=== PATIENT | female | born 1935 | race Caucasian/White ===

== ENCOUNTER 2019-09-07 17:43 | Emergency (ER) | payer MEDICARE, OTHER, SELFPAY ==
--- NOTE | ~2019-09-07 | XR_ITS ---
EXAMINATION: XR finger 3rd RT min 2V DATE: 09/07/2019 18:46 INDICATION: Right hand third digit injury. TECHNIQUE: 4 views of right hand third digit were obtained. COMPARISON: None. FINDINGS: There is a comminuted fracture of dorsal base of third middle phalanx. A fracture fragment at the dorsal base demonstrates 4 mm dorsal displacement and rotation. There is a transverse extra-ar ticular fracture of base of fourth metacarpal with impaction and bone formation. There is mild osteoa rthritis of third metacarpophalangeal joint and distal interphalangeal joint. IMPRESSION: 1. Comminuted fracture base of third middle phalanx. 2. Healing fracture deformity of base of fourth metacarpal. Reviewed, dictated and finalized at location A.
[2019-09-07 18:03] VITALS: BP 153/72; PULSE 65; RESP 16; TEMP 36.6; O2SAT 97
--- NOTE | 2019-09-07 18:43 | PC.NURSE ---
XRAY in room for pt films
--- NOTE | 2019-09-07 18:51 | ED.GENADULT ---
HPI - General Adult General Chief complaint: Fall Stated complaint: fall Time Seen by Provider: 09/07/19 18:08 Source: patient Mode of arrival: ambulatory Limitations: no limitations History of Present Illness HPI narrative: Patient is an 83-year-old female who presents to emergency department for evaluation of injuries related to a fall that occurred earlier today patient was walking with her grandchildren when she sustained a fall patient presents noting injury to the right middle digit notes abrasions to the bilateral knees but notes no pain denies head injury syncope loss of consciousness patient has not taken anything for her symptoms presents with family noting just right middle digit pain patient has not had anything for her symptoms patient notes that she had felt fine prior to the incident. Patient is not sure as to why she fell Related Data Allergies Allergy/AdvReac Type Severity Reaction Status Date / Time Penicillins Allergy Unknown Verified 09/07/19 18:47 Review of Systems Review of Systems: All systems reviewed & are unremarkable except as noted in HPI and below Exam Narrative: Exam Narrative: GENERAL: Well-appearing, well-nourished, and in no acute distress. HEAD: Normocephalic, atraumatic. EYES: PERRLA and EOMI. ENT: Nares clear, no rhinorrhea or epistaxis. Mucous membranes moist. CHEST: Clear to auscultation. No respiratory distress. No wheezes rales or rhonchi HEART: Regular rate and rhythm. No murmur heard. Normal peripheral pulses. EXTREMITIES: Swelling tenderness and deformity of the right middle finger. No cervical thoracic or lumbar tenderness SKIN: Warm, dry, no rash. Superficial abrasions to the bilateral knees NEURO: No focal deficits. Alert and oriented x3. Cranial nerves II through XII grossly intact. Normal speech and gait PSYCH: Normal mood and affect. Course Course Emergency Course: Patient in the room in no distress aware of case findings treatment plan and diagnosis agreeing to follow with primary care patient resting comfortably in the room in no distress. Patient will be discharged home with hand surgery follow-up. Consultations Consultation #1: Discussed case with hand surgeon who will follow patient in clinic Date: 09/07/19 Time: 19:31 Vital Signs Vital signs: Vital Signs Temperature 97.8 F 09/07/19 18:03 Pulse Rate 65 09/07/19 18:03 Respiratory Rate 16 09/07/19 18:03 Blood Pressure 153/72 H 09/07/19 18:03 Pulse Oximetry 97 09/07/19 18:03 Temperature 97.8 F 09/07/19 18:03 Pulse Rate 65 09/07/19 18:03 Respiratory Rate 16 09/07/19 18:03 Blood Pressure 153/72 H 09/07/19 18:03 Pulse Oximetry 97 09/07/19 18:03 Medical Decision Making MDM Narrative Medical decision making narrative: Patients injury or pain is consistent with musculoskeletal etiology. No signs of neurological or vascular compromise on exam. Compartments and tisues are soft without signs of compartment syndrome. Pain is felt appropriate for further evaluation on an outpatient basis. Vital Signs Vital Signs: Vital Signs Temperature 97.8 F 09/07/19 18:03 Pulse Rate 65 09/07/19 18:03 Respiratory Rate 16 09/07/19 18:03 Blood Pressure 153/72 H 09/07/19 18:03 Pulse Oximetry 97 09/07/19 18:03 Temperature 97.8 F 09/07/19 18:03 Pulse Rate 65 09/07/19 18:03 Respiratory Rate 16 09/07/19 18:03 Blood Pressure 153/72 H 09/07/19 18:03 Pulse Oximetry 97 09/07/19 18:03 Lab Data Result diagrams: 09/07/19 18:51 09/07/19 20:14 Labs: Lab Results 09/07/19 09/07/19 09/07/19 Range/Units 18:51 20:14 20:52 WBC 5.9 (4.5-10.0) K/mm3 RBC 3.85 L (4.2-5.4) M/mm3 Hgb 12.1 (12.0-15.0) g/dL Hct 35.8 L (37.0-47.0) % MCV 93.0 (80-100) fl MCH 31.4 (26-34) pg MCHC 33.8 (32-36) g/dl RDW 12.8 (11.5-14.5) % Plt Count 130 L (150-375) k/mm3 MPV 11.5 H (7.4-10.4) fl Immature Gran % (Auto) 0.
--- NOTE | 2019-09-07 18:56 | PC.NURSE ---
Pt assisted to RR for urine sample.
--- NOTE | 2019-09-07 19:00 | PC.NURSE ---
Per tech that assisted pt to RR, she missed the hat completely). Per pt she is willing to have a straight cath.
[2019-09-07 19:06] LABS: Basophils Percent Auto 0.7 % (0.2-1.2); Eosinophils Absolute Auto 0.1 K/mm3 (0-0.3); Eosinophils Percent Auto 1.9 % (0-4.4); Hematocrit 35.8 % (37.0-47.0); Hemoglobin 12.1 g/dL (12.0-15.0); Immature Granulocyte Absolute 0.01 K/mm3 (0.00-0.031); Immature Granulocyte Percent A 0.2 % (0-0.5); Immature Platelet Fraction Pct 7.6 % (0.9-11.2); Lymphocytes Absolute Auto 1.07 K/mm3 (0.9-3.2); Lymphocytes Percent Auto 18.2 % (18.3-44.2); Mean Corpuscular HGB Conc 33.8 g/dl (32-36); Mean Corpuscular Hemoglobin 31.4 pg (26-34); Mean Platelet Volume 11.5 fl (7.4-10.4); Monocytes Absolute Auto 0.6 K/mm3 (0.1-0.6); Monocytes Percent Auto 9.4 % (2.6-8.5); Neutrophils Absolute Auto 4.1 K/mm3 (1.3-6.7); Neutrophils Percent Auto 69.6 % (45.5-73.1); Platelet Count Result 130 k/mm3 (150-375); Red Blood Count 3.85 M/mm3 (4.2-5.4); Red Cell Distribution Width 12.8 % (11.5-14.5); White Blood Count 5.9 K/mm3 (4.5-10.0)
[2019-09-07] MEDS: ACETAMINOPHEN 500 MG TABLET 1000 MG PO (19:57)
[2019-09-07 20:30] LABS: Alanine Aminotransferase 46 U/L (4-35); Albumin Level 4.6 g/dL (3.5-5.1); Alkaline Phosphatase 80 U/L (38-126); Aspartate Amino Transferase 60 U/L (14-36); Bilirubin,Total 0.9 mg/dL (0.2-1.3); Blood Urea Nitrogen 20 mg/dL (7-17); Calcium 9.3 mg/dL (8.4-10.2); Carbon Dioxide 28 mmol/L (22-30); Chloride 97 mmol/L (98-107); Estimated CRCL calculation 35 ml/min; Estimated Glomerular Filt Rate 53; Glucose 122 mg/dL (65-105); Potassium 3.6 mmol/L (3.4-5.0); Sodium 134 mmol/L (137-145)
--- NOTE | 2019-09-07 20:39 | PC.NURSE ---
pt ambulatory to restroom to give urine sample at this time.
[2019-09-07 21:09] LABS: Add Urine Microscopic? YES; Appearance Urine Clear (Clear); Bacteria Urine Trace /hpf; Bilirubin Urine 1+ (Negative); Blood Urine Negative (Negative); Color Urine Yellow (Yellow); Glucose Urine UA Negative (Negative); Ketones Urine Trace mg/dL (Negative); Leukocyte Esterase Ur 1+ LEU/UL (Negative); Mucus Urine Rare /lpf; Nitrate Urine Negative (Negative); Protein Urine Negative (Negative); RBC Urine 0-2 /hpf (0-2); Specific Grav Ur 1.028 (1.001-1.035); Squamous Epithelial Cell Urine Occasional /hpf (Few)
[2019-09-07 21:18] VITALS: BP 141/88; PULSE 81; RESP 19; TEMP 36.8; O2SAT 100
[2019-09-07 21:21] VITALS: BP 140/79; PULSE 81; RESP 19; TEMP 36.3; O2SAT 100
--- NOTE | 2019-09-13 05:41 | PC.NURSE ---
LATE ENTRY This note is being entered to document information to the patient's record. The following information was omitted on [09/07/19], metal finger splint applied per edp orders.
--- NOTE | 2019-11-01 05:57 | PC.NURSE ---
LATE ENTRY This note is being entered to document information to the patient's record. The following information was omitted on [09/07/19], metal finger splint applied to r middle finger.
== END 2019-09-07 21:22 | disposition home or self-care (01) ==
PROVIDERS: Emergency Medicine Emergency Medical Services; Emergency Provider Family Medicine
DX: S62.622A Displaced fracture of middle phalanx of right middle finger, initial encounter for closed fracture (principal); W19.XXXA Unspecified fall, initial encounter
CPT/HCPCS: 29130; 36415; 73140; 80053; 81001; 85025; 85055; 99284; A9270

== ENCOUNTER 2019-09-12 01:25 | Outpatient (CLI) | payer MEDICARE, OTHER, SELFPAY ==
[2019-09-12 19:25] LABS: SARS-CoV-2 RNA PCR Negative
== END 2019-09-12 01:26 | disposition home or self-care (01) ==
LOC: ANHCOVIDDT 01:25
PROVIDERS: Visit Provider Plastic Surgery
DX: Z01.812 Encounter for preprocedural laboratory examination (principal); Z11.59 Encounter for screening for other viral diseases
CPT/HCPCS: 87635; C9803; U0003

== ENCOUNTER 2019-09-12 09:59 | Outpatient (CLI) | payer MEDICARE, OTHER, SELFPAY ==
--- NOTE | 2019-09-12 10:01 | ECG_ITS ---
Measurements Intervals [place] Rate: 54 P: 66 MD: 202 QRS: 25 QRSD: 75 T: 45 QT: 410 QTc: 389 Interpretive Statements SINUS BRADYCARDIA BORDERLINE AV CONDUCTION DELAY DELAYED PRECORDIAL R/S TRANSITION BORDERLINE ST-T WAVE ABNORMALITY- ANTEROLATERAL LEADS BASELINE ARTIFACT- I, II, III, AVR, AVL, AVF, V4 BORDERLINE ECG Electronically Signed On 09-12-2019 10:52:13 CDT by Anderson Luong D.O.
== END 2019-09-12 10:00 | disposition home or self-care (01) ==
PROVIDERS: PCP Internal Medicine; Visit Provider Plastic Surgery
DX: E78.00 Pure hypercholesterolemia, unspecified (principal); I10 Essential (primary) hypertension; I45.9 Conduction disorder, unspecified
CPT/HCPCS: 93005

== ENCOUNTER 2019-09-14 01:57 | Day surgery (SDC) | payer MEDICARE, OTHER, SELFPAY ==
[2019-09-11 13:06] VITALS: BMI 21.8
--- NOTE | 2019-09-13 19:48 | HP_ITS ---
DATE OF SERVICE: 09/14/2019 HISTORY: The patient is 83. She is referred from the [facility] where she presented on 09/07/2019 with an injury to her right middle finger. This was sustained when she was out walking and simply fell onto the sidewalk. She injured her right middle finger. X-rays reveal a significantly sized fracture of the dorsal base of the middle phalanx and possible other smaller fragments. The finger does not appear to be subluxed and seems to function in extension. Nevertheless, the fragment is large enough that it should be repaired. She is aware of the need for this and that she will have an incision scar, possible infection, the finger may end up stiff despite our repair of it, and there are anesthetic risks and others. She would like to proceed. PAST MEDICAL HISTORY: ALLERGIES: SHE HAS AN ALLERGY TO PENICILLIN. MEDICATIONS: She currently takes hydrochlorothiazide, atorvastatin, levothyroxine, metoprolol, sertraline, potassium chloride, alendronate, and sodium tablets. She does not list prior surgeries and she does not list chronic ailments, though she says she has a thyroid problem and hypertension. FAMILY HISTORY: Noncontributory. SOCIAL HISTORY: She lives in [place]. She is retired. She is a patient of [facility]. PHYSICAL EXAMINATION: GENERAL: We do not have a height and weight. She appears her stated age. She is in no acute distress. HEENT: Unremarkable. CHEST: Clear to auscultation. HEART: Regular rate and rhythm by palpation. ABDOMEN: Soft and nontender. EXTREMITIES: Appear normal. The right middle finger is somewhat swollen and has been bruised. She is reluctant to flex and extend it, but demonstrates intact tendons and nerves. ASSESSMENT: Fracture of the base of the middle phalanx, right middle finger. PLAN: Open reduction and internal fixation, hopefully with a screw. D I MT: Jose
--- NOTE | ~2019-09-14 | XR_ITS ---
XR surgery orthopedic DATE: 09/14/2019 10:18 INDICATION: ORIF middle finger fracture TECHNIQUE: 6 spot C-arm images of the third digit 28 seconds fluoroscopy time 2.3634 cGycm2 COMPARISON: None FINDINGS: Initial preoperative views reveal a completely dorsally displaced intra-articular cortical avulsion fracture of the posterior base of the middle phalanx. 2. Posteroanteriorly directed screws providing near-anatomic position and alignment at the fracture s ite. IMPRESSION: ORIF dorsal cortical avulsion fracture of the base of the middle phalanx Reviewed, dictated and finalized at Location A. Reviewed, dictated and finalized at location B. IMPRESSION: ORIF dorsal cortical avulsion fracture of the base of the middle ph alanx
[2019-09-14] MEDS: LACTATED RINGERS 1,000 ML 30 ML IV CONT (08:05)
[2019-09-14 08:10] VITALS: BP 152/63; PULSE 60; TEMP 36.1; O2SAT 100
--- NOTE | 2019-09-14 08:26 | P.PNAN_ITS ---
Anes - Initial Pre Proc Eval Procedure: Operation Date: 09/14/19 09:30 Proposed Procedures p Open Reduction Internal Fixation, Right Middle Finger, Middle Phalanx - Rios Resendez MD Date/Time: 09/14/19 08:26 Surgeon: Rios Resendez MD Pre Op Diagnosis: Fracture of Right Middle Finger Middle Phalanx Patient Data Age: 83 Gender: F Height: 5 ft 6 in Weight: 68.4 kg Last Vital Signs Temp 97.0 F L 09/14/19 08:10 Pulse 60 09/14/19 08:10 BP 152/63 H 09/14/19 08:10 Pulse Ox 100 09/14/19 08:10 Allergies Allergy/AdvReac Type Severity Reaction Status Date / Time Penicillins Allergy Unknown Verified 09/11/19 12:52 Home Medications Medication Instructions Recorded Confirmed Type acetaminophen [Tylenol Arthritis 650 mg PO Q8H PRN #10 tablet 09/07/19 09/11/19 Rx Pain] alendronate 70 mg PO WEEKLY 09/11/19 09/11/19 History atorvastatin 10 mg PO DAILY 09/11/19 09/11/19 History hydrochlorothiazide 25 mg PO DAILY 09/11/19 09/11/19 History levothyroxine 25 mcg PO DAILY 09/11/19 09/11/19 History metoprolol succinate 50 mg PO DAILY 09/11/19 09/11/19 History omega 3-hdn-gae-fish oil [Fish Oil] 1 cap PO DAILY 09/11/19 09/11/19 History potassium chloride 10 meq PO DAILY 09/11/19 09/11/19 History sertraline 50 mg PO DAILY 09/11/19 09/11/19 History Patient hx anesthesia problems: none Family hx anesthesia problems: none [facility] Past Medical History Medical History (Updated 09/14/19 @ 08:26 by Luis Alfredo Deluna MD) Hyperlipidemia Hypertension Hypothyroid Social History Social History Smoking status: Never smoker Alcohol intake: never Substance use: never Spiritual care concerns: No Anes - Eval Final PreProcedure Day of Procedure 09/14/19 08:26 Patient weight: normal Heart: regular rate and rhythm Lungs: clear to auscultation Airway: Mallampati scale class II Neurological: alert and oriented Last oral intake: >/= 8 hours ASA classification: II Emergent: no Anesthetic plan: proceed Anesthesia type and monitoring: general GIVS and standard monitoring Informed Consent: The patient's anesthetic plan and its attendant risks and benefits were discussed with the patient/family/POA. Questions were solicited and answers provided to the satisfaction of the patient/family/POA.
--- NOTE | 2019-09-14 08:44 | WPDHPUPDATE1 ---
History and Physical Update Update Date/Time: 09/14/19 08:44 History and Physical has been reviewed, including an updated exam of the patient. There are NO changes in the patient's condition. Risks, benefits, and alternatives have been discussed and questions answered. Patient agrees to proceed with procedure.
[2019-09-14] MEDS: ceFAZolin 2 GM/D5W 50 ML 2 GM/50 ML BAG IVPB (09:01)
[2019-09-14] MEDS: LIDO 1%/EPINEPHRINE 1:100,000 20 ML VIAL INFILTRATE (09:34)
[2019-09-14 10:26] VITALS: BP 109/60; PULSE 52; RESP 16; TEMP 36.3; O2SAT 98
--- NOTE | 2019-09-14 10:26 | PM.OP ---
Procedure Note - Brief Procedure Note - Brief Date of procedure: 09/14/19 Pre-op diagnosis: Fracture of Right Middle Finger Middle Phalanx Post-op diagnosis: other (Comminuted displaced fracture of the middle phalanx of the right middle finger.) Procedure performed: ORIF of comminuted fracture of the middle phalanx of the right middle finger. Implants: screws x 2 1.3mm x 10 mm from Modular Hand Set Surgeon: Rios Resendez MD
[2019-09-14 10:45] VITALS: BP 138/72; PULSE 63; RESP 12
[2019-09-14 11:15] VITALS: BP 148/70; PULSE 62; RESP 20
[2019-09-14 11:35] VITALS: BP 145/72; PULSE 68; RESP 16
--- NOTE | 2019-09-14 11:47 | PM.PROC ---
Procedure Note - Detailed Date of procedure: 09/14/19 Pre-op diagnosis: Fracture of Right Middle Finger Middle Phalanx Post-op diagnosis: same Procedure performed: Open reduction with internal screw fixation of the comminuted fracture at the base of the middle phalanx. right middle finger Description of procedure: The proximal interphalangeal joint of the right middle finger was marked as the patient waited in the holding area. She was then taken to the operating room and placed supine on the operating table. The extremity was prepped and draped in usual fashion as she was given IV sedation. She had been given 2 g of IV Ancef prior to the case. The digit was anesthetized with 1% lidocaine with epinephrine. A green tourniquet up was rolled onto the finger to the base. The digit was marked for a dorsal midline incision. C-arm images were made to confirm the displaced fracture. the dorsal midline incision was made and skin flaps elevated to both sides away from the extensor tendon. The large dorsal base fragment was immediately identified having ruptured it self through the triangular ligament. The entire fracture surface was exposed dorsally. With distraction on the finger I was able to reduce the large dorsal base fragment into near anatomic position. The central slip remained inserted on that fragment. Two 1.3 by 10 mm cortical screws were passed through the large fragment diagonally into the shaft of the middle phalanx. These held the fracture in reduced position but the fixation was not entirely stable. I believe there is additional fracture of the volar base of the same bone but there is little or no displacement of fragments there. The patient is also somewhat osteoporotic. The lateral margins of the central slip were repaired to their insertion. The triangular ligament was repaired with a single 5 0 nylon suture in the lateral bands. . The wound was irrigated and the skin closed with a running 5 0 nylon. A gauze and Coban dressing was applied followed by a segment of alumifoam splint extending from the metacarpophalangeal joint to the distal interphalangeal joint. I intended this to allow mobilization of the proximal and distal joints and satisfactorily stabilized the middle joint for 3-4 weeks. She was discharged with instructions in wound care and follow-up she has a prescription for hydrocodone number 12 Surgeon: Rios Resendez MD
== END 2019-09-14 11:40 | disposition home or self-care (01) ==
PROVIDERS: PCP Internal Medicine; Visit Provider Plastic Surgery
PROC: (CPT 26735; principal; 2019-09-14 09:30)
DX: S62.622A Displaced fracture of middle phalanx of right middle finger, initial encounter for closed fracture (principal); W18.30XA Fall on same level, unspecified, initial encounter; Y93.01 Activity, walking, marching and hiking; I10 Essential (primary) hypertension; E78.5 Hyperlipidemia, unspecified; E03.9 Hypothyroidism, unspecified
CPT/HCPCS: 26735; 87635; 93005; A9270; C1713; C9803; J0690; J2704; J3010; J7120; U0003

== ENCOUNTER 2019-11-10 13:40 | Outpatient (CLI) | payer MEDICARE, OTHER, SELFPAY ==
--- NOTE | ~2019-11-10 | XR_ITS ---
EXAMINATION: XR finger 3rd RT min 2V DATE: 11/10/2019 14:09 INDICATION: Right hand third digit fracture. TECHNIQUE: 4 views of right hand third digit were obtained. COMPARISON: Right hand third digit radiographs 09/07/2019, 12/15/2019 FINDINGS: There is a comminuted fracture of base of third middle phalanx. The main distal fracture fr agment demonstrates 10 degrees palmar angulation. Internal fixation is seen with 2 screws. Callus for mation is noted. 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 There is soft tis nigel swelling around third proximal interphalangeal joint. IMPRESSION: 1. Comminuted intra-articular fracture of base of third middle phalanx with internal fixation. Reviewed, dictated and finalized at location A. IMPRESSION: 1. Comminuted intra-articular fracture of base of third middle phalanx with int ernal fixation.
== END 2019-11-10 13:41 | disposition home or self-care (01) ==
LOC: ANHIMG 13:47
PROVIDERS: PCP Internal Medicine; Visit Provider Plastic Surgery
DX: S62.622A Displaced fracture of middle phalanx of right middle finger, initial encounter for closed fracture (principal)
CPT/HCPCS: 73140

== ENCOUNTER 2021-07-13 14:37 | Observation (INO) | payer MEDICARE, OTHER, SELFPAY ==
[2021-07-13] VITALS (10 sets, daily range): BP systolic 133–178; BP diastolic 61–117; PULSE 57–75; RESP 14–25; TEMP 36.2–36.8; O2SAT 98–100; BMI 22.2
--- NOTE | ~2021-07-13 | CT_ITS ---
EXAMINATION: CT brain wo con DATE: 07/13/2021 16:26 INDICATION: dizziness, confusion . TECHNIQUE: Computed tomography (CT) of the head was performed without intravenous contrast. The mA wa s adjusted according to patient size. Iterative reconstruction technique was employed. The dose-lengt h product was 529.67 mGy-cm. COMPARISON: None FINDINGS: No acute intracranial hemorrhage or extra-axial fluid collection. No hydrocephalus, mass, or herniation. No acute ischemic infarct. Unremarkable dural venous sinus attenuation. No acute osseous abnormality. The aerated spaces are clear. Severe atrophy and moderate chronic white matter change. Atherosclerotic intracranial calcifications. Bilateral lens replacements. IMPRESSION: No acute intracranial process. Reviewed, dictated and finalized at location K.
--- NOTE | 2021-07-13 14:42 | ECG_ITS ---
Measurements Intervals [place] Rate: 61 P: 68 WV: 200 QRS: 18 QRSD: 70 T: 31 QT: 384 QTc: 387 Interpretive Statements SINUS RHYTHM BORDERLINE AV CONDUCTION DELAY CANNOT RULE OUT SEPTAL INFARCT, AGE INDETERMINATE BASELINE ARTIFACT- I, II, AVR ABNORMAL ECG Electronically Signed On 07-13-2021 16:19:24 CDT by Anderson Luong D.O.
--- NOTE | 2021-07-13 15:25 | ED.GENADULT ---
HPI - General Adult General Chief complaint: Dizziness Stated complaint: elevated BP/DIZZY/AMS Time Seen by Provider: 07/13/21 14:56 Source: patient, family and RN notes reviewed Mode of arrival: wheelchair Limitations: dementia History of Present Illness HPI narrative: This is an 85 year old female with history of dementia and hypertension who presents with family due to elevated blood pressure. Patient's daughter is at bedside. She states today patient's blood pressure has been runny systolic 160s to 190s. They report patient has been complaining of dizziness, and she has been having dizziness for months. She takes vailum for dizziness. Patient denies dizziness now. She reports some intermittent dizziness with standing sometimes. Patient states nothing is bothering her and she does not know why she is here. Her family also reports disorientation today but she has been dealing with disorientation intermittently for months. She has a neurologist for dementia. She forgot how to get home 2 weeks ago . Patient denies headache, chest pain, nausea, vomiting, dizziness, abodminal pain, weakness. Her hydrochlorothiazide was discontinued last month. Related Data Home Medications Medication Instructions Recorded Confirmed alendronate 70 mg PO WEEKLY 09/11/19 07/13/21 atorvastatin 20 mg PO HS 09/11/19 07/13/21 levothyroxine 25 mcg PO DAILY 09/11/19 07/13/21 metoprolol succinate 25 mg PO DAILY 09/11/19 07/13/21 omega 2-cvr-qes-fish oil [Fish Oil] 1 cap PO DAILY 09/11/19 07/13/21 potassium chloride 10 meq PO DAILY 09/11/19 07/13/21 diazepam 5 mg PO DAILY 07/13/21 07/13/21 donepezil 5 mg PO DAILY 07/13/21 07/13/21 memantine 10 mg PO BID 07/13/21 07/13/21 Allergies Allergy/AdvReac Type Severity Reaction Status Date / Time Penicillins Allergy Unknown Verified 07/13/21 19:01 Review of Systems Review of Systems: All systems reviewed & are unremarkable except as noted in HPI and below PMFSH Past Medical History Medical History (Updated 07/13/21 @ 22:01 by Ayah Boudreaux MD) Dementia Hyperlipidemia Hypertension Hypothyroid Social History Social History Smoking status: Never smoker Alcohol intake: never Substance use: never Substance use type: does not use Spiritual care concerns: No Exam Narrative: GENERAL: Well-appearing, well-nourished, and in no acute distress. HEAD: Normocephalic, atraumatic EYES: PERRLA and EOMI, conjunctiva clear without discharge EARS: TM's clear bilaterally without erythema or dullness THROAT:Mucous membranes moist, Oropharynx normal without erythema, exudate, peritonsillar swelling or fluctuance NECK: Supple, without lymphadenopathy or mass RESPIRATORY: No respiratory distress, Airway patent, Respirations non-labored, Clear to auscultation without rales, rhonchi or wheeze HEART: Regular rate and rhythm. No murmur heard. Normal peripheral pulses. ABDOMEN: Soft, nontender, nondistended, normal active bowel sounds. No masses. No rebound or guarding, No organomegaly. EXTREMITIES: No edema, normal strength with full range of motion. SKIN: Warm, dry, normal color without rash NEURO: Alert and oriented x3. CN 2-12 grossly intact. No focal deficits. PSYCH: Normal mood and affect. Course Reevaluation(s) Reevaluation #1: Patient is now complaining of dizziness but it is difficult for her to explain. Patient was given hydralazine for her BP. Family prefer for patient to be obs . They reports patient has been complaining about being foggy for months and she is not getting better. No focal deficits found. She had normal finger to nose. Date: 07/13/21 Time: 18:00 Vital Signs Vital signs: Vital Signs Temperature 97.1 F L 07/13/21 14:43 Pulse Rate 64 07/13/21 14:43 Respiratory Rate 14 07/13/21 14:43 Blood Pressure 176/117 H 07/13/21 14:43 Pulse Oximetry 100 07/13/21 14:43 Temperature 98.3 F
[2021-07-13 15:54] LABS: Basophils Absolute Auto 0.1 K/mm3 (0.0-0.1); Basophils Percent Auto 0.7 % (0.2-1.2); Eosinophils Percent Auto 0.6 % (0-4.4); Hematocrit 47.1 % (37.0-47.0); Hemoglobin 15.2 g/dL (12.0-15.0); Immature Granulocyte Absolute 0.02 K/mm3 (0.00-0.031); Immature Granulocyte Percent A 0.3 % (0-0.5); Lymphocytes Absolute Auto 1.33 K/mm3 (0.9-3.2); Lymphocytes Percent Auto 19.1 % (18.3-44.2); Mean Corpuscular HGB Conc 32.3 g/dl (32-36); Mean Corpuscular Hemoglobin 31.5 pg (26-34); Mean Corpuscular Volume 97.7 fl (80-100); Mean Platelet Volume 10.3 fl (7.4-10.4); Monocytes Absolute Auto 0.6 K/mm3 (0.1-0.6); Monocytes Percent Auto 8.9 % (2.6-8.5); Neutrophils Absolute Auto 4.9 K/mm3 (1.3-6.7); Neutrophils Percent Auto 70.4 % (45.5-73.1); Platelet Count Result 189 k/mm3 (150-375); Red Blood Count 4.82 M/mm3 (4.2-5.4); Red Cell Distribution Width 12.9 % (11.5-14.5)
[2021-07-13 15:55] LABS: Appearance Urine Clear (Clear); Bilirubin Urine Negative (Negative); Blood Urine Negative (Negative); Color Urine Yellow (Yellow); Glucose Urine UA Negative (Negative); Ketones Urine Negative (Negative); Leukocyte Esterase Ur Trace LEU/UL (Negative); Nitrate Urine Negative (Negative); Protein Urine Negative (Negative); Specific Grav Ur 1.015 (1.001-1.035); Urobilinogen Urine 0.2 mg/dL (<2.0)
[2021-07-13 16:02] LABS: Bacteria Urine Trace /hpf; Mucus Urine Rare /lpf; RBC Urine 0-2 /hpf (0-2); Squamous Epithelial Cell Urine Occasional /hpf (Few); WBC Urine 0-3 /hpf
[2021-07-13 16:10] LABS: Add Urine Microscopic? YES
[2021-07-13 16:49] LABS: Alanine Aminotransferase 20 U/L (6-35); Albumin Level 4.5 g/dL (3.5-5.1); Alkaline Phosphatase 81 U/L (38-126); Anion Gap 5 mmol/L (8-16); Aspartate Amino Transferase 35 U/L (14-36); Bilirubin,Total 1.8 mg/dL (0.2-1.3); Blood Urea Nitrogen 16 mg/dL (7-17); Calcium 9.5 mg/dL (8.4-10.2); Carbon Dioxide 31 mmol/L (22-30); Chloride 100 mmol/L (98-107); Estimated CRCL calculation 31 ml/min; Estimated Glomerular Filt Rate 47; Glucose 93 mg/dL (65-110); Potassium 4.8 mmol/L (3.4-5.0); Sodium 136 mmol/L (137-145)
[2021-07-13] MEDS: hydrALAZINE HCL 20 MG/ML VIAL 10 MG IV PUSH (17:02)
--- NOTE | 2021-07-13 17:49 | PC.NURSE ---
Assumed care of pt at this time. Pt A&Ox2, disoriented to time. Updated pt and family on POC.
[2021-07-13 18:38] LABS: SARS-CoV-2 RNA PCR Negative
--- NOTE | 2021-07-13 18:49 | ADMGEN ---
This patient, Carly Martino, was admitted to Medical Room 346-01. Patient/family oriented to hospital policies and general routines including ID bracelet, bed and alarms, visiting hours, pain management, procedures, bathroom and other care routines, personal items, smoking policy, room service/diet, and visiting hours. Information on how to activate the Rapid Response Team has been discussed. Patient/Family are encouraged to report perceived risks to care and to ask questions if they do not understand what they are told or what they should do.
--- NOTE | 2021-07-13 20:24 | PM.IMHP ---
H&P: HPI History of Present Illness Date/Time: 07/13/21 20:24 Chief Complaint: Dizziness. Narrative: This is an 85-year-old female with past medical history significant for hypertension, osteoporosis, dementia, hypothyroidism. Patient is brought to the emergency room by family members due to dizziness, elevated blood pressure at the time of my visit patient denied any discomfort is stated that she has just had some dizziness but denied any syncope, near syncope, shortness of breath, diaphoresis, abdominal pain, nausea, vomiting, diarrhea, PND, orthopnea, leg swelling, or and consists welling, no fevers, no rigors, no chills, no cough, no sputum production. She has had a good appetite and she has been eating all her meals according to which she says. Patient also denied falling. Preliminary workup was significant for a systolic blood pressure daughter was elated in between 130s to 170s. Preliminary workup has been essentially nonrevealing. Patient has been admitted for further evaluation, management and treatment. Review of Systems Review of Systems: Dizziness Constitutional: Constitutional: Denies chills, Denies fatigue, Denies fever(s), Denies frequent falls, Denies malaise, Denies night sweats, Denies poor appetite and Denies weakness Eyes: Eyes: Denies change in vision ENT: Denies dysphagia, Reports dizziness, Denies nasal congestion, Denies nasal discharge, Denies nasal obstruction and Denies odynophagia Cardiovascular: Cardiovascular: Denies pedal edema, Denies claudication, Denies leg edema, Denies radiating jaw, neck or arm pain, Denies palpitations and Denies dyspnea on exertion Respiratory: Respiratory: Denies cough and Denies dyspnea Gastrointestinal: Gastrointestinal: Denies abdominal pain, Denies nausea and Denies vomiting Genitourinary: Genitourinary: Denies dysuria Musculoskeletal: Musculoskeletal: Denies arthralgias and Denies joint swelling Integumentary/Breasts: Skin/Breast: Denies rash Neurologic: Denies focal weakness and Denies Sensory deficit (Neuro) Psychiatric: Psychiatric: Reports no additional psychiatric complaints and Reports as per HPI Endocrine: Endocrine: Denies cold intolerance, Denies heat intolerance, Denies polyphagia, Denies polydipsia and Denies palpitations Hematologic/Lymphatic: Hematologic/Lymphatic: Reports no additional hematologic/lymphatic complaints and Reports as per HPI Allergic/Immunologic: Allergic/Immunologic: Reports no additional allergic/immunologic complaints and Reports as per [facility] Past Medical History Medical History (Updated 07/14/21 @ 03:22 by Cecil Wade MD) Dementia Hyperlipidemia Hypertension Hypothyroid Social History Social History Smoking status: Never smoker Alcohol intake: never Substance use: never Substance use type: does not use Spiritual care concerns: No Meds Home Medications and Allergies Home Medications Medication Instructions Recorded Confirmed Type acetaminophen [Tylenol Arthritis 650 mg PO Q8H PRN #10 tablet 09/07/19 07/13/21 Rx Pain] alendronate 70 mg PO WEEKLY 09/11/19 07/13/21 History atorvastatin 20 mg PO HS 09/11/19 07/13/21 History levothyroxine 25 mcg PO DAILY 09/11/19 07/13/21 History metoprolol succinate 25 mg PO DAILY 09/11/19 07/13/21 History omega 3-vig-wsc-fish oil [Fish Oil] 1 cap PO DAILY 09/11/19 07/13/21 History potassium chloride 10 meq PO DAILY 09/11/19 07/13/21 History diazepam 5 mg PO DAILY 07/13/21 07/13/21 History donepezil 5 mg PO DAILY 07/13/21 07/13/21 History memantine 10 mg PO BID 07/13/21 07/13/21 History Allergies Allergy/AdvReac Type Severity Reaction Status Date / Time Penicillins Allergy Unknown Verified 07/13/21 19:01 Vital Signs Vital Signs - 24 hr 07/13/21 14:43 07/13/21 15:25 07/13/21 15:26 Temperature 97.1 F L Pulse Rate 64 67 63 Respiratory Rate 14 25 H 16 Blood Pressure 176/117 H 162/75 H 1
[2021-07-13] MEDS: SODIUM CHLORIDE 0.9% IV 1,000 ML 125 ML IV CONT (21:55)
[2021-07-14] VITALS (11 sets, daily range): BP systolic 127–181; BP diastolic 64–74; PULSE 61–71; RESP 18–20; TEMP 36.3–36.5; O2SAT 99
[2021-07-14] MEDS: SODIUM CHLORIDE 0.9% IV 1,000 ML 125 ML IV CONT (04:05)
[2021-07-14] MEDS: LEVOTHYROXINE SODIUM 25 MCG TABLET PO (05:44)
[2021-07-14 06:38] LABS: Basophils Absolute Auto 0.1 K/mm3 (0.0-0.1); Basophils Percent Auto 1.1 % (0.2-1.2); Eosinophils Absolute Auto 0.1 K/mm3 (0-0.3); Eosinophils Percent Auto 1.8 % (0-4.4); Hematocrit 40.3 % (37.0-47.0); Hemoglobin 13.1 g/dL (12.0-15.0); Immature Granulocyte Absolute 0.01 K/mm3 (0.00-0.031); Immature Granulocyte Percent A 0.2 % (0-0.5); Lymphocytes Absolute Auto 1.15 K/mm3 (0.9-3.2); Lymphocytes Percent Auto 25.8 % (18.3-44.2); Mean Corpuscular HGB Conc 32.5 g/dl (32-36); Mean Corpuscular Hemoglobin 31.7 pg (26-34); Mean Corpuscular Volume 97.6 fl (80-100); Mean Platelet Volume 10.2 fl (7.4-10.4); Monocytes Absolute Auto 0.4 K/mm3 (0.1-0.6); Neutrophils Absolute Auto 2.8 K/mm3 (1.3-6.7); Neutrophils Percent Auto 62.1 % (45.5-73.1); Platelet Count Result 154 k/mm3 (150-375); Red Blood Count 4.13 M/mm3 (4.2-5.4); Red Cell Distribution Width 12.9 % (11.5-14.5); White Blood Count 4.5 K/mm3 (4.5-10.0)
[2021-07-14 06:50] LABS: Alanine Aminotransferase 18 U/L (6-35); Albumin Level 3.7 g/dL (3.5-5.1); Alkaline Phosphatase 67 U/L (38-126); Anion Gap 7 mmol/L (8-16); Aspartate Amino Transferase 33 U/L (14-36); Bilirubin,Total 1.7 mg/dL (0.2-1.3); Blood Urea Nitrogen 16 mg/dL (7-17); Calcium 8.7 mg/dL (8.4-10.2); Carbon Dioxide 28 mmol/L (22-30); Chloride 106 mmol/L (98-107); Estimated CRCL calculation 34 ml/min; Estimated Glomerular Filt Rate 53; Glucose 91 mg/dL (65-110); Potassium 4.3 mmol/L (3.4-5.0); Sodium 141 mmol/L (137-145)
[2021-07-14] MEDS: MEMANTINE 10 MG TABLET PO (09:21)
[2021-07-14] MEDS: DONEPEZIL HCL 5 MG TABLET PO (09:21)
[2021-07-14] MEDS: amLODIPine BESYLATE 2.5 MG TABLET 7.5 MG PO (09:21)
[2021-07-14] MEDS: OMEGA 3 POLYUNSAT FATTY ACIDS 1 GM CAP PO (09:21)
[2021-07-14] MEDS: POTASSIUM CHLORIDE 10 MEQ TABLET.ER PO (09:21)
[2021-07-14] MEDS: METOPROLOL SUCCINATE EXT REL 25 MG TABCR PO (09:22)
--- NOTE | 2021-07-14 09:24 | PM.DS ---
DS: Admitting Diagnosis Discharge Date 07/14/2021 Admitting Diagnosis Hypertensive urgency Dizziness DS: Discharge Diagnosis Discharge Diagnosis (1) Hypertensive urgency: Code(s): I16.0 - Hypertensive urgency Status: Acute Assessment and Plan: CT head with no acute intracranial abnormality Cultures normalization of blood pressure Supportive care Continue to monitor (2) Dizziness: Code(s): R42 - Dizziness and giddiness Status: Acute Assessment and Plan: Likely secondary to uncontrolled hypertension Supportive care PT OT consult (3) Dementia: Code(s): F03.90 - Unspecified dementia without behavioral disturbance Status: Inactive Assessment and Plan: Continue memantine Continue donepezil (4) Hyperlipidemia: Code(s): E78.5 - Hyperlipidemia, unspecified Status: Acute Assessment and Plan: Continue statin Follow-up in outpatient setting (5) Osteoporosis: Code(s): M81.0 - Age-related osteoporosis without current pathological fracture Status: Acute Assessment and Plan: Continue biphosphonate Follow-up in outpatient setting DS: Summary Hospital Course Reason for hospitalization: Hypertensive urgency Hospital Course: patient is an 85-year-old female with past medical history significant for hypertension, osteoporosis, dementia, hypothyroidism. Patient is brought to the emergency room by family members due to dizziness, elevated blood pressure at the time in the emergency department however the patient denied any discomfort is stated that she has just had some dizziness but denied any syncope, near syncope, shortness of breath, diaphoresis, abdominal pain, nausea, vomiting, diarrhea, PND, orthopnea, leg swelling, or and consists welling, no fevers, no rigors, no chills, no cough, no sputum production. She has had a good appetite and she has been eating all her meals according to which she says. Patient also denied falling. Preliminary workup was significant for a systolic blood pressure daughter was elevated in between 130s to 170s. Preliminary workup has been essentially nonrevealing. Patient has been admitted for further evaluation, management and treatment. During the patient's hospitalization she was started on 7.5 mg of Norvasc. Blood pressures systolic was 120 to 130s after medication administration. Orthostatics were obtained and negative. Patient was discussed about discharge and transitioning slowly from positions. Patient has no acute concerns at this time. She will discuss the new medication changes with her PCP in follow-up as outpatient. Status at Discharge Cognitive/behavioral status at discharge: Alert and oriented x4 Functional status at discharge: independent ambulation Overall status at discharge: patient is back to baseline Time Spent with Patient Time attestation: Total time spent providing and/or coordinating discharge services: Time spent: Less than 30 minutes Exam Narrative: Patient is laying in bed. Const: General: cooperative, comfortable, no acute distress, well developed, alert, awake and other (Well-appearing) Nutritional Appearance: thin Orientation/consciousness: oriented to person and oriented to place HENMT: Head: normal to inspection, normocephalic and atraumatic Ears: hearing grossly normal bilaterally General nose exam: Normal external nose present Face and sinus: normal facial exam Mouth: Yes Normal oral and palatal mucosa present Eyes: General: appearance normal, both eyes and all related structures Alignment and Position: alignment normal Sclera: sclerae normal Pupils: Equal, round and reactive pupils present EOM: EOMs intact bilaterally Neck: Neck: normal visual inspection, full ROM, no lymphadenopathy, supple and no JVD Thyroid: thyroid normal Lymphatic: no lymphadenopathy noted Resp: Effort & Inspection: normal respiratory effort and able to speak in complete sentences Auscultati
== END 2021-07-14 18:00 | disposition home or self-care (01) ==
LOC: ANHED 16:22 → ANH3MED 19:21
PROVIDERS: Emergency Medicine; Admitting Provider Internal Medicine; Emergency Provider General Practice; PCP Internal Medicine; Visit Provider Nurse Practitioner Family
DX: I16.0 Hypertensive urgency (principal); R42 Dizziness and giddiness; I10 Essential (primary) hypertension; E78.5 Hyperlipidemia, unspecified; E03.9 Hypothyroidism, unspecified; F03.90 Unspecified dementia, unspecified severity, without behavioral disturbance, psychotic disturbance, mood disturbance, and anxiety; M81.0 Age-related osteoporosis without current pathological fracture; Z20.822 Contact with and (suspected) exposure to COVID-19; Z88.0 Allergy status to penicillin
CPT/HCPCS: 36415; 70450; 80053; 81001; 85025; 93005; 96361; 96374; 97161; 97165; 99285; A9270; C9803; G0378; J0360; J7030; U0003; U0005

== ENCOUNTER 2021-07-28 09:36 | Emergency (ER) | payer MEDICARE, OTHER, SELFPAY ==
--- NOTE | ~2021-07-28 | XR_ITS ---
XR thoracic spine 3V DATE: 07/28/2021 12:32 INDICATION: Midline back pain TECHNIQUE: AP, lateral, swimmer views COMPARISON: None FINDINGS: There is severe degenerative disease at C5-6, with severe degenerative disease at C6-7. Diffuse osteopenia. There is moderate loss of height and anterior wedging at T12, without apparent posterior protrusion. No other fracture of the thoracic spine is evident. The thoracic pedicles appear intact. There is deg enerative spurring in the mid and lower thoracic spine. IMPRESSION: Moderate T12 fracture, likely compression type Osteopenia Degenerative change of the lower cervical and thoracic spine Reviewed, dictated and finalized at location A.
--- NOTE | ~2021-07-28 | XR_ITS ---
XR lumbar spine 2-3V DATE: 07/28/2021 12:32 INDICATION: Midline back pain TECHNIQUE: AP, lateral, coned lateral lumbosacral views COMPARISON: None FINDINGS: There is diffuse osteopenia. There is moderate loss of height and anterior wedging of T12 consistent with compression fracture, po ssibly recent. There is minimal anterolisthesis at L3-4, due to degenerative change at the apophyseal joints. There is moderately severe degenerative disc disease at L4-5. Remaining lumbar and lumbosacral inters paces are relatively well preserved. The sacroiliac joints are unremarkable. IMPRESSION: T12 compression fracture Moderately severe degenerative disc disease at L4-5 Degenerative changes apophyseal joints with associated minimal grade 1 anterolisthesis at L3-4 Reviewed, dictated and finalized at location A. IMPRESSION: T12 compression fracture Moderately severe degenerative disc disease at L4-5 Degenerative changes apophyseal joints with associated minimal grade 1 anteroli sthesis at L3-4
[2021-07-28 10:08] VITALS: BP 140/76; PULSE 69; RESP 18; TEMP 36.1; O2SAT 100
[2021-07-28 10:38] VITALS: BP 165/75; PULSE 65; RESP 16; O2SAT 100
--- NOTE | 2021-07-28 11:41 | ED.BACK ---
HPI - Back Pain/Injury General Chief Complaint: Back Pain/Injury Stated Complaint: back pain Time Seen by Provider: 07/28/21 10:30 History of Present Illness HPI Narrative: 85-year-old female presenting to the emergency department for evaluation of midline back pain. Patient denies any incident of fall or injury. Family states that the patient has been sharing a bed with a family member and that the bed has very little space. They were also suspecting that maybe the back pain was from lifting boxes but patient denies having lifted any boxes. Patient denies any associated nausea vomiting or diarrhea. Patient denies any abdominal pain. Patient denies any burning with urination. Patient also denies any associated numbness or weakness. Does have history of osteopenia Related Data Home Medications Medication Instructions Recorded Confirmed alendronate 70 mg tablet 70 mg PO WEEKLY 09/11/19 07/13/21 atorvastatin 10 mg tablet 20 mg PO HS 09/11/19 07/13/21 levothyroxine 25 mcg tablet 25 mcg PO DAILY 09/11/19 07/13/21 metoprolol succinate 50 mg 25 mg PO DAILY 09/11/19 07/13/21 tablet,extended release 24 hr omega 4-mbu-tjm-fish oil 1,000 mg 1 cap PO DAILY 09/11/19 07/13/21 (120 mg-180 mg) capsule (Fish Oil) potassium chloride 10 mEq 10 meq PO DAILY 09/11/19 07/13/21 tablet,extended release diazepam 5 mg tablet 5 mg PO DAILY 07/13/21 07/13/21 donepezil 5 mg tablet 5 mg PO DAILY 07/13/21 07/13/21 memantine 10 mg tablet 10 mg PO BID 07/13/21 07/13/21 Allergies Allergy/AdvReac Type Severity Reaction Status Date / Time Penicillins Allergy Unknown Verified 07/28/21 10:39 Review of Systems Review of Systems: CONSTITUTIONAL: Denies fever, chills, or sweats. EYES: Denies visual changes, redness, or discharge. ENT: Denies rhinorrhea, congestion, sore throat, or otalgia. CARDIOVASCULAR: Denies chest pain, palpitations, or edema. RESPIRATORY: Denies cough or dyspnea. GASTROINTESTINAL: Denies abdominal pain, nausea, vomiting, or diarrhea. GENITOURINARY: Denies dysuria or hematuria. SKIN: Denies rash or itching. MUSCULOSKELETAL: See HPI NEUROLOGIC: Denies headache, numbness, or weakness. [facility] Past Medical History Medical History (Updated 07/28/21 @ 12:58 by Jerrell Zimmerman MD) Dementia Hyperlipidemia Hypertension Hypothyroid Social History Social History Smoking status: Never smoker Alcohol intake: never Substance use: never Substance use type: does not use Spiritual care concerns: No Exam Narrative: APPEARANCE: Well appearing, no pain, no distress, well-nourished. HEAD: normocephalic, atraumatic. EYES: PERRLA/EOMI, conjunctivae clear. NECK: Supple. No adenopathy, no masses. RESPIRATORY: Airway patent, respirations nonlabored. Clear to auscultation bilaterally, no rales, rhonchi, wheezing. CARDIOVASCULAR: Regular rate and rhythm without murmurs rubs or gallops. ABDOMINAL: Soft, nontender, nondistended, normal bowel sounds MUSCULOSKELETAL: Moves all extremities. Mild tenderness to thoracic spine, no step-offs or deformities. NEURO: Alert. Cranial nerves II through XII intact. Grossly intact SKIN: Warm, dry. Normal Color Course Course Emergency Course: X-ray showed a moderate compression fracture of T12 with no retropulsion Patient did feel improved with medication provided in the emergency department. Patient will have close follow-up as outpatient. Both patient and family were comfortable with the plan for discharge and close follow-up. Patient is neurologically intact and this is a stable fracture. Patient suitable for outpatient follow-up. Vital Signs Vital signs: Vital Signs Temperature 97.0 F L 07/28/21 10:08 Pulse Rate 69 07/28/21 10:08 Respiratory Rate 18 07/28/21 10:08 Blood Pressure 140/76 07/28/21 10:08 Pulse Oximetry 100 07/28/21 10:08 Oxygen Delivery Room Air 07/28/21 10:08 Temperature 97.0
[2021-07-28 11:54] VITALS: BP 142/76; PULSE 91; RESP 16; O2SAT 98
[2021-07-28] MEDS: HYDROcodone/acetaminophen (*CRX) 5-325 MG TABLET 1 TAB PO (11:59)
[2021-07-28 12:46] VITALS: BP 138/74; PULSE 58; RESP 17; O2SAT 97
[2021-07-28 13:22] VITALS: BP 130/73; PULSE 65; RESP 16; O2SAT 98
== END 2021-07-28 13:46 | disposition home or self-care (01) ==
PROVIDERS: Emergency Provider Emergency Medicine; PCP Internal Medicine
DX: S22.080A Wedge compression fracture of T11-T12 vertebra, initial encounter for closed fracture (principal); F03.90 Unspecified dementia, unspecified severity, without behavioral disturbance, psychotic disturbance, mood disturbance, and anxiety; E78.5 Hyperlipidemia, unspecified; I10 Essential (primary) hypertension; E03.9 Hypothyroidism, unspecified; X58.XXXA Exposure to other specified factors, initial encounter
CPT/HCPCS: 72072; 72100; 99283; A9270

== ENCOUNTER 2021-08-05 15:06 | Inpatient (IN) | payer MEDICARE, OTHER, SELFPAY ==
[2021-08-05] VITALS (22 sets, daily range): BP systolic 98–155; BP diastolic 52–76; PULSE 54–60; RESP 16; TEMP 36.4–36.6; O2SAT 96–100; BMI 22.9
--- NOTE | ~2021-08-05 | CT_ITS ---
EXAMINATION: CT brain wo con DATE: 08/05/2021 15:37 INDICATION: dizziness . TECHNIQUE: Computed tomography (CT) of the head was performed without intravenous contrast. The mA wa s adjusted according to patient size. Iterative reconstruction technique was employed. The dose-lengt h product was 605.33 mGy-cm. COMPARISON: 07/13/2021. FINDINGS: No acute intracranial hemorrhage or extra-axial fluid collection. No hydrocephalus, mass, or herniation. No acute ischemic infarct. Unremarkable dural venous sinus attenuation. No acute osseous abnormality. The aerated spaces are clear. Severe atrophy. Moderate chronic white matter change. Atherosclerotic intracranial calcification. Alpesh ateral lens replacements. IMPRESSION: No acute intracranial process. Reviewed, dictated and finalized at location K.
--- NOTE | ~2021-08-05 | US_ITS ---
EXAMINATION: US carotid duplex BI DATE: 08/06/2021 12:46 INDICATION: Near syncope. TECHNIQUE: Grayscale, color Doppler, and pulsed Doppler images of the cervical carotid arteries were obtained. The degree of vessel stenosis is placed in one of the following categories: normal, <50%, 5 0-69%, >=70% but less than near-occlusion, near-occlusion, or total occlusion. Note that percent sten osis relative to normal distal artery lumen diameter is indirectly measured from velocity measurement s as described by Brandon, et al. Radiology 2003; 229:340-346. COMPARISON: None. FINDINGS: RIGHT: The right common carotid artery (CCA) peak systolic velocity (PSV) is 94 cm/s. The right internal car otid artery (ICA) PSV is 87 cm/s. The right ICA end-diastolic velocity (EDV) is 20 cm/s. The right IC A/CCA PSV ratio is 1.5. Grayscale and color Doppler images yield an estimate of <50% diameter reducti on from plaque in the ICA. There is antegrade flow in the right vertebral artery. LEFT: The left CCA PSV is 79 cm/s. The left ICA PSV is 87 cm/s. The left ICA EDV is 15 cm/s. The left ICA/C CA PSV ratio is 1.1. Grayscale and color Doppler images yield an estimate of <50% diameter reduction from plaque in the ICA. There is antegrade flow in the left vertebral artery. IMPRESSION: 1. <50% stenosis in the right internal carotid artery. 2. <50% stenosis in the left internal carotid artery. Reviewed, dictated and finalized at location B.
--- NOTE | ~2021-08-05 | XR_ITS ---
EXAMINATION: XR chest 1V DATE: 08/05/2021 15:41 INDICATION: Near syncope. TECHNIQUE: A single frontal view of the chest was obtained. COMPARISON: Chest 2 views 05/24/2009 FINDINGS: There is mild atelectasis at left lung base. No pleural effusion or pneumothorax. The heart size is normal. IMPRESSION: 1. Mild atelectasis at left lung base. Reviewed, dictated and finalized at location B.
--- NOTE | 2021-08-05 15:21 | ECG_ITS ---
Measurements Intervals [place] Rate: 52 P: 61 CO: 209 QRS: 21 QRSD: 99 T: 29 QT: 422 QTc: 393 Interpretive Statements SINUS BRADYCARDIA LOW VOLTAGE. ABNORMAL ECG COMPARED TO ECG 07/13/2021 14:45:25 SINUS BRADYCARDIA NOW PRESENT Electronically Signed On 08-06-2021 9:57:50 CDT by Brennan Quiñones M.D.
--- NOTE | 2021-08-05 15:23 | ED.DIZZY ---
HPI - Dizziness General Chief Complaint: Dizziness Stated Complaint: lightheaded Time Seen by Provider: 08/05/21 15:14 History of Present Illness HPI Narrative: Pt presents with complaints of dizziness when getting up and moving around for a couple of weeks. Pt seen here for same complaint then. Pt seen here for back pain last week. Pt supposed to have home health during day but no one has shown up last two days. Son says she is more out of it and drowsy. Pt denies taking extra pain meds. Related Data Home Medications Medication Instructions Recorded Confirmed alendronate 70 mg tablet 70 mg PO WEEKLY 09/11/19 07/13/21 atorvastatin 10 mg tablet 20 mg PO HS 09/11/19 07/13/21 levothyroxine 25 mcg tablet 25 mcg PO DAILY 09/11/19 07/13/21 metoprolol succinate 50 mg 25 mg PO DAILY 09/11/19 07/13/21 tablet,extended release 24 hr omega 8-war-asq-fish oil 1,000 mg 1 cap PO DAILY 09/11/19 07/13/21 (120 mg-180 mg) capsule (Fish Oil) potassium chloride 10 mEq 10 meq PO DAILY 09/11/19 07/13/21 tablet,extended release diazepam 5 mg tablet 5 mg PO DAILY 07/13/21 07/13/21 donepezil 5 mg tablet 5 mg PO DAILY 07/13/21 07/13/21 memantine 10 mg tablet 10 mg PO BID 07/13/21 07/13/21 Allergies Allergy/AdvReac Type Severity Reaction Status Date / Time Penicillins Allergy Unknown Verified 07/28/21 10:39 Review of Systems Review of Systems: All systems reviewed & are unremarkable except as noted in HPI and below PMFSH Past Medical History Medical History (Updated 08/05/21 @ 17:53 by Gail Bell III, DO) Dementia Hyperlipidemia Hypertension Hypothyroid Social History Social History Smoking status: Never smoker Alcohol intake: never Substance use: never Substance use type: does not use Spiritual care concerns: No Exam Const: General: healthy appearing Nutritional Appearance: well nourished Orientation/consciousness: patient oriented x3 Limitations: no limitations Eyes: Conjunctivae: conjunctivae normal Pupils: Equal, round and reactive pupils present EOM: EOMs intact bilaterally Neck: Neck: normal visual inspection and no meningeal signs Resp: Effort & Inspection: normal respiratory effort Auscultation: clear to auscultation bilaterally Cardio: Rate: regular rate Rhythm: regular rhythm GI: Auscultation: normal bowel sounds Skin: General skin exam: normal color Rashes: no rashes Wounds: no wounds Neuro: General: patient oriented x3, moves all extremities, no meningeal signs, no focal motor deficits and CN's II-XI intact bilaterally Cranial nerves: Yes Nystagmus not present Speech: normal speech Gait exam (Neuro): Normal gait present Extrem: General: normal to inspection and no clubbing, cyanosis or edema Psych: Mental Status: mental status grossly normal Affect: normal affect Attitude: cooperative Course Vital Signs Vital signs: Vital Signs Temperature 97.5 F L 08/05/21 15:07 Pulse Rate 56 L 08/05/21 15:07 Respiratory Rate 16 08/05/21 15:07 Blood Pressure 102/58 L 08/05/21 15:07 Pulse Oximetry 98 08/05/21 15:07 Oxygen Delivery Room Air 08/05/21 15:07 Temperature 97.5 F L 08/05/21 15:07 Pulse Rate 60 08/05/21 16:27 Respiratory Rate 16 08/05/21 15:07 Blood Pressure 143/65 H 08/05/21 19:02 Pulse Oximetry 96 08/05/21 18:47 Oxygen Delivery Room Air 08/05/21 15:07 MDM - Dizziness Lab Data Result diagrams: 08/05/21 15:48 08/05/21 15:48 Labs: Lab Results 08/05/21 08/05/21 08/05/21 Range/Units 15:48 15:48 18:02 WBC 6.6 (4.5-10.0) K/mm3 RBC 4.04 L (4.2-5.4) M/mm3 Hgb 12.6 (12.0-15.0) g/dL Hct 38.9 (37.0-47.0) % MCV 96.3 (80-100) fl MCH 31.2 (26-34) pg MCHC 32.4 (32-36) g/dl RDW 12.7 (11.5-14.5) % Plt Count 228 (150-375) k/mm3 MPV 10.2 (7.4-10.4) fl Immature Gran % (Auto) 0.3 (0-0.5)
[2021-08-05] MEDS: SODIUM CHLORIDE 0.9% IV 500 ML 999 ML IV CONT (15:51)
[2021-08-05 15:54] LABS: Basophils Percent Auto 0.6 % (0.2-1.2); Eosinophils Absolute Auto 0.1 K/mm3 (0-0.3); Eosinophils Percent Auto 1.5 % (0-4.4); Hematocrit 38.9 % (37.0-47.0); Hemoglobin 12.6 g/dL (12.0-15.0); Immature Granulocyte Absolute 0.02 K/mm3 (0.00-0.031); Immature Granulocyte Percent A 0.3 % (0-0.5); Lymphocytes Absolute Auto 1.32 K/mm3 (0.9-3.2); Mean Corpuscular HGB Conc 32.4 g/dl (32-36); Mean Corpuscular Hemoglobin 31.2 pg (26-34); Mean Corpuscular Volume 96.3 fl (80-100); Mean Platelet Volume 10.2 fl (7.4-10.4); Monocytes Absolute Auto 0.7 K/mm3 (0.1-0.6); Monocytes Percent Auto 9.8 % (2.6-8.5); Neutrophils Absolute Auto 4.5 K/mm3 (1.3-6.7); Neutrophils Percent Auto 67.8 % (45.5-73.1); Platelet Count Result 228 k/mm3 (150-375); Red Blood Count 4.04 M/mm3 (4.2-5.4); Red Cell Distribution Width 12.7 % (11.5-14.5); White Blood Count 6.6 K/mm3 (4.5-10.0)
[2021-08-05 16:11] LABS: Alanine Aminotransferase 16 U/L (6-35); Alkaline Phosphatase 93 U/L (38-126); Anion Gap 7 mmol/L (8-16); Aspartate Amino Transferase 29 U/L (14-36); Bilirubin,Total 0.6 mg/dL (0.2-1.3); Blood Urea Nitrogen 32 mg/dL (7-17); Calcium 9.1 mg/dL (8.4-10.2); Carbon Dioxide 28 mmol/L (22-30); Chloride 104 mmol/L (98-107); Estimated Glomerular Filt Rate 47; Glucose 111 mg/dL (65-110); Potassium 4.5 mmol/L (3.4-5.0); Sodium 139 mmol/L (137-145)
[2021-08-05 16:22] LABS: NT Pro B Type Natriuretic Pept 561 pg/mL (5-100); Troponin I < 0.012 ng/mL (0.000-0.034)
[2021-08-05 18:27] LABS: Appearance Urine Clear (Clear); Bilirubin Urine 1+ (Negative); Blood Urine Negative (Negative); Color Urine Yellow (Yellow); Glucose Urine UA Negative (Negative); Ketones Urine Negative (Negative); Leukocyte Esterase Ur Negative LEU/UL (Negative); Nitrate Urine Negative (Negative); Protein Urine Negative (Negative); Specific Grav Ur >= 1.030 (1.001-1.035); pH Urine 5.5 (5.0-9.0)
[2021-08-05 18:49] LABS: Mucus Urine Few /lpf; Squamous Epithelial Cell Urine Occasional /hpf (Few); WBC Urine 0-3 /hpf
[2021-08-05 18:50] LABS: Add Urine Microscopic? YES
--- NOTE | 2021-08-05 19:00 | PM.IMHP ---
H&P: HPI History of Present Illness Date/Time: 08/05/21 190 Chief Complaint: Back pain Narrative: Patient is an 85-year-old female with a past medical history of dementia, hyperlipidemia, hypertension, hypothyroidism who presented to ED for back pain. According to her son the patient was here recently for and was found to have a his thoracic vertebrae fracture. Her son said that Wednesday she was up watching TV but was not real active Wednesday she was up on the couch was not real active today he might in the see her in she was does out of its. She also has been dizzy and lightheaded which she has been taking volume for twice a day. It was also stated the patient is taking her Valium and her [place] together. Blood pressure looks to be stable at 130 4/74. Patient denies any chest pain, shortness a breath, nausea, vomiting, visual changes, syncope or recent falls. 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 Patient is being admitted for placement for upper body strength. She does have slight orthostatic hypotension. Care coordination is currently consulted. 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 She has 2 kids a son and a daughter and worked for [employer]. Patient wishes to be a DNR and states that her son and daughter can be her surrogate. Son Micah was present. 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 Gender identity (if verbalized by the patient): Female Sexual Orientation (if Verbalized by the Patient): Straight or Heterosexual Spiritual care concerns: No Agree to blood products: Yes Meds Home Medications and Allergies Home Medications Medication Instructions Recorded Confirmed Type acetaminophen 650 mg 650 mg PO Q8H PRN fever or pain 09/07/19 07/13/21 Rx tablet,extended release (Tylenol #10 tabs Arthritis Pain) alendronate 70 mg tablet 70 mg PO WEEKLY 09/11/19 07/13/21 History atorvastatin 10 mg tablet 20 mg PO HS 09/11/19 07/13/21 History levothyroxine 25 mcg tablet 25 mcg PO DAILY 09/11/19 07/13/21 History metoprolol succinate 50 mg 25 mg PO DAILY 09/11/19 07/13/21 History tablet,extended release 24 hr omega 9-oex-wlz-fish oil 1,000 mg 1 cap PO DAILY 09/11/19 07/13/21 History (120 mg-180 mg) capsule (Fish Oil) potassium chloride 10 mEq 10 meq PO DAILY 09/11/19 07/13/21 History tablet,extended release diazepam 5 mg tablet 5 mg PO DAILY 07/13/21 07/13/21 History donepezil 5 mg tablet 5 mg PO DAILY 07/13/21 07/13/21 History memantine 10 mg tablet 10 mg PO BID 07/13/21 07/13/21 History amlodipine 2.5 mg tablet 7.5 mg PO QAM 30 days #90 tabs 07/14/21 Rx hydrocodone 5 mg-acetaminophen 325 1 tablet PO Q12H PRN pain #10 tabs 07/28/21 Rx mg tablet Allergies Allergy/AdvReac Type Severity Reaction Status Date / Time Penicillins Allergy Unknown Verified 07/28/21 10:39 Vital Signs Vital Signs - 24 hr 08/05/21 15:07 08/05/21 16:24 08/05/21 16:25 Temperature 97.5 F L Pulse Rate 56 L 55 L 54 L Respiratory Rate 16 Blood Pressure 102/58 L 110/55 L 138/74 Pulse Oximetry 98 Oxygen Delivery Room Air 08/05/21 16:27 08/05/21 15:54 08/05/21 16:01 Temper
[2021-08-06] VITALS (9 sets, daily range): BP systolic 114–137; BP diastolic 53–62; PULSE 47–55; RESP 16–18; TEMP 36.4–36.6; O2SAT 97–98
--- NOTE | 2021-08-06 | ECHO_ITS ---
Patient Info Name: Carly Martino Age: 85 years : 1935 Gender: Female Ht: 66 in Wt: 142 lbs BSA: 1.74 m2 HR: 55 bpm BP: 128 / 58 mmHg Heart Rhythm: Sinus Rhythm Technical Quality: Fair Exam Date: 08/06/2021 1:04 PM Exam Location: [facility] Pulmonary Patient Status: Inpatient Admit Date: 08/05/2021 Staff Ordering Physician: Pedro Barahona Paunch Trimmer: Aleida Campbell RDCS Attending Provider: Katarzyna Moralez DO Referring Physician: Jun SANTOS; Exam Type: CA echo doppler color flow Study Info Indications - Syncope Complete two-dimensional, color flow and Doppler transthoracic echocardiogram is performed. Summary 1. Complete two-dimensional, color flow and Doppler transthoracic echocardiogram is performed. 2. Left ventricular chamber dimension is normal. 3. Left ventricular systolic function is normal, estimated at 60-65%. 4. There is no increased left ventricular wall thickness. 5. The left ventricular diastolic function is grade I diastolic dysfunction. 6. There is mild tricuspid valve regurgitation. 7. Mild pulmonary hypertension, estimated pulmonary arterial systolic pressure is 35 mmHg. Left Ventricle Left ventricular chamber dimension is normal. Left ventricular systolic function is normal, estimated at 60-65%. There is no increased left ventricular wall thickness. The left ventricular diastolic function is grade I diastolic dysfunction. Right Ventricle Right ventricular chamber dimension is normal. Right ventricular systolic function is normal. Left Atria Left atrial chamber dimension is normal. Right Atria Right atrial chamber dimension is normal. Atrial Septum Intact interatrial septum visualized by color flow imaging. Aortic Valve The aortic valve is trileaflet. There is mild aortic valve sclerosis. There is no aortic valve stenosis. There is trace aortic valve regurgitation. Pulmonic Valve The pulmonic valve is normal. There is no pulmonic valve stenosis. There is trace pulmonic regurgitation. Mitral Valve The mitral valve has normal leaflets. There is no mitral valve stenosis. There is trace mitral valve regurgitation. Tricuspid Valve The tricuspid valve leaflets are normal. There is no significant tricuspid valve stenosis. There is mild tricuspid valve regurgitation. Mild pulmonary hypertension, estimated pulmonary arterial systolic pressure is 35 mmHg. Pericardium/Pleural The pericardium appears normal. There is no pericardial effusion. Inferior Vena Cava Normal inferior vena cava with <50% collapse upon inspiration consistent with elevated right atrial pressure, 10 mmHg. Aorta The aortic root size at the sinus of Valsalva is normal. Left Ventricular Outflow Tract Name Value Normal LVOT 2D LVOT Diameter 2.0 cm LVOT Doppler LVOT Peak Gradient 5 mmHg LVOT Mean Gradient 2 mmHg LVOT VTI 23 cm LVOT VTI/AV VTI Ratio 0.7 LVOT Stroke Volume 74 ml LVOT CO
[2021-08-06] MEDS: HYDROcodone/acetaminophen (*CRX) 5-325 MG TABLET 1 TAB PO ×3 (04:31→19:57)
[2021-08-06 05:42] LABS: Basophils Percent Auto 0.5 % (0.2-1.2); Eosinophils Absolute Auto 0.1 K/mm3 (0-0.3); Hematocrit 36.6 % (37.0-47.0); Immature Granulocyte Absolute 0.02 K/mm3 (0.00-0.031); Immature Granulocyte Percent A 0.4 % (0-0.5); Lymphocytes Absolute Auto 1.26 K/mm3 (0.9-3.2); Lymphocytes Percent Auto 22.7 % (18.3-44.2); Mean Corpuscular HGB Conc 32.8 g/dl (32-36); Mean Corpuscular Hemoglobin 31.3 pg (26-34); Mean Corpuscular Volume 95.6 fl (80-100); Mean Platelet Volume 9.9 fl (7.4-10.4); Monocytes Absolute Auto 0.5 K/mm3 (0.1-0.6); Monocytes Percent Auto 8.8 % (2.6-8.5); Neutrophils Absolute Auto 3.6 K/mm3 (1.3-6.7); Neutrophils Percent Auto 65.6 % (45.5-73.1); Platelet Count Result 204 k/mm3 (150-375); Red Blood Count 3.83 M/mm3 (4.2-5.4); Red Cell Distribution Width 12.6 % (11.5-14.5); White Blood Count 5.5 K/mm3 (4.5-10.0)
[2021-08-06 05:50] LABS: Alanine Aminotransferase 14 U/L (6-35); Albumin Level 3.7 g/dL (3.5-5.1); Alkaline Phosphatase 94 U/L (38-126); Anion Gap 5 mmol/L (8-16); Aspartate Amino Transferase 24 U/L (14-36); Bilirubin,Total 0.7 mg/dL (0.2-1.3); Blood Urea Nitrogen 25 mg/dL (7-17); Calcium 8.6 mg/dL (8.4-10.2); Carbon Dioxide 28 mmol/L (22-30); Chloride 104 mmol/L (98-107); Estimated CRCL calculation 42 ml/min; Estimated Glomerular Filt Rate > 60; Glucose 99 mg/dL (65-110); Magnesium 1.9 mg/dL (1.6-2.3); Potassium 4.2 mmol/L (3.4-5.0); Sodium 137 mmol/L (137-145)
[2021-08-06] MEDS: DOCUSATE SODIUM 100 MG CAPSULE PO ×2 (08:50→17:00)
[2021-08-06] MEDS: ENOXAPARIN 40 MG/0.4 ML SYRINGE SUB-Q (08:51)
--- NOTE | 2021-08-06 11:02 | PM.IMPN ---
Progress Note: A&P Assessment and Plan (1) Thoracic back pain: Code(s): M54.6 - Pain in thoracic spine Status: Acute Assessment and Plan: Thoracic x-ray indicates a T12 moderate fracture Pain control with [place] PT and OT Probably would benefit from some rehab given the patient is agreeable, currently patient is not agreeable to facility placement (2) Dizziness: Code(s): R42 - Dizziness and giddiness Status: Acute Assessment and Plan: Orthostatic blood pressures Q shift Carotid Dopplers-pending Echo Doppler-pending Add meclizine p.r.n. PT and OT (3) Hypertension: Code(s): I10 - Essential (primary) hypertension Status: Acute Assessment and Plan: Current blood pressure 98/52 Continue home amlodipine 7.5 daily, metoprolol 25 mg daily Trend blood pressure Adjust therapy as indicated (4) Dementia: Code(s): F03.90 - Unspecified dementia without behavioral disturbance Status: Acute Assessment and Plan: Continue home meds (5) Hyperlipidemia: Code(s): E78.5 - Hyperlipidemia, unspecified Status: Acute Assessment and Plan: Continue home atorvastatin 20 mg p.o. at night Check LFTs (6) Hypothyroid: Code(s): E03.9 - Hypothyroidism, unspecified Status: Acute Assessment and Plan: Continue home levothyroxine 25 mcg TSH in a.m. Subjective Date/time seen: 08/06/21 11:02 Interval history: Spoke with the patient this morning about possible placement to a rehab facility. Patient was in refusal. Patient reports that she is at home and takes care of her son-in-law and his primary care provider. Patient also reports taking Valium and narcotics together daily. Blood pressure is improved. Orthostatics negative. He workup significantly unrevealing. Will have Case Management talk to family as well as the patient about possible skilled therapy or home health needs. Review of Systems Review of Systems: All systems reviewed & are unremarkable except as noted in HPI and below Exam Narrative: General: No acute distress. Mental Status: Awake, alert and oriented to person, place, and time with clear speech. Skin: Skin in warm, dry and intact without rashes or lesions. Head: Normocephalic and atraumatic. Eyes: Conjunctivae are clear without exudates or hemorrhage. Sclera is non-icteric. EOM are intact, PERRLA. Ears: The external ear and canal are non-tender and without swelling or discharge. Nose: Nasal mucosa is pink and moist. Septum midline. Nares patent bilaterally. Throat: Oral mucosa pink and moist with good dentition. Tongue midline. Neck: The neck supple without adenopathy. Trachea midline. No JVD. Cardiac: S1 and S2 regular rate and rhythm. No murmurs, gallops, or rubs auscultated. Respiratory: Chest wall symmetric, nontender and without deformity or trauma. Respirations even and unlabored. Lung sounds are clear to auscultation in all lobes bilaterally without wheezes, rhonchi, or rales. Abdominal: Abdomen soft, round and non-tender to palpation. Bowel sounds present and normoactive in all 4 quadrants. Spine: Neck and back with grossly normal curvature, no deformity in appearance or signs of trauma. Extremities: Upper and lower extremities atraumatic without tenderness or deformity. Full range of motion and muscle strength 4/5 to all extremities bilaterally. Neurological: Full and symmetric motor and light touch sensation bilaterally. Cranial nerves II-XII grossly intact. Objective Data Vital Signs Vital Signs: Vital Signs - 24 hr 08/05/21 15:07 08/05/21 16:24 08/05/21 16:25 Temperature 97.5 F L Pulse Rate 56 L 55 L 54 L Respiratory Rate 16 Blood Pressure 102/58 L 110/55 L 138/74 Pulse Oximetry 98 Oxygen Delivery Room Air 08/05/21 16:27 08/05/21 15:54 08/05/21 16:01 Temperature Pulse Rate 60 Respiratory Rate
[2021-08-07] VITALS: PULSE 51
[2021-08-07 04:00] VITALS: PULSE 49
[2021-08-07 04:16] VITALS: BP 131/70; PULSE 81; RESP 16; TEMP 36.4; O2SAT 98
[2021-08-07 08:00] VITALS: PULSE 81; RESP 16; O2SAT 98
[2021-08-07] MEDS: DOCUSATE SODIUM 100 MG CAPSULE PO (09:23)
[2021-08-07] MEDS: ENOXAPARIN 40 MG/0.4 ML SYRINGE SUB-Q (09:23)
--- NOTE | 2021-08-07 09:33 | PM.DS ---
DS: Admitting Diagnosis Discharge Date 08/07/2021 Admitting Diagnosis Physical debility Sedated medication use DS: Discharge Diagnosis Discharge Diagnosis (1) Thoracic back pain: Code(s): M54.6 - Pain in thoracic spine Status: Acute Assessment and Plan: Thoracic x-ray indicates a T12 moderate fracture Pain control with [facility] PT and OT Probably would benefit from some rehab (2) Dizziness: Code(s): R42 - Dizziness and giddiness Status: Acute Assessment and Plan: Orthostatic blood pressures Q shift Carotid Dopplers Echo Doppler Add meclizine Could be some [facility] PT and OT (3) Hypertension: Code(s): I10 - Essential (primary) hypertension Status: Acute Assessment and Plan: Current blood pressure 98/52 Continue home amlodipine 7.5 daily, metoprolol 25 mg daily Trend blood pressure Adjust therapy as indicated (4) Dementia: Code(s): F03.90 - Unspecified dementia without behavioral disturbance Status: Acute Assessment and Plan: Continue home meds (5) Hyperlipidemia: Code(s): E78.5 - Hyperlipidemia, unspecified Status: Acute Assessment and Plan: Continue home atorvastatin 20 mg p.o. at night Check LFTs (6) Hypothyroid: Code(s): E03.9 - Hypothyroidism, unspecified Status: Acute Assessment and Plan: Continue home levothyroxine 25 mcg TSH in a.m. DS: Summary Hospital Course Reason for hospitalization: Physical debility Over use of sedative medications Hospital Course: Patient is a 85-year-old female with a past medical history of dementia, hyperlipidemia, hypertension and hypothyroidism. She presented to [facility] with complaints of dizziness when getting up and around for last couple of weeks. The patient was seen with a similar episode approximately 1 month ago in the hospital and was hospitalized and was started on Norvasc. Patient also complains of back pain. She is supposed to have home health during the day but no one has shown up the last couple of days. She does not report increased fatigue. Patient denied taking any extra pain medication. However to the hospitalist team she did endorse taking an Ativan and [facility] at the same time. While in the emergency department labs and imaging were obtained. WBC 6.6, hemoglobin 12.6, hematocrit 38.9, platelet 228, sodium 139, potassium 4.5, BUN 32, creatinine 1.1, negative troponin and UA negative. EKG revealed normal sinus bradycardia no acute ST or T-wave changes. Normal intervals with a rate of 52. Head CT performed did not reveal acute intracranial abnormality, chest x-ray did not reveal acute pulmonary cardiopulmonary abnormality and a carotid Doppler was obtained which were field less than 50% stenosis on the right and left internal carotid arteries. Review of the lumbar spine x-ray that was obtained on 07/28/2021 did not reveal acute significant abnormalities. Compression fracture unchanged as well as moderate severe degenerative disc disease to L4 and L5. While hospitalized the patient reported she takes care of her son-in-law who is essentially bedbound. Patient reports picking him up multiple times a day. Discussed with the patient that this may be an appropriate use of body mechanics at the age of 85. Patient was agreeable. However reports that her daughter is unable to care for him as well. Patient reports falling with the son-in-law however did not go to the emergency department at that time. But imaging obtained in the emergency department did not reveal acute abnormalities. Patient's lab work is essentially WNL. Patient will go home with home health and follow up with PCP within 2-4 weeks. Status at Discharge Functional status at discharge: independent ambulation Overall status at discharge: patient is back to baseline Time Spent with Patient T
[2021-08-07] MEDS: HYDROcodone/acetaminophen (*CRX) 5-325 MG TABLET 1 TAB PO (11:41)
== END 2021-08-07 14:00 | disposition home health service (06) | DRG 149 ==
LOC: ANHED 17:53 → ANH3MED 21:21
PROVIDERS: Nurse Practitioner; Admitting Provider Student in an Organized Health Care Education/Training Program; Emergency Provider Emergency Medicine; PCP Internal Medicine; Visit Provider Nurse Practitioner Family
DX: R42 Dizziness and giddiness (principal); S22.089A Unspecified fracture of T11-T12 vertebra, initial encounter for closed fracture; X50.0XXA Overexertion from strenuous movement or load, initial encounter; M51.36 Other intervertebral disc degeneration, lumbar region; H81.10 Benign paroxysmal vertigo, unspecified ear; I95.1 Orthostatic hypotension; R53.81 Other malaise; I10 Essential (primary) hypertension; F03.90 Unspecified dementia, unspecified severity, without behavioral disturbance, psychotic disturbance, mood disturbance, and anxiety; E78.5 Hyperlipidemia, unspecified; E03.9 Hypothyroidism, unspecified
CPT/HCPCS: 36415; 70450; 71045; 80053; 81001; 83735; 83880; 84443; 84484; 85025; 93005; 93306; 93880; 96360; 97161; 97165; 97535; 99285; A9270; J1650; J7040

== ENCOUNTER 2021-08-14 12:31 | Outpatient (CLI) | payer MEDICARE, OTHER, SELFPAY ==
--- NOTE | ~2021-08-14 | MR_ITS ---
EXAMINATION: MR thoracic spine wo con DATE: 08/14/2021 13:18 INDICATION: Fracture of the thoracic spine TECHNIQUE: Magnetic resonance imaging (MRI) of the thoracic spine was performed without intravenous c ontrast. Sagittal localizer T1-weighted FSE of the cervicothoracic spine was obtained. Thoracic spine sequences included sagittal T2-weighted FSE, sagittal T1-weighted SE, Sagittal T2-weighted FS FSE, a nd axial T2-weighted FSE. COMPARISON: Radiographs dated 07/28/2021 FINDINGS: Diffuse mild thoracic kyphosis. T12 burst fracture with interval progression of previously 20%, now 6 0% central vertebral body height loss. There is also 3-4 mm retropulsion along the posterior wall res ulting in mild central canal stenosis. There is prominent marrow edema within the vertebral body but no definitive marrow replacing process to suggest pathologic fracture. Otherwise normal marrow signal throughout. There is also mild edema in the immediately adjacent paravertebral fat. Remaining thorac ic vertebral body heights are normal. Severe disc height loss with degenerative endplate changes at T 7-T8 and T8-T9. Moderate disc height loss at C6-C7 and mild to moderate disc height loss from T2-T3 t hrough T10-T11. Small disc protrusions at T2-T3, T4-T5, T6-T7 through T8-T9 with negligible central c anal stenosis. Annular fissure at T10-T11 with right paracentral disc extrusion which extends a few m illimeters cephalad to the level of the inferior endplate of T10 and results in mild central canal st enosis. The T12 burst fracture with results in mild right neural foraminal stenosis at 11 T12. Multi level mild thoracic facet osteoarthritis. No significant neural foraminal stenosis in the remainder o f the thoracic spine. There is normal spinal cord signal. The conus terminates at L1. IMPRESSION: 1. Interval progression of now 60% central vertebral body height loss at a subacute T12 burst fractur e with 3 to 4 mm retropulsion resulting in mild central canal spinal stenosis at this level. 2. Severe lower thoracic spondylosis. Reviewed, dictated and finalized at location A. IMPRESSION: 1. Interval progression of now 60% central vertebral body height loss at a suba cute T12 burst fracture with 3 to 4 mm retropulsion resulting in mild central c anal spinal stenosis at this level. 2. Severe lower thoracic spondylosis.
== END 2021-08-14 12:32 | disposition home or self-care (01) ==
PROVIDERS: PCP Internal Medicine; Visit Provider Internal Medicine
DX: S22.009A Unspecified fracture of unspecified thoracic vertebra, initial encounter for closed fracture (principal); X58.XXXA Exposure to other specified factors, initial encounter; M47.894 Other spondylosis, thoracic region
CPT/HCPCS: 72146

== ENCOUNTER → 2021-11-28 15:46 | Outpatient (CLI) | payer MEDICARE, OTHER, SELFPAY ==
--- NOTE | ~2021-11-28 | MR_ITS ---
EXAMINATION: MR lumbar spine wo con DATE: 11/28/2021 16:28 INDICATION: Left-sided low back pain. TECHNIQUE: Magnetic resonance imaging (MRI) of the lumbar spine was performed without intravenous con trast. Sequences included sagittal T2-weighted FSE, sagittal T2-weighted FS FSE, sagittal T1-weighted FSE, and axial T2-weighted FSE. COMPARISON: Lumbar spine radiographs 07/28/2021 FINDINGS: There is a burst fracture of T12 with 4/5 loss of height centrally, focal kyphosis, and ret ropulsion of bone 4 mm into central spinal canal. There is a compression fracture of T11 with 1/5 los s of height. These fractures demonstrate sclerosis and edema-like marrow signal intensity. There is m ildly decreased disc height at L3-L4 and severely decreased disc height at L4-L5. The distal spinal c ord signal intensity is normal. The conus medullaris is at L1. The following disc levels are specific ally discussed: L1-L2: There is a central protrusion. There is mild bilateral facet joint osteoarthritis. There is no neural foraminal stenosis. There is mild central canal stenosis. L2-L3: The disc is bulging and has an annular fissure. There is mild bilateral facet joint osteoarthr itis. There is mild bilateral neural foraminal stenosis. There is mild central canal stenosis. L3-L4: The disc is bulging. There is severe bilateral facet joint osteoarthritis. There is mild bilat eral neural foraminal stenosis. There is mild central canal stenosis. L4-L5: The disc is bulging and has an annular fissure. There is severe right and moderate left facet joint osteoarthritis. There is mild bilateral neural foraminal stenosis. There is mild central canal stenosis. L5-S1: The disc does not extend beyond the endplate margin. There is severe right and moderate left f acet joint osteoarthritis. There is mild right neural foraminal stenosis. There is no central canal s tenosis. IMPRESSION: 1. T11 compression fracture and T12 burst fracture, worsened from 07/28/2021, likely subacute. 2. Severe lumbar spondylosis. Reviewed, dictated and finalized at location B. IMPRESSION: 1. T11 compression fracture and T12 burst fracture, worsened from 07/28/2021, lik soniya subacute. 2. Severe lumbar spondylosis.
== END ==
PROVIDERS: PCP Internal Medicine; Visit Provider Nurse Practitioner Family
DX: M47.896 Other spondylosis, lumbar region (principal); S22.080D Wedge compression fracture of T11-T12 vertebra, subsequent encounter for fracture with routine healing; S22.081D Stable burst fracture of T11-T12 vertebra, subsequent encounter for fracture with routine healing; X58.XXXD Exposure to other specified factors, subsequent encounter
CPT/HCPCS: 72148

== ENCOUNTER 2024-04-06 19:07 | Emergency (ER) | payer MEDICARE, OTHER, SELFPAY ==
--- OUTSIDE RECORDS SUMMARY | 2024-04-06 19:09 | XMS_ITS | Continuity of Care Document ---
Author Organization [facility] Address [address] [place] [address] Phone Care Team Providers Care Apartment Assistant Manager Name Role Phone Bre Orta Unavailable Unavailable Procedures Procedure Date Post-op Follow-up Visit Post-op Follow-up Visit Post-op Follow-up Visit Remove Cataract, Insert Lens Office/outpatient Visit, Est Echo Exam Of Eye Eye Exam & Treatment Refraction Eye Exam & Treatment Refraction Eye Exam & Treatment Advance Directives Directive Yes / No Effective Date File Name No Information Encounters Encounter Description Practice Location Reason(s) For Visit Diagnoses Date Provider Providers Copied on Encounter [facility], [address] [place] [address] [address], [place], [place], [id number], [place] tel:[phone] [facility] [place] No Information Sep-2 3-201 0 Marivel Polanco [address], [place], [address], [place]. tel:[phone] [facility], [address] [place] [address] [address], [place], [place], [id number], [place] tel:[phone] [facility] [place] No Information Sep-0 2-201 0 Marivel Polanco [address], [place], [address], [place]. tel:[phone] [facility], [address] [place] [address] [address], [place], [place], [id number], [place] tel:[phone] [facility] No Information -201 0 Marivel Polanco [address], [place], [place], [facility], [place]. tel:[phone] [facility], [id number] [place] [address] [address], [place], [place], [id number], [place] tel:[phone] [facility] No Information -201 0 Marivel Polanco [address], [place], [facility], [place]. tel:[phone] Office/outpat ient Visit, [facility], [id number] [place] [address] [address], [place], [place], [id number], [place] tel:[phone] [facility] No Information 2-201 0 Marivel Polanco [address] , [address], [place], [facility], [place]. tel:[phone] Referring Provider: [address], [place], [facility]. tel:[phone] [facility], [address] [place] [address] [address], [place], [place], [id number], [place] tel:[phone] [facility] No Information 3-200 9 Marivel Polanco [address] , [address], [place], [address], [place]. tel:[phone] [facility], [address] [place] [address] [address], [place], [place], [id number], [place] tel:[phone] [facility] No Information 8-200 8 Marivel Polanco [address] , [address], [place], [facility], [place]. tel:[phone] [facility], [address], [place], [place], [id number], [place] tel:[phone] [facility] [place] No Information 0-200 7 Marivel Silvan. [address] [facility] [address] , [address], [place], [address], [place]. tel:[phone] Family History Family Member Type Diagnosis Age At Onset No Information Payers Payer name Insurance type Covered alliance party ID Authoriza tion(s) No Information Social History Type Description Quantity Date Captured Comments Sex Female Smoking Status No Information Chief Complaint And Reason For Visit No Information Reason For Referral Reason For Referral No Information History Of Present Illness Encounter Date Complaint History Of Prese nt Illness No Information Functional Status Date Functional Assessmen t No Information Instructions Date Instruction Additional Infor mation No Information Assessments Type Assessment Date No Information Patient Care Teams Name Effective Dates (start - stop) Status Members No Information
--- OUTSIDE RECORDS SUMMARY | 2024-04-06 19:10 | XMS_ITS | Continuity of Care Document ---
Author Name [facility] Organization [facility] Care Team Providers Care [employer] Name Role Phone [facility] Unavailable Unavailable Problems Combined list of problems from Department of Defense and Veterans Affairs facilities. It does not include entries that were removed or entered in error. Problem Status Onset Date Problem Type Date of Resolution Comments Source visit for: screening exam for malignant neoplasm cervix Inactive Condition [facility] hypothyroidism subclinical Active Condition [facility] hyperlipidemia Active Condition [facility] essential hypertension Active Condition DoD visit for: issue repeat prescription for medication Inactive Condition DoD fatigue Active Condition electrical ly and symptomatically negative stress test DoD hypothyroidism Active Condition Will put in for a Rx for synthroid. Contacted patient. [facility] visit for: issue repeat prescription Inactive Condition DoD Medications Combined list of outpatient medications from Department of Defense and Veterans Affairs facilities.Medications provided include 1) outpatient medications from the last 15 months, and 2) patient-reported medications. Medication Details Route Status Patient Instructions Prescription Expires Prescription Number Last Dispense Date Ordering Provider Order Date Order Qty Source ATORVASTATI N CALCIUM (ATORVASTAT IN CALCIUM), 10 MG, TABLET, ORAL, MYLAN, 500 ea. BOTTLE Active [id number] 2023 12 Pharmac y Data Transac tion Service Facilit y LEVOTHYROXI NE SODIUM (levothyrox ine sodium), 25 MCG, TABLET, ORAL, AMNEAL PHARMACE, 1000 ea. BOTTLE Cancele d [id number] : 2023 0 Pharmac y Data Transac tion Service Facilit y LEVOTHYROXI NE SODIUM (levothyrox ine sodium), 25 MCG, TABLET, ORAL, AMNEAL PHARMACE, 1000 ea. BOTTLE Active [id number] 2023 30 Pharmac y Data Transac tion Service Facilit y MECLIZINE HCL (meclizine HCl), 12.5 MG, TABLET, ORAL, ZYDUS PHARMACEU, 100 ea. BOTTLE Cancele d [id number] : 2023 0 Pharmac y Data Transac tion Service Facilit y MECLIZINE HCL (meclizine HCl), 12.5 MG, TABLET, ORAL, ZYDUS PHARMACEU, 100 ea. BOTTLE Active [id number] 4 2023 90 Pharmac y Data Transac tion Service Facilit y MECLIZINE HCL (meclizine HCl), 12.5 MG, TABLET, ORAL, ZYDUS PHARMACEU, 100 ea. BOTTLE Active [id number] 4 2023 90 Pharmac y Data Transac tion Service Facilit y METOPROLOL SUCCINATE (METOPROLOL SUCCINATE), 25 MG, TAB ER 24H, ORAL, 'S LAB, 100 ea. BOTTLE Cancele d [id number] : 2023 0 Pharmac y Data Transac tion Service Facilit y METOPROLOL SUCCINATE (METOPROLOL SUCCINATE), 25 MG, TAB ER 24H, ORAL, 'S LAB, 100 ea. BOTTLE Active [id number] 2023 30 Pharmac y Data Transac tion Service Facilit y METOPROLOL SUCCINATE (METOPROLOL SUCCINATE), 25 MG, TAB ER 24H, ORAL, 'S LAB, 100 ea. BOTTLE Active [id number] 2023 30 Pharmac y Data Transac tion Service Facilit y POTASSIUM CHLORIDE (potassium chloride), 10 MEQ, TABLET ER, ORAL, [employer], 500 ea. BOTTLE Cancele d [id number] : 2023 0 Pharmac y Data Transac tion Service Facilit y POTASSIUM CHLORIDE (potassium chloride), 10 MEQ, TABLET ER, ORAL, [employer], 500 ea. BOTTLE Active [id number] 4 2023 30 Pharmac y Data Transac tion Service Facilit y POTASSIUM CHLORIDE (POTASSIUM CHLORIDE), 10 MEQ, TABLET ER, ORAL, MYLAN, 500 ea. BOTTLE Cancele d [id number] : 2023 0 Pharmac y Data Transac tion Service Facilit y Allergies, Adverse Reactions, Alerts Combined list of allergies from Department of Defense and Veterans Affairs facilities. It does not include entries that were removed or entered in error. Substance Category Reaction Severity Reaction type Status Date Reported Comments Source PENICILLINS Drug allergy (disorder) Unknown active 4 [facility] Paco [facility] ([facility]) penicillins Propensity to adverse reactions to drug Unknown Active 4 [facility] Ambulatory Pharmacy Immunizations Combined list of available immunizations from the Department of Defense and Veterans Affairs facilities. 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 Source tetanus-dipht h toxoids (Td) adult/adol 2004 [id number] sanofi pasteur complet ed tetanus-d iphth toxoids (Td) adult/ado l 01/08/05 Given Ambulat ory Pharmac y influenza virus vaccine,split 2004 zzLef t Arm [id number] 15 sanofi pasteur complet ed influenza virus vaccine,s plit 01/08/05 Given Ambulat ory Pharmac y pneumococcal polysaccharid e, 23 valent 2004 zzLef t Arm [id number] 33 [employer] complet ed pneumococ isaak polysacch aride, 23 valent 01/08/05 Given Ambulat ory Pharmac y tetanus-dipht h toxoids (Td) adult/adol 2004 zzRig ht Arm [id number] 09 sanofi pasteur complet ed tetanus-d iphth toxoids (Td) adult/ado l 01/08/05 Given Ambulat ory Pharmac y influenza virus vaccine,split 2004 [id number] 15 sanofi pasteur complet ed influenza virus vaccine,s plit 01/08/05 Given Ambulat ory Pharmac y pneumococcal polysaccharid e, 23 valent 2004 [id number] 33 [employer]ck [employer] complet ed pneumococ isaak polysacch aride, 23 valent 01/08/05 Given Ambulat ory Pharmac y tetanus and diphtheria toxoids, adsorbed, preservative free, for adult use (2 Lf of tetanus toxoid and 2 Lf of diphtheria toxoid) 1 2004 Unknown, Provider [id number] Sanofi Pasteur ([facility]) complet ed tetanus and diphtheri a toxoids, adsorbed, preservat tiffanie free, for adult use (2 Lf of tetanus toxoid and 2 Lf of diphtheri a toxoid) DoD influenza virus vaccine, split virus (incl. purified surface antigen)-reti red CODE 1 2004 Unknown, Provider [id number] 15 Sanofi Pasteur ([facility]) complet ed influenza virus vaccine, split virus (incl. purified surface antigen)- retired CODE DoD pneumococcal polysaccharid e vaccine, 23 valent 1 2004 Unknown, Provider [id number] 33 Merck ([facility]) complet ed pneumococ isaak polysacch aride vaccine, 23 valent DoD influenza virus vaccine, whole virus 2003 zzLef t Arm 16 complet ed influenza virus vaccine, whole virus 12/06/03 Given Ambulat ory Pharmac y influenza virus vaccine, whole virus 2003 16 complet ed influenza virus vaccine, whole virus 12/06/03 Given Ambulat ory Pharmac y influenza virus vaccine, whole virus 1 2003 Unknown, Provider 16 Transcribed (TRS) complet ed influenza virus vaccine, whole virus DoD influenza virus vaccine, whole virus 2002 zzLef t Arm [id number] 16 sanofi pasteur complet ed influenza virus vaccine, whole virus 12/06/02 Given Ambulat ory Pharmac y influenza virus vaccine, whole virus 1 2002 Unknown, Provider [id number] 16 Sanofi Pasteur ([facility]) complet ed influenza virus vaccine, whole virus DoD influenza virus vaccine, whole virus 2000 zzLef t Arm [id number] 16 sanofi pasteur complet ed influenza virus vaccine, whole virus 12/28/00 Given Ambulat ory Pharmac y influenza virus vaccine, whole virus 1 2000 Unknown, Provider [id number] 16 Sanofi Pasteur ([facility]) complet ed influenza virus vaccine, whole virus DoD influenza virus vaccine, whole virus 1999 [id number] 16 PFIZER complet ed influenza virus vaccine, whole virus 02/03/00 Given Ambulat ory Pharmac y influenza virus vaccine, whole virus 1999 zzLef t Arm [id number] 16 PFIZER complet ed influenza virus vaccine, whole virus 02/03/00 Given Ambulat ory Pharmac y influenza virus vaccine, whole virus 1 1999 Unknown, Provider [id number] 16 Carlos (Inactive) ([place]) complet ed influenza virus vaccine, whole virus DoD Encounters Combined list of: 1) Encounters from Department of Veterans Affairs facilities going backup to the last 18 months, not all VA inpatient encounters are included; 2) Encounters from the Department of Defense facilities going backup to 280 months. Location Location Details Encounter Type Encounter Number Reason For Visit Attending Provider ADM Date DC Date Status Disposition Source [address] [place] [address] Paco [facility])(Sco tt [facility] Tm Blue) TELE CONSULT [id number] Rx Request PRO CHILDRESS 09/[address] [place] [address] Paco BONNER [facility])(S cott [facility] Tm Blue) [address] [place] [address] Paco Do [facility])(Sco tt [facility] Tm Blue) OUTPATIENT [id number] f/u cholest BEBA Jeknins 12/15 Released w/o Limitations [address] [place] [address] Paco Do [facility])(S cott [facility] Tm Blue) [address] [place] [address] Paco BONNER [facility])(Sco tt [facility] Tm Blue) TELE CONSULT [id number] Thyroid tests needs synthro id BEBA CEDENO 12/[address] [place] [address] Paco [facility])(S cott [facility] Tm Blue) [address] [place] [address] Paco [facility])(Car diologyPr ocedure Schedules ) OUTPATIENT [id number] FATIGUE BEBA SCOTT 01/27 Released w/o Limitations [address] [place] [address] Paco Do [facility])(Alcides Box es) [address] [place] [address] Paco [facility])(Sco tt [facility] Tm Blue) TELE CONSULT [id number] Rx Request PRO CHILDRESS 03/[address] [place] [address] Paco [facility])(S cott [facility] Tm Blue) [address] [place] [address] Paco Do [facility])(Sco tt [facility] Tm Blue) TELE CONSULT [id number] med refill PRO CHILDRESS 03/[address] [place] [address] Paco [facility]NER [facility])(S cott [facility] Tm Blue) [address] [place] [address] Paco B [facility])(Sco tt [facility] Tm Blue) OUTPATIENT [id number] Follow up on test and blood presure BEBA CEDENO 05/15 Released w/o Limitations [address] [place] [address] Paco [facility])(S cott [facility] Tm Blue) [address] [place] [address] Paco BONNER ([facility])(Sco tt [facility] Tm Blue) OUTPATIENT [id number] annual pap KRISTAL JACKSON 11/27 Released w/o Limitations [facility] ([facility] Procedures Combined list of: 1) Procedures from Department of Veterans Affairs facilities [facility], not all VA non-surgical procedures are included; 2) All procedures from the Department of Defense facilities. Procedure Procedure Type Code Date Perfomer Comments Sourc e No data available for this section Ambulatory Pharmacy Vaginal Pap Smear Vaginal Pap Smear [id number] 11/27 KRISTAL JACKSON [facility] Screening papanicolaou smear; obtaining, preparing and conveyance of cervical or vaginal smear to laboratory 2005 KRISTAL JACKSON [facility] Cardiac Stre Test With Physician Supervision, Interpretation, And Report Cardiac Stress Test With Physician Supervision, Interpretation, And Report [id number] 2004 BEBA SCOTT [facility] Electrocardiogram Electrocardiogram 42122 12/15 BEBA CEDENO [facility] SCREENING PAPANICOLAOU SMEAR; OBTAINING, PREPARING AND CONVEYANCE OF CERVICAL OR VAGINAL SMEAR TO LABORATORY 2005 [facility] CARDIOVASCULAR STRESS TEST USING MAXIMAL OR SUBMAXIMAL TREADMILL OR BICYCLE EXERCISE,CONTINUOUS ELECTROCARDIOGRAPHIC MONITORING,AND/OR PHARMACOLOGICAL STRESS;W SUPERVISION,INTERPRETAT ION AND REPORT 2004 [facility] ELECTROCARDIOGRAM, ROUTINE ECG WITH AT LEAST 12 LEADS; WITH INTERPRETATION AND REPORT 2004 [facility] BIOPSY OF CERVIX, SINGLE OR MULTIPLE, OR LOCAL EXCISION OF LESION, WITH OR WITHOUT FULGURATION (SEPARATE PROCEDURE) 2003 [facility] OTHER BIOPSY OF BREAST 10/23 [facility] REMOVAL OF INTRAUTERINE CONTRACEPTIVE DEVICE 1989 [facility] OTHER DILATION AND CURETTAGE OF UTERUS 1989 DoD Social History Combined list of available smoking, tobacco, and other social history from Department of Defense and Veterans Affairs facilities. Social History Type Response Date Comment Sourc e This section is an empty social history section. DoD Assessment and Plan Combined list of future care activities from Department of Defense and Veterans Affairs facilities (e.g., assessment and plan notes, appointments, orders, and referrals). Additional future care activities may be listed in the Plan of Care section. Result Assessment and Plan Date Source Assessment and Plan No data available for this section 04/07/2024 Ambulatory Pharmacy Functional Status Combined list of recent functional and cognitive assessments recorded at Department of Defense and Veterans Affairs (VA).VA Functional Perkins Measurement (FIM) Scale: 1 = Total Assistance (Subject = 0% +), 2 = Maximal Assistance (Subject = 25% +), 3 = Moderate Assistance (Subject = 50% +), 4 = Minimal Assistance (Subject = 75% +), 5 = Supervision, 6 = Modified Perkins (Device), 7 = Complete Perkins (Timely, Safely). Assessment Date/Time Source Assessment Type Assessment Skill Assessment Score Assessment Details No data available for this section
--- OUTSIDE RECORDS SUMMARY | 2024-04-06 19:10 | XMS_ITS | Clinical Summary ---
Author Organization [facility] Address [address] [place] [address] Care Team Providers Care Pillowcase Folder Name Role Phone Unavailable Primary Care Provider Unavailabl e Social History Tobacco Use Types Packs/Day Years Used Date Smoking Tobacco: Never Assessed Comments Unknown Sex and Gender Information Value Date Recorded Sex Assigned at Not on file Legal Sex Female 8:14 PM CDT Gender Identity Not on file Sexual Orientation Not on file Plan of Treatment Health Maintenance Due Date Last Done Comments DTaP, Tdap and Td Vaccines ( 1 - Tdap) 11/21/1954 Zoster Vaccines (1 of 2) 11/21/1985 Pneumococcal Vaccine: 65+ Ye ars (1 of 1 - PCV) 11/21/2000 RSV Immunization or 60+ Years (1 - 1-dose 75+ series) 11/21/2010 COVID-19 Vaccine (2023-2 5 season) 2023 Influenza Adult (#1) 2023 Meningococcal B Vaccine Aged Out No l onger eligible based on patient's age to complete this topic Meningococcal Vaccine Aged Out No shantell kalie eligible based on patient's age to complete this topic RSV Immunizations Under 20 Months Aged Out No longer eligible based on patient's age to complete this topic
--- OUTSIDE RECORDS SUMMARY | 2024-04-06 19:10 | XMS_ITS | Continuity of Care Document ---
Author Organization [facility] Address [address] [place] [address] Insurance Providers Payer Plan Claims Address Claims Phone Policy Number Group Number Relation Employer Guarantor Name Guarantor Guarantor Address Guarantor Phone [facility] [employer] ADV [address] [address], [place] [address] tel:[phone] Mynor Carly Martino [address], [place] [address] TRICA RE [address], [place] [address] tel:[phone] Mynor aMrtino [address], [place] [address] [employer] [address] [address], [place] [address] tel:[phone] Mynor Martino [address], [place] [address] Problems Unknown Problems Results No Results Allergies, adverse reactions, alerts No known allergies and adverse reactions Medications No administered medications reported Vital Signs Date Vital Result Comment 11/10/2023 Inhaled Oxygen Concentration 21.0 % N Faces Pain Scale 0.0 N Temperature 97.9 [degF] N Oxygen Saturation 97 % N Respiratory Rate 16 /min N Heart Rate 66 /min N Blood Pressure Systolic 114 mm[Hg] N Blood Pressure Diastolic 62 mm[Hg] N Body Height 66 [in_i] N Body Weight 158 [lb_av] N Body Mass Index 25.5 kg/m2 N 12/03/2023 Inhaled Oxygen Concentration 21.0 % N Faces Pain Scale 0.0 N Temperature 97.7 [degF] N Oxygen Saturation 95 % N Respiratory Rate 16 /min N Heart Rate 76 /min N Blood Pressure Systolic 120 mm[Hg] N Blood Pressure Diastolic 74 mm[Hg] N Body Height 66 [in_i] N Body Weight 149 [lb_av] N Body Mass Index 24 kg/m2 N Social History No smoking Hx information available Functional Status Category Condition Date Problem (Feeding: Independent) Feeding: Independ ent 11/10/2023 Problem (Bathing: Dependent) Bathing: Dependent 11/10/2023 Problem (Grooming: Independe nt face/hair/teeth/ shaving (implements provided)) Grooming: Independent face/hair/teeth/ shaving (implements provided) 11/10/2023 Problem (Dressing: Independe nt (including buttons, zips, laces, etc.)) Dressing: Independent (including buttons, zips, laces, etc.) 11/10/2023 Problem (Bowels: Continent) Bowels: Continent Problem (Bladder: Occasional accident) Bladder: Occasional accident 11/10/2023 Problem (Toilet use: Indepen dent (on and off, dressing, wiping)) Toilet use: Independent (on and off, dressing, wiping) 11/10/2023 Problem (Transfers (bed to c hair and back): Independent) Transfers (bed to chair and back): Independent 11/10/2023 Problem (Mobility (on level surfaces): Independent (but may use any aid; for example, stick) >50 yards) Mobility (on level surfaces): Independent (but may use any aid; for example, stick) >50 yards 11/10/2023 Problem (Stairs: Needs help (verbal, physical, carrying aid)) Stairs: Needs help (verbal, physical, carrying aid) 11/10/2023 Problem (Total score: 85) Total score: 85 2023
--- OUTSIDE RECORDS SUMMARY | 2024-04-06 19:10 | XMS_ITS | Patient Health Summary ---
Author Organization [facility] Address [address] [place] [address] Care Team Providers Care Core Analysis Operator Name Role Phone Alina Collier MD Primary Care Provider Note from [facility],non-owned Affiliates and Associated Physician Practices is amultiple site organization consisting of ambulatory clinics and hospital sitesin [place], [place], [place]. This disclosure is being madepursuant to the Care Everywhere program and may not contain all information available regarding this patient. Last updated 17.[facility] Allergies * Penicillins(Unknown) Medications * Be aware that medications may not be up to date on this document. Alwaysverify current medications with the patient. * levothyroxine (Synthroid) 25 MCG tablet Take 1 (one) tablet by mouth daily before breakfast * cyclobenzaprine (Flexeril) 5 MG tablet Take 1 (one) tablet by mouth 3 times daily as needed * metoprolol succinate XL 24hr (Toprol XL) 25 MG tablet Take 1 (one) tablet by mouth once daily * memantine (Namenda) 10 MG tablet Take 1 (one) tablet by mouth 2 times daily * donepezil (Aricept) 10 MG tablet Take 1 (one) tablet by mouth at bedtime * Nutritional Supplement LIQD(Started 07/22/2023) Take 1 container by mouth 3 times daily High Calorie High Protein Supplement Examples: Ensure Enlive/Ensure Plus High Protein/Boost Plus/Equate Plus * senna-docusate (Senokot-S) 8.6-50 MG tablet(Started 07/30/2023) Take 1 (one) tablet by mouth 2 times daily * polyethylene glycol 3350 (Miralax) 17 g packet(Started 07/31/2023) Take 17 (seventeen) g by mouth once daily * apixaban (Eliquis) 2.5 MG tablet(Started 07/30/2023) Take 1 (one) tablet by mouth 2 times daily for 35 days Active Problems Problem Noted Date Diagnosed Date Severe protein-calorie malnu trition (Gomes: less than 60% of standard weight) 07/24/2023 Essential hypertension 07/23/2023 Hyperlipidemia 07/23/2023 Subclinical hypothyroidism 07/23/2023 Hiatal hernia 07/20/2023 Closed fracture of neck of right femur, initial encounter 07/20/2023 Pain of right hip 07/20/2023 Ground-level fall 07/20/2023 Chronic kidney disease 06/23/2023 Alzheimer's disease with late onset 12/19/2020 Resolved Problems Problem Noted Date Diagnosed Date Resolved Date UTI (urinary tract infection) 07/24/2023 08/07/2023 Social History Tobacco Use Types Packs/Day Years Used Date Smoking Tobacco: Never Smokeless Tobacco: Never Tobacco Cessation:Counseling Given: Not Answered Alcohol Use Standard Drinks/Week Comments Not Currently 0 (1 standard drink = 0.6 oz pur e alcohol) quit in 1954 AUDIT-C Answer Date Recorded Q1: How often do you have a drink containing alcohol? Never 07/21/2023 Q2: How many drinks containi ng alcohol do you have on a typical day when you are drinking? Patient does not drink Q3: How often do you have si x or more drinks on one occasion? Never 07/21/2023 Overall Financial Resource Strain (CARDIA) Answe r Date Recorded How hard is it for you to pa y for the very basics like food, housing, medical care, and heating? Not hard at all 07/21/2023 PHQ-2 Answer Date Recorded Patient Health Questionnaire-2 Score 0 11/25/2023 [facility] [place] [facility] - Occupational Stress Questionnaire Answer Date Recorded Do you feel stress - tense, restless, nervous, or anxious, or unable to sleep at night because your mind is troubled all the time - these days? Not at all 07/21/2023 Hunger Vital Sign Answer Date Recorded Within the past 12 months, y ou worried that your food would run out before you got the money to buy more. Never true 07/21/19 24 Within the past 12 months, t he food you bought just didn't last and you didn't have money to get more. Never true 07/21/2023 PRAPARE - Transportation Answer Date Re corded In the past 12 months, has l ack of transportation kept you from medical appointments or from getting medications? No 06/23 In the past 12 months, has l ack of transportation kept you from meetings, work, or from getting things needed for daily living? No 07/21/2023 Housing Stability Vital Sign Answer Arturo e Recorded In the last 12 months, was t here a time when you were not able to pay the mortgage or rent on time? No 07/21/2023 In the last 12 months, how many places have you lived? 1 07/21/2023 In the last 12 months, was t here a time when you did not have a steady place to sleep or slept in a nursing home (including now)? No 07/21/2023 Sex and Gender Information Value Date Recorded Sex Assigned at Not on file Gender Identity Not on file Sexual Orientation Not on file Last Filed Vital Signs Vital Sign Reading Time Taken Comments Blood Pressure 130/66 07/30/2023 4:22 PM CDT Pulse 95 07/30/2023 4:22 PM CDT Temperature 36.6 C (97.9 F) 07/30/2023 4:22 PM CDT Respiratory Rate 18 07/29/2023 9:55 PM CDT Oxygen Saturation 97% 07/30/2023 4:22 PM CDT Inhaled Oxygen Concentration - - Weight 63 kg (139 lb) 11/25/2023 8:44 AM CDT Height 167.6 cm (5' 5.98 ) 07/21/2023 8:39 PM CD T Body Mass Index 22.45 07/21/2023 8:39 PM CDT Medical Devices Implanted Type Area Client Partner Device Identifier Shelf Expiration Date Model / Serial / Lot Compon Acetab Bipol Uhr 49mm Implanted:Qty: 1 on 07/21/2023 by Nestor Patton MD at [facility] Right: Hip [employer] [id number] 07/07/2025 UH1-49-28 / / [id number] Insignia Hip Stem Standard Offset Implanted:Qty: 1 on 07/21/2023 by Nestor Patton MD at [facility] Right: Hip [employer] 09/03/2027 [id number] / / [id number] Head Fem +8mm Ofst Tpr 28mm Hip Cocr V40 Implanted:Qty: 1 on 07/21/2023 by Nestor Patton MD at [facility] Right: Hip [employer] [id number] 07/29/2026 6260-9-328 / / [id number] Procedures * XR HIP RIGHT 2VW OR MORE(Performed 11/25/2023) Performed for Closed fracture of neck of right femur with routine healing, subsequent encounter * XR HIP RIGHT 2VW OR MORE(Performed 08/19/2023) Performed for Closed fracture of neck of right femur, initial encounter ([facility]) * BASIC METABOLIC PANEL (CALCIUM TOTAL)(Performed 07/29/2023) * RENAL FUNCTION PANEL(Performed 07/27/2023) * CBC W/O DIFFERENTIAL(Performed 07/27/2023) * XR PELVIS W RIGHT HIP 2VW(Performed 07/27/2023) Performed for Closed fracture of neck of right femur, initial encounter ([facility]) * RENAL FUNCTION PANEL(Performed 07/24/2023) * CBC W AUTO DIFFERENTIAL(Performed 07/24/2023) * MAGNESIUM BLOOD(Performed 07/24/2023) * RENAL FUNCTION PANEL(Performed 07/23/2023) * CBC W AUTO DIFFERENTIAL(Performed 07/23/2023) * MAGNESIUM BLOOD(Performed 07/23/2023) * MRSA DNA PCR(Performed 07/22/2023) * US EXTREMITY RIGHT LTD NONVASC(Performed 07/22/2023) Performed for Closed fracture of neck of right femur, initial encounter ([facility]) * MAGNESIUM BLOOD(Performed 07/22/2023) * RENAL FUNCTION PANEL(Performed 07/22/2023) * CBC W/O DIFFERENTIAL(Performed 07/22/2023) * XR PELVIS 1 OR 2VW(Performed 07/21/2023) Performed for Closed fracture of neck of right femur, initial encounter ([facility]) * CT PARTIAL HIP REPLACEMENT(Performed 07/21/2023) Performed for Fracture * ENDOTRACHEAL TUBE NOTE(Performed 07/21/2023) * CARDIAC EKG ORDER(Performed 07/21/2023) * VITAMIN D 25-HYDROXY(Performed 07/21/2023) * PHOSPHORUS BLOOD(Performed 07/21/2023) * MAGNESIUM BLOOD(Performed 07/21/2023) * COMPREHENSIVE METABOLIC PANEL(Performed 07/21/2023) * CBC W AUTO DIFFERENTIAL(Performed 07/21/2023) * URINE MICROSCOPIC ONLY REFLEX TO CULTURE(Performed 07/21/2023) * URINALYSIS REFLEX MICROSCOPIC REFLEX CULTURE(Performed 07/21/2023) * URINE DRUG SCREEN IMMUNOASSAY(Performed 07/21/2023) * CULTURE URINE(Performed 07/21/2023) * BLOOD TYPE VERIFICATION(Performed 07/20/2023) * CK BLOOD(Performed 07/20/2023) * CT LUMBAR SPINE WO CONTRAST(Performed 07/20/2023) Performed for Ground-level fall * CT THORACIC SPINE WO CONTRAST(Performed 07/20/2023) Performed for Ground-level fall * CT CHEST ABDOMEN PELVIS W CONT(Performed 07/20/2023) Performed for Ground-level fall * CT CERVICAL SPINE WO CONTRAST(Performed 07/20/2023) Performed for Ground-level fall * CT HEAD WO CONTRAST(Performed 07/20/2023) Performed for Ground-level fall * TSH REFLEX FREE T4(Performed 07/20/2023) * TROPONIN-I HIGH SENSITIVE REFLEX 1HOUR(Performed 07/20/2023) * EKG 12-LEAD(Performed 07/20/2023) Performed for Ground-level fall * XR KNEE RIGHT 3VW(Performed 07/20/2023) Performed for Pain of right hip * XR FEMUR RIGHT 2VW(Performed 07/20/2023) Performed for Pain of right hip * TEG 6S PLATELET MAPPING(Performed 07/20/2023) * TEG 6 GLOBAL HEMOSTASIS W/ LYSIS(Performed 07/20/2023) * LIPASE BLOOD(Performed 07/20/2023) * ALCOHOL ETHYL BLOOD(Performed 07/20/2023) * TROPONIN-I HIGH SENSITIVE BASELINE + 1HR(Performed 07/20/2023) * XR CHEST 1VW PORTABLE(Performed 07/20/2023) Performed for Ground-level fall * XR PELVIS W RIGHT HIP 2VW(Performed 07/20/2023) Performed for Pain of right hip, Ground-level fall * TYPE + SCREEN PANEL(Performed 07/20/2023) * PTT [facility](Performed 07/20/2023) * PT-INR [facility](Performed 07/20/2023) * COMPREHENSIVE METABOLIC PANEL(Performed 07/20/2023) * CBC W AUTO DIFFERENTIAL(Performed 07/20/2023) Results * XR Hip Right 2Vw or More (11/25/2023 8:42 AM CDT) Only the most recent of2 resultswithin the time period is included. Anatomical Region Laterality Modality Pelvis, Lower Extremity [facility] 11/25/2023 8:41 AM CDT Impressions 11/25/2023 8:44 AM CDT IMPRESSION: Hemiarthroplasty, unchanged in alignment. Cannot exclude a nondisplaced greater trochanter fracture. > Interpreting Provider: Rito Lomeli MD on 11/25/2023 8:44 AM Narrative 11/25/2023 8:44 AM CDT PROCEDURE: XR HIP RIGHT 2VW OR MORE DATE/TIME OF EXAM: 11/25/2023 8:42 AM CLINICAL INFORMATION: None relevant/not provided if blank. Indication: S72.001D: Closed fracture of neck of right femur with routine healing, subsequent encounter Additional History: COMPARISON: 08/19/2023. FINDINGS: Right hip hemiarthroplasty is again demonstrated. The prosthesis is intact. A nondisplaced greater trochanter fracture may be present. There is no dislocation. There is developing heterotopic ossification, mainly adjacent to the greater trochanter. Procedure Note Rito Lomeli MD - 11/25/2023 PROCEDURE: XR HIP RIGHT 2VW OR MORE DATE/TIME OF EXAM: 11/25/2023 8:42 AM CLINICAL INFORMATION: None relevant/not provided if blank. Indication: S72.001D: Closed fracture of neck of right femur withroutine healing, subsequent encounter Additional History: COMPARISON: 08/19/2023. FINDINGS: Right hip hemiarthroplasty is again demonstrated. The prosthesis isintact. A nondisplaced greater trochanter fracture may be present. There is no dislocation. There is developing heterotopic ossification, mainlyadjacent to the greater trochanter. IMPRESSION: Hemiarthroplasty, unchanged in alignment. Cannot exclude a nondisplaced greater trochanter fracture. > Interpreting Provider: Rito Lomeli MD on 11/25/2023 8:44 AM Rina Dunn MD DIAGNOSTIC IMAGING ORDERABLES * (ABNORMAL) BASIC METABOLIC PANEL (CALCIUM TOTAL) (07/29/2023 12:23 PM CDT) BUN 22 7 - 26 mg/dL 07/29/2023 1:[address] [facility] Creatinine 0.71 0.56 - 0.96 mg/dL 07/29/2023 1:49 PM [facility] Sodium 137 136 - 145 mmol/L 07/29/2023 1:49 PM [facility] Potassium 3.4(L) 3.5 - 4.5 mmol/L 07/29/2023 1:49 PM [facility] Chloride 99 98 - 107 mmol/L 07/29/2023 1:49 PM [facility] CO2 27 22 - 29 mmol/L 07/29/2023 1:49 PM [facility] Glucose 118(H) 70 - 115 mg/dL 07/29/2023 1:49 PM [facility] Calcium 9.0 8.4 - 10.2 mg/dL 07/29/2023 1:49 PM [facility] Anion Gap 11 6 - 16 07/29/2023 1:49 PM [facility] BUN/Creatinine Ratio 31(H) 7 - 23 07/29/2023 1:[address] [facility] Osmolality Calculated 288 275 - 295 mOsm/kg 07/29/2023 1:49 PM [facility] eGFR by CKD-EPI 82(L) >=90 mL/min/1.7 3 m2 07/29/2023 1:49 PM [facility] Blood BLOOD SPECIMEN / Unknown Lab Venipuncture / Unknown 07/29/2023 12:23 PM CDT 07/29/2023 1:23 PM T Cristi Mendoza MD LAB - CHEMISTRY SHABNAM TUCKER [facility] [address] [place] [address], [facility] [phone] * (ABNORMAL) CBC W/O DIFFERENTIAL (07/27/2023 7:13 PM CDT) Only the most recent of2 resultswithin the time period is included. WBC 6.9 4.0 - 10.7 x10E9/L 07/27/2023 7:56 PM T [facility] RBC Count 3.90 3.90 - 5.20 x10E12/L 07/27/2023 7:56 PM [facility] Hemoglobin 11.5(L) 11.9 - 15.8 g/dL 07/27/2023 7:56 PM [facility] Hematocrit 34.8 34.8 - 46.1 % 07/27/2023 7:56 PM [facility] MCV 89.2 80.0 - 98.0 fL 07/27/2023 7:56 PM T [facility] MCH 29.5 26.7 - 33.6 pg 07/27/2023 7:56 PM T [facility] MCHC 33.0 31.7 - 36.3 g/dL 07/27/2023 7:56 PM [facility] RDW-CV 13.1 11.3 - 14.8 % 07/27/2023 7:56 PM [facility] Platelet Count 395 150 - 420 x10E9/L 07/27/2023 7:56 PM T [facility] MPV 10.2 7.8 - 11.4 fL 07/27/2023 7:56 PM [facility] Blood BLOOD SPECIMEN / Unknown Lab Venipuncture / Unknown 07/27/2023 7:13 PM CDT 07/27/2023 7:49 PM CDT Edwin Rodriguez MD LAB - HEMATOLOGY LETICIA DURAND [facility] [address] [place] [address] [phone] * (ABNORMAL) RENAL FUNCTION PANEL (07/27/2023 7:13 PM T) Only the most recent of4 resultswithin the time period is included. BUN 20 7 - 26 mg/dL 07/27/2023 8:18 PM [facility] Creatinine 0.69 0.56 - 0.96 mg/dL 07/27/2023 8:18 PM [facility] Sodium 136 136 - 145 mmol/L 07/27/2023 8:18 PM [facility] Potassium 3.5 3.5 - 4.5 mmol/L 07/27/2023 8:18 PM [facility] Chloride 99 98 - 107 mmol/L 07/27/2023 8:18 PM [facility] CO2 27 22 - 29 mmol/L 07/27/2023 8:18 PM [facility] Glucose 118(H) 70 - 115 mg/dL 07/27/2023 8:18 PM [facility] Albumin 2.3(L) 3.4 - 5.0 g/dL 07/27/2023 8:18 PM [facility] Calcium 9.6 8.4 - 10.2 mg/dL 07/27/2023 8:18 PM [facility] Phosphorus 2.7(L) 2.9 - 5.1 mg/dL 07/27/2023 8:18 PM [facility] Anion Gap 10 6 - 16 07/27/2023 8:18 PM [facility] BUN/Creatinine Ratio 29(H) 7 - 23 07/27/2023 8:18 PM [facility] Osmolality Calculated 286 275 - 295 mOsm/kg 07/27/2023 8:18 PM [facility] eGFR by CKD-EPI 84(L) >=90 mL/min/1.7 3 m2 07/27/2023 8:18 PM [facility] Blood BLOOD SPECIMEN / Unknown Lab Venipuncture / Unknown 07/27/2023 7:13 PM CDT 07/27/2023 7:49 PM T Edwin Rodriguez MD LAB - CHEMISTRY SHABNAM TUCKER [facility] Organization Address City/State/ZIP Co de Phone Number [facility] [address] [place] [address], [facility] [phone] * XR PELVIS W RIGHT HIP 2VW (07/27/2023 6:58 PM CDT) Only the most recent of2 resultswithin the time period is included. Anatomical Region Laterality Modality Pelvis Radiographic Mary ging 07/28/2023 2:06 PM CDT Impressions 07/28/2023 9:51 PM CDT IMPRESSION: Unchanged appearance of right total hip arthroplasty without evidence of complication. Report dictated by Gagandeep Matute MD (assistant vice president). I, Danilo Argueta MD have personally reviewed and interpreted this examination/study. > Interpreting Provider: Danilo Argueta MD on 07/28/2023 9:51 PM Narrative 07/28/2023 9:51 PM CDT EXAMINATION: XR PELVIS W RIGHT HIP 2VW DATE/TIME OF EXAM: 07/27/2023 6:58 PM, LOCATION [facility] HISTORY: S72.001A: Closed fracture of neck of right femur, initial encounter ([facility]) FX COMPARISON: X-ray pelvis from 07/21/2023 FINDINGS: Redemonstrated right total hip arthroplasty. The hardware is intact, no evidence of periprosthetic fracture.Small volume postoperative soft tissue gas is nearly resolved. The left femoral head is well-seated in the acetabulum. There is no pubic symphysis diastasis. Diffuse osteopenia. The sacroiliac joints are not widened. Procedure Note Danilo Argueta MD - 07/28/2023 EXAMINATION: XR PELVIS W RIGHT HIP 2VW DATE/TIME OF EXAM: 07/27/2023 6:58 PM, LOCATION [facility] HISTORY: S72.001A: Closed fracture of neck of right femur, initial encounter ([facility]) FX COMPARISON: X-ray pelvis from 07/21/2023 FINDINGS: Redemonstrated right total hip arthroplasty. The hardware is intact, no evidence of periprosthetic fracture.Small volume postoperative softtissue gas is nearly resolved. The left femoral head is well-seated in the acetabulum. There is no pubic symphysis diastasis. Diffuse osteopenia.The sacroiliac joints are not widened. IMPRESSION: Unchanged appearance of right total hip arthroplasty without evidence of complication. Report dictated by Gagandeep Matute MD (assistant vice president). I, Danilo Argueta MD have personally reviewed and interpreted this examination/study. > Interpreting Provider: Danilo Argueta MD on 07/28/2023 9:51 PM Cristi Mendoza MD DIAGNOSTIC IMAGING O RDERABLES * (ABNORMAL) CBC W AUTO DIFFERENTIAL (07/24/2023 3:08 AM T) Only the most recent of4 resultswithin the time period is included. WBC 10.9(H) 4.0 - 10.7 x10E9/L 07/24/2023 3:49 AM [facility] RBC Count 3.80(L) 3.90 - 5.20 x10E12/L 07/24/2023 3:49 AM [facility] Hemoglobin 11.5(L) 11.9 - 15.8 g/dL 07/24/2023 3:49 AM [facility] Hematocrit 33.4(L) 34.8 - 46.1 % 07/24/2023 3:49 AM [facility] MCV 87.9 80.0 - 98.0 fL 07/24/2023 3:49 AM [facility] MCH 30.3 26.7 - 33.6 pg 07/24/2023 3:49 AM [facility] MCHC 34.4 31.7 - 36.3 g/dL 07/24/2023 3:49 AM [facility] RDW-CV 12.9 11.3 - 14.8 % 07/24/2023 3:49 AM [facility] Platelet Count 270 150 - 420 x10E9/L 07/24/2023 3:49 AM [facility] MPV 11.1 7.8 - 11.4 fL 07/24/2023 3:49 AM [facility] Neutrophil % 84.6(H) 41.0 - 74.0 % 07/24/2023 3:49 AM [facility] Lymphocyte % 7.0(L) 17.0 - 47.0 % 07/24/2023 3:49 AM [facility] Monocyte % 6.7 3.0 - 11.0 % 07/24/2023 3:49 AM [facility] Eosinophil % 0.8 0.0 - 7.0 % 07/24/2023 3:49 AM [facility] Basophil % 0.3 0.0 - 1.6 % 07/24/2023 3:49 AM [facility] Immature Granulocytes % 0.6 0.0 - 1.0 % 07/24/2023 3:49 AM [facility] Neutrophil Absolute 9.25(H) 1.60 - 7.50 x10E9/L 07/24/2023 3:49 AM [facility] Lymphocyte Absolute 0.77(L) 1.00 - 4.40 x10E9/L 07/24/2023 3:49 AM [facility] Monocyte Absolute 0.73 0.15 - 1.00 x10E9/L 07/24/2023 3:49 AM [facility] Eosinophil Absolute 0.09 0.00 - 0.60 x10E9/L 07/24/2023 3:49 AM [facility] Basophil Absolute 0.03 0.00 - 0.13 x10E9/L 07/24/2023 3:49 AM [facility] Blood BLOOD SPECIMEN / Unknown Lab Venipuncture / Unknown 07/24/2023 3:08 AM CDT 07/24/2023 3:42 AM CDT Michaela Crain MD LAB - HEMATOLOGY ORD ERABLES [facility] [address] [place] [address], [facility] [phone] * MAGNESIUM BLOOD (07/24/2023 3:08 AM CDT) Only the most recent of4 resultswithin the time period is included. Magnesium 2.1 1.6 - 2.6 mg/dL 07/24/2023 4:15 AM CDT [facility] Blood BLOOD SPECIMEN / Unknown Lab Venipuncture / Unknown 07/24/2023 3:08 AM CDT 07/24/2023 3:42 AM CDT Michaela Crain MD LAB - CHEMISTRY SHABNAM TUCKER [facility] [address] [place] [address], [place] [phone] * MRSA DNA PCR (07/22/2023 1:36 PM CDT) MRSA DNA by PCR Not detected Not detected 07/22/2023 5:38 PM CDT [facility] Microbiology SPECIMEN FROM NASAL FOSSAE / Unknown Collection / Unknown 07/22/2023 1:36 PM CDT 07/22/2023 1:40 PM CDT Narrative [facility] - 07/22/2023 5:38 PM CDT Methicillin-resistant Staphylococcus aureus (MRSA) DNA is not detected (presumed not colonized with MRSA). Michaela Crain MD LAB - MICROBIOLOGY O RDERABLES [facility] [address] [place] [address], [facility] [phone] * US EXTREMITY RIGHT LTD NONVASC (07/22/2023 10:39 AM CDT) Anatomical Region Laterality Modality Upper Extremity, Lower Extremity Ultrasound 07/22/2023 12:0 2 PM CDT Impressions 07/22/2023 12:03 PM CDT IMPRESSION: No discrete fluid collection or hematoma. Mild soft tissue edema. > Interpreting Provider: Lorraine Kellogg MD on 07/22/2023 12:03 PM Narrative 07/22/2023 12:03 PM CDT PROCEDURE: US EXTREMITY RIGHT LTD NONVASC DATE/TIME OF EXAM: 07/22/2023 10:50 AM CLINICAL INFORMATION: None relevant/not provided if blank. Indication: S72.001A: Closed fracture of neck of right femur, initial encounter ([facility]) Additional History: COMPARISON: CT exam from 07/20/2023 TECHNIQUE: Ultrasound of the [right lateral hip' was performed utilizing standard protocol. FINDINGS: Ultrasound examination of the right hip at the area of swelling fails to demonstrate any discrete fluid collection or hematoma. Mild soft tissue edema is seen. Procedure Note Melinda Kellogg MD - 07/22/2023 PROCEDURE: US EXTREMITY RIGHT LTD NONVASC DATE/TIME OF EXAM: 07/22/2023 10:50 AM CLINICAL INFORMATION: None relevant/not provided if blank. Indication: S72.001A: Closed fracture of neck of right femur, initial encounter ([facility]) Additional History: COMPARISON: CT exam from 07/20/2023 TECHNIQUE: Ultrasound of the [right lateral hip' was performed utilizing standard protocol. FINDINGS: Ultrasound examination of the right hip at the area of swelling fails to demonstrate any discrete fluid collection or hematoma. Mild soft tissue edema is seen. IMPRESSION: No discrete fluid collection or hematoma. Mild soft tissue edema. > Interpreting Provider: Lorraine Kellogg MD on 07/22/2023 12:03 PM Michaela Crain MD US ORDERABLES * XR PELVIS 1 OR 2VW (07/21/2023 3:10 PM CDT) Anatomical Region Laterality Modality Pelvis Radiographic Mary ging 07/23/2023 10:3 7 AM CDT Impressions 07/23/2023 12:13 PM CDT IMPRESSION: Interval total right hip arthroplasty without evidence of complication. Report dictated by Andres Hollingsworth MD (assistant vice president). Prince Larkin MD have personally reviewed and interpreted this examination/study. > Interpreting Provider: Prince Coates MD on 07/23/2023 12:13 PM Narrative 07/23/2023 12:13 PM CDT PROCEDURE: XR PELVIS 1 OR 2VW, DATE/TIME OF EXAM: 07/21/2023 3:11 PM, LOCATION [facility] INDICATION: S72.001A: Closed fracture of neck of right femur, initial encounter ([facility]) ADDITIONAL CLINICAL INFORMATION: Ordering Provider Reason For Exam: surgery COMPARISON: CT chest abdomen pelvis dated 07/20/2023. FINDINGS: The upper pelvis is not included in the [id number]. There is been interval right total hip arthroplasty without evidence of periprosthetic fracture. Small volume adjacent soft tissue gas and edema, likely postprocedural changes. The left femoral head appears well-seated within its left acetabulum. The pubic symphysis appears intact. Contrast is present within the urinary bladder. Procedure Note Prince Coates MD - 07/23/2023 PROCEDURE: XR PELVIS 1 OR 2VW, DATE/TIME OF EXAM: 07/21/2023 3:11 PM, LOCATION [facility] INDICATION: S72.001A: Closed fracture of neck of right femur, initial encounter([facility]) ADDITIONAL CLINICAL INFORMATION: Ordering Provider Reason For Exam: surgery COMPARISON: CT chest abdomen pelvis dated 07/20/2023. FINDINGS: The upper pelvis is not included in the [id number]. There is been interval right total hip arthroplasty without evidence of periprosthetic fracture. Small volume adjacent soft tissue gas andedema, likely postprocedural changes. The left femoral head appears well-seated within its left acetabulum. The pubic symphysis appears intact. Contrastis present within the urinary bladder. IMPRESSION: Interval total right hip arthroplasty without evidence of complication. Report dictated by Andres Hollingsworth MD (assistant vice president). IPrince MD have personally reviewed and interpreted this examination/study. > Interpreting Provider: Prince Coates MD on 07/23/2023 12:13 PM Nestor Patton MD DIAGNOSTIC IMAGING O RDERABLES * ETT LINE PERFORMABLE (07/21/2023 1:08 PM CDT) Narrative Maribeth Tinoco APRN-CRNA - 07/21/2023 1:08 PM CDT Maribeth Tinoco APRN-CRNA 07/21/2023 1:09 PM Endotracheal Tube Placement: Patient Location: OR. Intubation Event Date/Time: 07/21/2023 12:49 PM Procedure: intubation ([id number]). Procedure Section: Sedation: under general anesthesia. Indications for Airway Management: anesthesia Procedure pretreatments used? No Induction: standard IV Patient Position: sniffing Mask Ventilation: easy with oral airway. Blade Type: Gordon Blade Size: 3 Laryngoscopy View: grade 1 (full cords) Intubation Adjuncts: stylet Tube: endotracheal tube Placement: oral Tube type: cuff - inflated Tube Size (MM): 7 Depth of Insertion (CM): 20 Measured From: gums Cuff volume (mL): 7 Cuff Inflated With: air Number of Attempts: 1. Placement Verified By: direct visualization, bilateral breath sounds, chest auscultation and CO2 monitor CXR Findings: ETT in proper place. Tube secured with: adhesive tape. Dentition unchanged? Yes Difficult Airway? No. Procedure Start Time: 07/21/2023 12:49 PM. Staff Section Anesthesia Provider: Maribeth Tinoco APRN-DICTAPHONE MECHANIC, Performed the procedure Provider #1: Jermaine Jaramillo MD. Jermaine Jaramillo MD GENERAL ANESTHESI A ORDERABLES * CARDIAC EKG ORDER (07/21/2023 9:49 AM CDT) Narrative 07/21/2023 9:49 AM CDT Ordered by an unspecified provider. Scanned Document CARDIAC SERVICES ORD ERABLES * VITAMIN D 25-HYDROXY (07/21/2023 4:16 AM CDT) [facility] Signature Vitamin D, 25 Hydroxy 42.3 30.0 - 80.0 ng/mL 07/21/2023 5:06 AM CDT [facility] Comment: The recommendations for 25-Hydroxy Vitamin D clinical decision points are as follows: Deficient: <20.0 ng/mL Insufficient: 20.0 - 29.9 ng/mL Sufficient: 30.0 - 100.0 ng/mL Potential Toxicity: >100 ng/mL Reference: The Endocrine Society Clinical Practice Guidelines. 2011 If the 25-Hydroxy Vitamin D results are inconsitent with clinical evidence, it is recommended that follow-up testing using a method such as LC/MS/MS be performed to confirm the result. Blood BLOOD SPECIMEN / Unknown Venipuncture / Unknown 07/21/2023 4:16 AM CDT 07/21/2023 4:32 AM CDT Eyal Vuong MD LAB - CHEMISTR Y ORDERABLES [facility] [address] [place] [address], [facility] [phone] * (ABNORMAL) COMPREHENSIVE METABOLIC PANEL (07/21/2023 4:[address] [facility]) Only the most recent of2 resultswithin the time period is included. BUN 11 7 - 26 mg/dL 07/21/2023 4:[address] [facility] Creatinine 0.88 0.56 - 0.96 mg/dL 07/21/2023 4:49 AM [facility] Sodium 137 136 - 145 mmol/L 07/21/2023 4:49 AM [facility] Potassium 3.9 3.5 - 4.5 mmol/L 07/21/2023 4:49 AM [facility] Chloride 102 98 - 107 mmol/L 07/21/2023 4:49 AM [facility] CO2 24 22 - 29 mmol/L 07/21/2023 4:49 AM [facility] Glucose 116(H) 70 - 115 mg/dL 07/21/2023 4:49 AM [facility] Calcium 9.7 8.4 - 10.2 mg/dL 07/21/2023 4:49 AM [facility] Protein Total 7.3 6.0 - 8.3 g/dL 07/21/2023 4:49 AM [facility] Albumin 3.2(L) 3.4 - 5.0 g/dL 07/21/2023 4:49 AM [facility] Bilirubin Total 0.8 0.2 - 1.2 mg/dL 07/21/2023 4:49 AM [facility] Alkaline Phosphatase 97 40 - 150 U/L 07/21/2023 4:49 AM [facility] ALT 13 5 - 55 U/L 07/21/2023 4:49 AM [facility] AST 17 5 - 34 U/L 07/21/2023 4:49 AM [facility] Anion Gap 11 6 - 16 07/21/2023 4:49 AM [facility] BUN/Creatinine Ratio 13 7 - 23 07/21/2023 4:49 AM CDT [facility] Osmolality Calculated 284 275 - 295 mOsm/kg 07/21/2023 4:49 AM [facility] Albumin/Globulin Ratio 0.8(L) 1.1 - 2.3 07/21/2023 4:49 AM [facility] eGFR by CKD-EPI 64(L) >=90 mL/min/1.7 3 m2 07/21/2023 4:49 AM [facility] Blood BLOOD SPECIMEN / Unknown Venipuncture / Unknown 07/21/2023 4:16 AM CDT 07/21/2023 4:32 AM CDT Eyal Vuong MD LAB - CHEMISTR Y ORDERABLES Performing Organization Address City/[facility]/ZIP Co de Phone Number [facility] [address] [place] [address], [place] [phone] * PHOSPHORUS BLOOD (07/21/2023 4:16 AM CDT) Phosphorus 3.3 2.9 - 5.1 mg/dL 07/21/2023 4:49 AM [facility] Blood BLOOD SPECIMEN / Unknown Venipuncture / Unknown 07/21/2023 4:16 AM CDT 07/21/2023 4:32 AM CDT Eyal Vuong MD LAB - CHEMISTR Y ORDERABLES Performing Organization Address City/[facility]/ZIP Co de Phone Number [address] [address], [place] [phone] * URINE MICROSCOPIC ONLY REFLEX TO CULTURE (07/21/2023 1:31 AM CDT) Reflex Status Culture to follow 07/21/2023 2:05 AM [facility] RBC UA 0-2 None Seen, 0-2, 3-5 /HPF 07/21/2023 2:05 AM [facility] WBC UA 0-5 None Seen, 0-5 /HPF 07/21/2023 2:05 AM [facility] Squamous Epithelial Cells UA 0-2 None Seen, 0-2, 3-5 /HPF 07/21/2023 2:05 AM [facility] Urine URINE SPECIMEN OBTAINED BY CLEAN CATCH PROCEDURE / Unknown Collection / Unknown 07/21/2023 1:31 AM CDT 07/21/2023 1:41 AM CDT Narrative [facility] - 07/21/2023 2:05 AM CDT Eyal Vuong MD LAB - URINALYS IS ORDERABLES [facility] [address] [place] [address], [facility] [phone] * (ABNORMAL) URINALYSIS REFLEX MICROSCOPIC REFLEX CULTURE (07/21/2023 1:31 AM CDT) Color UA Yellow Straw, Yellow 07/21/2023 2:05 AM [facility] Clarity UA Clear Clear 07/21/2023 2:05 AM [facility] Specific [place] UA >1.060(H) 1.005 - 1.030 07/21/2023 2:05 AM [facility] pH UA 5.0 5.0 - 8.0 pH 07/21/2023 2:05 AM [facility] Protein UA Negative Negative 07/21/2023 2:05 AM [facility] Glucose UA Negative Negative 07/21/2023 2:05 AM [facility] Ketone UA Trace(A) Negative 07/21/2023 2:05 AM [facility] Bilirubin UA Negative Negative 07/21/2023 2:05 AM [facility] Blood UA 1+(A) Negative 07/21/2023 2:05 AM [facility] Nitrite UA Positive(A) Negative 07/21/2023 2:05 AM [facility] Leukocyte Esterase 1+(A) Negative 07/21/2023 2:05 AM [facility] Urobilinogen UA 2.0(A) Negative mg/dL 07/21/2023 2:05 AM [facility] Urine URINE SPECIMEN OBTAINED BY CLEAN CATCH PROCEDURE / Unknown Collection / Unknown 07/21/2023 1:31 AM CDT 07/21/2023 1:41 AM CDT Narrative [facility] - 07/21/2023 2:05 AM CDT Eyal Vuong MD LAB - URINALYS IS ORDERABLES [facility] [address] [place] [address], [facility] [phone] * (ABNORMAL) CULTURE URINE (07/21/2023 1:31 AM CDT) Pathologist [facility] Culture Urine >100,000 CFU/mL Escherichia coli(A) MARIANA 07/22/2023 7:41 PM CDT [facility] Urine URINE SPECIMEN OBTAINED BY CLEAN CATCH PROCEDURE / Unknown Collection / Unknown 07/21/2023 1:31 AM CDT 07/21/2023 1:59 AM CDT Narrative Organism Antibiotic Method Susceptibility Escherichia coli Amikacin MARIANA <=2 ug/mL: Susceptible Escherichia coli Ampicillin MARIANA 8 ug/mL: Susceptible Escherichia coli Ampicillin-sulbactam MARIANA <=2 ug/mL: Susceptible Escherichia coli Cefazolin MARIANA <=4 ug/mL: See Comment* Escherichia coli Cefazolin-Urine (uncomplicated infections ONLY) MARIANA <=4 ug/mL: Susceptible Escherichia coli Cefepime MARIANA <=1 ug/mL: Susceptible Escherichia coli Ceftriaxone MARIANA <=1 ug/mL: Susceptible Escherichia coli Ciprofloxacin MARIANA <=0.25 ug/mL: Susceptible Escherichia coli Extended-Spectrum Beta-Lactamase MARIANA NEG ug/mL: Neg Escherichia coli Gentamicin MARIANA <=1 ug/mL: Susceptible Escherichia coli Meropenem MARIANA <=0.25 ug/mL: Susceptible Escherichia coli Nitrofurantoin MARIANA <=16 ug/mL: Susceptible Escherichia coli Piperacillin-tazobactam MARIANA <=4 ug/mL: Susceptible Escherichia coli Tobramycin MARIANA <=1 ug/mL: Susceptible Escherichia coli Trimethoprim-sulfame thoxaz ole MARIANA <=20 ug/mL: Susceptible Comment: *Cefazolin MARIANA of </=4 cannot distinguish between susceptible or intermediate for systemic breakpoints. If further defined interpretation is needed, call Microbiology and a disk diffusion test will be performed. Urine breakpoints for cefazolin should only be used when treating uncomplicated UTIs including men and women without urologic abnormality, kidney stones, stents, nephrostomy tubes, signs/symptoms of systemic illness, or pelvic/perineal pain in men. Cefazolin results can be used to predict susceptibility to oral cephalosporins - cephalexin, cefprozil, cefaclor, cefuroxime, cefdinir, and cefpodoxime. For complicated UTIs, use alternative cefazolin susceptibility result above. Eyal Vuong MD LAB - MICROBIO LOGY ORDERABLES [facility] [address] [place] [address], [facility] [phone] * URINE DRUG SCREEN IMMUNOASSAY (07/21/2023 1:[address] [facility]) [facility] Amphetamines Screen Urine Negative Negative: < 1000 ng/mL 07/21/2023 2:05 AM [facility] Barbiturates Screen Urine Negative Negative: < 200 ng/mL 07/21/2023 2:05 AM [facility] Benzodiazepine Screen Urine Negative Negative: < 200 ng/mL 07/21/2023 2:05 AM [facility] Opiates Urine Negative Negative: < 300 ng/mL 07/21/2023 2:05 AM [facility] Cocaine Metabolites Urine Negative Negative: < 300 ng/mL 07/21/2023 2:05 AM [facility] Phencyclidine Screen Urine Negative Negative: < 25 ng/ml 07/21/2023 2:05 AM [facility] Cannabinoids Screen Urine Negative Negative: <50 ng/mL 07/21/2023 2:05 AM [facility] Methadone Screen Urine Negative Negative: < 300 ng/mL 07/21/2023 2:05 AM [facility] Fentanyl Screen Urine Negative Negative: <1.5 ng/mL 07/21/2023 2:05 AM [facility] Urine URINE / Unknown Collection / Unknown 07/21/2023 1:31 AM CDT 07/21/2023 1:41 AM [facility] - 07/21/2023 2:05 AM CDT The Urine Toxicology Screening Panel does not screen for Propoxyphene, Meprobamate, Carisoprodol, Trazodone, [id number] medications and/or volatiles (Acetone, Isopropanol, Methanol or Ethylene Glycol). Ethanol, Salicylate, Acetaminophen, Tricyclic Antidepressants and several therapeutic drugs may be individually assayed in serum or plasma specimen. Toxicology testing by the [facility] is an aid to medical diagnosis and treatment of patients. No documented chain of custody was maintained. Results are intended to be used for clinical purposes only. Kishor Cazares MD LAB - URINE CHEMISTR Y ORDERABLES Performing Organization Address City/[facility]/ZIP Co de Phone Number [address] [address], [facility] [phone] * BLOOD TYPE VERIFICATION (07/20/2023 11:35 PM CDT) ABO Rh AB POS 07/21/2023 12:10 AM CDT [facility] Blood Bank BLOOD SPECIMEN / Unknown Venipuncture / Unknown 07/20/2023 11:35 PM CDT 07/20/2023 11:49 PM CDT Kishor Cazares MD LAB - BLOOD BANK ORD ERABLES Performing Organization Address [facility] Co de Phone Number [facility] Formerly named [facility] [place] [address], [place] [phone] * CK BLOOD (07/20/2023 11:35 PM CDT) CK Total 60 30 - 200 U/L 07/21/2023 12:07 AM CDT [facility] Blood BLOOD SPECIMEN / Unknown Venipuncture / Unknown 07/20/2023 11:35 PM CDT 07/20/2023 11:43 PM CDT Eyal Vuong MD LAB - CHEMISTR Y ORDERABLES Performing Organization Address City/[facility]/ZIP Co de Phone Number [address] [address], [place] [phone] * CT CHEST ABDOMEN PELVIS W CONT - Abdomen-pelvis trauma, blunt or penetrating (07/20/2023 8:02 PM CDT) Anatomical Region Laterality Modality Chest, Abdomen, Pelvis Computed Tomography 07/20/2023 8:18 PM CDT Impressions 07/20/2023 11:07 PM CDT Impression: 1.Acute angulated and moderately displaced fracture of the right femoral neck. 2.Large hiatal hernia with debris noted in the mid/lower esophagus and scattered tree-in-bud nodules with associated bronchiectasis in the bilateral lower lobes suspicious for chronic aspiration. 3.No acute visceral or vascular injury in the chest abdomen or pelvis. > Dictated by Casa Garcia MD, (assistant vice president). Lorraine Larkin MD have personally reviewed and interpreted this examination/study. > Interpreting Provider: Lorraine Kellogg MD on 07/20/2023 11:07 PM Narrative 07/20/2023 11:07 PM CDT PROCEDURE: CT CHEST ABDOMEN PELVIS W CONT, DATE/TIME OF EXAM: 07/20/2023 8:03 PM, LOCATION [facility] INDICATION: Trauma COMPARISON: None. TECHNIQUE: CT of the chest, abdomen, and pelvis was performed after the uneventful administration of 100 mL of Isovue 370 intravenous contrast according to standard protocol. Findings: Chest: Lower Neck and Axillae: Normal. Lungs: Tree in bud nodules with surrounding groundglass opacities and bronchiectasis in the bilateral lower lobes with pleural scarring/fibrosis at the left lung base. No pleural effusion or pneumothorax. No suspicious pulmonary nodules Heart and Pericardium: The cardiac chambers are normal in size. No pericardial fluid or thickening is present. Mediastinum and Thi: Moderate hiatal hernia posterior to the heart with debris noted in the mid/lower esophagus. No mediastinal hemorrhage is present. No enlarged lymph nodes are present. Thoracic Vasculature: The aorta and its branch vessels are atherosclerotic. Abdomen/pelvis: Liver: Normal. Gallbladder and Bile Ducts: Normal gallbladder. No intra or extrahepatic biliary ductal dilatation. Spleen: Multiple calcified granulomas are noted in the spleen, likely sequelae of prior granulomatous disease. Pancreas: Normal. Adrenals: An approximately 1 x 1 cm nodule is noted in the left adrenal gland, indeterminate. Right adrenal gland is mildly nodular. Kidneys: No hydronephrosis or nephrolithiasis. Symmetric bilateral renal parenchymal enhancement. Gastrointestinal: Large hiatal hernia with air-fluid levels and proximally dilated esophagus. The visualized loops of large and small bowel are unremarkable. Colonic diverticulosis is present without evidence of diverticulitis. Normal appendix. Mesentery/Peritoneum/Retroperitoneum: No free intraperitoneal air. No free fluid in the abdomen or pelvis. Bladder: Normal. Reproductive Organs: The uterus is normal. Abdominal Vasculature: Atherosclerotic calcification of the aorta and its branch vessels. Bones: Bone windows demonstrate no suspicious lytic or blastic lesions. Acute angulated and moderately displaced fracture of the right femoral neck. Moderate multilevel degenerative changes of the spine with chronic compression fractures of the T11 and T12 vertebral bodies status post kyphoplasty injections with associated angular kyphosis centered around T12. Soft tissues: Fat-containing umbilical hernia. Procedure Note Melinda Kellogg MD - 07/20/2023 PROCEDURE: CT CHEST ABDOMEN PELVIS W CONT, DATE/TIME OF EXAM:07/20/2023 8:03 PM, LOCATION [facility] INDICATION: Trauma COMPARISON: None. TECHNIQUE: CT of the chest, abdomen, and pelvis was performed after the uneventful administration of 100 mL of Isovue 370 intravenous contrast according to standard protocol. Findings: Chest: Lower Neck and Axillae: Normal. Lungs: Tree in bud nodules with surrounding groundglass opacities and bronchiectasis in the bilateral lower lobes with pleuralscarring/fibrosis at the left lung base. No pleural effusion or pneumothorax. Nosuspicious pulmonary nodules Heart and Pericardium: The cardiac chambers are normal in size. No pericardial fluid orthickening is present. Mediastinum and Thi: Moderate hiatal hernia posterior to the heart with debris noted in the mid/lower esophagus. No mediastinal hemorrhage is present. No enlarged lymph nodes are present. Thoracic Vasculature: The aorta and its branch vessels are atherosclerotic. Abdomen/pelvis: Liver: Normal. Gallbladder and Bile Ducts: Normal gallbladder. No intra or extrahepatic biliary ductal dilatation. Spleen: Multiple calcified granulomas are noted in the spleen, likely sequelaeof prior granulomatous disease. Pancreas: Normal. Adrenals: An approximately 1 x 1 cm nodule is noted in the left adrenal gland, indeterminate. Right adrenal gland is mildly nodular. Kidneys: No hydronephrosis or nephrolithiasis. Symmetric bilateral renalparenchymal enhancement. Gastrointestinal: Large hiatal hernia with air-fluid levels and proximally dilatedesophagus. The visualized loops of large and small bowel are unremarkable. Colonic diverticulosis is present without evidence of diverticulitis. Normal appendix. Mesentery/Peritoneum/Retroperitoneum: No free intraperitoneal air. No free fluid in the abdomen or pelvis. Bladder: Normal. Reproductive Organs: The uterus is normal. Abdominal Vasculature: Atherosclerotic calcification of the aorta and its branch vessels. Bones: Bone windows demonstrate no suspicious lytic or blastic lesions. Acute angulated and moderately displaced fracture of the right femoral neck. Moderate multilevel degenerative changes of the spine with chronic compression fractures of the T11 and T12 vertebral bodies status post kyphoplasty injections with associated angular kyphosis centered around T12. Soft tissues: Fat-containing umbilical hernia. Impression: 1.Acute angulated and moderately displaced fracture of the right femoral neck. 2.Large hiatal hernia with debris noted in the mid/lower esophagus and scattered tree-in-bud nodules with associated bronchiectasis in the bilateral lower lobes suspicious for chronic aspiration. 3.No acute visceral or vascular injury in the chest abdomen or pelvis. > Dictated by Casa Garcia MD, (assistant vice president). Lorraine Larkin MD have personally reviewed and interpreted this examination/study. > Interpreting Provider: Lorraine Kellogg MD on 07/20/2023 11:07 PM Kishor Cazares MD CT ORDERABLES * CT LUMBAR SPINE WO CONTRAST - T/L-spine trauma, Spine fracture (07/20/2023 8:02 PM CDT) Anatomical Region Laterality Modality Spine Computed Tomogra phy 07/20/2023 7:51 PM CDT Impressions 07/20/2023 8:56 PM CDT IMPRESSION: 1.No acute intracranial hemorrhage, midline shift, or significant mass effect. 2.No evidence of acute fracture in the cervical, thoracic, or lumbar spine. 3.Please refer to the concurrent, dedicated body report for findings in the chest, abdomen, and pelvis > Dictated by Shasha Castro M.D. - Diagnostic Clinical Administrative Coordinator. Can Larkin MD have personally reviewed and interpreted this examination/study. > Interpreting Provider: Can Hughes MD on 07/20/2023 8:56 PM Narrative 07/20/2023 8:56 PM CDT PROCEDURE: CT HEAD WO CONTRAST, CT LUMBAR SPINE WO CONTRAST, CT THORACIC SPINE WO CONTRAST, CT CERVICAL SPINE WO CONTRAST, DATE/TIME OF EXAM: 07/20/2023 7:41 PM, LOCATION [facility] INDICATION: Trauma EXAMINATION: 1.Computed tomography (CT) of the head without contrast 2.CT of the cervical spine without contrast 3.CT of the thoracic spine without contrast 4.CT of the lumbar spine without contrast ADDITIONAL CLINICAL INFORMATION: Ordering Provider Reason For Exam: Trauma. Technologist Note: None. Additional: None. TECHNIQUE: CT of the head and cervical spine was performed without contrast according to standard protocol. Reformatted axial, sagittal, and coronal images of the thoracic and lumbar spine were obtained by the technologist from a concurrently performed body CT and sent to the workstation for review. CT dose reduction technique was used, including Automated Exposure Control. COMPARISON: No prior study is available for comparison at the time of this dictation. FINDINGS: Head: No acute intra- or extra-axial fluid collections are identified. Calcifications along the tentorial leaflets. There is moderate cerebral volume loss with associated ex vacuo ventricular dilatation. 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 Clinical correlation is recommended. 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 The basilar cisterns are patent. No mass effect or midline shift is seen. Attenuating areas within the bilateral basal ganglia may represent chronic lacunar infarcts. Periventricular white matter hypoattenuation is indicative of chronic small vessel ischemic disease. There is vascular calcification of the carotid siphons. No acute calvarial fracture is identified. Other than bilateral cataract extractions, the orbits appear normal. Frothy secretions in the right maxillary sinus. The nasal septum is deviated to the right with a septal contact with the base of the right inferior turbinate. The mastoid air cells are clear. No soft tissue abnormality is identified. Cervical spine: Minimal anterolisthesis of C4 on C5. The alignment is otherwise maintained. The bones are mild mildly osteopenic. Vertebral bodies are normal in height without evidence of acute fracture. Other than middle atlantoaxial joint osteoarthritis, the craniocervical junction appears normal. There is advanced degenerative disc disease. Posterior osteophyte complex formation at C5-C6 is causing mild central canal stenosis. There are varying degrees of mild facet osteoarthritis. There are varying degrees of advanced uncovertebral joint osteoarthritis with the same degree of neural foraminal stenosis at these levels. There is moderate neural foraminal stenosis at the bilateral C6 foramina. Bone island within the C6 vertebral body. There is atherosclerotic calcification of the carotid bifurcations. There is scarring in the lung apices. Thoracic spine: Chronic compression fracture of the T11 and T12 vertebrae status post vertebroplasty/kyphoplasty. There is small volume anterior extrusion of the cement at the level of T11. Mild spinal canal stenosis at the level of the well fracture minimal retropulsion of a fractured fragment. Mild dextrocurvature of the thoracic spine. Mild exaggeration of the thoracic kyphosis. The alignment is otherwise maintained. The bones are diffusely osteopenic. The remaining vertebral bodies bodies are maintained in height without evidence of acute fracture. There is mild degenerative disc disease. No high-grade central canal stenosis is seen. There is mild facet osteoarthritis at multiple levels. There are varying degrees of neural foraminal stenosis at multiple levels. Mild stenosis at the bilateral T11-T12 foramina. Large hiatal hernia is noted. Mild nodularity of the adrenal glands. There is subsegmental atelectasis in the dependent portions of the lung bases. Lumbar spine: Mild levocurvature of the lumbar spine. The alignment is other was obtained. The bones are diffusely osteopenic. Vertebral bodies are normal in height without evidence of acute fracture. There is mild degenerative disc disease. Mild to moderate central canal stenosis secondary to posterior disc bulge at L4-L5. There is moderate facet osteoarthritis at multiple levels. Mild neural foraminal stenosis is seen at L4-5. There are degenerative changes of the SI joints. There is atherosclerotic calcification of the abdominal aorta and its branch vessels. Procedure Note Can Hughes MD - 07/20/2023 PROCEDURE: CT HEAD WO CONTRAST, CT LUMBAR SPINE WO CONTRAST, CTTHORACIC SPINE WO CONTRAST, CT CERVICAL SPINE WO CONTRAST, DATE/TIME OF EXAM: 07/20/2023 7:41 PM, LOCATION [facility] INDICATION: Trauma EXAMINATION: 1.Computed tomography (CT) of the head without contrast 2.CT of the cervical spine without contrast 3.CT of the thoracic spine without contrast 4.CT of the lumbar spine without contrast ADDITIONAL CLINICAL INFORMATION: Ordering Provider Reason For Exam: Trauma. Technologist Note: None. Additional: None. TECHNIQUE: CT of the head and cervical spine was performed withoutcontrast according to standard protocol. Reformatted axial, sagittal, and coronal images of the thoracic and lumbar spine were obtained by thetechnologist from a concurrently performed body CT and sent to the workstation for review. CT dose reduction technique was used, including AutomatedExposure Control. COMPARISON: No prior study is available for comparison at the time ofthis dictation. FINDINGS: Head: No acute intra- or extra-axial fluid collections are identified. Calcifications along the tentorial leaflets. There is moderate cerebral volume loss with associated ex vacuo ventricular dilatation. 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 Clinical correlation is recommended. 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 No mass effect or midline shift is seen. Attenuating areas within the bilateral basal ganglia may representchronic lacunar infarcts. Periventricular white matter hypoattenuation is indicative of chronic small vessel ischemic disease. There is vascular calcification of the carotid siphons. No acute calvarial fracture is identified. Other than bilateral cataract extractions, the orbits appear normal. Frothy secretions in the right maxillary sinus. The nasal septumis deviated to the right with a septal contact with the base of the right inferior turbinate. The mastoid air cells are clear. No soft tissue abnormality is identified. Cervical spine: Minimal anterolisthesis of C4 on C5. The alignment is otherwisemaintained. The bones are mild mildly osteopenic. Vertebral bodies are normal inheight without evidence of acute fracture. Other than middle atlantoaxial joint osteoarthritis, the craniocervical junction appears normal. There is advanced degenerative disc disease. Posterior osteophyte complexformation at C5-C6 is causing mild central canal stenosis. There are varyingdegrees of mild facet osteoarthritis. There are varying degrees of advanced uncovertebral joint osteoarthritis with the same degree of neuralforaminal stenosis at these levels. There is moderate neural foraminal stenosis at the bilateral C6 foramina. Bone island within the C6 vertebral body.There is atherosclerotic calcification of the carotid bifurcations. There is scarring in the lung apices. Thoracic spine: Chronic compression fracture of the T11 and T12 vertebrae status post vertebroplasty/kyphoplasty. There is small volume anterior extrusion ofthe cement at the level of T11. Mild spinal canal stenosis at the level ofthe well fracture minimal retropulsion of a fractured fragment. Mild dextrocurvature of the thoracic spine. Mild exaggeration of the thoracic kyphosis. The alignment is otherwise maintained. The bones are diffusely osteopenic. The remaining vertebral bodies bodies aremaintained in height without evidence of acute fracture. There is mild degenerative disc disease. No high-grade central canal stenosis is seen. There ismild facet osteoarthritis at multiple levels. There are varying degrees of neural foraminal stenosis at multiple levels. Mild stenosis at the bilateral T11-T12 foramina. Large hiatal hernia is noted. Mildnodularity of the adrenal glands. There is subsegmental atelectasis in thedependent portions of the lung bases. Lumbar spine: Mild levocurvature of the lumbar spine. The alignment is other was obtained. The bones are diffusely osteopenic. Vertebral bodies arenormal in height without evidence of acute fracture. There is mild degenerative disc disease. Mild to moderate central canal stenosis secondary to posterior disc bulge at L4-L5. There is moderate facet osteoarthritis at multiple levels. Mild neural foraminal stenosis is seen at L4-5. Thereare degenerative changes of the SI joints. There is atherosclerotic calcification of the abdominal aorta and its branch vessels. IMPRESSION: 1.No acute intracranial hemorrhage, midline shift, or significant mass effect. 2.No evidence of acute fracture in the cervical, thoracic, or lumbarspine. 3.Please refer to the concurrent, dedicated body report for findings inthe chest, abdomen, and pelvis > Dictated by Shasha Castro M.D. - Diagnostic Clinical Administrative Coordinator. I, Can Hughes MD have personally reviewed and interpretedthis examination/study. > Interpreting Provider: Can Hughes MD on 07/20/2023 8:56 PM Kishor Cazares MD CT ORDERABLES * CT THORACIC SPINE WO CONTRAST - T/L-spine trauma, spine fracture (07/20/2023 8:02 PM CDT) Anatomical Region Laterality Modality Spine Computed Tomogra phy 07/20/2023 7:51 PM CDT Impressions 07/20/2023 8:56 PM CDT IMPRESSION: 1.No acute intracranial hemorrhage, midline shift, or significant mass effect. 2.No evidence of acute fracture in the cervical, thoracic, or lumbar spine. 3.Please refer to the concurrent, dedicated body report for findings in the chest, abdomen, and pelvis > Dictated by Shasha Castro M.D. - Diagnostic Clinical Administrative Coordinator. ICan MD have personally reviewed and interpreted this examination/study. > Interpreting Provider: Can Hughes MD on 07/20/2023 8:56 PM Narrative 07/20/2023 8:56 PM CDT PROCEDURE: CT HEAD WO CONTRAST, CT LUMBAR SPINE WO CONTRAST, CT THORACIC SPINE WO CONTRAST, CT CERVICAL SPINE WO CONTRAST, DATE/TIME OF EXAM: 07/20/2023 7:41 PM, LOCATION [facility] INDICATION: Trauma EXAMINATION: 1.Computed tomography (CT) of the head without contrast 2.CT of the cervical spine without contrast 3.CT of the thoracic spine without contrast 4.CT of the lumbar spine without contrast ADDITIONAL CLINICAL INFORMATION: Ordering Provider Reason For Exam: Trauma. Technologist Note: None. Additional: None. TECHNIQUE: CT of the head and cervical spine was performed without contrast according to standard protocol. Reformatted axial, sagittal, and coronal images of the thoracic and lumbar spine were obtained by the technologist from a concurrently performed body CT and sent to the workstation for review. CT dose reduction technique was used, including Automated Exposure Control. COMPARISON: No prior study is available for comparison at the time of this dictation. FINDINGS: Head: No acute intra- or extra-axial fluid collections are identified. Calcifications along the tentorial leaflets. There is moderate cerebral volume loss with associated ex vacuo ventricular dilatation. 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 Clinical correlation is recommended. 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 The basilar cisterns are patent. No mass effect or midline shift is seen. Attenuating areas within the bilateral basal ganglia may represent chronic lacunar infarcts. Periventricular white matter hypoattenuation is indicative of chronic small vessel ischemic disease. There is vascular calcification of the carotid siphons. No acute calvarial fracture is identified. Other than bilateral cataract extractions, the orbits appear normal. Frothy secretions in the right maxillary sinus. The nasal septum is deviated to the right with a septal contact with the base of the right inferior turbinate. The mastoid air cells are clear. No soft tissue abnormality is identified. Cervical spine: Minimal anterolisthesis of C4 on C5. The alignment is otherwise maintained. The bones are mild mildly osteopenic. Vertebral bodies are normal in height without evidence of acute fracture. Other than middle atlantoaxial joint osteoarthritis, the craniocervical junction appears normal. There is advanced degenerative disc disease. Posterior osteophyte complex formation at C5-C6 is causing mild central canal stenosis. There are varying degrees of mild facet osteoarthritis. There are varying degrees of advanced uncovertebral joint osteoarthritis with the same degree of neural foraminal stenosis at these levels. There is moderate neural foraminal stenosis at the bilateral C6 foramina. Bone island within the C6 vertebral body. There is atherosclerotic calcification of the carotid bifurcations. There is scarring in the lung apices. Thoracic spine: Chronic compression fracture of the T11 and T12 vertebrae status post vertebroplasty/kyphoplasty. There is small volume anterior extrusion of the cement at the level of T11. Mild spinal canal stenosis at the level of the well fracture minimal retropulsion of a fractured fragment. Mild dextrocurvature of the thoracic spine. Mild exaggeration of the thoracic kyphosis. The alignment is otherwise maintained. The bones are diffusely osteopenic. The remaining vertebral bodies bodies are maintained in height without evidence of acute fracture. There is mild degenerative disc disease. No high-grade central canal stenosis is seen. There is mild facet osteoarthritis at multiple levels. There are varying degrees of neural foraminal stenosis at multiple levels. Mild stenosis at the bilateral T11-T12 foramina. Large hiatal hernia is noted. Mild nodularity of the adrenal glands. There is subsegmental atelectasis in the dependent portions of the lung bases. Lumbar spine: Mild levocurvature of the lumbar spine. The alignment is other was obtained. The bones are diffusely osteopenic. Vertebral bodies are normal in height without evidence of acute fracture. There is mild degenerative disc disease. Mild to moderate central canal stenosis secondary to posterior disc bulge at L4-L5. There is moderate facet osteoarthritis at multiple levels. Mild neural foraminal stenosis is seen at L4-5. There are degenerative changes of the SI joints. There is atherosclerotic calcification of the abdominal aorta and its branch vessels. Procedure Note Can Hughes MD - 07/20/2023 PROCEDURE: CT HEAD WO CONTRAST, CT LUMBAR SPINE WO CONTRAST, CTTHORACIC SPINE WO CONTRAST, CT CERVICAL SPINE WO CONTRAST, DATE/TIME OF EXAM: 07/20/2023 7:41 PM, LOCATION [facility] INDICATION: Trauma EXAMINATION: 1.Computed tomography (CT) of the head without contrast 2.CT of the cervical spine without contrast 3.CT of the thoracic spine without contrast 4.CT of the lumbar spine without contrast ADDITIONAL CLINICAL INFORMATION: Ordering Provider Reason For Exam: Trauma. Technologist Note: None. Additional: None. TECHNIQUE: CT of the head and cervical spine was performed withoutcontrast according to standard protocol. Reformatted axial, sagittal, and coronal images of the thoracic and lumbar spine were obtained by thetechnologist from a concurrently performed body CT and sent to the workstation for review. CT dose reduction technique was used, including AutomatedExposure Control. COMPARISON: No prior study is available for comparison at the time ofthis dictation. FINDINGS: Head: No acute intra- or extra-axial fluid collections are identified. Calcifications along the tentorial leaflets. There is moderate cerebral volume loss with associated ex vacuo ventricular dilatation. 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 Clinical correlation is recommended. 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 No mass effect or midline shift is seen. Attenuating areas within the bilateral basal ganglia may representchronic lacunar infarcts. Periventricular white matter hypoattenuation is indicative of chronic small vessel ischemic disease. There is vascular calcification of the carotid siphons. No acute calvarial fracture is identified. Other than bilateral cataract extractions, the orbits appear normal. Frothy secretions in the right maxillary sinus. The nasal septumis deviated to the right with a septal contact with the base of the right inferior turbinate. The mastoid air cells are clear. No soft tissue abnormality is identified. Cervical spine: Minimal anterolisthesis of C4 on C5. The alignment is otherwisemaintained. The bones are mild mildly osteopenic. Vertebral bodies are normal inheight without evidence of acute fracture. Other than middle atlantoaxial joint osteoarthritis, the craniocervical junction appears normal. There is advanced degenerative disc disease. Posterior osteophyte complexformation at C5-C6 is causing mild central canal stenosis. There are varyingdegrees of mild facet osteoarthritis. There are varying degrees of advanced uncovertebral joint osteoarthritis with the same degree of neuralforaminal stenosis at these levels. There is moderate neural foraminal stenosis at the bilateral C6 foramina. Bone island within the C6 vertebral body.There is atherosclerotic calcification of the carotid bifurcations. There is scarring in the lung apices. Thoracic spine: Chronic compression fracture of the T11 and T12 vertebrae status post vertebroplasty/kyphoplasty. There is small volume anterior extrusion ofthe cement at the level of T11. Mild spinal canal stenosis at the level ofthe well fracture minimal retropulsion of a fractured fragment. Mild dextrocurvature of the thoracic spine. Mild exaggeration of the thoracic kyphosis. The alignment is otherwise maintained. The bones are diffusely osteopenic. The remaining vertebral bodies bodies aremaintained in height without evidence of acute fracture. There is mild degenerative disc disease. No high-grade central canal stenosis is seen. There ismild facet osteoarthritis at multiple levels. There are varying degrees of neural foraminal stenosis at multiple levels. Mild stenosis at the bilateral T11-T12 foramina. Large hiatal hernia is noted. Mildnodularity of the adrenal glands. There is subsegmental atelectasis in thedependent portions of the lung bases. Lumbar spine: Mild levocurvature of the lumbar spine. The alignment is other was obtained. The bones are diffusely osteopenic. Vertebral bodies arenormal in height without evidence of acute fracture. There is mild degenerative disc disease. Mild to moderate central canal stenosis secondary to posterior disc bulge at L4-L5. There is moderate facet osteoarthritis at multiple levels. Mild neural foraminal stenosis is seen at L4-5. Thereare degenerative changes of the SI joints. There is atherosclerotic calcification of the abdominal aorta and its branch vessels. IMPRESSION: 1.No acute intracranial hemorrhage, midline shift, or significant mass effect. 2.No evidence of acute fracture in the cervical, thoracic, or lumbarspine. 3.Please refer to the concurrent, dedicated body report for findings inthe chest, abdomen, and pelvis > Dictated by Shasha Castro M.D. - Diagnostic Clinical Administrative Coordinator. ICan MD have personally reviewed and interpretedthis examination/study. > Interpreting Provider: Can Hughes MD on 07/20/2023 8:56 PM Kishor Cazares MD CT ORDERABLES * CT CERVICAL SPINE WO CONTRAST - C-Spine Trauma, Spine fracture (07/20/2023 8:02 PM CDT) Anatomical Region Laterality Modality Spine Computed Tomogra phy 07/20/2023 7:51 PM CDT Impressions 07/20/2023 8:56 PM CDT IMPRESSION: 1.No acute intracranial hemorrhage, midline shift, or significant mass effect. 2.No evidence of acute fracture in the cervical, thoracic, or lumbar spine. 3.Please refer to the concurrent, dedicated body report for findings in the chest, abdomen, and pelvis > Dictated by Shasha Castro M.D. - Diagnostic Clinical Administrative Coordinator. ICan MD have personally reviewed and interpreted this examination/study. > Interpreting Provider: Can Hughes MD on 07/20/2023 8:56 PM Narrative 07/20/2023 8:56 PM CDT PROCEDURE: CT HEAD WO CONTRAST, CT LUMBAR SPINE WO CONTRAST, CT THORACIC SPINE WO CONTRAST, CT CERVICAL SPINE WO CONTRAST, DATE/TIME OF EXAM: 07/20/2023 7:41 PM, LOCATION [facility] INDICATION: Trauma EXAMINATION: 1.Computed tomography (CT) of the head without contrast 2.CT of the cervical spine without contrast 3.CT of the thoracic spine without contrast 4.CT of the lumbar spine without contrast ADDITIONAL CLINICAL INFORMATION: Ordering Provider Reason For Exam: Trauma. Technologist Note: None. Additional: None. TECHNIQUE: CT of the head and cervical spine was performed without contrast according to standard protocol. Reformatted axial, sagittal, and coronal images of the thoracic and lumbar spine were obtained by the technologist from a concurrently performed body CT and sent to the workstation for review. CT dose reduction technique was used, including Automated Exposure Control. COMPARISON: No prior study is available for comparison at the time of this dictation. FINDINGS: Head: No acute intra- or extra-axial fluid collections are identified. Calcifications along the tentorial leaflets. There is moderate cerebral volume loss with associated ex vacuo ventricular dilatation. 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 Clinical correlation is recommended. 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 The basilar cisterns are patent. No mass effect or midline shift is seen. Attenuating areas within the bilateral basal ganglia may represent chronic lacunar infarcts. Periventricular white matter hypoattenuation is indicative of chronic small vessel ischemic disease. There is vascular calcification of the carotid siphons. No acute calvarial fracture is identified. Other than bilateral cataract extractions, the orbits appear normal. Frothy secretions in the right maxillary sinus. The nasal septum is deviated to the right with a septal contact with the base of the right inferior turbinate. The mastoid air cells are clear. No soft tissue abnormality is identified. Cervical spine: Minimal anterolisthesis of C4 on C5. The alignment is otherwise maintained. The bones are mild mildly osteopenic. Vertebral bodies are normal in height without evidence of acute fracture. Other than middle atlantoaxial joint osteoarthritis, the craniocervical junction appears normal. There is advanced degenerative disc disease. Posterior osteophyte complex formation at C5-C6 is causing mild central canal stenosis. There are varying degrees of mild facet osteoarthritis. There are varying degrees of advanced uncovertebral joint osteoarthritis with the same degree of neural foraminal stenosis at these levels. There is moderate neural foraminal stenosis at the bilateral C6 foramina. Bone island within the C6 vertebral body. There is atherosclerotic calcification of the carotid bifurcations. There is scarring in the lung apices. Thoracic spine: Chronic compression fracture of the T11 and T12 vertebrae status post vertebroplasty/kyphoplasty. There is small volume anterior extrusion of the cement at the level of T11. Mild spinal canal stenosis at the level of the well fracture minimal retropulsion of a fractured fragment. Mild dextrocurvature of the thoracic spine. Mild exaggeration of the thoracic kyphosis. The alignment is otherwise maintained. The bones are diffusely osteopenic. The remaining vertebral bodies bodies are maintained in height without evidence of acute fracture. There is mild degenerative disc disease. No high-grade central canal stenosis is seen. There is mild facet osteoarthritis at multiple levels. There are varying degrees of neural foraminal stenosis at multiple levels. Mild stenosis at the bilateral T11-T12 foramina. Large hiatal hernia is noted. Mild nodularity of the adrenal glands. There is subsegmental atelectasis in the dependent portions of the lung bases. Lumbar spine: Mild levocurvature of the lumbar spine. The alignment is other was obtained. The bones are diffusely osteopenic. Vertebral bodies are normal in height without evidence of acute fracture. There is mild degenerative disc disease. Mild to moderate central canal stenosis secondary to posterior disc bulge at L4-L5. There is moderate facet osteoarthritis at multiple levels. Mild neural foraminal stenosis is seen at L4-5. There are degenerative changes of the SI joints. There is atherosclerotic calcification of the abdominal aorta and its branch vessels. Procedure Note Can Hughes MD - 07/20/2023 PROCEDURE: CT HEAD WO CONTRAST, CT LUMBAR SPINE WO CONTRAST, CTTHORACIC SPINE WO CONTRAST, CT CERVICAL SPINE WO CONTRAST, DATE/TIME OF EXAM: 07/20/2023 7:41 PM, LOCATION [facility] INDICATION: Trauma EXAMINATION: 1.Computed tomography (CT) of the head without contrast 2.CT of the cervical spine without contrast 3.CT of the thoracic spine without contrast 4.CT of the lumbar spine without contrast ADDITIONAL CLINICAL INFORMATION: Ordering Provider Reason For Exam: Trauma. Technologist Note: None. Additional: None. TECHNIQUE: CT of the head and cervical spine was performed withoutcontrast according to standard protocol. Reformatted axial, sagittal, and coronal images of the thoracic and lumbar spine were obtained by thetechnologist from a concurrently performed body CT and sent to the workstation for review. CT dose reduction technique was used, including AutomatedExposure Control. COMPARISON: No prior study is available for comparison at the time ofthis dictation. FINDINGS: Head: No acute intra- or extra-axial fluid collections are identified. Calcifications along the tentorial leaflets. There is moderate cerebral volume loss with associated ex vacuo ventricular dilatation. 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 Clinical correlation is recommended. 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 No mass effect or midline shift is seen. Attenuating areas within the bilateral basal ganglia may representchronic lacunar infarcts. Periventricular white matter hypoattenuation is indicative of chronic small vessel ischemic disease. There is vascular calcification of the carotid siphons. No acute calvarial fracture is identified. Other than bilateral cataract extractions, the orbits appear normal. Frothy secretions in the right maxillary sinus. The nasal septumis deviated to the right with a septal contact with the base of the right inferior turbinate. The mastoid air cells are clear. No soft tissue abnormality is identified. Cervical spine: Minimal anterolisthesis of C4 on C5. The alignment is otherwisemaintained. The bones are mild mildly osteopenic. Vertebral bodies are normal inheight without evidence of acute fracture. Other than middle atlantoaxial joint osteoarthritis, the craniocervical junction appears normal. There is advanced degenerative disc disease. Posterior osteophyte complexformation at C5-C6 is causing mild central canal stenosis. There are varyingdegrees of mild facet osteoarthritis. There are varying degrees of advanced uncovertebral joint osteoarthritis with the same degree of neuralforaminal stenosis at these levels. There is moderate neural foraminal stenosis at the bilateral C6 foramina. Bone island within the C6 vertebral body.There is atherosclerotic calcification of the carotid bifurcations. There is scarring in the lung apices. Thoracic spine: Chronic compression fracture of the T11 and T12 vertebrae status post vertebroplasty/kyphoplasty. There is small volume anterior extrusion ofthe cement at the level of T11. Mild spinal canal stenosis at the level ofthe well fracture minimal retropulsion of a fractured fragment. Mild dextrocurvature of the thoracic spine. Mild exaggeration of the thoracic kyphosis. The alignment is otherwise maintained. The bones are diffusely osteopenic. The remaining vertebral bodies bodies aremaintained in height without evidence of acute fracture. There is mild degenerative disc disease. No high-grade central canal stenosis is seen. There ismild facet osteoarthritis at multiple levels. There are varying degrees of neural foraminal stenosis at multiple levels. Mild stenosis at the bilateral T11-T12 foramina. Large hiatal hernia is noted. Mildnodularity of the adrenal glands. There is subsegmental atelectasis in thedependent portions of the lung bases. Lumbar spine: Mild levocurvature of the lumbar spine. The alignment is other was obtained. The bones are diffusely osteopenic. Vertebral bodies arenormal in height without evidence of acute fracture. There is mild degenerative disc disease. Mild to moderate central canal stenosis secondary to posterior disc bulge at L4-L5. There is moderate facet osteoarthritis at multiple levels. Mild neural foraminal stenosis is seen at L4-5. Thereare degenerative changes of the SI joints. There is atherosclerotic calcification of the abdominal aorta and its branch vessels. IMPRESSION: 1.No acute intracranial hemorrhage, midline shift, or significant mass effect. 2.No evidence of acute fracture in the cervical, thoracic, or lumbarspine. 3.Please refer to the concurrent, dedicated body report for findings inthe chest, abdomen, and pelvis > Dictated by Shasha Castro M.D. - Diagnostic Clinical Administrative Coordinator. Can Larkin MD have personally reviewed and interpretedthis examination/study. > Interpreting Provider: Can Hughes MD on 07/20/2023 8:56 PM Kishor Cazares MD CT ORDERABLES * CT HEAD WO CONTRAST - Head Trauma, CSF leak, mental status changes (07/20/2023 8:02 PM CDT) Anatomical Region Laterality Modality Head Computed Tomogra phy 07/20/2023 7:51 PM CDT Impressions 07/20/2023 8:56 PM CDT IMPRESSION: 1.No acute intracranial hemorrhage, midline shift, or significant mass effect. 2.No evidence of acute fracture in the cervical, thoracic, or lumbar spine. 3.Please refer to the concurrent, dedicated body report for findings in the chest, abdomen, and pelvis > Dictated by Shasha Castro M.D. - Diagnostic Clinical Administrative Coordinator. aCn Larkin MD have personally reviewed and interpreted this examination/study. > Interpreting Provider: Can Hughes MD on 07/20/2023 8:56 PM Narrative 07/20/2023 8:56 PM CDT PROCEDURE: CT HEAD WO CONTRAST, CT LUMBAR SPINE WO CONTRAST, CT THORACIC SPINE WO CONTRAST, CT CERVICAL SPINE WO CONTRAST, DATE/TIME OF EXAM: 07/20/2023 7:41 PM, LOCATION [facility] INDICATION: Trauma EXAMINATION: 1.Computed tomography (CT) of the head without contrast 2.CT of the cervical spine without contrast 3.CT of the thoracic spine without contrast 4.CT of the lumbar spine without contrast ADDITIONAL CLINICAL INFORMATION: Ordering Provider Reason For Exam: Trauma. Technologist Note: None. Additional: None. TECHNIQUE: CT of the head and cervical spine was performed without contrast according to standard protocol. Reformatted axial, sagittal, and coronal images of the thoracic and lumbar spine were obtained by the technologist from a concurrently performed body CT and sent to the workstation for review. CT dose reduction technique was used, including Automated Exposure Control. COMPARISON: No prior study is available for comparison at the time of this dictation. FINDINGS: Head: No acute intra- or extra-axial fluid collections are identified. Calcifications along the tentorial leaflets. There is moderate cerebral volume loss with associated ex vacuo ventricular dilatation. 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 Clinical correlation is recommended. 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 The basilar cisterns are patent. No mass effect or midline shift is seen. Attenuating areas within the bilateral basal ganglia may represent chronic lacunar infarcts. Periventricular white matter hypoattenuation is indicative of chronic small vessel ischemic disease. There is vascular calcification of the carotid siphons. No acute calvarial fracture is identified. Other than bilateral cataract extractions, the orbits appear normal. Frothy secretions in the right maxillary sinus. The nasal septum is deviated to the right with a septal contact with the base of the right inferior turbinate. The mastoid air cells are clear. No soft tissue abnormality is identified. Cervical spine: Minimal anterolisthesis of C4 on C5. The alignment is otherwise maintained. The bones are mild mildly osteopenic. Vertebral bodies are normal in height without evidence of acute fracture. Other than middle atlantoaxial joint osteoarthritis, the craniocervical junction appears normal. There is advanced degenerative disc disease. Posterior osteophyte complex formation at C5-C6 is causing mild central canal stenosis. There are varying degrees of mild facet osteoarthritis. There are varying degrees of advanced uncovertebral joint osteoarthritis with the same degree of neural foraminal stenosis at these levels. There is moderate neural foraminal stenosis at the bilateral C6 foramina. Bone island within the C6 vertebral body. There is atherosclerotic calcification of the carotid bifurcations. There is scarring in the lung apices. Thoracic spine: Chronic compression fracture of the T11 and T12 vertebrae status post vertebroplasty/kyphoplasty. There is small volume anterior extrusion of the cement at the level of T11. Mild spinal canal stenosis at the level of the well fracture minimal retropulsion of a fractured fragment. Mild dextrocurvature of the thoracic spine. Mild exaggeration of the thoracic kyphosis. The alignment is otherwise maintained. The bones are diffusely osteopenic. The remaining vertebral bodies bodies are maintained in height without evidence of acute fracture. There is mild degenerative disc disease. No high-grade central canal stenosis is seen. There is mild facet osteoarthritis at multiple levels. There are varying degrees of neural foraminal stenosis at multiple levels. Mild stenosis at the bilateral T11-T12 foramina. Large hiatal hernia is noted. Mild nodularity of the adrenal glands. There is subsegmental atelectasis in the dependent portions of the lung bases. Lumbar spine: Mild levocurvature of the lumbar spine. The alignment is other was obtained. The bones are diffusely osteopenic. Vertebral bodies are normal in height without evidence of acute fracture. There is mild degenerative disc disease. Mild to moderate central canal stenosis secondary to posterior disc bulge at L4-L5. There is moderate facet osteoarthritis at multiple levels. Mild neural foraminal stenosis is seen at L4-5. There are degenerative changes of the SI joints. There is atherosclerotic calcification of the abdominal aorta and its branch vessels. Procedure Note Can Hughes MD - 07/20/2023 PROCEDURE: CT HEAD WO CONTRAST, CT LUMBAR SPINE WO CONTRAST, CTTHORACIC SPINE WO CONTRAST, CT CERVICAL SPINE WO CONTRAST, DATE/TIME OF EXAM: 07/20/2023 7:41 PM, LOCATION [facility] INDICATION: Trauma EXAMINATION: 1.Computed tomography (CT) of the head without contrast 2.CT of the cervical spine without contrast 3.CT of the thoracic spine without contrast 4.CT of the lumbar spine without contrast ADDITIONAL CLINICAL INFORMATION: Ordering Provider Reason For Exam: Trauma. Technologist Note: None. Additional: None. TECHNIQUE: CT of the head and cervical spine was performed withoutcontrast according to standard protocol. Reformatted axial, sagittal, and coronal images of the thoracic and lumbar spine were obtained by thetechnologist from a concurrently performed body CT and sent to the workstation for review. CT dose reduction technique was used, including AutomatedExposure Control. COMPARISON: No prior study is available for comparison at the time ofthis dictation. FINDINGS: Head: No acute intra- or extra-axial fluid collections are identified. Calcifications along the tentorial leaflets. There is moderate cerebral volume loss with associated ex vacuo ventricular dilatation. 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 Clinical correlation is recommended. 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 No mass effect or midline shift is seen. Attenuating areas within the bilateral basal ganglia may representchronic lacunar infarcts. Periventricular white matter hypoattenuation is indicative of chronic small vessel ischemic disease. There is vascular calcification of the carotid siphons. No acute calvarial fracture is identified. Other than bilateral cataract extractions, the orbits appear normal. Frothy secretions in the right maxillary sinus. The nasal septumis deviated to the right with a septal contact with the base of the right inferior turbinate. The mastoid air cells are clear. No soft tissue abnormality is identified. Cervical spine: Minimal anterolisthesis of C4 on C5. The alignment is otherwisemaintained. The bones are mild mildly osteopenic. Vertebral bodies are normal inheight without evidence of acute fracture. Other than middle atlantoaxial joint osteoarthritis, the craniocervical junction appears normal. There is advanced degenerative disc disease. Posterior osteophyte complexformation at C5-C6 is causing mild central canal stenosis. There are varyingdegrees of mild facet osteoarthritis. There are varying degrees of advanced uncovertebral joint osteoarthritis with the same degree of neuralforaminal stenosis at these levels. There is moderate neural foraminal stenosis at the bilateral C6 foramina. Bone island within the C6 vertebral body.There is atherosclerotic calcification of the carotid bifurcations. There is scarring in the lung apices. Thoracic spine: Chronic compression fracture of the T11 and T12 vertebrae status post vertebroplasty/kyphoplasty. There is small volume anterior extrusion ofthe cement at the level of T11. Mild spinal canal stenosis at the level ofthe well fracture minimal retropulsion of a fractured fragment. Mild dextrocurvature of the thoracic spine. Mild exaggeration of the thoracic kyphosis. The alignment is otherwise maintained. The bones are diffusely osteopenic. The remaining vertebral bodies bodies aremaintained in height without evidence of acute fracture. There is mild degenerative disc disease. No high-grade central canal stenosis is seen. There ismild facet osteoarthritis at multiple levels. There are varying degrees of neural foraminal stenosis at multiple levels. Mild stenosis at the bilateral T11-T12 foramina. Large hiatal hernia is noted. Mildnodularity of the adrenal glands. There is subsegmental atelectasis in thedependent portions of the lung bases. Lumbar spine: Mild levocurvature of the lumbar spine. The alignment is other was obtained. The bones are diffusely osteopenic. Vertebral bodies arenormal in height without evidence of acute fracture. There is mild degenerative disc disease. Mild to moderate central canal stenosis secondary to posterior disc bulge at L4-L5. There is moderate facet osteoarthritis at multiple levels. Mild neural foraminal stenosis is seen at L4-5. Thereare degenerative changes of the SI joints. There is atherosclerotic calcification of the abdominal aorta and its branch vessels. IMPRESSION: 1.No acute intracranial hemorrhage, midline shift, or significant mass effect. 2.No evidence of acute fracture in the cervical, thoracic, or lumbarspine. 3.Please refer to the concurrent, dedicated body report for findings inthe chest, abdomen, and pelvis > Dictated by Shasha Castro M.D. - Diagnostic Clinical Administrative Coordinator. I, Can Hughes MD have personally reviewed and interpretedthis examination/study. > Interpreting Provider: Can Hughes MD on 07/20/2023 8:56 PM Kishor Cazares MD CT ORDERABLES * TROPONIN-I HIGH SENSITIVE REFLEX 1HOUR (07/20/2023 7:21 PM CDT) Troponin I High Sensitive <3 <=14 ng/L 07/20/2023 8:18 PM CDT [facility] Delta Troponin I HS 07/20/2023 8:18 PM CDT [facility] Comment:Result exceeds linea rity range. A delta value is unable to be calculated. Blood BLOOD SPECIMEN / Unknown Venipuncture / Unknown 07/20/2023 7:21 PM CDT 07/20/2023 7:26 PM CDT Kishor Cazares MD LAB - CHEMISTRY SHABNAM TUCKER [facility] Organization Address City/State/ZIP Co de Phone Number [facility] [address] [place] [address], [facility] [phone] * TSH REFLEX FREE T4 (07/20/2023 7:21 PM CDT) Pathologist [facility] TSH 3.764 0.350 - 4.940 uIU/mL 07/20/2023 9:59 PM CDT [facility] Blood BLOOD SPECIMEN / Unknown Venipuncture / Unknown 07/20/2023 7:21 PM CDT 07/20/2023 7:26 PM CDT Eyal Vuong MD LAB - CHEMISTR Y ORDERABLES Performing Organization Address City/[facility] Co de Phone Number [facility] [address] [place] [address], [facility] [phone] * EKG 12-LEAD (07/20/2023 6:19 PM CDT) Pathologist [facility] Ventricular Rate 73 BPM [facility] Atrial Rate 73 BPM [facility] P-R Interval 186 ms [facility] QRS Duration ms 74 ms [facility] Q-T Interval ms 416 ms [facility] QTC Calculation (Bezet) 458 ms [facility] Calculated P Dike 52 degrees [facility] Calculated R Dike 19 degrees [facility] Calculated T Dike 67 degrees [facility] Interpretation EKG NORMAL SINUS RHYTHM NORMAL ECG NO PREVIOUS ECGS AVAILABLE Confirmed by CHRISTIE QUINTANA MD ([id number]) on 07/23/2023 8:14:49 AM [facility] 07/20/2023 6:19 PM CDT 07/23/2023 8:14 AM CDT Kishor Cazares MD ECG ORDERABLES Performing Organization Address [facility] Co de Phone Number [facility] * XR KNEE RIGHT 3VW (07/20/2023 6:17 PM CDT) Anatomical Region Laterality Modality Lower Extremity Radiographic Mary ging 07/20/2023 4:57 PM CDT Impressions 07/21/2023 5:43 AM CDT IMPRESSION: Transcervical fracture of the right femoral neck with medial angulation of the femoral shaft and mild shortening. Report dictated by Shasha Castro Dr, (assistant vice president). I, Prince Coates MD have personally reviewed and interpreted this examination/study. > Interpreting Provider: Prince Coates MD on 07/21/2023 5:43 AM Narrative 07/21/2023 5:43 AM CDT PROCEDURE: XR PELVIS W RIGHT HIP 2VW, XR KNEE RIGHT 3VW, XR FEMUR RIGHT 2VW, DATE/TIME OF EXAM: 07/20/2023 5:22 PM, LOCATION [facility] INDICATION: M25.551: Pain of right hip W18.30XA: Ground-level fall ADDITIONAL CLINICAL INFORMATION: Ordering Provider Reason For Exam: Fall with leg shortening (accession [id number]), fx (accession [id number]), fx (accession [id number]) Technologist Note: Additional: COMPARISON: None. PELVIS FINDINGS: Transcervical fracture of the right femoral neck with medial angulation of the femoral shaft and mild shortening. The femoral heads appear well-seated within their respective acetabula. The pubic symphysis is intact. Bone density and texture are normal. Degenerative changes of the lower lumbar spine and bilateral sacroiliac joints. RIGHT FEMUR FINDINGS: Femoral neck fracture as described above. No distal fracture. Bone density and texture are normal. RIGHT KNEE FINDINGS: The osseous structures are intact and well aligned without acute fracture or dislocation. The knee joint space is preserved. No joint effusion is seen. Bone density and texture are normal. Lateral tibiofemoral joint chondrocalcinosis. Procedure Note Prince Coates MD - 07/21/2023 PROCEDURE: XR PELVIS W RIGHT HIP 2VW, XR KNEE RIGHT 3VW, XR FEMUR RIGHT 2VW, DATE/TIME OF EXAM: 07/20/2023 5:22 PM, LOCATION [facility] INDICATION: M25.551: Pain of right hip W18.30XA: Ground-level fall ADDITIONAL CLINICAL INFORMATION: Ordering Provider Reason For Exam: Fall with leg shortening (accession [id number]), fx (accession [id number]), fx (accession [id number]) Technologist Note: Additional: COMPARISON: None. PELVIS FINDINGS: Transcervical fracture of the right femoral neck with medial angulationof the femoral shaft and mild shortening. The femoral heads appearwell-seated within their respective acetabula. The pubic symphysis is intact. Bone density and texture are normal. Degenerative changes of the lower lumbar spine and bilateral sacroiliac joints. RIGHT FEMUR FINDINGS: Femoral neck fracture as described above. No distal fracture. Bonedensity and texture are normal. RIGHT KNEE FINDINGS: The osseous structures are intact and well aligned without acutefracture or dislocation. The knee joint space is preserved. No joint effusion is seen. Bone density and texture are normal. Lateral tibiofemoral joint chondrocalcinosis. IMPRESSION: Transcervical fracture of the right femoral neck with medial angulationof the femoral shaft and mild shortening. Report dictated by Shasha Castro Dr, MD (assistant vice president). Prince Larkin MD have personally reviewed and interpreted this examination/study. > Interpreting Provider: Prince Coates MD on 07/21/2023 5:43 AM Kishor Cazares MD DIAGNOSTIC IMAGING O RDERABLES * XR FEMUR RIGHT 2VW (07/20/2023 6:17 PM CDT) Anatomical Region Laterality Modality Lower Extremity Radiographic Mary ging 07/20/2023 4:57 PM CDT Impressions 07/21/2023 5:43 AM CDT IMPRESSION: Transcervical fracture of the right femoral neck with medial angulation of the femoral shaft and mild shortening. Report dictated by Shasha Castro Dr, MD (assistant vice president). Prince Larkin MD have personally reviewed and interpreted this examination/study. > Interpreting Provider: Prince Coates MD on 07/21/2023 5:43 AM Narrative 07/21/2023 5:43 AM CDT PROCEDURE: XR PELVIS W RIGHT HIP 2VW, XR KNEE RIGHT 3VW, XR FEMUR RIGHT 2VW, DATE/TIME OF EXAM: 07/20/2023 5:22 PM, LOCATION [facility] INDICATION: M25.551: Pain of right hip W18.30XA: Ground-level fall ADDITIONAL CLINICAL INFORMATION: Ordering Provider Reason For Exam: Fall with leg shortening (accession [id number]), fx (accession [id number]), fx (accession [id number]) Technologist Note: Additional: COMPARISON: None. PELVIS FINDINGS: Transcervical fracture of the right femoral neck with medial angulation of the femoral shaft and mild shortening. The femoral heads appear well-seated within their respective acetabula. The pubic symphysis is intact. Bone density and texture are normal. Degenerative changes of the lower lumbar spine and bilateral sacroiliac joints. RIGHT FEMUR FINDINGS: Femoral neck fracture as described above. No distal fracture. Bone density and texture are normal. RIGHT KNEE FINDINGS: The osseous structures are intact and well aligned without acute fracture or dislocation. The knee joint space is preserved. No joint effusion is seen. Bone density and texture are normal. Lateral tibiofemoral joint chondrocalcinosis. Procedure Note Prince Coates MD - 07/21/2023 PROCEDURE: XR PELVIS W RIGHT HIP 2VW, XR KNEE RIGHT 3VW, XR FEMUR RIGHT 2VW, DATE/TIME OF EXAM: 07/20/2023 5:22 PM, LOCATION [facility] INDICATION: M25.551: Pain of right hip W18.30XA: Ground-level fall ADDITIONAL CLINICAL INFORMATION: Ordering Provider Reason For Exam: Fall with leg shortening (accession [id number]), fx (accession [id number]), fx (accession [id number]) Technologist Note: Additional: COMPARISON: None. PELVIS FINDINGS: Transcervical fracture of the right femoral neck with medial angulationof the femoral shaft and mild shortening. The femoral heads appearwell-seated within their respective acetabula. The pubic symphysis is intact. Bone density and texture are normal. Degenerative changes of the lower lumbar spine and bilateral sacroiliac joints. RIGHT FEMUR FINDINGS: Femoral neck fracture as described above. No distal fracture. Bonedensity and texture are normal. RIGHT KNEE FINDINGS: The osseous structures are intact and well aligned without acutefracture or dislocation. The knee joint space is preserved. No joint effusion is seen. Bone density and texture are normal. Lateral tibiofemoral joint chondrocalcinosis. IMPRESSION: Transcervical fracture of the right femoral neck with medial angulationof the femoral shaft and mild shortening. Report dictated by Shasha Castro Dr, MD (assistant vice president). Prince Larkin MD have personally reviewed and interpreted this examination/study. > Interpreting Provider: Prince Coates MD on 07/21/2023 5:43 AM Kishor Cazares MD DIAGNOSTIC IMAGING O RDERABLES * (ABNORMAL) TEG 6 GLOBAL HEMOSTASIS W/ LYSIS (07/20/2023 6:05 PM CDT) Citrated Kaolin R (Reaction Time) 1.7(L) 4.6 - 9.1 min 07/20/2023 7:15 PM CDT [facility] Comment:CK R result below no rmal range. Consistent with hypercoagulable clotting factors. Citrated Kaolin LY30 (Lysis) 0.0 0.0 - 2.6 % 07/20/2023 7:15 PM CDT [facility] Citrated Functional Fibrinogen MA (Max Amplitude) 31.6 15.0 - 32.0 mm 07/20/2023 7:15 PM CDT [facility] Citrated RapidTEG MA (Max Amplitude) 67.2 52.0 - 70.0 mm 07/20/2023 7:15 PM CDT [facility] Blood BLOOD SPECIMEN / Unknown Venipuncture / Unknown 07/20/2023 6:05 PM CDT 07/20/2023 6:08 PM CDT Kishor Cazares MD LAB - HEMATOLOGY ORD ERABLES [facility] [address] [place] [address], [facility] [phone] * (ABNORMAL) TEG 6S PLATELET MAPPING (07/20/2023 6:05 PM CDT) TEGPLM (Max Amplitude) Koalin 68.7(H) 53.0 - 68.0 mm 07/20/2023 7:23 PM CDT [facility] TEGPLM (Max Amplitude) ACTF 23.4(H) 2.0 - 19.0 mm 07/20/2023 7:23 PM CDT [facility] TEGPLM (Max Amplitude) ADP 54.0 45.0 - 69.0 mm 07/20/2023 7:23 PM CDT [facility] TEGPLM (Max Amplitude) AA 69.6 51.0 - 71.0 mm 07/20/2023 7:23 PM CDT [facility] TEGPLM %Inhibition ADP 32.5(H) 0.0 - 17.0 % 07/20/2023 7:23 PM CDT [facility] TEGPLM %Inhibition AA 0.0 0.0 - 11.0 % 07/20/2023 7:23 PM T [facility] TEGPLM %Aggregation ADP 67.5(L) 83.0 - 100.0 % 07/20/2023 7:23 PM CDT [facility] TEGPLM % Aggregation AA 100.0 89.0 - 100.0 % 07/20/2023 7:23 PM CDT [facility] Blood BLOOD SPECIMEN / Unknown Venipuncture / Unknown 07/20/2023 6:05 PM CDT 07/20/2023 6:11 PM CDT Kishor Cazares MD LAB - HEMATOLOGY ORD ERABLES [address] [address], [facility] [phone] * TROPONIN-I HIGH SENSITIVE BASELINE + 1HR (07/20/2023 6:05 PM CDT) Troponin I High Sensitive <3 <=14 ng/L 07/20/2023 6:49 PM CDT [facility] Blood BLOOD SPECIMEN / Unknown Venipuncture / Unknown 07/20/2023 6:05 PM CDT 07/20/2023 6:16 PM CDT Kishor Cazares MD LAB - CHEMISTRY ORDOliva TUCKER [address] [address], [place] [phone] * LIPASE BLOOD (07/20/2023 6:05 PM CDT) Lipase 32 8 - 78 U/L 07/20/2023 6:43 PM CDT [facility] Blood BLOOD SPECIMEN / Unknown Venipuncture / Unknown 07/20/2023 6:05 PM CDT 07/20/2023 6:16 PM CDT [facility] - 07/20/2023 6:43 PM CDT Lipase results from the Rios Alinity analyzer may not be comparable with other methodologies. Kishor Cazares MD LAB - CHEMISTRY SHABNAM TUCKER Performing Organization Address City/[facility]/ZIP Co de Phone Number [address] [address], [facility] [phone] * ALCOHOL ETHYL BLOOD (07/20/2023 6:05 PM CDT) Ethanol (mg/dL) <10 <10 mg/dL 6:43 PM CDT [facility] Ethanol Calculated (g/dL) <0.010 <=0.010 g/dL 07/20/2023 6:43 PM CDT [facility] Blood BLOOD SPECIMEN / Unknown Venipuncture / Unknown 07/20/2023 6:05 PM CDT 07/20/2023 6:16 PM CDT Narrative [facility] - 07/20/2023 6:43 PM CDT Ethanol Interp <10: None Detected. Depression of PRICING SPECIALIST: >100 mg/dl Potentially Critical: >250 mg/dl Potentially Fatal >400 mg/dl Ethanol in the patient's blood will contribute to the osmolar gap. Ethanol's contribution to the osmolar gap can be estimated by dividing the concentration of ethanol in mg/dL by 4.6. This test is for clinical use only and does not equal a PETE for legal purposes. Kishor Cazares MD LAB - CHEMISTRY SHABNAM TUCKER Performing Organization Address [facility]/ZIP Co de Phone Number [address] [phone], [facility] [phone] * XR CHEST 1VW PORTABLE (07/20/2023 5:48 PM CDT) Anatomical Region Laterality Modality Chest Radiographic Mary ging 07/20/2023 6:17 PM CDT Narrative 07/21/2023 5:56 AM CDT PROCEDURE: XR CHEST 1VW PORTABLE, DATE/TIME OF EXAM: 07/20/2023 5:48 PM, LOCATION [facility] INDICATION: Trauma ADDITIONAL CLINICAL INFORMATION: Ordering Provider Reason For Exam: Technologist Note: Additional: COMPARISON: None. FINDINGS/IMPRESSION: No focal consolidation, pneumothorax, or pleural effusion. Retrocardiac circular lucency likely represent hiatal hernia. The cardiomediastinal silhouette is normal. No displaced fractures identified. Status post vertebroplasty at multiple lower thoracic vertebra. Report dictated by Shasha Castro Dr, MD (assistant vice president). Prince Larkin MD have personally reviewed and interpreted this examination/study. > Interpreting Provider: Prince Coates MD on 07/21/2023 5:56 AM Procedure Note Prince Coates MD - 07/21/2023 PROCEDURE: XR CHEST 1VW PORTABLE, DATE/TIME OF EXAM: 07/20/2023 5:48PM, LOCATION [facility] INDICATION: Trauma ADDITIONAL CLINICAL INFORMATION: Ordering Provider Reason For Exam: Technologist Note: Additional: COMPARISON: None. FINDINGS/IMPRESSION: No focal consolidation, pneumothorax, or pleural effusion. Retrocardiac circular lucency likely represent hiatal hernia. The cardiomediastinal silhouette is normal. No displaced fractures identified. Status post vertebroplasty at multiple lower thoracic vertebra. Report dictated by Shasha Castro Dr, MD (assistant vice president). Prince Larkin MD have personally reviewed and interpreted this examination/study. > Interpreting Provider: Prince Coates MD on 07/21/2023 5:56 AM Kishor Cazares MD DIAGNOSTIC IMAGING O RDERABLES * PTT [facility] (07/20/2023 4:36 PM CDT) APTT 25.1 23.0 - 38.4 Seconds 07/20/2023 5:56 PM CDT [facility] Comment:Suggested therapeuti c range for full dose I.V. unfractionated heparin therapy for venous thromboembolism is 71 to 109 seconds. Blood BLOOD SPECIMEN / Unknown Venipuncture / Unknown 07/20/2023 4:36 PM CDT 07/20/2023 4:40 PM CDT Kishor Cazares MD LAB - COAGULATION OR DERABLES Performing Organization Address [facility] Co de Phone Number [facility] [address] [place] [phone], [facility] [phone] * PT-INR [facility] (07/20/2023 4:36 PM CDT) PT 13.8 12.1 - 14.8 Seconds 07/20/2023 5:56 PM CDT [facility] INR 1.1 See Comment 07/20/2023 5:56 PM CDT [facility] Comment:The suggested therap eutic range for standard coumadin (warfarin) therapy is an INR of 2.0-3.0. For high-risk patients (Mechanical Mitral Valve Prosthesis, etc.), the suggested prophylactic therapeutic range is an INR of 2.5-3.5. Blood BLOOD SPECIMEN / Unknown Venipuncture / Unknown 07/20/2023 4:36 PM CDT 07/20/2023 4:40 PM CDT Kishor Cazares MD LAB - COAGULATION OR DERABLES Performing Organization Address [facility] Co de Phone Number [address] [phone], [facility] [phone] * TYPE + SCREEN PANEL (07/20/2023 4:36 PM CDT) Antibody Screen NEG 07/20/2023 5:24 PM CDT [facility] ABO Rh AB POS 07/20/2023 5:24 PM CDT [facility] Blood Bank BLOOD SPECIMEN / Unknown Venipuncture / Unknown 07/20/2023 4:36 PM CDT 07/20/2023 4:40 PM CDT Kishor Cazares MD LAB - BLOOD BANK ORD ERABLES [facility] [address] [place] [address], [facility] [phone] Care Teams Core Analysis Operator Relationship Specialty Start Date End Date Alina Collier MD [address] [facility] [address] [place] [phone] PCP - General Internal Medicine 11/19/23
--- OUTSIDE RECORDS SUMMARY | 2024-04-06 19:10 | XMS_ITS | Clinical Summary ---
Author Organization [facility] [employer] Address [address] [place] [address] Care Team Providers Care Neonatal Intensive Care Unit Nurse Name Role Phone Alina Collier MD Primary Care Provider Source Comments [facility] [employer],non-owned Affiliates and Associated Physician Practices is amultiple site organization consisting of ambulatory clinics and hospital sitesin [place], [place], [place] and [place]. This disclosure is being madepursuant to the Care Everywhere program and may not contain all information available regarding this patient. Last updated 17.[facility] [employer] Allergies Active Allergy Reactions Criticality Noted Date Comments Penicillins Unknown 07/20/2023 Medications * Be aware that medications may not be up to date on this document. Alwaysverify current medications with the patient. Medication Sig Dispensed Refills Start Date End Date Status levothyroxine (Synthroid) 25 MCG tablet Take 1 (one) tablet by mouth daily before breakfast Active cyclobenzaprine (Flexeril) 5 MG tablet Take 1 (one) tablet by mouth 3 times daily as needed Active metoprolol succinate XL 24hr (Toprol XL) 25 MG tablet Take 1 (one) tablet by mouth once daily Active memantine (Namenda) 10 MG tablet Take 1 (one) tablet by mouth 2 times daily Active donepezil (Aricept) 10 MG tablet Take 1 (one) tablet by mouth at bedtime Active Nutritional Supplement LIQD Take 1 container by mouth 3 times daily High Calorie High Protein Supplement Examples: Ensure Enlive/Ensure Plus High Protein/Boost Plus/Equate Plus 07/22/2023 Active senna-docusate (Senokot-S) 8.6-50 MG tablet Take 1 (one) tablet by mouth 2 times daily 07/30/2023 Active polyethylene glycol 3350 (Miralax) 17 g packet Take 17 (seventeen) g by mouth once daily 07/31/2023 Active apixaban (Eliquis) 2.5 MG tablet Take 1 (one) tablet by mouth 2 times daily for 35 days 07/30/2023 Active Active Problems Problem Noted Date Diagnosed Date Severe protein-calorie malnu trition (Gomes: less than 60% of standard weight) 07/24/2023 Essential hypertension 07/23/2023 Hyperlipidemia 07/23/2023 Subclinical hypothyroidism 07/23/2023 Overview (07/23/2023): Will put in for a Rx for synthroid. Contacted patient. Hiatal hernia 07/20/2023 Closed fracture of neck of right femur, initial encounter 07/20/2023 Pain of right hip 07/20/2023 Ground-level fall 07/20/2023 Chronic kidney disease 06/23/2023 Alzheimer's disease with late onset 12/19/2020 Resolved Problems Problem Noted Date Diagnosed Date Resolved Date UTI (urinary tract infection) 07/24/2023 08/07/2023 Family History Medical History Relation Name Comments Alcohol abuse Father Thyroid Disease Mother Relation Name Status Comments Father Mother Social History Tobacco Use Types Packs/Day Years [...] Recorded Patient Health Questionnaire-2 Score 0 11/25/2023 [facility] [facility] - Occupational Stress [...] place to sleep or slept in a half-way (including now)? No 07/21/2023 Sex and Gender [...] Mass Index 22.45 07/21/2023 8:39 PM CDT Plan of Treatment Health Maintenance Due Date Last Done Comments BONE DENSITY TESTING 1935 DTAP/TDAP/TD VACCINES (1 - Tdap) 11/21/1954 PNEUMOCOCCAL VACCINE 50+ (1 of 1 - PCV) 11/21/1985 ZOSTER VACCINE (1 of 2) 11/21/1985 Respiratory Syncytial Virus (RSV) Vaccine Pt: or over 60 yrs (1 - 1-dose 75+ series) 11/21/2010 COVID-19 VACCINE ( season) 2023 01/21/2021, 05/17/2020, 04/19/2020 INFLUENZA VACCINE (#1) 2023 8, 12/02/2016, 12/09/2015, Additional history exists DEPRESSION SCREENING 02/23/2024 11/25/2023 MEDICARE AWV CALENDAR YEAR 2024 HEPATITIS B VACCINE Aged Out No longe r eligible based on patient's age to complete this topic HIB VACCINE Aged Out No longer eligi ble based on patient's age to complete this topic HPV VACCINE Aged Out No longer eligi ble based on patient's age to complete this topic MENINGOCOCCAL (Group B) VACCINE Aged Out No longer eligible based on patient's age to complete this topic MENINGOCOCCAL VACCINE Aged Out No shantell kalie eligible based on patient's age to complete this topic Medical Devices Implanted Type Area Slide Fastener Chain Assembler Device Identifier Shelf Expiration Date Model / Serial / Lot Compon Acetab Bipol Uhr 49mm Implanted:Qty: 1 on 07/21/2023 by Nestor Patton MD at [facility] Right: Hip [employer] [id number] 07/07/2025 [id number] / / [id number] Insignia Hip Stem Standard Offset Implanted:Qty: 1 on 07/21/2023 by Nestor Patton MD at [facility] Right: Hip [employer] 09/03/2027 [id number] / / [id number] Head Fem +8mm Ofst Tpr 28mm Hip Cocr V40 Implanted:Qty: 1 on 07/21/2023 by Nestor Patton MD at [facility] Right: Hip [employer] [id number] 07/29/2026 [id number] / / [id number] Advance Directives Documents on File Type Date Recorded 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
--- OUTSIDE RECORDS SUMMARY | 2024-04-06 19:10 | XMS_ITS | Clinical Summary ---
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 Active potassium chloride ER (KLOR-CON) 10 mEq CR tablet Take 1 tablet/capsule (10 mEq total) by mouth 2 (two) times a day Active metoprolol blackwood-hydrochloro thiaz 100-12.5 mg tablet extended release 24 hr Take by mouth Ac tive amLODIPine (NORVASC) 2.5 mg tablet amlodipine 2.5 mg tablet TAKE 2 TABLETS BY MOUTH IN THE MORNING AND 1 TABLET IN THE EVENING Active calcium-vits M0-K-W8-minera ls 166.75 mg- 166.75 unit capsule Take by mouth Active fish oil-dha-epa 1,200-144-216 mg capsule Take by mouth Activ e HYDROcodone-ac etaminophen (NORCO) 5-325 mg per tablet Take 1 tablet by mouth 3 (three) times a day 07/25/19 23 Active meloxicam (MOBIC) 15 mg tablet Take 1 tablet (15 mg total) by mouth daily as needed Active memantine (NAMENDA) 10 mg tabletIndicati ons:Alzheimer' s disease with late onset (HCC) Take 1 tablet (10 mg total) by mouth 2 (two) times a day 60 tablet 11 11/17/19 24 Active QUEtiapine (SeroqueL) 25 mg tablet Take 1 tablet (25 mg total) by mouth nightly as needed (agitation) 30 tablet 11/29/19 24 Active donepeziL (ARICEPT) 10 mg tabletIndicati ons:Alzheimer' s disease with late onset (HCC) Take 1 tablet (10 mg total) by mouth nightly 30 tablet 03/29/19 25 Active donepeziL (ARICEPT) 10 mg tabletIndicati ons:Alzheimer' s disease with late onset (HCC) Take 1 tablet (10 mg total) by mouth nightly 90 tablet 3 11/17/19 24 025 Discontinued Active Problems Problem Noted Date Diagnosed Date Alzheimer's disease with late onset 12/19/2020 Surgical History Surgery Date Site/Laterality Comments HERNIA REPAIR FL FLUORO GUIDED LUMBAR PUNCTURE 02/10/2021 Right Medical History Medical History Date Comments Hypertension Family History Medical History Relation Name Comments Cancer Father Relation Name Status Comments Father Social History Tobacco Use Types Packs/Day Years Used Date Smoking Tobacco: Never Smokeless Tobacco: Never Tobacco Cessation:Counseling Given: Not Answered Personal Safety Answer Date Recorded Getting School Help Needed Not on file 04/13 Comments Unknown Sex and Gender Information Value Date Recorded Sex Assigned at Not on file Legal Sex Female 9:48 AM CDT Gender Identity Not on file Sexual Orientation Not on file Obstetrics History Last Filed Vital Signs Vital Sign Reading Time Taken Comments Blood Pressure 145/80 11/17/2023 2:21 PM CDT Pulse 71 11/17/2023 2:21 PM CDT Temperature 36 C (96.8 F) 02/10/2021 10:45 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 Respiratory Rate 16 07/03/2021 8:34 AM CDT Oxygen Saturation 97% 11/17/2023 2:21 PM CDT Inhaled Oxygen Concentration - - Weight 65.2 kg (143 lb 12.8 oz) 11/17/2023 2:21 PM CDT Height 165.1 cm (5' 5 ) 11/17/2023 2:21 PM CDT Body Mass Index 23.93 11/17/2023 2:21 PM CDT Plan of Treatment Health Maintenance Due Date Last Done Comments Depression Screening 1935 Hepatitis B Screening 11/21/1953 Zoster Vaccine (1 of 2) 11/21/1985 Well Visit 65+ 11/21/2000 DTaP/Tdap/Td Vaccine (1 - Tdap) 01/09/2005 5 Pneumococcal vaccine 65+ (2 of 2 - PCV) 01/08/2006 01/08/2005 Fall Risk Assessment 02/10/2022 02/10/2021 Covid-19 Vaccine (4 - 2023-2 5 season) 2023 01/21/2021, 05/17/2020, 04/19/2020 Influenza Vaccine (#1) 2023 , 11/30/2017, 12/02/2016, Additional history exists Insurance [employer] MED[employer]ARE [employer]IONS MEDICARE SOL[employer]IONS [employer] Advance Directives For more information, please contact: [phone] * Full Code (Latest Code Status on File) Date Activated Date Inactivated Comments 02/10/2021 9:56 AM 02/11/2021 5:00 AM Care Teams Production Assembler Relationship Specialty Start Date End Date Nestor Faustin MD PCP - General Internal Medicine 12/09/20
--- OUTSIDE RECORDS SUMMARY | 2024-04-06 19:10 | XMS_ITS | Data Portability ---
Author Organization [place] [facility] [employer], Main Office Address [address] [place] [address] Assessment Encounter Date Assessment Date Assessment LastModified by Organization Details LastModified Time 10/15/2022 10/15/2022 Continue current therapy follow-up in 4 months. [email or web address] Not available 10/18/2022 21:49:26 01/07/2023 01/07/2023 Blood work been ordered we will continue current therapy Miller history of her diagnosis in assessment plan been discussed follow-up in 4 months [email or web address] Not available 01/11/2023 21:30:20 Plan of Treatment Reminders Order Date Submit Date Provider Last Modified By Organization Details Last Modified Time Details Appointments Any 15 2024 11:15A Parish Sharma APRN Not available Not available Not available Lab HbA1c (hemoglob in A1c), blood 2023 024 MATT Not available 10/20/2023 22:39:45 CBC w/ diff 2023 024 MATT Not available 10/20/2023 22:39:45 lipid panel, serum 2023 024 MATT Not available 10/20/2023 22:39:45 CMP, serum or plasma [address] [facility], [address] [place], [address], 12/20/2023 08:13:23 CBC w/ auto diff [address] [facility], [address] [place], [address], 12/20/2023 08:13:23 HbA1c (hemoglob in A1c), blood [address], [address] [place], [address], 06/29/2023 08:18:39 calcium, serum or plasma [address], [address] [place], [address], 06/29/2023 08:18:40 lipid panel, serum [address] [facility], [address] [place], [address], 12/20/2023 08:13:23 TSH, serum or plasma [address] [facility], [address] [place], [address], 12/20/2023 08:13:23 T4, free, serum [address] [facility], [address] [place], [address], 12/20/2023 08:13:23 CMP, serum or plasma 2022 023 [facility], [address] [place], [address], 01/07/2023 13:30:13 CBC w/ auto diff 2022 023 [facility], [address] [place], [address], 01/07/2023 13:21:49 TSH, serum or plasma 2022 023 [facility], [address] [place], [address], 01/07/2023 14:27:12 T4, free, serum 2022 023 [facility], [address] [place], [address], 01/07/2023 13:56:25 T3, free, serum or plasma 2022 023 [facility], [address] [place], [address], 01/07/2023 14:36:21 lipid panel, serum 2022 023 [facility], [address] [place], [address], 01/07/2023 13:30:23 Referral home health referral 2023 024 [facility], [address], [place], [address], 10/20/2023 16:16:46 homemaker referral 2023 024 [facility], [address], [place], [address], 01/17/2024 07:44:37 Procedures None recorded. Surgeries None recorded. Imaging None recorded. Medication Orders meclizine 12.5 mg tablet [address] [facility]14, [address], [place], [place], [id number], 06/22/2023 14:29:07 memantine 10 mg tablet [address] [facility] #07033, [address], [place], [place], [id number], 06/22/2023 14:26:11 amlodipin e 2.5 mg tablet [address] [facility] #19301, [address], [place], [place], [id number], 06/22/2023 14:26:12 metoprolo l succinate ER 25 mg tablet,ex tended release [address] [facility]86853, [address], [place], [place], [id number], 06/22/2023 14:26:11 potassium chloride ER 10 mEq tablet,ex tended release 2023 024 [facility] #47385, [address], [place], [place], [id number], 10/21/2023 10:05:23 levothyro xine 25 mcg tablet [address] [facility]85227, [address], [place], [place], [id number], 06/22/2023 14:26:09 Patient TargetsNo targets recorded. Patient Instructions Encounter Date Encounter Id Patient Instructions Last Modified By Organization Details Last Modified Time 06/22/2023 [id number] Follow up in 3 months and as needed Prescription refills sent to pharmacy Obtain labs Referral for homemaker services Not available 06/22/2023 14:23:17 10/20/2023 [id number] Follow up in December-for medicare annual wellness Obtain labs Tests: Referral: Residential home health Recommend: Influenza vaccine Pneumococcal vaccine Tetanus vaccine Shingles vaccine Not available 10/20/2023 14:37:47 01/17/2024 [id number] dementia rating scale-2* Not available 01/17/2024 12:34:24 multi-dimensiona l health assessment questionnaire* Not available 01/17/2024 12:34:24 care plan* Not available 01/16 12:34:24 advance directiv es: care instructions Not available 01/17/2024 12:34:24 advance care planning: care instructions Not available 01/17/2024 12:34:25 [place] Advance Directives Not available 01/17/2024 12:34:24 Follow up in 6 months and as needed Tests: Referral: Recommend: Pneumonia vaccine Personalized Health Plan and Screening Recommendations Advance Directives - Do you have one? Yes Advance Directives - Do we have your advance directive on file in your health record? No, please bring in a copy at your earliest convenience Primary Prevention/Interven tion (prevents or decreases the chance of common diseases from occurring) Smoking Risk: Non Smoker Alcohol Misuse Screening: Negative Weight: Appropriate Physical activity: Need more exercise/physical activity minimum of 10-20 minutes of activity that causes mild breathlessness/day Nutrition: Poor Refer to attached handout Heart-Healthy Diet: After Your Visit Refer to attached handout DASH Diet: After Your Visit Fall Risk (screened today): High Refer to attached handout Preventing Falls: After your Visit Vaccines Pneumococcal: Ordered Recommended today Influenza: Chronic Disease Risks Stroke: Low Risk I have no recommendations Heart Attack: Low risk Intermediate Risk I have no recommendations Clogging of the Arteries: Low risk Intermediate Risk I have no recommendations Diabetes: Low Risk I have no recommendations Secondary Prevention/Interven tion (detects treatable diseases before they may cause symptoms, disability, or ) Breast Cancer Screening with mammogram: No screening necessary Cervical/Uterine/Ov colin Cancer Screening: No screening necessary Osteoporosis Screening: No screening necessary Date Screening Last Performed: Colon Cancer Screening: No screening necessary Date Screening Last Performed: Eye Disease Screening: No Eye exam necessary Dementia Risk: High I have no recommendations Depression Screening: Negative Not available 01/17/2024 12:35:34 Reason for Referral Homemaker Referral for Moder ate dementia Referring Physician: Pretty Sharma, Internal Medicine, Encounter Date: 06/22/2023 Home Health Referral for Vicky sed fracture of hip Referring Physician: Pretty Sharma Internal Medicine, Encounter Date: 10/20/2023 Results Created Date Observation Date Name Description Value Unit Range Abnormal Flag Note LastModifiedBy Organization Detail LastModifiedTime 01/08/20 23 01/07/2023 CBC/C OMPLE TE BLD COUNT W/DIF F white blood cells 4.8 x10'3 /uL 4.2-10 .8 Not Available [facility] (Lab) [address] [place], [address], 01/07/2023 13:21:49 01/08/20 23 01/07/2023 CBC/C OMPLE TE BLD COUNT W/DIF F red blood cells 4.44 x10'6 /uL 3.80-5 .20 Not Available [facility] (Lab) [address] [place], [address], 01/07/2023 13:21:49 01/08/20 23 01/07/2023 CBC/C OMPLE TE BLD COUNT W/DIF F hemoglobin 13.7 g/dL 12.0-1 5.6 Not Available [facility] (Lab) [address] [place], [address], 01/07/2023 13:21:49 01/08/20 23 01/07/2023 CBC/C OMPLE TE BLD COUNT W/DIF F hematocrit 41.6 % 35.7-4 5.7 Not Available [facility] (Lab) [address] [place], [address], 01/07/2023 13:21:49 01/08/2001/07/2023 CBC/C OMPLE TE BLD COUNT W/DIF F mean red cell volume 93.7 fL 82.0-9 9.0 Not Available [facility] (Lab) [address] [place], [address], 01/07/2023 13:21:49 01/08/20 23 01/07/2023 CBC/C OMPLE TE BLD COUNT W/DIF F mean red cell hemoglobin 30.9 pg 27.0-3 3.0 Not Available [facility] (Lab) [address] [place], [address], 01/07/2023 13:21:49 01/08/20 23 01/07/2023 CBC/C OMPLE TE BLD COUNT W/DIF F mean RBC HGB concentratio n 32.9 g/dL 31.0-3 6.0 Not Available [facility] (Lab) [address] [place], [address], 01/07/2023 13:21:49 01/08/20 23 01/07/2023 CBC/C OMPLE TE BLD COUNT W/DIF F red cell distribution width 12.7 % 11.8-1 5.5 Not Available [facility] (Lab) [address] [place], [address], 01/07/2023 13:21:49 01/08/2001/07/2023 CBC/C OMPLE TE BLD COUNT W/DIF F platelets 243 x10'3 /uL 150-40 0 Not Available [facility] (Lab) [address] [place], [address], 01/07/2023 13:21:49 01/08/2001/07/2023 CBC/C OMPLE TE BLD COUNT W/DIF F mean platelet volume 10.4 fL 9.0-12 .4 Not Available [facility] (Lab) [address] [place], [address], 01/07/2023 13:21:49 01/08/2001/07/2023 CBC/C OMPLE TE BLD COUNT W/DIF F neutrophils 65.3 % 39.0-7 2.0 Not Available [facility] (Lab) [address] [place], [address], 01/07/2023 13:21:49 01/08/2001/07/2023 CBC/C OMPLE TE BLD COUNT W/DIF F lymphocytes 23.2 % 16.0-4 7.0 Not Available [facility] (Lab) [address] [place], [address], 01/07/2023 13:21:49 01/08/2001/07/2023 CBC/C OMPLE TE BLD COUNT W/DIF F monocytes 9.2 % 5.0-12 .0 Not Available [facility] (Lab) [address] [place], [address], 01/07/2023 13:21:49 01/08/20 23 01/07/2023 CBC/C OMPLE TE BLD COUNT W/DIF F eosinophils 1.5 % 1.0-7. 0 Not Available [facility] (Lab) [address] [place], [address], 01/07/2023 13:21:49 01/08/2001/07/2023 CBC/C OMPLE TE BLD COUNT W/DIF F basophils 0.6 % 0.0-2. 0 Not Available [facility] (Lab) [address] [place], [address], 01/07/2023 13:21:49 01/08/2001/07/2023 CBC/C OMPLE TE BLD COUNT W/DIF F immature granulocytes 0.2 % 0.00-0 .50 Not Available [facility] (Lab) [address] [place], [address], 01/07/2023 13:21:49 01/08/20 23 01/07/2023 CBC/C OMPLE TE BLD COUNT W/DIF F neutrophils, absolute count 3.12 x10'3 /uL 1.5-8. 0 Not Available [facility] (Lab) [address] [place], [address], 01/07/2023 13:21:49 01/08/2001/07/2023 CBC/C OMPLE TE BLD COUNT W/DIF F lymphocytes, absolute count 1.11 x10'3 /uL 1.07-3 .43 Not Available [facility] (Lab) [address] [place], [address], 01/07/2023 13:21:49 01/08/20 23 01/07/2023 CBC/C OMPLE TE BLD COUNT W/DIF F monocytes, absolute count 0.44 x10'3 /uL 0.29-0 .99 Not Available [facility] (Lab) [address] [place], [address], 01/07/2023 13:21:49 01/08/20 23 01/07/2023 CBC/C OMPLE TE BLD COUNT W/DIF F eosinophils, absolute count 0.07 x10'3 /uL 0.02-0 .53 Not Available [facility] (Lab) [address] [place], [address], 01/07/2023 13:21:49 01/08/2001/07/2023 CBC/C OMPLE TE BLD COUNT W/DIF F basophils, absolute count 0.03 x10'3 /uL 0.01-0 .08 Not Available [facility] (Lab) [address] [place], [address], 01/07/2023 13:21:49 01/08/2001/07/2023 CBC/C OMPLE TE BLD COUNT W/DIF F immature granulocytes ,absolute 0.01 x10'3 /uL 0.00-0 .05 Not Available [facility] (Lab) [address] [place], [address], 01/07/2023 13:21:49 01/08/2001/07/2023 CBC/C OMPLE TE BLD COUNT W/DIF F nucleated red blood cells 0.0 % -0 Not Available [facility] (Lab) [address] [place], [address], 01/07/2023 13:21:49 01/08/20 23 01/07/2023 CBC/C OMPLE TE BLD COUNT W/DIF F NRBC# 0.00 x10'3 /uL Not Available [facility] (Lab) [address] [place], [address], 01/07/2023 13:21:49 01/08/2001/07/2023 COMPR EHENS ARNAUD METAB OLIC PANEL sodium 141 mmol/ L 137-14 5 Not Available [facility] (Lab) [address] [place], [address], 01/07/2023 13:30:13 01/08/2001/07/2023 COMPR EHENS ARNAUD METAB OLIC PANEL potassium 4.0 mmol/ L 3.5-5. 1 Not Available [facility] (Lab) [address] [place], [address], 01/07/2023 13:30:13 01/08/2001/07/2023 COMPR EHENS ARNAUD METAB OLIC PANEL chloride 104 mmol/ L 98-107 Not Available [facility] (Lab) [address] [place], [address], 01/07/2023 13:30:13 01/08/20 23 01/07/2023 COMPR EHENS ARNAUD METAB OLIC PANEL carbon dioxide 27 mmol/ L 22-30 Not Available [facility] (Lab) [address] [place], [address], 01/07/2023 13:30:13 01/08/20 23 01/07/2023 COMPR EHENS ARNAUD METAB OLIC PANEL anion gap 14.0 mmol/ L 14-22 Not Available [facility] (Lab) [address] [place], [address], 01/07/2023 13:30:13 01/08/20 23 01/07/2023 COMPR EHENS ARNAUD METAB OLIC PANEL glucose 91 mg/dL 70-99 Not Available [facility] (Lab) [address] [place], [address], 01/07/2023 13:30:13 01/08/20 23 01/07/2023 COMPR EHENS ARNAUD METAB OLIC PANEL BUN 16 mg/dL 8-19 Not Available [facility] (Lab) [address] [place], [address], 01/07/2023 13:30:13 01/08/20 23 01/07/2023 COMPR EHENS ARNAUD METAB OLIC PANEL creatinine 0.89 mg/dL 0.66-1 .25 Not Available [facility] (Lab) [address] [place], [address], 01/07/2023 13:30:13 01/08/20 23 01/07/2023 COMPR EHENS ARNAUD METAB OLIC PANEL GFR 60 Refer ence Range : [place] ge GFR Healt hy Adult : >60 mL/mi n/1.7 3 m2 Chron ic Kidne y Disea se: 15-60 mL/mi n/1.7 3 m2 Kidne y Failu re: <15/m L/min /1.73 m2 www.n iddk. nih.g ov The MDRD study equat ion has not been valid ated in child sangeeta <18 years of age; pregn ant women ; the elder ly >85 years of age; or in some racia l or ethni c subgr oups, such as [employer]. Outsi de the valid ated page eters , estim ated GFR is less accur ate, requi ring clini isaak judgm ent on a case- by-ca se basis . Clini isaak inter preta tion for other races and ages must be made by the clini bao. The MDRD study equat ion has not been valid ated for the evalu ation of serum creat inine relat ed to nutri valdo l statu s or medic ation usage . For perso ns <18 years of age, a pedia tric GFR calcu lator is avail able on the F websi te: https ://ayan dutton.tacos chery.o rg/pr ofess ional s/kdo qi/gf r_cal culat or Not Available [facility] (Lab) [address] [place], [address], 01/07/2023 13:30:13 01/08/2001/07/2023 COMPR EHENS ARNAUD METAB OLIC PANEL alkaline phosphatase 88 U/L 38-126 Not Available [facility] (Lab) [address] [place], [address], 01/07/2023 13:30:13 01/08/20 23 01/07/2023 COMPR EHENS ARNAUD METAB OLIC PANEL alanine aminotransfe rase 16 U/L 0-35 Not Available [facility] (Lab) [address] [place], [address], 01/07/2023 13:30:13 01/08/2001/07/2023 COMPR EHENS ARNAUD METAB OLIC PANEL aspartate aminotransfe rase 23 U/L 15-37 Not Available [facility] (Lab) [address] [place], [address], 01/07/2023 13:30:13 01/08/2001/07/2023 COMPR EHENS ARNAUD METAB OLIC PANEL bilirubin, total 1.00 mg/dL 0.20-1 .30 Not Available [facility] (Lab) [address] [place], [address], 01/07/2023 13:30:13 01/08/2001/07/2023 COMPR EHENS ARNAUD METAB OLIC PANEL calcium 9.8 mg/dL 8.4-10 .2 Not Available [facility] (Lab) [address] [place], [address], 01/07/2023 13:30:13 01/08/20 23 01/07/2023 COMPR EHENS ARNAUD METAB OLIC PANEL total protein 7.7 g/dL 6.3-8. 2 Not Available [facility] (Lab) [address] [place], [address], 01/07/2023 13:30:13 01/08/20 23 01/07/2023 COMPR EHENS ARNAUD METAB OLIC PANEL albumin 4.2 g/dL 3.0-4. 4 Not Available [facility] (Lab) [address] [place], [address], 01/07/2023 13:30:13 01/08/20 23 01/07/2023 COMPR EHENS ARNAUD METAB OLIC PANEL globulin 3.5 g/dL 2.6-4. 2 Not Available [facility] (Lab) [address] [place], [address], 01/07/2023 13:30:13 01/08/20 23 01/07/2023 COMPR EHENS ARNAUD METAB OLIC PANEL A/G ratio 1.2 ratio 1.0-2. 0 Not Available [facility] (Lab) [address] [place], [address], 01/07/2023 13:30:13 01/08/20 23 01/07/2023 LIPID PANEL cholesterol 259 mg/dL 140-19 9 high NIH BRITTANY NSUS RECOM MENDA TION FOR RM STERO L: ADULT CHILD LOW RISK: <200 <170 BORDE RLINE : <200- 239 ----- HIGH RISK: >240 >200 Not Available [facility] (Lab) [address] [place], [address], 01/07/2023 13:30:23 01/08/20 23 01/07/2023 LIPID PANEL triglyceride s 107 mg/dL 0-150 NIH BRITTANY NSUS REPOR T RECOM MENDA TION FOR TRIGL YCERI HORACIO: ADULT CHILD LOW RISK: <150 ----- BODER LINE: 150-1 99 ----- HIGH RISK: >200 ----- Not Available [facility] (Lab) [address] [place], [address], 01/07/2023 13:30:23 01/08/20 23 01/07/2023 LIPID PANEL HDL cholesterol 54 mg/dL 40- Not Available [facility] (Lab) [address] [place], [address], 01/07/2023 13:30:23 01/08/20 23 01/07/2023 LIPID PANEL LDL cholesterol, calculated 184 mg/dL 0-130 high NIH BRITTANY NSUS REPOR T RECOM MENDA TIONS FOR LDL: ADULT CHILD LOW RISK <130 <110 (OPTI MAL LDL) <100 ----- BORDE RLINE : 130-1 59 ----- HIGH RISK: >160 >130 A TRIGL YCERI DE RESUL T >400 INVAL IDATE S THE CALCU LATIO N FOR LDL FRACT IONAT ION - THE LDL RESUL T WILL NOT BE REPOR JACKY. Not Available [facility] (Lab) [address] [place], [address], 01/07/2023 13:30:23 01/08/20 23 01/07/2023 T4 FREE free T4 1.08 NG/dL 0.78-2 .19 Not Available [facility] (Lab) [address] [place], [address], 01/07/2023 13:56:25 01/08/20 23 01/07/2023 TSH thyroid-stim ulating hormone 4.340 uIU/m L 0.465- 4.680 Not Available [facility] (Lab) [address] [place], [address], 01/07/2023 14:27:12 01/08/20 23 01/07/2023 T3 FREE free T3 3.92 pg/mL 2.77-5 .27 Not Available [facility] (Lab) [address] [place], [address], 01/07/2023 14:36:21 Result Notes None recorded. 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 Pretty Sharma APRN [address], [address], [place], [address] , [employer] 4 14:19:59 Chronic kidney disease 813470445 Active 2023 Pretty Sharma APRN [address], [address], [place], [address] , [facility] [facility] 4 13:40:47 Ingrowing toenail 931826252 Active 2023 Pretty Sharma APRN [address], [address], [place], [address] , [employer] 4 10:57:44 Osteoarth ritis 747127302 Active 2023 Pretty Sharma APRN [address], [address], [place], [address] , [employer] [employer] [facility] [employer] 4 15:31:46 Closed fracture of hip 701425880 Active 2023 Pretty Sharma APRN [address], [address], [place], [address] , [employer] [employer] 4 07:54:57 Walking disabilit y 951399772 Active 2023 Pretty Sharma APRN [address], [address], [place], [address] , [employer] [facility] [facility] 4 10:32:33 Fracture of thoracic spine 231467978 Active 2021 Not Available [facility] 3 06:57:07 Onset of confusion 411691063 Active 2021 Pretty Sharma APRN [address], [address], [place], [address] , [employer] [facility] 4 14:12:01 Pain in left lower limb 823518203 Completed 201606/02/2017 Not Available [facility] 3 04:39:32 Osteopeni a 716775423 Active Pretty YASH Sharma [address] [facility], [place] [address], [place], [place], [address] [place] [address] , [employer] 4 14:12:07 Pruritus of vagina 76179062 Completed Not Available [facility] 3 04:39:32 Depressiv e disorder 65120634 Active 2021 Pretty Sharma APRN [address] [facility], [place] [address], [place], [address] [place] [address] , [employer] 4 14:11:49 Dizziness 070592798 Active 2021 Pretty Sharma APRN [address] [facility], [place] [address], [place], [address] [place] [address] , [employer] 4 14:11:54 Hypothyro idism 17256594 Active Pretty Sharma APRN [address], [place] [address], [place], [address] [place] [address] , [employer] 4 14:11:57 Nausea 477595122 Completed 201606/02/2017 Not Available [facility] 3 04:39:32 Hyperlipi demia 28974786 Active Pretty Sharma APRN [address], [place] [address], [place], [address] [place] [address] , [employer] 4 14:11:52 Essential hypertens ion 75186378 Active Pretty Sharma APRN [address], [place] [address], [place], [address] [place] [address] , [employer] 4 14:11:44 Compressi on fracture of thoracic spine 624460601 Active 2021 Not Available [facility] 3 06:57:07 Rhinitis 34695110 Active 2021 Not Available [facility] 3 06:57:07 Mild major depressio n, single episode 52331568 Active 2017 Not Available [facility] 3 06:57:07 Problem Notes None recorded. Procedures Surgical History Date Name Laterality Status Provider Name and Address Organization Details Recorded Time 01/17/20 24 Medicare Wellness CPT Code, subsequent completed Pretty Sharma, PSYCHOTHERAPIST SOCIAL WORKER [address], [place], [address], [facility] [employer] 01/08/2024 11:34:47 06/27/19 21 Hernia Repair completed Not Available [facility] 2022 04:34:10 09/27/19 20 other completed Not Available [facility] 3 04:34:10 01/20/20 18 Most Recent Bone Density completed Not Available [facility] 04/22/2022 04:34:08 04/15/19 12 Date of Last Colonoscopy completed Not Available [facility] 04/22/2022 04:34:08 debridement completed Not Available [facility] 04/22/2022 04:34:10 Partial hip replacement completed Yolanda Connelly MA [employer] 10/20/2023 14:11:20 Imaging Results None recorded. Procedure Notes None recorded. Medical Equipment None Reported. Allergies Allergen ID Allergen Name Allergen Category Reaction Reaction Severity Criticality Documentation Date Start Date Code Code System Note Provider Name and Address Organization Details Recorded Time 6844 Product containin g penicilli n and antibioti c (product) medicatio n hives Not available Not available 04/22/2022 88977 05 SNOMED Not Available [facility] 3 04:49:51 Medications Name Sig Start Date Stop Date Status Note LastModified by Organization Details LastModified Time celecoxib 200 mg capsule TAKE 1 CAPSULE BY MOUTH EVERY DAY 11/09 completed Not Available Not Available Not Available atorvasta tin 40 mg tablet one tablet daily 09/04 completed Not Available Not Available Not Available atorvasta tin 20 mg tablet TAKE 1 TABLET BY MOUTH EVERY DAY active Not Available Not Available No t Available donepezil 5 mg tablet TAKE 1 TABLET BY MOUTH EVERY DAY 08/11 completed Not Available Not Available Not Available etodolac 300 mg capsule Take 1 capsule twice a day by oral route. active Not Available Not Available No t Available atorvasta tin 10 mg tablet TAKE 1 TABLET BY MOUTH ONCE DAILY ON Wednesday AND WEDNESDAY active Not Available Not Available No t Available tizanidin e 4 mg tablet Take 1 tablet every day by oral route at bedtime. active Not Available Not Available No t Available metoprolo l succinate ER 50 mg tablet,ex tended release 24 hr TAKE 1 TABLET BY MOUTH EVERY DAY 06/18 completed changed to 25mg per vo Dr Faustin at visit 06/19/19 22 Not Available Not Available Not Available clarithro mycin 500 mg tablet 04/04 completed Not Available Not Available Not Available hydrocodo ne 5 mg-acetam inophen 325 mg tablet TAKE 1 TABLET BY MOUTH THREE TIMES DAILY 06/21 completed Not Available Not Available Not Available Claritin 10 mg tablet Take 1 tablet every day by oral route. active Not Available Not Available No t Available donepezil 10 mg tablet active Not Available Not Available Not Available meloxicam 15 mg tablet TAKE 1 TABLET BY MOUTH EVERY DAY NEEDED active Not Available Not Available No t Available ondansetr on HCl 4 mg tablet Take 2 tablets twice a day by oral route. 12/02 completed Not Available Not Available Not Available alendrona te 70 mg tablet TAKE 1 TABLET BY MOUTH EVERY WEEK 04/24 completed Not Available Not Available Not Available sertralin e 100 mg tablet Take 1 tablet every day by oral route. active Not Available Not Available No t Available Ultram 50 mg tablet Take 1 tablet every day by oral route. 07/30 completed Not Available Not Available Not Available meclizine 12.5 mg tablet TAKE 1 TABLET BY MOUTH THREE TIMES DAILY NEEDED active Not Available Not Available No t Available amlodipin e 2.5 mg tablet TAKE 2 TABLETS BY MOUTH EVERY MORNING AND TAKE 1 TABLET BY MOUTH EVERY EVENING active Not Available Not Available No t Available potassium chloride ER 10 mEq tablet,ex tended release TAKE 1 TABLET BY MOUTH EVERY DAY active Not Available Not Available No t Available metronida zole 500 mg tablet 04/04 completed Not Available Not Available Not Available amlodipin e 5 mg tablet TAKE 1 AND 1/2 TABLETS BY MOUTH EVERY DAY 06/18 completed Not Available Not Available Not Available ciproflox acin 500 mg tablet Take 1 tablet every day by oral route. 09/28 completed Not Available Not Available Not Available simvastat in 40 mg tablet Take 1 tablet every day by oral route. 08/14 completed Not Available Not Available Not Available levothyro xine 25 mcg tablet TAKE 1 TABLET BY MOUTH EVERY DAY active Not Available Not Available No t Available ciclopiro x 8 % topical solution 04/24 completed Not Available Not Available Not Available oxycodone -acetamin ophen 5 mg-325 mg tablet TAKE 1 TABLET BY MOUTH EVERY 6-8 HOURS NEEDED 08/02 completed Not Available Not Available Not Available potassium chloride ER 20 mEq tablet,ex tended release(p art/cryst ) 09/28 completed Not Available Not Available Not Available ciproflox acin 0.3 % eye drops 12/08 completed Not Available Not Available Not Available neomycin- polymyxin -dexameth 3.5 mg/mL-10, 000 unit/mL-0 .1% eye drops 12/08 completed Not Available Not Available Not Available fluoromet holone 0.1 % eye drops,[facility] 06/02 completed Not Available Not Available Not Available sertralin e 25 mg tablet TAKE 1 TABLET BY MOUTH EVERY DAY 08/30 completed Not Available Not Available Not Available omeprazol e 20 mg capsule,d elayed release Take 1 capsule every day by oral route at dinner. 09/04 completed Not Available Not Available Not Available hydrochlo rothiazid e 25 mg tablet TAKE 1 TABLET BY MOUTH EVERY DAY active Not Available Not Available No t Available mirtazapi ne 15 mg tablet Take 0.5 tablets every day by oral route at bedtime for 30 days. active Not Available Not Available No t Available metoprolo l succinate ER 25 mg tablet,ex tended release 24 hr TAKE 1 TABLET BY MOUTH DAILY active Not Available Not Available No t Available cefdinir 300 mg capsule TAKE 1 CAPSULE BY MOUTH TWICE DAILY FOR 10 DAYS active Not Available Not Available No t Available sertralin e 50 mg tablet TAKE 1 TABLET BY MOUTH EVERY DAY 03/20 completed Not Available Not Available Not Available diazepam 5 mg tablet TAKE 0.5 TABLETS BY MOUTH TWICE A DAY 08/11 completed Not Available Not Available Not Available tobramyci n 0.3 %-dexamet hasone 0.1 % eye drops,[facility] 10/20 completed Not Available Not Available Not Available Arthritis Pain Reliever 650 mg tablet,ex tended release TK 1 T PO Q 8 H FEV OR PAIN active Not Available Not Available No t Available cyclobenz aprine 5 mg tablet TAKE 1 TABLET BY MOUTH THREE TIMES DAILY active Not Available Not Available No t Available Restasis 0.05 % eye drops in a dropperet te 11/13 completed Not Available Not Available Not Available memantine 10 mg tablet Take 1 tablet twice a day by oral route. 2023 active Not Available Not Available Not Avai lable nitrofura ntoin monohydra te/macroc rystals 100 mg capsule TAKE 1 CAPSULE BY MOUTH TWICE DAILY WITH FULL GLASS OF WATER 04/16 completed Not Available Not Available Not Available Vitamin C 03/20 completed Not Available Not Available Not Available calcium 09/18 completed Not Available Not Available Not Available Fish Oil 03/20 completed Not Available Not Available Not Available Calcium 600 06/21 completed Not Available Not Available Not Available naloxone 4 mg/actuat ion nasal spray CALL 911. SPR CONTENTS OF ONE SPRAYER (0.1ML) INTO ONE NOSTRIL. REPEAT IN 2-3 MIN IF SYMPTOMS OF OPIOID EMERGENC Y PERSIST, ALTERNAT E NOSTRILS 06/21 completed Not Available Not Available Not Available Fluad Quad 3085-0335 (65yr up)(PF) 60 mcg (15 mcg x 4)/0.5mL IM syringe active Not Available Not Available Not Available Vitals Date Recorded Body height Body mass index (BMI) Body weight Body temperature Heart rate Systolic blood pressure Diastolic blood pressure Provider Name and Address Organization Details Last Updated DateTime 3 160.02 cm 25.9 kg/m2 75370.4 9 g 97.6 [degF] 71 /min 134 mm[Hg] 80 mm[Hg] FARIDEH Felton [employer] 3 11:33:47 Date Recorded Body height Body mass index (BMI) Body weight Body temperature Heart rate Systolic blood pressure Diastolic blood pressure Provider Name and Address Organization Details Last Updated DateTime 3 160.02 cm 25.9 kg/m2 75332.4 9 g 97.2 [degF] 87 /min 124 mm[Hg] 80 mm[Hg] FARIDEH Felton [place] [employer] [facility] [employer] 3 11:13:58 Date Recorded Body height Body mass index (BMI) Body weight Body temperature Heart rate Oxygen saturation Oxygen saturation in Arterial blood by Pulse oximetry Systolic blood pressure Diastolic blood pressure Provider Name and Address Organization Details Last Updated DateTime 4 160.02 cm 25.5 kg/m2 18024.3 g 97 [degF] 105 /min 98 % 98 % 124 mm[Hg] 78 mm[Hg] Yolanda Connelly MA [facility] 4 14:01:16 Date Recorded Body height Body mass index (BMI) Body weight Body temperature Heart rate Oxygen saturation Oxygen saturation in Arterial blood by Pulse oximetry Systolic blood pressure Diastolic blood pressure Provider Name and Address Organization Details Last Updated DateTime 4 160.02 cm 24.8 kg/m2 22447.9 3 g 97.5 [degF] 93 /min 98 % 98 % 124 mm[Hg] 74 mm[Hg] MUNDO Kearney [facility] 4 14:08:29 Date Recorded Body height Body mass index (BMI) Body weight Heart rate Oxygen saturation Oxygen saturation in Arterial blood by Pulse oximetry Pain severity - 0-10 verbal numeric rating [Score] - Reported Body temperature Systolic blood pressure Diastolic blood pressure Provider Name and Address Organization Details Last Updated DateTime 4 160.02 cm 25 kg/m2 40813.5 2 g 97 /min 99 % 99 % 0 97 [degF] 106 mm[Hg] 68 mm[Hg] Yolanda Connelly MA [facility] 4 12:07:18 Social History Question Answer Notes LastModified by Organization Details LastModified Time Tobacco Smoking Status Never Smoker Not Available [facility] 04/22/2022 04:29:28 Do You Have An Advance Directive? Yes Living Will [id number] Information not available 04/22/2022 What Is Your Level Of Alcohol Consumption? None MIGRATION.300026 Information not available 04/22/2022 Are You Blind Or Do You Have Difficulty Seeing? Yes Glasses MIGRATION.[id number] Information not available 04/22/2022 What Is Your Level Of Caffeine Consumption? Occasional MIGRATION.300026 Information not available 04/22/2022 How Much Tobacco Do You Chew? None MIGRATION.0301 [id number] Information not available 04/22/2022 In The 14 Days Before Symptom Onset, Have You Had Close Contact With A Laboratory-confi rmed COVID-19 While That Case Was Ill? No MIGRATION.0301 327114 Information not available 04/22/2022 In The 14 Days Before Symptom Onset, Have You Had Close Contact With A Person Who Is Under Investigation For COVID-19 While That Person Was Ill? No MIGRATION.0301 128836 Information not available 04/22/2022 Are You Deaf Or Do You Have Serious Difficulty Hearing? No MIGRATION.0301 927211 Information not available 04/22/2022 What Type Of Diet Are You Following? REGULAR MIGRATION.0301 618770 Information not available 04/22/2022 Which Illicit Or Recreational Drugs Have You Used? None MIGRATION.0301 448948 Information not available 04/22/2022 Do You Or Have You Ever Used E-cigarettes Or Vape? Never Used Electronic Cigarettes MIGRATION.0301 561442 Information not available 04/22/2022 What Is The Highest Grade Or Level Of School You Have Completed Or The Highest Degree You Have Received? [id number] MIGRATION.0301 331139 Information not available 04/22/2022 What Is Your Occupation? Retired MIGRATION.0301 689979 Information not available 04/22/2022 Have There Been Any Changes To Your Family Or Social Situation? No MIGRATION.0301 376153 Information not available 04/22/2022 What Is The Fluoride Status Of Your Home? Unknown MIGRATION.0301 348393 Information not available 04/22/2022 Are There Any Guns Present In Your Home? No MIGRATION.0301 856847 Information not available 04/22/2022 Do You Use Insect Repellent Routinely? No MIGRATION.0301 797452 Information not available 04/22/2022 Where Do You Live? SingleLevelHouse MIGRATION.0301 380817 Information not available 04/22/2022 Do You Have A Medical Power Of Fig Bar Machine Operator? Yes MIGRATION.0301 419969 Information not available 04/22/2022 What Was The Date Of Your Most Recent Tobacco Screening? 01/17/2024 Information not available 01/17/2024 How Many Children Do You Have? 1 Information not available 06/22/2023 Do You Have Any Pets? Yes MIGRATION.0301 643190 Information not available 04/22/2022 What Is Your Relationship Status? MIGRATION.0301 173835 Information not available 04/22/2022 Do You Use Your Seat Belt Or Car Seat Routinely? Yes MIGRATION.0301 097968 Information not available 04/22/2022 Do You Have Smoke And Carbon Monoxide Detectors In Your Home? Yes MIGRATION.0301 163058 Information not available 04/22/2022 Are You Passively Exposed To Smoke? No MIGRATION.0301 174141 Information not available 04/22/2022 Do You Or Have You Ever Used Smokeless Tobacco? Never Used Smokeless Tobacco MIGRATION.0301 490021 Information not available 04/22/2022 Are There Any Smokers In Your House? No MIGRATION.0301 442306 Information not available 04/22/2022 How Much Tobacco Do You Smoke? No MIGRATION.0301 334107 Information not available 04/22/2022 What Types Of Sporting Activities Do You Participate In? None MIGRATION.0301 606211 Information not available 04/22/2022 Do You Feel Stressed (tense, Restless, Nervous, Or Anxious, Or Unable To Sleep At Night)? [id number] MIGRATION.0301 103426 Information not available 04/22/2022 Do You Use Any Illicit Or Recreational Drugs? No MIGRATION.0301 735962 Information not available 04/22/2022 Do You Use Sunscreen Routinely? No MIGRATION.0301 290879 Information not available 04/22/2022 Has Tobacco Cessation Counseling Been Provided? No Not Needed-ne dalia Smoked MIGRATION.0301 238748 Information not available 04/22/2022 How Many Years Have You Smoked Tobacco? 0 MIGRATION.0301 069528 Information not available 04/22/2022 Have You Recently Traveled Abroad? No MIGRATION.0301 916453 Information not available 04/22/2022 Do You Have Any Dietary Restrictions? No MIGRATION.0301 103186 Information not available 04/22/2022 Do You Or Have You Ever Used Any Other Forms Of Tobacco Or Nicotine? No MIGRATION.0301 055680 Information not available 04/22/2022 Sex: Female Functional Status Question Answer Note LastModified by Organizat ion Details LastModified Time Do you have difficulty walking or climbing stairs? No MIGRATION.7160700 026 Information not available 04/22/2022 Do you have transportation difficulties? No MIGRATION.4711257 026 Information not available 04/22/2022 Are you able to walk? YESWOREST MIGRATION.9520377 026 Information not available 04/22/2022 Do you have difficulty doing errands alone? No MIGRATION.7272195 026 Information not available 04/22/2022 Are you able to care for yourself? No MIGRATION.6144021 026 Information not available 04/22/2022 Do you have difficulty dressing or bathing? No MIGRATION.4164838 026 Information not available 04/22/2022 What is your exercise level? None MIGRATION.0520146 026 Information not available 04/22/2022 Mental Status Question Answer Note LastModified by Organizat ion Details LastModified Time Do you have difficulty concentrating, remembering or making decisions? Yes MIGRATION.[id number] 6 Information not available 04/22/2022 Family History Relationship Description Onset Age of this Age Resolved Age Notes LastModified by Organization Details LastModified Time Mother Essential hypertension MIGRATION.538 [id number] Not available 04/22/2022 04:34:15 Mother Heart disease MIGRATION.834 [id number] Not available 04/22/2022 04:34:15 Medical History Condition Response NERVE DISEASE N BLINDNESS N RHEUMATIC FEVER N KIDNEY STONES N BLADDER PROBLEMS N MRSA N OTHER # 1 N POLIO N LUNG DISEASE/DISORDER N HISTORY OF DRUG ABUSE N COPD N RADIATION / CHEMOTHERAPY N Other # 2 N BLOOD DISEASES N SURGERY N EAR OR HEARING PROBLEMS N MUMPS N SHINGLES N BOWEL PROBLEMS N DEPRESSION (INCLUDING POST ) Y STROKE/TIA N ULCERS N BENIGN PROSTATIC HYPERPLASIA N MEASLES N HYPOTENSION N MYOCARDIAL INFARCTION N OBESITY N GERD/NAUSEA N ANEURYSM N URINARY/BLADDER/KIDNEY PROBLEMS N CORONARY ARTERY DISEASE (CAD) N ADDICTION CONCERNS N ENDOMETRIOSIS N Impotence N USE OF BLOOD THINNERS N SKIN PROBLEMS N GASTROINTESTINAL DISORDER N PERIPHERAL VASCULAR DISEASE N MUSCLE,JOINT OR BONE PROBLEMS N GASTROINTESTINAL BLEEDING N BLOOD CLOTS N ASTHMA N CATARACTS N ERECTILE DYSFUNCTION N VARICOSITIES N GI PROBLEMS N Low Testosterone N INFERTILITY N AIDS/HIV N CHEMOTHERAPY / RADIATION N LIVER DISEASE N MALE HYPOGONADISM N HYPERTENSION Y Deficiency N TOURETTE'S N ANXIETY DISORDER N BLOOD TRANSFUSION N ANEMIA/BLOOD DISORDER N CHRONIC EAR INFECTIONS N BRONCHITIS N TUBERCULOSIS N GLAUCOMA N FOOT PROBLEM N DIVERTICULITIS N CHICKENPOX N SLEEP APNEA N INFECTIOUS DISEASE N HEART ARRHYTHMIA N PROSTATE N INSOMNIA N HIGH CHOLESTEROL / HYPERLIPIDEMIA Y HYPERTHYROIDISM N EYE PROBLEMS N NEUROLOGICAL PROBLEMS N EDEMA N CHRONIC PAIN SYNDROME N HYPOTHYROIDISM Y CAROTID BLOCKAGE N CONSTIPATION N BACK / NECK PROBLEMS N HAVE YOU BEEN HOSPITALIZED OR SEEN IN [facility] ER IN THE PAST YEAR ? N ATHEROSCLEROSIS N BREAST PROBLEMS N DIALYSIS N ECZEMA N OSTEOPOROSIS Y ARTHRITIS N APPENDICITIS N DIABETES, TYPE N BAD TEETH N ENT N HEARTBURN / REFLUX N AUTISM SPECTRUM DISORDER (ASD) N HEPATITIS / LIVER DISEASE N GOUT N SLEEP DISORDER N ALZHEIMER'S DISEASE N Brain Problems N HERPES N DEMENTIA N HEADACHES/MIGRAINES N SEIZURES/EPILEPSY N VASCULAR DISEASE N PACEMAKER N Blood Disorder N DIZZINESS N HEART DISEASE/HEART PROBLEMS N KIDNEY DISEASE N MULTIPLE SCLEROSIS N CARDIAC ARRHYTHMIA N CANCER: SPECIFY N ATRIAL FIBRILLATION N Gall Stones N PULMONARY EMBOLISM N AUTOIMMUNE DISEASE N Gynecological History Statement/Question Response How many live births 2 Date of Last Mammogram 01/19/2018 Date of Last Colonoscopy 04/15/2011 Date of Last Mammogram Most Recent Bone Density 01/19/2018 Date of LMP Date of Last Pap Current Control Method None Obstetrics History GPAL:G 2 P 2 0 0 2 Type Value Multiple Births 0 Full Term 2 Induced 0 Spontaneous 0 Premature 0 Living 2 Ectopics 0 Total 2 Immunizations Vaccine Type Date Status Note Provider Nam e and Address Organization Details Recorded Time COVID-19, mRNA, LNP-S, PF, 100 mcg/0.5mL dose or 50 mcg/0.25mL dose 01/21/2021 completed Pretty Sharma APRN [address], [facility] [address], [place], [address], [employer] 06/17/2023 08:53:28 Influenza, high-dose, quadrivalent, PF 01/21/2021 completed Pretty Sharma APRN [address], [facility] [address], [place], [address], [employer] 06/17/2023 08:53:28 Influenza, adjuvanted, quadrivalent, PF 12/01/2019 completed Pretty Sharma APRN [address], [facility] [address], [place], [address], [employer] 06/17/2023 08:53:28 Influenza, high-dose, quadrivalent, PF 2020 completed Not Available [facility] 06:57:07 COVID-19, mRNA, LNP-S, PF, 100 mcg/0.5mL dose or 50 mcg/0.25mL dose 05/17/2020 completed Pretty Sharma APRN [address], [address], [place], [place], [address] [place] [address], [facility] [employer] [facility] [employer] [facility] 06/17/2023 08:53:28 COVID-19, mRNA, LNP-S, PF, 100 mcg/0.5mL dose or 50 mcg/0.25mL dose 04/19/2020 completed Pretty Sharma APRN [address], [address], [place], [place], [address] [place] [address], [facility] [employer] [facility] [employer] [facility] 06/17/2023 08:53:28 Influenza, high-dose, quadrivalent, PF 12/01/2019 completed Pretty Sharma APRN [address], [address], [place], [place], [address] [place] [address], [facility] [employer] [facility] 06/17/2023 08:53:28 Influenza, high-dose, trivalent, PF 11/30/2017 completed Not Available [facility] 2022 06:57:08 Influenza, high-dose, trivalent, PF 12/02/2016 completed Not Available [facility] 2022 06:57:08 Influenza, high-dose, trivalent, PF 12/09/2015 completed Not Available [facility] 2022 06:57:08 Influenza, split virus, quadrivalent, PF 11/29/2014 completed Not Available [facility] 06:57:08 Influenza, high-dose, trivalent, PF 01/17/2024 completed Pretty Sharma APRN [address], [address], [place], [address], [facility] [employer] [facility] 01/18/2024 07:52:21 Past Encounters Encounter ID Performer Location Encounter Start Date Encounter Closed Date Diagnosis/Indication Diagnosis SNOMED-CT Code Diagnosis ICD10 Code Diagnosis Note [id number] [facility] Internal Med Keely kincaid [id number] [facility] , [place] [address] 05/30/2020 00:00:00 06/08/2020 20:13:32 [id number] [facility] [address] [address] 06/06/2020 00:00:00 06/06/2020 14:01:39 [id number] [facility] [address] [address] 07/02/2020 00:00:00 07/02/2020 11:40:04 [id number] [facility] [address] [facility] [address] [address] 07/05/2020 00:00:00 08/18/2020 14:56:57 [id number] [facility] [address] [facility] [address] [address] 08/02/2020 00:00:00 08/04/2020 22:02:15 [id number] [facility] Internal [facility] [address] [place], [place] [address]e., [address] [address] 10/21/2020 00:00:00 10/22/2020 22:06:45 [id number] [facility] [address] [facility] [address] [address] 11/18/2020 00:00:00 12/08/2020 15:14:14 [id number] [facility] [address] [facility] [address] [address] 12/11/2020 00:00:00 01/16/2021 13:25:13 [id number] [facility] Internal [facility] [address] [place], [place] [address]., [address] [address] 01/15/2021 00:00:00 01/16/2021 13:28:38 [id number] [facility] [address] [place] [address] 04/04/2021 00:00:00 04/13/2021 21:28:28 [id number] [facility] [address] [place] [address] 04/16/2021 00:00:00 04/19/2021 22:17:01 [id number] [facility] Internal Med Keely kincaid [address] [place] [address] , [place] [address] 04/24/2021 00:00:00 05/10/2021 16:28:04 [id number] [facility] [address] [place] [address] 05/15/2021 00:00:00 06/07/2021 15:09:51 [id number] [facility] Internal [facility] [address] [address] 06/18/2021 00:00:00 06/21/2021 22:27:51 [id number] [facility] Internal [facility] [address] [facility] [address] [place] [address] 07/17/2021 00:00:00 07/17/2021 22:30:20 [id number] [facility] Internal [facility] [address] [facility] [address] [place] [address] 08/11/2021 00:00:00 08/11/2021 21:44:31 [id number] [facility] Internal [facility] [address] [address] 09/18/2021 00:00:00 09/20/2021 16:07:25 [id number] [facility] Internal [facility] [address] [facility] [address] [place] [address] 11/13/2021 00:00:00 12/21/2021 20:29:10 [id number] [facility] Internal Med [address] [place] [address] [address] [facility] [address] [place] [address] 03/20/2022 00:00:00 03/22/2022 15:47:59 [id number] Nestor Faustin MD [facility] Internal Med [facility] [address] [address] 06/18/2022 15:01:59 06/18/2022 15:44:49 Essential hypertension 62532473 I10 Renewal of prescription 147327347 Z76.0 Hyperlipidemia 16278268 E78.5 Hypothyroidism 28134533 E03.9 Compressio n fracture of thoracic spine 634005963 S22.000A [id number] Nestor Faustin MD [facility] Internal Med [facility] [address] [address] 10/15/2022 11:25:29 10/15/2022 11:41:44 Essential hypertension 63387600 I10 Hyperlipidemia 35244139 E78.5 Hypothyroidism 65984296 E03.9 [id number] Nestor Faustin MD [facility] Internal Med [facility] [address] [address] 01/07/2023 11:05:27 01/07/2023 11:56:48 Essential hypertension 64754271 I10 Hyperlipidemia 08522362 E78.5 Hypothyroidism 93735585 E03.9 [id number] Pretty Sharma APRN [facility] Internal Med [facility] [address] [address] 06/22/2023 13:51:09 06/22/2023 14:35:05 Essential hypertension 75456134 I10 Hypothyroidism 03255035 E03.9 Hyperlipidemia 20033091 E78.5 Moderate dementia 614766 7144 47466 F03.B0 Dizziness 086088390 R42 [id number] [facility] Keely kincaid [id number] [facility] , [facility] [place] [address] 10/20/2023 13:52:48 10/20/2023 14:47:55 Hyperlipidemia 56563163 E78.5 Closed fra cture of hip 686262011 S72.001D Advance care planning 71 2063813 Z71.89 DTR has pt's living with and is her POA. [id number] Pretty Sharma APRN [facility] [address] [facility] [place] [address] 01/17/2024 11:56:33 01/17/2024 12:49:02 Adult health examination 006876905 Z00.00 Screening for disorder 668152960 Z13.9 Administra tion of influenza vaccine 76664251 Z23 Health Concerns Section Related Observation LastModified by Organization Detai ls LastModified Time None Recorded Concern Status LastModified by Organization Details LastModified Time None Recorded Advance Directives Directive Y: living will Payers Encounter Date Sequence Insurance Name Policy Number Policy Rose Covered Member ID Rose Member ID Guarantor Name 10/15/2022 1 [facility] (MEDICARE REPLACEMENT/A DVANTAGE - HMO) [id number] Carly Martino [id number] Carly Martino 10/15/2022 2 [employer] (MEDICARE SUPPLEMENT) Micah Martino [id number] Carly Martino 01/07/2023 1 [facility] (MEDICARE REPLACEMENT/A DVANTAGE - HMO) [id number] Carly Martino [id number] Carly Martino 01/07/2023 2 [employer] (MEDICARE SUPPLEMENT) Micah Martino [id number] Carly Martino 06/22/2023 1 [facility] (MEDICARE REPLACEMENT/A DVANTAGE - HMO) [id number] Carly Martino [id number] Carly Martino 06/22/2023 2 [employer] FOR LIFE (MEDICARE SUPPLEMENT) Micah Martino [id number] Carly Martino 10/20/2023 1 [facility] (MEDICARE REPLACEMENT/A DVANTAGE - HMO) [id number] Carly Martino [id number] Carly Martino 10/20/2023 2 [facility] (MEDICARE SUPPLEMENT) Micah Martino [id number] Carly Martino 01/17/2024 1 [facility] (MEDICARE REPLACEMENT/A DVANTAGE - HMO) [id number] Carly Martino [id number] Carly Martino 01/17/2024 2 [facility] (MEDICARE SUPPLEMENT) Micah Martino [id number] Carly Martino Notes Date Note Type Note Provider Name and Address Organization Details Recorded Time 3 text/html Hypertension no chest pain or shortnessHypothyroid no heat or cold intoleranceHypokalemia asymptomaticDementia stable Nestor Faustin MD [address], [employer], [place], [address], [employer] 10/18/2022 21:49:47 3 text/html Hypertension no headache no dizziness hyperlipidemia we have liberalized diet a little bit hypothyroid no heat or cold intolerance moderate dementia stable family members are in attendance today no new behavior problems compression fracture of thoracic spine asymptomatic at this time Nestor Faustin MD [address], [place], [address], [employer] 01/11/2023 21:30:58 4 text/html Carly presents today to establish care. She is also in need of medication refills. Family is also requesting a homemaker service due to patient's daughter (primary caregiver) works away from home 3 days per week and patient is not performing ADLs unless assisted. Pretty Sharma APRN [address], [employer], [place], [address], [employer] 06/22/2023 14:29:55 4 text/html Carly presents for 4 month follow up. She recently fell and sustained a hip fracture. She was in the hospital and rehab. She is now home and in need of home health. Daughter is with her and states that patient is in need of a walk-in tub or shower. DTR states that she has spoken with [facility] and [facility] regarding a walk-in tub and they will cover the cost [place] from [place]. DTR states that the rest of her house has is handicap accessible and she has a ramp outside her house. 4Dgenna presents today to establish care. She is also in need of medication refills. Family is also requesting a homemaker service due to patient's daughter (primary caregiver) works away from home 3 days per week and patient is not performing ADLs unless assisted. Pretty Sharma APRN [address], [employer], [place], [address], [employer] 10/20/2023 14:46:13 4 text/html Carly presents today for Medicare Annual Wellness visit and 3 month follow up. Family denies any illnesses or falls for the patients. Family states that she is using handrails in the home. She also has shower rails and bath seat. 10/20/2023genna presents for 4 month follow up. She recently fell and sustained a hip fracture. She was in the hospital and rehab. She is now home and in need of home health. Daughter is with her and states that patient is in need of a walk-in tub or shower. DTR states that she has spoken with [place] and [place] regarding a walk-in tub and they will cover the cost [place] an order from [place]. DTR states that the rest of her house has is handicap accessible and she has a ramp outside her house. 4Dgenna presents today to establish care. She is also in need of medication refills. Family is also requesting a homemaker service due to patient's daughter (primary caregiver) works away from home 3 days per week and patient is not performing ADLs unless assisted. Pretty Sharma, YASH [address] [facility], [place], [address], [employer] 01/17/2024 13:55:48 OBGyn Episode No OBEpisode recorded.
--- OUTSIDE RECORDS SUMMARY | 2024-04-06 19:10 | XMS_ITS | Referral Summary ---
Author Organization [facility] Building [facility] Address [address] [place] [address] Care Team Providers Care Lawn Maintenance Worker Name Role Phone Nestor Faustin MD Primary Care Provider Allergies Active Allergy Reactions Criticality Noted Date Comments Penicillins Wheezing Medium 12/19/2020 Medications levothyroxine (SYNTHROID) 25 mcg tablet Take 1 tablet (25 mcg total) by mouth litigation manager before breakfast Active potassium chloride ER (KLOR-CON) [...] 1 TABLET IN THE EVENING Active calcium-vits G4-L-B5-minera ls 166.75 mg- 166.75 unit capsule Take [...] Date Alzheimer's disease with late onset 12/19/2020 Social History Tobacco Use Types Packs/Day Years [...] 36 C (96.8 F) 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 Respiratory Rate 16 07/03/2021 8:34 AM CDT Oxygen Saturation 97% 11/17/2023 2:21 PM CDT Inhaled Oxygen Concentration - - Weight 65.2 kg (143 lb 12.8 oz) 11/17/2023 2:21 PM CDT Height 165.1 cm (5' 5 ) 11/17/2023 2:21 PM CDT Body Mass Index 23.93 11/17/2023 2:21 PM CDT Plan of Treatment Not on file Insurance [employer] MED[employer]ARE SOLUTIONS MEDICARE SOLUTIONS [employer] LIFE Advance Directives For more information, please contact: [phone] * Full Code (Latest Code Status on File) Date Activated Date Inactivated Comments 02/10/2021 9:56 AM 02/11/2021 5:00 AM Care Teams Lawn Maintenance Worker Relationship Specialty Start Date End Date Nestor Faustin MD PCP - General Internal Medicine 12/09/20
--- OUTSIDE RECORDS SUMMARY | 2024-04-06 19:10 | XMS_ITS | Referral Summary ---
Author Organization [facility] Address [address] [place] [address] Care Team Providers Care Child Care Centre Director Name Role Phone Alina Collier MD Primary Care Provider Source Comments [facility],non-owned Affiliates and Associated Physician Practices is amultiple site organization consisting of ambulatory clinics and hospital sitesin [place], [place], [place] and [place]. This disclosure is being madepursuant to the Care Everywhere program and may not contain all information available regarding this patient. Last updated 17.[facility] Allergies Active Allergy Reactions Criticality Noted Date [...] Recorded Patient Health Questionnaire-2 Score 0 11/25/2023 [facility] [place] [facility] Occupat ional Health - Occupational Stress [...] place to sleep or slept in a fpc (including now)? No 07/21/2023 Sex and Gender [...] Mass Index 22.45 07/21/2023 8:39 PM CDT Functional Status Functional Status Response Date of Assess ment Is person deaf or have serious hearing difficult y? No 07/21/2023 Is person blind or have serious difficulty seein g? Yes 07/21/2023 Does person have serious dif ficulty walking/climbing stairs? Yes 07/21/2023 Does person have difficulty dressing/bathing? No 07/21/2023 Does person have difficulty doing errands alone? Yes 07/21/2023 Cognitive Status Response Date of Assessm ent Does person have difficulty concentrating/remembering/making decisions? Yes 07/21/2023 Plan of Treatment Not on file Medical Devices Implanted Type Area Frame Assembler Device Identifier Shelf Expiration Date Model / Serial / Lot Compon Acetab Bipol Uhr 49mm Implanted:Qty: 1 on 07/21/2023 by Nestor Patton MD at [facility] Right: Hip [employer] [id number] 07/07/2025 [id number] / / [id number] Insignia Hip Stem Standard Offset Implanted:Qty: 1 on 07/21/2023 by Nestor Patton MD at [facility] Right: Hip [employer] 09/03/2027 [id number] / / [id number] Head Fem +8mm Ofst Tpr 28mm Hip Cocr V40 Implanted:Qty: 1 on 07/21/2023 by Nestor Patton MD at [facility] Right: Hip [employer] [id number] 07/29/2026 [id number] / / [id number] Advance Directives Documents on File Type Date Recorded Patient Yoghurt Maker Expl anation Adv Directive/Living Will/POA 08/02/2023 4:03 PM * Full Code (Latest Code Status on File) Date Activated Date Inactivated Comments 07/20/2023 9:22 PM 07/30/2023 6:45 PM Care Teams Child Care Centre Director Relationship Specialty Start Date End Date Alina Collier MD [address] [address] PCP - General Internal Medicine 11/19/23
--- OUTSIDE RECORDS SUMMARY | 2024-04-06 19:10 | XMS_ITS | Clinical Summary ---
Author Organization [facility] Facility Address [address] [place] [address] Care Team Providers Care Kiosk Sales Representative Name Role Phone Pretty Raymond APRN Primary Care Provider [phone] Social History Tobacco Use Types Packs/Day Years Used Date Smoking Tobacco: Never Assessed Comments Unknown Sex and Gender Information Value Date Recorded Sex Assigned at Not on file Legal Sex Female 9:32 AM EDT Gender Identity Not on file Sexual Orientation Not on file Plan of Treatment Health Maintenance Due Date Last Done Comments Pneumococcal Vaccine: 65+ Ye ars (1 of 1 - PCV) 11/21/2000 Influenza Vaccine (#1) 2023 Hepatitis B Vaccine Aged Out No longe r eligible based on patient's age to complete this topic Insurance MEDICARE Care Teams Kiosk Sales Representative Relationship Specialty Start Date End Date Pretty Raymond APRN [facility] Internal Med [facility] [address] [place] [address] PCP - General 06/24/23
[2024-04-06 19:29] VITALS: BP 185/101; PULSE 100; RESP 19; TEMP 36.6; O2SAT 100
--- OUTSIDE RECORDS SUMMARY | 2024-04-06 23:02 | XMS_ITS | Patient Health Summary ---
Author Organization [facility] Address [address] [place] [address] Care Team Providers Care Test Development Engineer Name Role Phone Alina Collier MD Primary Care Provider Note from [facility],non-owned Affiliates and Associated Physician Practices is amultiple site organization consisting of ambulatory clinics and hospital sitesin [place], [place], [place] and [place]. This disclosure is being madepursuant to the Care Everywhere program and may not contain all information available regarding this patient. Last updated 17.[facility] Allergies * Penicillins(Unknown) Medications * Be aware [...] Recorded Patient Health Questionnaire-2 Score 0 11/25/2023 [facility] [place] of Occupat ional Health - Occupational Stress [...] place to sleep or slept in a long-term (including now)? No 07/21/2023 Sex and Gender [...] PM CDT Medical Devices Implanted Type Area Gasoline Power Shovel Operator Device Identifier Shelf Expiration Date Model / Serial / Lot Compon Acetab Bipol Uhr 49mm Implanted:Qty: 1 on 07/21/2023 by Nestor Patton MD at [facility] Right: Hip [employer] [id number] 07/07/2025 UH1-49-28 / / [id number] Insignia Hip Stem Standard Offset Implanted:Qty: 1 on 07/21/2023 by Nestor Patton MD at [facility] Right: Hip [employer] 09/03/2027 [id number] / / [id number] Head Fem +8mm Ofst Tpr 28mm Hip Cocr V40 Implanted:Qty: 1 on 07/21/2023 by Nestor Patton MD at [facility] Right: Hip [employer] [id number] 07/29/2026 6260-9-328 / / [id number] Procedures * XR HIP RIGHT 2VW OR MORE(Performed 11/25/2023) Performed for Closed fracture of neck of right femur with routine healing, subsequent encounter * XR HIP RIGHT 2VW OR MORE(Performed 08/19/2023) Performed for Closed fracture of neck of right femur, initial encounter ([facility]) * BASIC METABOLIC PANEL (CALCIUM TOTAL)(Performed 07/29/2023) * RENAL FUNCTION PANEL(Performed 07/27/2023) * CBC W/O DIFFERENTIAL(Performed 07/27/2023) * XR PELVIS W RIGHT HIP 2VW(Performed 07/27/2023) Performed for Closed fracture of neck of right femur, initial encounter ([facility]) * RENAL FUNCTION PANEL(Performed 07/24/2023) * CBC W AUTO DIFFERENTIAL(Performed 07/24/2023) * MAGNESIUM BLOOD(Performed 07/24/2023) * RENAL FUNCTION PANEL(Performed 07/23/2023) * CBC W AUTO DIFFERENTIAL(Performed 07/23/2023) * MAGNESIUM BLOOD(Performed 07/23/2023) * MRSA DNA PCR(Performed 07/22/2023) * US EXTREMITY RIGHT LTD NONVASC(Performed 07/22/2023) Performed for Closed fracture of neck of right femur, initial encounter ([facility]) * MAGNESIUM BLOOD(Performed 07/22/2023) * RENAL FUNCTION PANEL(Performed 07/22/2023) * CBC W/O DIFFERENTIAL(Performed 07/22/2023) * XR PELVIS 1 OR 2VW(Performed 07/21/2023) Performed for Closed fracture of neck of right femur, initial encounter ([facility]) * MD PARTIAL HIP REPLACEMENT(Performed 07/21/2023) Performed for Fracture [...] Region Laterality Modality Pelvis, Lower Extremity [facility] 11/25/2023 8:41 AM CDT Impressions [...] 7 - 26 mg/dL 07/29/2023 1:49 PM [facility] Creatinine 0.71 0.56 - 0.96 mg/dL 07/29/2023 1:49 PM [facility] Sodium 137 136 - 145 mmol/L 07/29/2023 1:49 PM [facility] Potassium 3.4(L) 3.5 - 4.5 mmol/L 07/29/2023 1:49 PM [facility] Chloride 99 98 - 107 mmol/L 07/29/2023 1:49 PM [facility] CO2 27 22 - 29 mmol/L 07/29/2023 1:49 PM [facility] Glucose 118(H) 70 - 115 mg/dL 07/29/2023 1:49 PM [facility] Calcium 9.0 8.4 - 10.2 mg/dL 07/29/2023 1:49 PM [facility] Anion Gap 11 6 - 16 07/29/2023 1:49 PM [facility] BUN/Creatinine Ratio 31(H) 7 - 23 07/29/2023 1:49 PM [facility] Osmolality Calculated 288 275 - 295 mOsm/kg 07/29/2023 1:49 PM [facility] eGFR by CKD-EPI 82(L) >=90 mL/min/1.7 3 m2 07/29/2023 1:49 PM [facility] Blood BLOOD SPECIMEN / Unknown Lab Venipuncture / Unknown 07/29/2023 12:23 PM CDT 07/29/2023 1:23 PM T Cristi Mendoza MD LAB - CHEMISTRY [facility] TUCK[facility] [address] [place] [address], [facility] [phone] * (ABNORMAL) CBC W/O DIFFERENTIAL (07/27/2023 7:13 PM CDT) Only the most recent of2 resultswithin the time period is included. WBC 6.9 4.0 - 10.7 x10E9/L 07/27/2023 7:56 PM T [facility] RBC Count 3.90 3.90 - 5.20 x10E12/L 07/27/2023 7:56 PM [facility] Hemoglobin 11.5(L) 11.9 - 15.8 g/dL 07/27/2023 7:56 PM [facility] Hematocrit 34.8 34.8 - 46.1 % 07/27/2023 7:56 PM [facility] MCV 89.2 80.0 - 98.0 fL 07/27/2023 7:56 PM T [facility] MCH 29.5 26.7 - 33.6 pg 07/27/2023 7:56 PM T [facility] MCHC 33.0 31.7 - 36.3 g/dL 07/27/2023 7:56 PM [facility] RDW-CV 13.1 11.3 - 14.8 % 07/27/2023 7:56 PM [facility] Platelet Count 395 150 - 420 x10E9/L 07/27/2023 7:56 PM T [facility] MPV 10.2 7.8 - 11.4 fL 07/27/2023 7:56 PM [facility] Blood BLOOD SPECIMEN / Unknown Lab Venipuncture / Unknown 07/27/2023 7:13 PM CDT 07/27/2023 7:49 PM CDT Edwin Rodriguez MD LAB - HEMATOLOGY [facility] [address] [place] [address] [phone] * (ABNORMAL) RENAL FUNCTION PANEL (07/27/2023 7:13 PM T) Only the most recent of4 resultswithin the time period is included. BUN 20 7 - 26 mg/dL 07/27/2023 8:18 PM [facility] Creatinine 0.69 0.56 - 0.96 mg/dL 07/27/2023 8:18 PM [facility] Sodium 136 136 - 145 mmol/L 07/27/2023 8:18 PM [facility] Potassium 3.5 3.5 - 4.5 mmol/L 07/27/2023 8:18 PM [facility] Chloride 99 98 - 107 mmol/L 07/27/2023 8:18 PM [facility] CO2 27 22 - 29 mmol/L 07/27/2023 8:18 PM [facility] Glucose 118(H) 70 - 115 mg/dL 07/27/2023 8:18 PM [facility] Albumin 2.3(L) 3.4 - 5.0 g/dL 07/27/2023 8:18 PM [facility] Calcium 9.6 8.4 - 10.2 mg/dL 07/27/2023 8:18 PM [facility] Phosphorus 2.7(L) 2.9 - 5.1 mg/dL 07/27/2023 8:18 PM [facility] Anion Gap 10 6 - 16 07/27/2023 8:18 PM [facility] BUN/Creatinine Ratio 29(H) 7 - 23 07/27/2023 8:18 PM [facility] Osmolality Calculated 286 275 - 295 mOsm/kg 07/27/2023 8:18 PM [facility] eGFR by CKD-EPI 84(L) >=90 mL/min/1.7 3 m2 07/27/2023 8:18 PM [facility] Blood BLOOD SPECIMEN / Unknown Lab Venipuncture / Unknown 07/27/2023 7:13 PM CDT 07/27/2023 7:49 PM T Edwin Rodriguez MD LAB - CHEMISTRY [facility] Organization Address City/State/ZIP Co de Phone Number [facility] [address] [place] [address], [facility] [phone] * XR PELVIS W RIGHT HIP 2VW (07/27/2023 6:58 PM CDT) Only the most recent of2 resultswithin the time period is included. Anatomical Region Laterality Modality Pelvis Radiographic Mary ging 07/28/2023 2:06 PM CDT Impressions 07/28/2023 9:51 PM CDT IMPRESSION: Unchanged appearance of right total hip arthroplasty without evidence of complication. Report dictated by Gagandeep Matute MD (radiology director). I, Danilo Argueta MD have personally reviewed and interpreted this examination/study. > Interpreting Provider: Danilo Argueta MD on 07/28/2023 9:51 PM Narrative 07/28/2023 9:51 PM CDT EXAMINATION: XR PELVIS W RIGHT HIP 2VW DATE/TIME OF EXAM: 07/27/2023 6:58 PM, LOCATION [facility] HISTORY: S72.001A: Closed fracture of neck of right femur, initial encounter ([facility]) FX COMPARISON: X-ray pelvis from 07/21/2023 [...] DATE/TIME OF EXAM: 07/27/2023 6:58 PM, LOCATION [facility] HISTORY: S72.001A: Closed fracture of neck of right femur, initial encounter ([facility]) FX COMPARISON: X-ray pelvis from 07/21/2023 [...] complication. Report dictated by Gagandeep Matute MD (radiology director). I, Danilo Argueta MD have personally reviewed and interpreted this examination/study. > Interpreting Provider: Danilo Argueta MD on 07/28/2023 9:51 PM Cristi Mendoza MD DIAGNOSTIC IMAGING O RDERABLES * (ABNORMAL) CBC W AUTO DIFFERENTIAL (07/24/2023 3:08 AM T) Only the most recent of4 resultswithin the time period is included. WBC 10.9(H) 4.0 - 10.7 x10E9/L 07/24/2023 3:49 AM [facility] RBC Count 3.80(L) 3.90 - 5.20 x10E12/L 07/24/2023 3:49 AM [facility] Hemoglobin 11.5(L) 11.9 - 15.8 g/dL 07/24/2023 3:49 AM [facility] Hematocrit 33.4(L) 34.8 - 46.1 % 07/24/2023 3:49 AM [facility] MCV 87.9 80.0 - 98.0 fL 07/24/2023 3:49 AM [facility] MCH 30.3 26.7 - 33.6 pg 07/24/2023 3:49 AM [facility] MCHC 34.4 31.7 - 36.3 g/dL 07/24/2023 3:49 AM [facility] RDW-CV 12.9 11.3 - 14.8 % 07/24/2023 3:49 AM [facility] Platelet Count 270 150 - 420 x10E9/L 07/24/2023 3:49 AM [facility] MPV 11.1 7.8 - 11.4 fL 07/24/2023 3:49 AM [facility] Neutrophil % 84.6(H) 41.0 - 74.0 % 07/24/2023 3:49 AM [facility] Lymphocyte % 7.0(L) 17.0 - 47.0 % 07/24/2023 3:49 AM [facility] Monocyte % 6.7 3.0 - 11.0 % 07/24/2023 3:49 AM [facility] Eosinophil % 0.8 0.0 - 7.0 % 07/24/2023 3:49 AM [facility] Basophil % 0.3 0.0 - 1.6 % 07/24/2023 3:49 AM [facility] Immature Granulocytes % 0.6 0.0 - 1.0 % 07/24/2023 3:49 AM [facility] Neutrophil Absolute 9.25(H) 1.60 - 7.50 x10E9/L 07/24/2023 3:49 AM [facility] Lymphocyte Absolute 0.77(L) 1.00 - 4.40 x10E9/L 07/24/2023 3:49 AM [facility] Monocyte Absolute 0.73 0.15 - 1.00 x10E9/L 07/24/2023 3:49 AM [facility] Eosinophil Absolute 0.09 0.00 - 0.60 x10E9/L 07/24/2023 3:49 AM [facility] Basophil Absolute 0.03 0.00 - 0.13 x10E9/L 07/24/2023 3:49 AM [facility] Blood BLOOD SPECIMEN / Unknown Lab Venipuncture / Unknown 07/24/2023 3:08 AM CDT 07/24/2023 3:42 AM CDT Michaela Crain MD LAB - HEMATOLOGY ORD ERABLES [facility] [address] [place] [address], [facility] [phone] * MAGNESIUM BLOOD (07/24/2023 3:08 AM CDT) Only the most recent of4 resultswithin the time period is included. Magnesium 2.1 1.6 - 2.6 mg/dL 07/24/2023 4:15 AM CDT [facility] Blood BLOOD SPECIMEN / Unknown Lab Venipuncture / Unknown 07/24/2023 3:08 AM CDT 07/24/2023 3:42 AM CDT Michaela Crain MD LAB - CHEMISTRY SHABNAM TUCKER [facility] [address] [place] [address], [place] [phone] * MRSA DNA PCR (07/22/2023 1:36 PM CDT) MRSA DNA by PCR Not detected Not detected 07/22/2023 5:38 PM CDT [facility]CRO[facility] Microbiology SPECIMEN FROM NASAL FOSSAE / Unknown Collection / Unknown 07/22/2023 1:36 PM CDT 07/22/2023 1:40 PM CDT Narrative [facility] - 07/22/2023 5:38 PM CDT Methicillin-resistant Staphylococcus aureus (MRSA) DNA is not detected (presumed not colonized with MRSA). Michaela Crain MD LAB - MICROBIOLOGY O RDERABLES [facility] [address] [place] [address], [facility] [phone] * US EXTREMITY RIGHT LTD NONVASC (07/22/2023 [...] of neck of right femur, initial encounter ([facility]) Additional History: COMPARISON: CT exam from [...] of neck of right femur, initial encounter ([facility]) Additional History: COMPARISON: CT exam from [...] complication. Report dictated by Andres Hollingsworth MD (radiology director). Prince Larkin MD have personally reviewed and interpreted this examination/study. > Interpreting Provider: Prince Coates MD on 07/23/2023 12:13 PM Narrative 07/23/2023 12:13 PM CDT PROCEDURE: XR PELVIS 1 OR 2VW, DATE/TIME OF EXAM: 07/21/2023 3:11 PM, LOCATION [facility] INDICATION: S72.001A: Closed fracture of neck of right femur, initial encounter ([facility]) ADDITIONAL CLINICAL INFORMATION: Ordering Provider Reason For Exam: surgery COMPARISON: CT chest abdomen pelvis dated 07/20/2023. FINDINGS: The upper pelvis is not included in the [id number]. There is been interval right total hip [...] DATE/TIME OF EXAM: 07/21/2023 3:11 PM, LOCATION [facility] INDICATION: S72.001A: Closed fracture of neck of right femur, initial encounter([facility]) ADDITIONAL CLINICAL INFORMATION: Ordering Provider Reason For Exam: surgery COMPARISON: CT chest abdomen pelvis dated 07/20/2023. FINDINGS: The upper pelvis is not included in the [id number]. There is been interval right total hip arthroplasty without evidence of periprosthetic fracture. Small volume adjacent soft tissue gas andedema, likely postprocedural changes. The left femoral head appears well-seated within its left acetabulum. The pubic symphysis appears intact. Contrastis present within the urinary bladder. IMPRESSION: Interval total right hip arthroplasty without evidence of complication. Report dictated by Andres Hollingsworth MD (radiology director). IPrince MD have personally reviewed and interpreted this examination/study. > Interpreting Provider: Prince Coates MD on 07/23/2023 12:13 PM Nestor Patton MD DIAGNOSTIC IMAGING O RDERABLES * ETT LINE PERFORMABLE (07/21/2023 1:08 PM CDT) Narrative Maribeth Tinoco APRN-CRNA - 07/21/2023 1:08 PM CDT Maribeth Tinoco APRN-CRNA 07/21/2023 1:09 PM Endotracheal Tube Placement: Patient Location: OR. Intubation Event Date/Time: 07/21/2023 12:49 PM Procedure: intubation ([id number]). Procedure Section: Sedation: under general anesthesia. Indications [...] PM. Staff Section Anesthesia Provider: Maribeth Tinoco APRN-POLYMER SCIENTIST, Performed the procedure Provider #1: Jermaine Jaramillo MD. Jermaine Jaramillo MD GENERAL ANESTHESI A ORDERABLES * CARDIAC EKG ORDER (07/21/2023 9:49 AM CDT) Narrative 07/21/2023 9:49 AM CDT Ordered by an unspecified provider. Scanned Document CARDIAC SERVICES ORD ERABLES * VITAMIN D 25-HYDROXY (07/21/2023 4:16 AM CDT) [facility] Signature Vitamin D, 25 Hydroxy 42.3 30.0 - 80.0 ng/mL 07/21/2023 5:06 AM CDT [facility] Comment: The recommendations for 25-Hydroxy Vitamin D [...] Vuong MD LAB - CHEMISTR Y ORDERABLES [facility] [address] [place] [address], [facility] [phone] * (ABNORMAL) COMPREHENSIVE METABOLIC PANEL (07/21/2023 4:16 AM [facility]) Only the most recent of2 resultswithin the time period is included. BUN 11 7 - 26 mg/dL 07/21/2023 4:49 AM [facility] Creatinine 0.88 0.56 - 0.96 mg/dL 07/21/2023 4:49 AM [facility] Sodium 137 136 - 145 mmol/L 07/21/2023 4:49 AM [facility] Potassium 3.9 3.5 - 4.5 mmol/L 07/21/2023 4:49 AM [facility] Chloride 102 98 - 107 mmol/L 07/21/2023 4:49 AM [facility] CO2 24 22 - 29 mmol/L 07/21/2023 4:49 AM [facility] Glucose 116(H) 70 - 115 mg/dL 07/21/2023 4:49 AM [facility] Calcium 9.7 8.4 - 10.2 mg/dL 07/21/2023 4:49 AM [facility] Protein Total 7.3 6.0 - 8.3 g/dL 07/21/2023 4:49 AM [facility] Albumin 3.2(L) 3.4 - 5.0 g/dL 07/21/2023 4:49 AM [facility] Bilirubin Total 0.8 0.2 - 1.2 mg/dL 07/21/2023 4:49 AM [facility] Alkaline Phosphatase 97 40 - 150 U/L 07/21/2023 4:49 AM [facility] ALT 13 5 - 55 U/L 07/21/2023 4:49 AM [facility] AST 17 5 - 34 U/L 07/21/2023 4:49 AM [facility] Anion Gap 11 6 - 16 07/21/2023 4:49 AM [facility] BUN/Creatinine Ratio 13 7 - 23 07/21/2023 4:49 AM CDT [facility] Osmolality Calculated 284 275 - 295 mOsm/kg 07/21/2023 4:49 AM [facility] Albumin/Globulin Ratio 0.8(L) 1.1 - 2.3 07/21/2023 4:49 AM [facility] eGFR by CKD-EPI 64(L) >=90 mL/min/1.7 3 m2 07/21/2023 4:49 AM [facility] Blood BLOOD SPECIMEN / Unknown Venipuncture / Unknown 07/21/2023 4:16 AM CDT 07/21/2023 4:32 AM CDT Eyal Vuong MD LAB - CHEMISTR Y ORDERABLES Performing Organization Address City/[facility]/ZIP Co de Phone Number [facility] [address] [place] [address], [place] [phone] * PHOSPHORUS BLOOD (07/21/2023 4:16 AM CDT) Phosphorus 3.3 2.9 - 5.1 mg/dL 07/21/2023 4:49 AM [facility] Blood BLOOD SPECIMEN / Unknown Venipuncture / Unknown 07/21/2023 4:16 AM CDT 07/21/2023 4:32 AM CDT Eyal Vuong MD LAB - CHEMISTR Y ORDERABLES Performing Organization Address City/[facility]/ZIP Co de Phone Number [address] [address], [place] [phone] * URINE MICROSCOPIC ONLY REFLEX TO CULTURE (07/21/2023 1:31 AM CDT) Reflex Status Culture to follow 07/21/2023 2:05 AM [facility] RBC UA 0-2 None Seen, 0-2, 3-5 /HPF 07/21/2023 2:05 AM [facility] WBC UA 0-5 None Seen, 0-5 /HPF 07/21/2023 2:05 AM [facility] Squamous Epithelial Cells UA 0-2 None Seen, 0-2, 3-5 /HPF 07/21/2023 2:05 AM [facility] Urine URINE SPECIMEN OBTAINED BY CLEAN CATCH PROCEDURE / Unknown Collection / Unknown 07/21/2023 1:31 AM CDT 07/21/2023 1:41 AM CDT Narrative [facility] - 07/21/2023 2:05 AM CDT Eyal Vuong MD LAB - URINALYS IS ORDERABLES [facility] [address] [place] [address], [facility] [phone] * (ABNORMAL) URINALYSIS REFLEX MICROSCOPIC REFLEX CULTURE (07/21/2023 1:31 AM CDT) Color UA Yellow Straw, Yellow 07/21/2023 2:05 AM [facility] Clarity UA Clear Clear 07/21/2023 2:05 AM [facility] Specific Anderson UA >1.060(H) 1.005 - 1.030 07/21/2023 2:05 AM [facility] pH UA 5.0 5.0 - 8.0 pH 07/21/2023 2:05 AM [facility] Protein UA Negative Negative 07/21/2023 2:05 AM [facility] Glucose UA Negative Negative 07/21/2023 2:05 AM [facility] Ketone UA Trace(A) Negative 07/21/2023 2:05 AM [facility] Bilirubin UA Negative Negative 07/21/2023 2:05 AM [facility] Blood UA 1+(A) Negative 07/21/2023 2:05 AM [facility] Nitrite UA Positive(A) Negative 07/21/2023 2:05 AM [facility] Leukocyte Esterase 1+(A) Negative 07/21/2023 2:05 AM [facility] Urobilinogen UA 2.0(A) Negative mg/dL 07/21/2023 2:05 AM [facility] Urine URINE SPECIMEN OBTAINED BY CLEAN CATCH PROCEDURE / Unknown Collection / Unknown 07/21/2023 1:31 AM CDT 07/21/2023 1:41 AM CDT Narrative [facility] - 07/21/2023 2:05 AM CDT Eyal Vuong MD LAB - URINALYS IS ORDERABLES [facility] [address] [place] [address], [facility] [phone] * (ABNORMAL) CULTURE URINE (07/21/2023 1:31 AM CDT) Pathologist [facility] Culture Urine >100,000 CFU/mL Escherichia coli(A) MARIANA 07/22/2023 7:41 PM CDT [facility] Urine URINE SPECIMEN OBTAINED BY CLEAN CATCH PROCEDURE / Unknown Collection / Unknown 07/21/2023 1:31 AM CDT 07/21/2023 1:59 AM CDT Narrative Organism Antibiotic Method Susceptibility Escherichia coli Amikacin MARIANA <=2 ug/mL: Susceptible Escherichia coli Ampicillin MARIANA 8 ug/mL: Susceptible Escherichia coli Ampicillin-sulbactam AMRIANA <=2 ug/mL: Susceptible Escherichia coli Cefazolin MARIANA [...] Vuong MD LAB - MICROBIO LOGY ORDERABLES [facility] MICRO[facility] [address] [place] [address], [facility] [phone] * URINE DRUG SCREEN IMMUNOASSAY (07/21/2023 1:31 AM [facility]) [facility] Amphetamines Screen Urine Negative Negative: < 1000 ng/mL 07/21/2023 2:05 AM [facility] Barbiturates Screen Urine Negative Negative: < 200 ng/mL 07/21/2023 2:05 AM [facility] Benzodiazepine Screen Urine Negative Negative: < 200 ng/mL 07/21/2023 2:05 AM [facility] Opiates Urine Negative Negative: < 300 ng/mL 07/21/2023 2:05 AM [facility] Cocaine Metabolites Urine Negative Negative: < 300 ng/mL 07/21/2023 2:05 AM [facility] Phencyclidine Screen Urine Negative Negative: < 25 ng/ml 07/21/2023 2:05 AM [facility] Cannabinoids Screen Urine Negative Negative: <50 ng/mL 07/21/2023 2:05 AM [facility] Methadone Screen Urine Negative Negative: < 300 ng/mL 07/21/2023 2:05 AM [facility] Fentanyl Screen Urine Negative Negative: <1.5 ng/mL 07/21/2023 2:05 AM [facility] Urine URINE / Unknown Collection / Unknown 07/21/2023 1:31 AM CDT 07/21/2023 1:41 AM [facility] - 07/21/2023 2:05 AM CDT The Urine Toxicology Screening Panel does not screen for Propoxyphene, Meprobamate, Carisoprodol, Trazodone, dgzc-tci-zispwup medications and/or volatiles (Acetone, Isopropanol, Methanol or Ethylene Glycol). Ethanol, Salicylate, Acetaminophen, Tricyclic Antidepressants and several therapeutic drugs may be individually assayed in serum or plasma specimen. Toxicology testing by the [facility] is an aid to medical diagnosis and treatment of patients. No documented chain of custody was maintained. Results are intended to be used for clinical purposes only. Kishor Cazares MD LAB - URINE CHEMISTR Y ORDERABLES Performing Organization Address City/[facility]/ZIP Co de Phone Number [address] [address], [facility] [phone] * BLOOD TYPE VERIFICATION (07/20/2023 11:35 PM CDT) ABO Rh AB POS 07/21/2023 12:10 AM CDT [facility] Blood Bank BLOOD SPECIMEN / Unknown Venipuncture / Unknown 07/20/2023 11:35 PM CDT 07/20/2023 11:49 PM CDT Kishor Cazares MD LAB - BLOOD BANK ORD ERABLES Performing Organization Address [facility] Co de Phone Number [facility] [place] [address], [place] [phone] * CK BLOOD (07/20/2023 11:35 PM CDT) CK Total 60 30 - 200 U/L 07/21/2023 12:07 AM CDT [facility] Blood BLOOD SPECIMEN / Unknown Venipuncture / Unknown 07/20/2023 11:35 PM CDT 07/20/2023 11:43 PM CDT Eyal Vuong MD LAB - CHEMISTR Y ORDERABLES Performing Organization Address City/[facility]/ZIP Co de Phone Number [address] [address], [place] [phone] * CT CHEST ABDOMEN PELVIS W CONT [...] pelvis. > Dictated by Casa Garcia MD, (radiology director). Lorraine Larkin MD have personally reviewed and interpreted this examination/study. > Interpreting Provider: Lorraine Kellogg MD on 07/20/2023 11:07 PM Narrative 07/20/2023 11:07 PM CDT PROCEDURE: CT CHEST ABDOMEN PELVIS W CONT, DATE/TIME OF EXAM: 07/20/2023 8:03 PM, LOCATION [facility] INDICATION: Trauma COMPARISON: None. TECHNIQUE: CT of [...] CONT, DATE/TIME OF EXAM:07/20/2023 8:03 PM, LOCATION [facility] INDICATION: Trauma COMPARISON: None. TECHNIQUE: CT of [...] pelvis. > Dictated by Casa Garcia MD, (radiology director). Lorraine Larkin MD have personally reviewed and [...] Dictated by Shasha Castro M.D. - [facility] Front Desk Clerk. Can Larkin MD have personally reviewed and interpreted this examination/study. > Interpreting Provider: Can Hughes MD on 07/20/2023 8:56 PM Narrative 07/20/2023 8:56 PM CDT PROCEDURE: CT HEAD WO CONTRAST, CT LUMBAR SPINE WO CONTRAST, CT THORACIC SPINE WO CONTRAST, CT CERVICAL SPINE WO CONTRAST, DATE/TIME OF EXAM: 07/20/2023 7:41 PM, LOCATION [facility] INDICATION: Trauma EXAMINATION: 1.Computed tomography (CT) of [...] DATE/TIME OF EXAM: 07/20/2023 7:41 PM, LOCATION [facility] INDICATION: Trauma EXAMINATION: 1.Computed tomography (CT) of [...] Dictated by Shasha Castro M.D. - [facility] Front Desk Clerk. I, Can Hughes MD have personally reviewed [...] Dictated by Shasha Castro M.D. - [facility] Front Desk Clerk. ICan MD have personally reviewed and interpreted this examination/study. > Interpreting Provider: Can Hughes MD on 07/20/2023 8:56 PM Narrative 07/20/2023 8:56 PM CDT PROCEDURE: CT HEAD WO CONTRAST, CT LUMBAR SPINE WO CONTRAST, CT THORACIC SPINE WO CONTRAST, CT CERVICAL SPINE WO CONTRAST, DATE/TIME OF EXAM: 07/20/2023 7:41 PM, LOCATION [facility] INDICATION: Trauma EXAMINATION: 1.Computed tomography (CT) of [...] DATE/TIME OF EXAM: 07/20/2023 7:41 PM, LOCATION [facility] INDICATION: Trauma EXAMINATION: 1.Computed tomography (CT) of [...] Dictated by Shasha Castro M.D. - [facility] Front Desk Clerk. ICan MD have personally reviewed and interpretedthis [...] Dictated by Shasha Castro M.D. - [facility] Front Desk Clerk. ICan MD have personally reviewed and interpreted this examination/study. > Interpreting Provider: Can Hughes MD on 07/20/2023 8:56 PM Narrative 07/20/2023 8:56 PM CDT PROCEDURE: CT HEAD WO CONTRAST, CT LUMBAR SPINE WO CONTRAST, CT THORACIC SPINE WO CONTRAST, CT CERVICAL SPINE WO CONTRAST, DATE/TIME OF EXAM: 07/20/2023 7:41 PM, LOCATION [facility] INDICATION: Trauma EXAMINATION: 1.Computed tomography (CT) of [...] DATE/TIME OF EXAM: 07/20/2023 7:41 PM, LOCATION [facility] INDICATION: Trauma EXAMINATION: 1.Computed tomography (CT) of [...] Dictated by Shasha Castro M.D. - [facility] Front Desk Clerk. Can Larkin MD have personally reviewed and [...] Dictated by Shasha Castro M.D. - [facility] Front Desk Clerk. Can Larkin MD have personally reviewed and interpreted this examination/study. > Interpreting Provider: Can Hughes MD on 07/20/2023 8:56 PM Narrative 07/20/2023 8:56 PM CDT PROCEDURE: CT HEAD WO CONTRAST, CT LUMBAR SPINE WO CONTRAST, CT THORACIC SPINE WO CONTRAST, CT CERVICAL SPINE WO CONTRAST, DATE/TIME OF EXAM: 07/20/2023 7:41 PM, LOCATION [facility] INDICATION: Trauma EXAMINATION: 1.Computed tomography (CT) of [...] DATE/TIME OF EXAM: 07/20/2023 7:41 PM, LOCATION [facility] INDICATION: Trauma EXAMINATION: 1.Computed tomography (CT) of [...] Dictated by Shasha Castro M.D. - [facility] Front Desk Clerk. I, Can Hughes MD have personally reviewed and interpretedthis examination/study. > Interpreting Provider: Can Hughes MD on 07/20/2023 8:56 PM Kishor Cazares MD CT ORDERABLES * TROPONIN-I HIGH SENSITIVE REFLEX 1HOUR (07/20/2023 7:21 PM CDT) Troponin I High Sensitive <3 <=14 ng/L 07/20/2023 8:18 PM CDT [facility] Delta Troponin I HS 07/20/2023 8:18 PM CDT [facility] Comment:Result exceeds linea rity range. A delta value is unable to be calculated. Blood BLOOD SPECIMEN / Unknown Venipuncture / Unknown 07/20/2023 7:21 PM CDT 07/20/2023 7:26 PM CDT Kishor Cazares MD LAB - CHEMISTRY SHABNAM TUCKER [facility] Organization Address City/State/ZIP Co de Phone Number [facility] [address] [place] [address], [facility] [phone] * TSH REFLEX FREE T4 (07/20/2023 7:21 PM CDT) Pathologist [facility] TSH 3.764 0.350 - 4.940 uIU/mL 07/20/2023 9:59 PM CDT [facility] Blood BLOOD SPECIMEN / Unknown Venipuncture / Unknown 07/20/2023 7:21 PM CDT 07/20/2023 7:26 PM CDT Eyal Vuong MD LAB - CHEMISTR Y ORDERABLES Performing Organization Address City/[facility] Co de Phone Number [facility] [address] [place] [address], [facility] [phone] * EKG 12-LEAD (07/20/2023 6:19 PM CDT) Pathologist [facility] Ventricular Rate 73 BPM [facility] Atrial Rate 73 BPM [facility] P-R Interval 186 ms [facility] QRS Duration ms 74 ms [facility] Q-T Interval ms 416 ms [facility] QTC Calculation (Bezet) 458 ms [facility] Calculated P Sargent 52 degrees [facility] Calculated R Sargent 19 degrees [facility] Calculated T Sargent 67 degrees [facility] Interpretation EKG NORMAL SINUS RHYTHM NORMAL ECG NO PREVIOUS ECGS AVAILABLE Confirmed by CHRISTIE QUINTANA MD ([id number]) on 07/23/2023 8:14:49 AM [facility] 07/20/2023 6:19 PM CDT 07/23/2023 8:14 AM CDT Kishor Cazares MD ECG ORDERABLES Performing Organization Address [facility] Co de Phone Number [facility] * XR KNEE RIGHT 3VW (07/20/2023 6:17 PM CDT) Anatomical Region Laterality Modality Lower Extremity Radiographic Mary ging 07/20/2023 4:57 PM CDT Impressions 07/21/2023 5:43 AM CDT IMPRESSION: Transcervical fracture of the right femoral neck with medial angulation of the femoral shaft and mild shortening. Report dictated by Shasha Castro Dr, (radiology director). I, Prince Coates MD have personally reviewed and interpreted this examination/study. > Interpreting Provider: Prince Coates MD on 07/21/2023 5:43 AM Narrative 07/21/2023 5:43 AM CDT PROCEDURE: XR PELVIS W RIGHT HIP 2VW, XR KNEE RIGHT 3VW, XR FEMUR RIGHT 2VW, DATE/TIME OF EXAM: 07/20/2023 5:22 PM, LOCATION [facility] INDICATION: M25.551: Pain of right hip W18.30XA: Ground-level fall ADDITIONAL CLINICAL INFORMATION: Ordering Provider Reason For Exam: Fall with leg shortening (accession [id number]), fx (accession [id number]), fx (accession [id number]) Technologist Note: Additional: COMPARISON: None. PELVIS FINDINGS: [...] DATE/TIME OF EXAM: 07/20/2023 5:22 PM, LOCATION [facility] INDICATION: M25.551: Pain of right hip W18.30XA: Ground-level fall ADDITIONAL CLINICAL INFORMATION: Ordering Provider Reason For Exam: Fall with leg shortening (accession [id number]), fx (accession [id number]), fx (accession [id number]) Technologist Note: Additional: COMPARISON: None. PELVIS FINDINGS: [...] Report dictated by Shasha Castro Dr, MD (radiology director). Prince Larkin MD have personally reviewed and [...] Report dictated by Shasha Castro Dr, MD (radiology director). Prince Larkin MD have personally reviewed and interpreted this examination/study. > Interpreting Provider: Prince Coates MD on 07/21/2023 5:43 AM Narrative 07/21/2023 5:43 AM CDT PROCEDURE: XR PELVIS W RIGHT HIP 2VW, XR KNEE RIGHT 3VW, XR FEMUR RIGHT 2VW, DATE/TIME OF EXAM: 07/20/2023 5:22 PM, LOCATION [facility] INDICATION: M25.551: Pain of right hip W18.30XA: Ground-level fall ADDITIONAL CLINICAL INFORMATION: Ordering Provider Reason For Exam: Fall with leg shortening (accession [id number]), fx (accession [id number]), fx (accession [id number]) Technologist Note: Additional: COMPARISON: None. PELVIS FINDINGS: [...] DATE/TIME OF EXAM: 07/20/2023 5:22 PM, LOCATION [facility] INDICATION: M25.551: Pain of right hip W18.30XA: Ground-level fall ADDITIONAL CLINICAL INFORMATION: Ordering Provider Reason For Exam: Fall with leg shortening (accession [id number]), fx (accession [id number]), fx (accession [id number]) Technologist Note: Additional: COMPARISON: None. PELVIS FINDINGS: [...] Report dictated by Shasha Castro Dr, MD (radiology director). Prince Larkin MD have personally reviewed and interpreted this examination/study. > Interpreting Provider: Prince Coates MD on 07/21/2023 5:43 AM Kishor Cazares MD DIAGNOSTIC IMAGING O RDERABLES * (ABNORMAL) TEG 6 GLOBAL HEMOSTASIS W/ LYSIS (07/20/2023 6:05 PM CDT) Citrated Kaolin R (Reaction Time) 1.7(L) 4.6 - 9.1 min 07/20/2023 7:15 PM CDT [facility] Comment:CK R result below no rmal range. Consistent with hypercoagulable clotting factors. Citrated Kaolin LY30 (Lysis) 0.0 0.0 - 2.6 % 07/20/2023 7:15 PM CDT [facility] Citrated Functional Fibrinogen MA (Max Amplitude) 31.6 15.0 - 32.0 mm 07/20/2023 7:15 PM CDT [facility] Citrated RapidTEG MA (Max Amplitude) 67.2 52.0 - 70.0 mm 07/20/2023 7:15 PM CDT [facility] Blood BLOOD SPECIMEN / Unknown Venipuncture / Unknown 07/20/2023 6:05 PM CDT 07/20/2023 6:08 PM CDT Kishor Cazares MD LAB - HEMATOLOGY ORD ERABLES [facility] [address] [place] [address], [facility] [phone] * (ABNORMAL) TEG 6S PLATELET MAPPING (07/20/2023 6:05 PM CDT) TEGPLM (Max Amplitude) Koalin 68.7(H) 53.0 - 68.0 mm 07/20/2023 7:23 PM CDT [facility] TEGPLM (Max Amplitude) ACTF 23.4(H) 2.0 - 19.0 mm 07/20/2023 7:23 PM CDT [facility] TEGPLM (Max Amplitude) ADP 54.0 45.0 - 69.0 mm 07/20/2023 7:23 PM CDT [facility] TEGPLM (Max Amplitude) AA 69.6 51.0 - 71.0 mm 07/20/2023 7:23 PM CDT [facility] TEGPLM %Inhibition ADP 32.5(H) 0.0 - 17.0 % 07/20/2023 7:23 PM CDT [facility] TEGPLM %Inhibition AA 0.0 0.0 - 11.0 % 07/20/2023 7:23 PM T [facility] TEGPLM %Aggregation ADP 67.5(L) 83.0 - 100.0 % 07/20/2023 7:23 PM CDT [facility] TEGPLM % Aggregation AA 100.0 89.0 - 100.0 % 07/20/2023 7:23 PM CDT [facility] Blood BLOOD SPECIMEN / Unknown Venipuncture / Unknown 07/20/2023 6:05 PM CDT 07/20/2023 6:11 PM CDT Kishor Cazares MD LAB - HEMATOLOGY ORD ERABLES [address] [address], [facility] [phone] * TROPONIN-I HIGH SENSITIVE BASELINE + 1HR (07/20/2023 6:05 PM CDT) Troponin I High Sensitive <3 <=14 ng/L 07/20/2023 6:49 PM CDT [facility] Blood BLOOD SPECIMEN / Unknown Venipuncture / Unknown 07/20/2023 6:05 PM CDT 07/20/2023 6:16 PM CDT Kishor Cazares MD LAB - CHEMISTRY ORDOliva TUCKER [address] [address], [place] [phone] * LIPASE BLOOD (07/20/2023 6:05 PM CDT) Lipase 32 8 - 78 U/L 07/20/2023 6:43 PM CDT [facility] Blood BLOOD SPECIMEN / Unknown Venipuncture / Unknown 07/20/2023 6:05 PM CDT 07/20/2023 6:16 PM CDT [facility] - 07/20/2023 6:43 PM CDT Lipase results from the Rios Alinity analyzer may not be comparable with other methodologies. Kishor Cazares MD LAB - CHEMISTRY SHABNAM TUCKER Performing Organization Address City/[facility]/ZIP Co de Phone Number [address] [address], [facility] [phone] * ALCOHOL ETHYL BLOOD (07/20/2023 6:05 PM CDT) Ethanol (mg/dL) <10 <10 mg/dL 6:43 PM CDT [facility] Ethanol Calculated (g/dL) <0.010 <=0.010 g/dL 07/20/2023 6:43 PM CDT [facility] Blood BLOOD SPECIMEN / Unknown Venipuncture / Unknown 07/20/2023 6:05 PM CDT 07/20/2023 6:16 PM CDT Narrative [facility] - 07/20/2023 6:43 PM CDT Ethanol Interp <10: None Detected. Depression of DOCUMENTUM CONSULTANT: >100 mg/dl Potentially Critical: >250 mg/dl Potentially [...] - CHEMISTRY SHABNAM TUCKER Performing Organization Address [facility]/ZIP Co de Phone Number [address] [address], [facility] [phone] * XR CHEST 1VW PORTABLE (07/20/2023 5:48 PM CDT) Anatomical Region Laterality Modality Chest Radiographic Mary ging 07/20/2023 6:17 PM CDT Narrative 07/21/2023 5:56 AM CDT PROCEDURE: XR CHEST 1VW PORTABLE, DATE/TIME OF EXAM: 07/20/2023 5:48 PM, LOCATION [facility] INDICATION: Trauma ADDITIONAL CLINICAL INFORMATION: Ordering Provider Reason For Exam: Technologist Note: Additional: COMPARISON: None. FINDINGS/IMPRESSION: No focal consolidation, pneumothorax, or pleural effusion. Retrocardiac circular lucency likely represent hiatal hernia. The cardiomediastinal silhouette is normal. No displaced fractures identified. Status post vertebroplasty at multiple lower thoracic vertebra. Report dictated by Shasha Castro Dr, MD (radiology director). Prince Larkin MD have personally reviewed and interpreted this examination/study. > Interpreting Provider: Prince Coates MD on 07/21/2023 5:56 AM Procedure Note Prince Coates MD - 07/21/2023 PROCEDURE: XR CHEST 1VW PORTABLE, DATE/TIME OF EXAM: 07/20/2023 5:48PM, LOCATION [facility] INDICATION: Trauma ADDITIONAL CLINICAL INFORMATION: Ordering Provider Reason For Exam: Technologist Note: Additional: COMPARISON: None. FINDINGS/IMPRESSION: No focal consolidation, pneumothorax, or pleural effusion. Retrocardiac circular lucency likely represent hiatal hernia. The cardiomediastinal silhouette is normal. No displaced fractures identified. Status post vertebroplasty at multiple lower thoracic vertebra. Report dictated by Shasha Castro Dr, MD (radiology director). Prince Larkin MD have personally reviewed and interpreted this examination/study. > Interpreting Provider: Prince Coates MD on 07/21/2023 5:56 AM Kishor Cazares MD DIAGNOSTIC IMAGING O RDERABLES * PTT [facility] (07/20/2023 4:36 PM CDT) APTT 25.1 23.0 - 38.4 Seconds 07/20/2023 5:56 PM CDT [facility] Comment:Suggested therapeuti c range for full dose I.V. unfractionated heparin therapy for venous thromboembolism is 71 to 109 seconds. Blood BLOOD SPECIMEN / Unknown Venipuncture / Unknown 07/20/2023 4:36 PM CDT 07/20/2023 4:40 PM CDT Kishor Cazares MD LAB - COAGULATION OR DERABLES Performing Organization Address [facility] Co de Phone Number [facility] [address] [place] [phone], [facility] [phone] * PT-INR [facility] (07/20/2023 4:36 PM CDT) PT 13.8 12.1 - 14.8 Seconds 07/20/2023 5:56 PM CDT [facility] INR 1.1 See Comment 07/20/2023 5:56 PM CDT [facility] Comment:The suggested therap eutic range for standard coumadin (warfarin) therapy is an INR of 2.0-3.0. For high-risk patients (Mechanical Mitral Valve Prosthesis, etc.), the suggested prophylactic therapeutic range is an INR of 2.5-3.5. Blood BLOOD SPECIMEN / Unknown Venipuncture / Unknown 07/20/2023 4:36 PM CDT 07/20/2023 4:40 PM CDT Kishor Cazares MD LAB - COAGULATION OR DERABLES Performing Organization Address [facility] Co de Phone Number [address] [address], [facility] [phone] * TYPE + SCREEN PANEL (07/20/2023 4:36 PM CDT) Antibody Screen NEG 07/20/2023 5:24 PM CDT [facility] ABO Rh AB POS 07/20/2023 5:24 PM CDT [facility] Blood Bank BLOOD SPECIMEN / Unknown Venipuncture / Unknown 07/20/2023 4:36 PM CDT 07/20/2023 4:40 PM CDT Kishor Cazares MD LAB - BLOOD BANK ORD ERABLES [facility] [address] [place] [address], [facility] [phone] Care Teams Test Development Engineer Relationship Specialty Start Date End Date Alina Collier MD [address] [facility] [address] [place] [phone] PCP - General Internal Medicine 11/19/23
--- OUTSIDE RECORDS SUMMARY | 2024-04-06 23:02 | XMS_ITS | Referral Summary ---
Author Organization [facility] Address [address] [place] [address] Care Team Providers Care Credit Assessment Analyst Name Role Phone Alina Collier MD Primary Care Provider Source Comments [facility],non-owned Affiliates and Associated Physician Practices is amultiple site organization consisting of ambulatory clinics and hospital sitesin [place], [place], [place] and [place]. This disclosure is being madepursuant to the Care Everywhere program and may not contain all information available regarding this patient. Last updated 17.[facility] Allergies Active Allergy Reactions Criticality Noted Date [...] Recorded Patient Health Questionnaire-2 Score 0 11/25/2023 [facility] [place] of Occupat ional Health - Occupational Stress [...] place to sleep or slept in a chcf (including now)? No 07/21/2023 Sex and Gender [...] on file Medical Devices Implanted Type Area Food Photographer Device Identifier Shelf Expiration Date Model / Serial / Lot Compon Acetab Bipol Uhr 49mm Implanted:Qty: 1 on 07/21/2023 by Nestor Patton MD at [facility] Right: Hip [employer] [id number] 07/07/2025 UH1-49-28 / / [id number] Insignia Hip Stem Standard Offset Implanted:Qty: 1 on 07/21/2023 by Nestor Patton MD at [facility] Right: Hip [employer] 09/03/2027 [id number] / / [id number] Head Fem +8mm Ofst Tpr 28mm Hip Cocr V40 Implanted:Qty: 1 on 07/21/2023 by Nestor Patton MD at [facility] Right: Hip [employer] [id number] 07/29/2026 6260-9-328 / / [id number] Advance Directives Documents on File Type Date Recorded Patient Electrotype Molder Expl anation Adv Directive/Living Will/POA 08/02/2023 4:03 PM * Full Code (Latest Code Status on File) Date Activated Date Inactivated Comments 07/20/2023 9:22 PM 07/30/2023 6:45 PM Care Teams Credit Assessment Analyst Relationship Specialty Start Date End Date Alina Collier MD [address] [phone] PCP - General Internal Medicine 11/19/23
--- OUTSIDE RECORDS SUMMARY | 2024-04-06 23:02 | XMS_ITS | Clinical Summary ---
Author Organization [facility] [employer] Address [address] [place] [address] Care Team Providers Care Bilingual Counter Sales Retail Name Role Phone Alina Collier MD Primary Care Provider Source Comments [facility] [employer]non-owned Affiliates and Associated Physician Practices is amultiple site organization consisting of ambulatory clinics and hospital sitesin [place], [place], [place] and [place]. This disclosure is being madepursuant to the Care Everywhere program and may not contain all information available regarding this patient. Last updated 17.[facility] [employer] Allergies Active Allergy Reactions Criticality Noted Date [...] Recorded Patient Health Questionnaire-2 Score 0 11/25/2023 [facility] [place] of Occupat ional Health - Occupational Stress [...] place to sleep or slept in a retirement (including now)? No 07/21/2023 Sex and Gender [...] this topic Medical Devices Implanted Type Area Picker Tender Device Identifier Shelf Expiration Date Model / Serial / Lot Compon Acetab Bipol Uhr 49mm Implanted:Qty: 1 on 07/21/2023 by Nestor Patton MD at [facility] Right: Hip [employer] [id number] 07/07/2025 UH1-49-28 / / [id number] [employer] Hip Stem Standard Offset Implanted:Qty: 1 on 07/21/2023 by Nestor Patton MD at [facility] Right: Hip [employer] 09/03/2027 [id number] / / [id number] Head Fem +8mm Ofst Tpr 28mm Hip Cocr V40 Implanted:Qty: 1 on 07/21/2023 by Nestor Patton MD at [facility] Right: Hip [employer] [id number] 07/29/2026 6260-9-328 / / [id number] Advance Directives Documents on File Type Date Recorded Patient Senior Net Engineer Expl anation Adv Directive/Living Will/POA 08/02/2023 4:03 PM * Full Code (Latest Code Status on File) Date Activated Date Inactivated Comments 07/20/2023 9:22 PM 07/30/2023 6:45 PM Care Teams Bilingual Counter Sales Retail Relationship Specialty Start Date End Date Alina Collier MD [address] [facility] [address] [place] [address] PCP - General Internal Medicine 11/19/23
--- OUTSIDE RECORDS SUMMARY | 2024-04-06 23:03 | XMS_ITS | Clinical Summary ---
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 before breakfast Active potassium chloride ER (KLOR-CON) [...] 1 TABLET IN THE EVENING Active calcium-vits O7-U-W7-minera ls 166.75 mg- 166.75 unit capsule Take [...] 36 C (96.8 F) 02/10/2021 10:45 AM ROSE GRADER Respiratory Rate 16 07/03/2021 8:34 AM CDT [...] , 11/30/2017, 12/02/2016, Additional history exists Insurance [employer] MEDIC[employer] SOLUTIONS [facility] MEDICARE Address: [address] [address] [place] [address] MEDICARE SOLUTIONS [employer] Advance Directives For more information, please contact: [phone] * Full Code (Latest Code Status on File) Date Activated Date Inactivated Comments 02/10/2021 9:56 AM 02/11/2021 5:00 AM Care Teams Cane Burner Relationship Specialty Start Date End Date Nestor Faustin MD PCP - General Internal Medicine 12/09/20
--- OUTSIDE RECORDS SUMMARY | 2024-04-06 23:03 | XMS_ITS | Referral Summary ---
Author Organization [facility] Address [address] [place] [address] Care Team Providers Care Cloth Folder Machine Name Role Phone Nestor Faustin MD Primary Care Provider Allergies Active Allergy Reactions Criticality Noted Date Comments Penicillins Wheezing Medium 12/19/2020 Medications levothyroxine (SYNTHROID) 25 mcg tablet Take 1 tablet (25 mcg total) by mouth open hearth door liner before breakfast Active potassium chloride ER (KLOR-CON) [...] 1 TABLET IN THE EVENING Active calcium-vits R4-A-I3-minera ls 166.75 mg- 166.75 unit capsule Take [...] 36 C (96.8 F) 02/10/2021 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 Respiratory Rate 16 07/03/2021 8:34 AM CDT Oxygen Saturation 97% 11/17/2023 2:21 PM CDT Inhaled Oxygen Concentration - - Weight 65.2 kg (143 lb 12.8 oz) 11/17/2023 2:21 PM CDT Height 165.1 cm (5' 5 ) 11/17/2023 2:21 PM CDT Body Mass Index 23.93 11/17/2023 2:21 PM CDT Plan of Treatment Not on file Insurance [employer] MEDICARE SOLUTIONS MED[employer]ARE SOLUTIONS [employer] Advance Directives For more information, please contact: [phone] * Full Code (Latest Code Status on File) Date Activated Date Inactivated Comments 02/10/2021 9:56 AM 02/11/2021 5:00 AM Care Teams Cloth Folder Machine Relationship Specialty Start Date End Date Nestor Faustin MD PCP - General Internal Medicine 12/09/20
--- OUTSIDE RECORDS SUMMARY | 2024-04-06 23:03 | XMS_ITS | Continuity of Care Document ---
Author Name [facility] Organization [facility] Care Team Providers Care Telesales Manager Name Role Phone [facility] Unavailable Unavailable Problems Combined list of problems from Department of Defense and Veterans Affairs facilities. It does not include entries that were removed or entered in error. Problem Status Onset Date Problem Type Date of Resolution Comments Source visit for: screening exam for malignant neoplasm cervix Inactive Condition [facility] hypothyroidism subclinical Active Condition [facility] hyperlipidemia Active Condition [facility] essential hypertension Active Condition DoD visit for: issue repeat prescription for medication Inactive Condition DoD fatigue Active Condition electrical ly and symptomatically negative stress test DoD hypothyroidism Active Condition Will put in for a Rx for synthroid. Contacted patient. [facility] visit for: issue repeat prescription Inactive Condition [...] TABLET, ORAL, MYLAN, 500 ea. BOTTLE Active [id number] 2023 12 Pharmac y Data Transac tion Service Facilit y LEVOTHYROXI NE SODIUM (levothyrox ine sodium), 25 MCG, TABLET, ORAL, AMNEAL PHARMACE, 1000 ea. BOTTLE Cancele d [id number] : 2023 0 Pharmac y Data Transac tion Service Facilit y LEVOTHYROXI NE SODIUM (levothyrox ine sodium), 25 MCG, TABLET, ORAL, AMNEAL PHARMACE, 1000 ea. BOTTLE Active [id number] 2023 30 Pharmac y Data Transac tion Service Facilit y MECLIZINE HCL (meclizine HCl), 12.5 MG, TABLET, ORAL, ZYDUS PHARMACEU, 100 ea. BOTTLE Cancele d [id number] : 2023 0 Pharmac y Data Transac tion Service Facilit y MECLIZINE HCL (meclizine HCl), 12.5 MG, TABLET, ORAL, ZYDUS PHARMACEU, 100 ea. BOTTLE Active [id number] 2023 90 Pharmac y Data Transac tion Service Facilit y MECLIZINE HCL (meclizine HCl), 12.5 MG, TABLET, ORAL, ZYDUS PHARMACEU, 100 ea. BOTTLE Active [id number] 2023 90 Pharmac y Data Transac tion Service Facilit y METOPROLOL SUCCINATE (METOPROLOL SUCCINATE), 25 MG, TAB ER 24H, ORAL, 'S LAB, 100 ea. BOTTLE Cancele d [id number] : 2023 0 Pharmac y Data Transac tion Service Facilit y METOPROLOL SUCCINATE (METOPROLOL SUCCINATE), 25 MG, TAB ER 24H, ORAL, 'S LAB, 100 ea. BOTTLE Active [id number] 2023 30 Pharmac y Data Transac tion Service Facilit y METOPROLOL SUCCINATE (METOPROLOL SUCCINATE), 25 MG, TAB ER 24H, ORAL, 'S LAB, 100 ea. BOTTLE Active [id number] 2023 30 Pharmac y Data Transac tion Service Facilit y POTASSIUM CHLORIDE (potassium chloride), 10 MEQ, TABLET ER, ORAL, [employer], 500 ea. BOTTLE Cancele d [id number] : 2023 0 Pharmac y Data Transac tion Service Facilit y POTASSIUM CHLORIDE (potassium chloride), 10 MEQ, TABLET ER, ORAL, [employer], 500 ea. BOTTLE Active [id number] 2023 30 Pharmac y Data Transac tion Service Facilit y POTASSIUM CHLORIDE (POTASSIUM CHLORIDE), 10 MEQ, TABLET ER, ORAL, MYLAN, 500 ea. BOTTLE Cancele d [id number] : 2023 0 Pharmac y Data Transac tion Service Facilit y Allergies, Adverse Reactions, Alerts Combined list of allergies from Department of Defense and Veterans Affairs facilities. It does not include entries that were removed or entered in error. Substance Category Reaction Severity Reaction type Status Date Reported Comments Source PENICILLINS Drug allergy (disorder) Unknown active 4 [facility] Paco BONNER ([facility]) penicillins Propensity to adverse reactions to drug Unknown Active 4 [facility] Ambulatory Pharmacy Immunizations Combined list of available immunizations from the Department of Defense and Veterans Affairs facilities. Immunization Series Date Given Administered By Site Reaction Lot Number CVX Code Drug Microfabrication Engineer Manager Status Comments Source tetanus-dipht h toxoids (Td) adult/adol 2004 [id number] sanofi pasteur complet ed tetanus-d iphth toxoids (Td) adult/ado l 01/08/05 Given Ambulat ory Pharmac y influenza virus vaccine,split 2004 zzLef t Arm [id number] 15 sanofi pasteur complet ed influenza virus vaccine,s plit 01/08/05 Given Ambulat ory Pharmac y pneumococcal polysaccharid e, 23 valent 2004 zzLef t Arm [id number] [employer] complet ed pneumococ isaak polysacch aride, 23 valent 01/08/05 Given Ambulat ory Pharmac y tetanus-dipht h toxoids (Td) adult/adol 2004 zzRig ht Arm [id number] 09 sanofi pasteur complet ed tetanus-d iphth toxoids (Td) adult/ado l 01/08/05 Given Ambulat ory Pharmac y influenza virus vaccine,split 2004 [id number] sanofi pasteur complet ed influenza virus [...] of diphtheria toxoid) 1 2004 Unknown, Provider [id number] Sanofi Pasteur ([facility]) complet ed tetanus and diphtheri a toxoids, adsorbed, preservat tiffanie free, for adult use (2 Lf of tetanus toxoid and 2 Lf of diphtheri a toxoid) DoD influenza virus vaccine, split virus (incl. purified surface antigen)-reti red CODE 1 2004 Unknown, Provider [id number] Sanofi Pasteur ([facility]) complet ed influenza [...] vaccine, whole virus 2002 zzLef t Arm [id number] 16 sanofi pasteur complet ed influenza virus vaccine, whole virus 12/06/02 Given Ambulat ory Pharmac y influenza virus vaccine, whole virus 1 2002 Unknown, Provider [id number] 16 Sanofi Pasteur ([facility]) complet ed influenza virus vaccine, whole virus DoD influenza virus vaccine, whole virus 2000 zzLef t Arm [id number] 16 sanofi pasteur complet ed influenza virus vaccine, whole virus 12/28/00 Given Ambulat ory Pharmac y influenza virus vaccine, whole virus 1 2000 Unknown, Provider [id number] 16 Sanofi Pasteur ([facility]) complet ed influenza virus vaccine, whole virus DoD influenza virus vaccine, whole virus 1999 [id number] PFIZER complet ed influenza virus vaccine, whole virus 02/03/00 Given Ambulat ory Pharmac y influenza virus vaccine, whole virus 1999 zzLef t Arm [id number] 16 PFIZER complet ed influenza virus vaccine, whole virus 02/03/00 Given Ambulat ory Pharmac y influenza virus vaccine, whole virus 1 1999 Unknown, Provider [id number] Carlos (Inactive) ([place]) complet ed influenza virus vaccine, whole virus [...] ADM Date DC Date Status Disposition Source [address] [place] [address] Paco [facility]o [facility]Sco tt [facility] Tm Blue) TELE CONSULT [id number] Rx Request PRO CHILDRESS 09/[address] [place] [address] Paco [facility]NER [facility]S cott [facility] Tm Blue) [address] [place] [address] Paco Do [facility]Sco tt [facility] Tm Blue) OUTPATIENT [id number] f/u cholest BEBA Jenkins 12/15 Released w/o Limitations [address] [place] [address] Paco Do [facility]S cott [facility] Tm Blue) [address] [place] [address] Paco BONNER [facility]Sco tt [facility] Tm Blue) TELE CONSULT [id number] Thyroid tests needs synthro id BEBA CEDENO 12/[address] [place] [address] Paco [facility])(S cott [facility] Tm Blue) [address] [place] [address] Paco [facility])(Car diologyPr ocedure Schedules ) OUTPATIENT [id number] FATIGUE BEBA SCOTT 01/27 Released w/o Limitations [address] [place] [address] Paco Do [facility]Alcides Box es) [address] [place] [address] Paco CIARADo [facility]Sco tt [facility] Tm Blue) TELE CONSULT [id number] Rx Request PRO CHILDRESS 03/[address] [place] [address] Paco CIARADo [facility]S cott [facility] Tm Blue) [address] [place] [address] Paco Do [facility]Sco tt [facility] Tm Blue) TELE CONSULT [id number] med refill PRO CHILDRESS 03/[address] [place] [address] Paco [facility]S cott [facility] Tm Blue) [address] [place] [address] Paco B [facility]Sco tt [facility] Tm Blue) OUTPATIENT [id number] Follow up on test and blood presure BEBA CEDENO 05/15 Released w/o Limitations [address] [place] [address] Paco [facility]S cott [facility] Tm Blue) [address] [place] [address] Paco BONNER ([facility])(Sco tt [facility] Tm Blue) OUTPATIENT [id number] annual pap KRISTAL JACKSON 11/27 Released w/o Limitations [facility] Paco [facility]ONNER ([facility]) Procedures Combined list of: 1) Procedures from Department of Veterans Affairs facilities [facility], not all VA non-surgical procedures are included; 2) All procedures from the Department of Defense facilities. Procedure Procedure Type Code Date Perfomer Comments Souralcides e Vaginal Pap Smear Vaginal Pap Smear [id number] 11/27 KRISTAL JACKSON [facility] Screening papanicolaou smear; obtaining, preparing and conveyance of cervical or vaginal smear to laboratory 2005 KRISTAL JACKSON [facility] Cardiac Stre Test With Physician Supervision, Interpretation, And Report Cardiac Stress Test With Physician Supervision, Interpretation, And Report [id number] 2004 BEBA SCOTT [facility] Electrocardiogram Electrocardiogram [id number] 12/15 BEBA CEDENO [facility] SCREENING PAPANICOLAOU SMEAR; OBTAINING, PREPARING AND CONVEYANCE OF CERVICAL OR VAGINAL SMEAR TO LABORATORY 2005 [facility] CARDIOVASCULAR STRESS TEST USING MAXIMAL OR SUBMAXIMAL TREADMILL OR BICYCLE EXERCISE,CONTINUOUS ELECTROCARDIOGRAPHIC MONITORING,AND/OR PHARMACOLOGICAL STRESS;W SUPERVISION,INTERPRETAT ION AND REPORT 2004 [facility] ELECTROCARDIOGRAM, ROUTINE ECG WITH AT LEAST 12 LEADS; WITH INTERPRETATION AND REPORT 2004 [facility] BIOPSY OF CERVIX, SINGLE OR MULTIPLE, OR LOCAL EXCISION OF LESION, WITH OR WITHOUT FULGURATION (SEPARATE PROCEDURE) 2003 [facility] OTHER BIOPSY OF BREAST 10/23 [facility] REMOVAL OF INTRAUTERINE CONTRACEPTIVE DEVICE 1989 [facility] OTHER DILATION AND CURETTAGE OF UTERUS 1989 DoD No data available for this section Ambulatory Pharmacy Social History Combined list of available smoking, tobacco, and other social history from Department of Defense and Veterans Affairs facilities. Social History Type Response Date Comment Sour e This section is an empty social [...] of Defense and Veterans Affairs (VA).VA Functional [place] Measurement (FIM) Scale: 1 = Total Assistance (Subject = 0% +), 2 = Maximal Assistance (Subject = 25% +), 3 = Moderate Assistance (Subject = 50% +), 4 = Minimal Assistance (Subject = 75% +), 5 = Supervision, 6 = Modified [place] (Device), 7 = Complete [place] (Timely, Safely). Assessment Date/Time Source Assessment Type Assessment Skill Assessment Score Assessment Details No data available for this section
--- OUTSIDE RECORDS SUMMARY | 2024-04-06 23:03 | XMS_ITS | Continuity of Care Document ---
Author Organization [facility] Address [address] [place] [address] Phone Care Team Providers Care Vice President & General Manager Brand [employer] Name Role Phone Bre Orta Unavailable Unavailable [...] Diagnoses Date Provider Providers Copied on Encounter [facility], [address] [place] [address] [address], [place], [place], [id number], [place] tel:[phone] SEC [facility] No Information Sep-2 3-201 0 Marivel Polanco [address] , [address], [place], [address], [place]. tel:[phone] [facility], [address] [place] [address] [address], [place], [place], [id number], [place] tel:[phone] SEC [facility] No Information Sep-0 2-201 0 Marivel Polanco [address] , [address], [place], [address], [place]. tel:[phone] [facility], [address] [place] [address] [address], [place], [place], [id number], [place] tel:[phone] SEC [facility] No Information -201 0 Marivel Polanco [address] , [address], [place], [place], [facility] [place], [place]. tel:[phone] [facility], [address] [place] [address] [address], [place], [place], [address], [place] tel:[phone] [facility] No Information -201 0 Marivel Polanco [address], [place], [place], [facility] [place], [place]. tel:[phone] Office/outpat ient Visit, [facility], [address] [place] [address] [address], [place], [place], [id number], [place] tel:[phone] SEC [facility] No Information 2-201 0 Marivel Polanco [address], [place], [place], [facility] [place], [place]. tel:[phone] Referring Provider: Bek[address], [place], [place], [facility] [place]. tel:[phone] [facility], [address] [place] [address] [address], [place], [place], [id number], [place] tel:[phone] SEC [facility] No Information 3-200 9 Marivel Polanco [address] , [address], [place], [address], [place]. tel:[phone] [facility], [address] [place] [address] [address], [place], [place], [address], [place] tel:[phone] SEC [facility] No Information 8-200 8 Marivel Polanco [address], [place], [place], [facility] [place], [place]. tel:[phone] [facility], [address], [place], [place], [id number], [place] tel:[phone] [facility] No Information 0-200 7 Marivel Silvan. [address] , [address], [place], [address], [place]. tel:[phone] Family History Family Member Type Diagnosis Age At Onset No Information Payers Payer name Insurance type Covered republican ID Authoriza tion(s) No Information Social History [...]
--- OUTSIDE RECORDS SUMMARY | 2024-04-06 23:03 | XMS_ITS | Clinical Summary ---
Author Organization [facility] Address [address] [place] [id number] Care Team Providers Care Energy Trader Name Role Phone Unavailable Primary Care Provider [...]
--- OUTSIDE RECORDS SUMMARY | 2024-04-06 23:03 | XMS_ITS | Clinical Summary ---
Author Organization [facility] Address [address] [facility] [address] [place] [address] Care Team Providers Care Transformer Coil Winder Name Role Phone Pretty Raymond APRN Primary Care Provider [phone] Social History Tobacco Use Types Packs/Day Years [...] complete this topic Insurance MEDICARE Care Teams Transformer Coil Winder Relationship Specialty Start Date End Date Pretty Raymond APRN [facility] Internal Med [facility] [address] [place] [address] PCP - General 06/24/23
[2024-04-07 00:17] LABS: Add Urine Microscopic? YES; Appearance Urine Clear (Clear); Bacteria Urine None Seen /hpf; Bilirubin Urine 1+ (Negative); Blood Urine Negative (Negative); Color Urine Dark Yellow (Yellow); Glucose Urine UA Negative (Negative); Ketones Urine Trace mg/dL (Negative); Leukocyte Esterase Ur Negative LEU/UL (Negative); Mucus Urine Present /lpf; Need Manual Microscopic Reviewed; Nitrate Urine Negative (Negative); Protein Urine Trace mg/dL (Negative); RBC Urine 0-2 /hpf (0-2); Specific Grav Ur 1.023 (1.001-1.035); Squamous Epithelial Cell Urine Occasional /hpf (Few); WBC Urine 0-5 /hpf (0-3)
[2024-04-07 01:19] VITALS: BP 172/94; PULSE 99; RESP 18; TEMP 36.6; O2SAT 100
--- NOTE | 2024-04-07 06:07 | ED_ITS ---
HPI - Altered Mental Status General Chief Complaint: Altered Mental Status Stated Complaint: MENTAL STATUS CHANGE, NEEDS CHECKED FOR UTI Time Seen by Provider: 04/06/24 22:39 History of Present Illness HPI narrative: 88-year-old female with history of dementia presenting to the emergency department accompanied by multiple family members. Family member states that patient has been more aggressive lately and they were concerned that she has a urinary tract infection. Patient herself is calm, cooperative, has no acute complaints and denies any urinary symptoms. She does not think she has any urinary infection. She is not a present danger to herself, does not have any altered mentation is ambulating with a normal gait without any ataxia. Family members have no other concerns and denies any trauma or injury. Patient herself states that she is feeling well. Related Data Home Medications ?Medication ?Instructions ?Recorded ?Confirmed ?Last Taken ?Type alendronate 70 mg tablet 70 mg PO WEEKLY 09/11/19 09/19/21 07/08/21 History levothyroxine 25 mcg tablet 25 mcg PO DAILY 09/11/19 09/19/21 Unknown History metoprolol succinate 50 mg 25 mg PO DAILY 09/11/19 09/19/21 Unknown History tablet,extended release 24 hr omega 4-vgg-zpw-fish oil 1,000 mg 1 cap PO DAILY 09/11/19 09/19/21 Unknown History (120 mg-180 mg) capsule (Fish Oil) potassium chloride 10 mEq 10 meq PO DAILY 09/11/19 09/19/21 Unknown History tablet,extended release donepezil 5 mg tablet 5 mg PO DAILY 07/13/21 09/19/21 Unknown History memantine 10 mg tablet 10 mg PO BID 07/13/21 09/19/21 Unknown History hydrocodone 5 mg-acetaminophen 325 1 tablet PO Q6-8H PRN pain 08/05/21 09/19/21 Unknown History mg tablet Allergies Allergy/AdvReac Type Severity Reaction Status Date / Time Penicillins Allergy Unknown Verified 04/06/24 19:08 Review of Systems Review of Systems: As reviewed above in HPI [facility] Past Medical History Medical History Dementia Hypothyroid Hyperlipidemia Hypertension Family History Family History Other Unknown family medical history Social History Social History Social History: Patient is a Christianity lives at home by herself. She has 2 kids a son and a daughter and worked for [employer]. Patient wishes to be a DNR and states that her son and daughter can be her surrogate. Son Micah was present. 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 Mucous membranes moist. NECK: Supple. CHEST: [Clear to auscultation. No respiratory distress.] HEART: [Regular rate and rhythm]. No murmur heard. [Normal peripheral pulses.] ABDOMEN: [Soft, nondistended], [nontender], [No rigidity or guarding] EXTREMITIES: Normal range of motion. [No edema.] SKIN: Warm, dry, no rash. NEURO: [No focal deficits]. Alert and oriented [x3.] PSYCH: [Normal mood and affect.] Course Vital Signs Vital signs: Vital Signs Temperature 36.6 C 04/06/24 19:29 Pulse Rate 100 04/06/24 19:29 Respiratory Rate 19 04/06/24 19:29 Blood Pressure 185/101 H 04/06/24 19:29 Pulse Oximetry 100 04/06/24 19:29 Oxygen Delivery Room Air 04/06/24 19:29 Temperature 36.6 C 04/07/24 01:19 Pulse Rate 99 04/07/24 01:19 Respiratory Rate 18 04/07/24 01:19 Blood Pressure 172/94 H 04/07/24 01:19 Pulse Oximetry 100 04/07/24 01:19 Oxygen Delivery Room Air 04/06/24 19:29 MDM - Altered Mental Status MDM Narrative Medical decision making narrative: 88-year-old female with history of dementia presenting to the emergency department for evaluation at the request of her family members. They want her tested for urinary tract infection. Patient states she has no symptoms whatsoever and is acting appropriately. Family states that she has outbursts of aggression from her dementia under concerned about infection. Patient has some mild hypertension vitals but no severe range concerns. No tachycardia, tachypnea, fever or hypoxia. She has an unremarkable examination. She has no symptoms at bedside during my assessment. A urinalysis was obtained after straight catheterization when she was not able to pass urine sample. Urinalysis has no evidence of urinary tract infection. Patient was stable for discharge with regular PCP follow-up in the family members were comfortable with this plan. Were given return precautions and safely discharged at this time. Medical Records Attestation: I reviewed the patient's medical records. Lab Data Attestation: I reviewed the patient's lab results. Labs: Lab Results 04/06/24 Range/Units 23:14 Urine Color Dark yellow (Yellow) Urine Appearance Clear (Clear) Urine pH 5.0 (5.0-9.0) Ur Specific [place] 1.023 (1.001-1.035) Urine Protein Trace (Negative) mg/dL Urine Glucose (UA) Negative (Negative) mg/dL Urine Ketones Trace H (Negative) mg/dL Ur Blood (Man) Negative (Negative) Urine Nitrate Negative (Negative) Urine Bilirubin 1+ H (Negative) Urine Urobilinogen 2.0 H (<2.0) mg/dL Add Ur Microanalysis Reviewed Leukocyte Esterase Rfl Negative (Negative) HERMINIO/UL Urine RBC 0-2 (0-2) /hpf Urine WBC 0-5 (0-3) /hpf Ur Squamous Epith Cells Occasional (Few) /hpf Urine Bacteria None seen /hpf Urine Casts 3-5 Urine Mucus Present /lpf Discharge Plan Discharge Clinical Impression: Dementia, Aggressive behavior due to dementia Patient Disposition: Home, Self-Care Condition: Stable Instructions: Antibiotic Form Additional Instructions: Your urinalysis shows no evidence of urinary tract infection. Follow up with regular doctors regarding her behavior. No acute concerns today. Patient Language: Czech Prescriptions: No Action donepezil 5 mg tablet 5 mg PO DAILY memantine 10 mg tablet 10 mg PO BID amlodipine 2.5 mg Tablet 7.5 mg PO QAM 30 Days Qty: 90 0RF metoprolol succinate 50 mg tablet extended release 24 hr 25 mg PO DAILY alendronate 70 mg tablet 70 mg PO WEEKLY Rx Instructions: Wednesday potassium chloride 10 mEq tablet extended release 10 meq PO DAILY levothyroxine 25 mcg tablet 25 mcg PO DAILY omega 4-rmm-krb-fish oil [Fish Oil] 1,000 mg (120 mg-180 mg) Capsule 1 cap PO DAILY hydrocodone-acetaminophen 5-325 mg tablet 1 tablet PO Q6-8H PRN (Reason: pain) Follow-up/Referrals: PHYSICIAN NOT ON STAFF,NONSTAFF [Primary Care Provider] - Time of Disposition: 01:10
== END 2024-04-07 01:21 | disposition home or self-care (01) ==
PROVIDERS: Emergency Provider Student in an Organized Health Care Education/Training Program
DX: F03.911 Unspecified dementia, unspecified severity, with agitation (principal); Z66 Do not resuscitate; I10 Essential (primary) hypertension; E03.9 Hypothyroidism, unspecified; E78.5 Hyperlipidemia, unspecified; Z79.899 Other long term (current) drug therapy
CPT/HCPCS: 81001; 99283

== ENCOUNTER 2024-06-08 16:06 | Inpatient (IN) | payer MEDICARE, OTHER, SELFPAY ==
[2024-06-08] VITALS (12 sets, daily range): BP systolic 106–140; BP diastolic 62–93; PULSE 64–68; RESP 14–16; TEMP 36.4–36.6; O2SAT 92–99
--- NOTE | ~2024-06-08 | CT_ITS ---
CT abdomen pelvis w con Ordering provider: Colette Hansen PA-C History: 88 years Female with . abnml lfts, weakness . Comparison: None. Technique: CT abdomen and pelvis with IV and without oral contrast. Automated exposure control and it erative reconstruction technique were employed. The dose-length product was 627.06 mGy-cm. 100 mL Omn ipaque 350 was given IV. Findings: VISUALIZED LOWER CHEST: Bilateral basilar atelectasis versus pneumonia. Dependent atelectasis is also possible. UPPER ABDOMINAL ORGANS: Liver: Normal. Gallbladder: Distended gallbladder with no stones. Spleen: Normal. Benign calcifications. Stomach/duodenum: Sliding hiatus Pancreas: Normal. Prominent pancreatic duct. Follow-up advised. Adrenals: Normal. Kidneys: Tiny cyst in the left kidney lower pole. Tiny cyst in the right kidney mid pole. Tiny stone in the right kidney lower pole. PELVIC ORGANS: The bladder slightly thickened wall. Evaluation for cystitis advised. BOWEL AND MESENTERY: Colon: No evidence of diverticulitis. Minimal fat stranding is seen posterior to the cecum which may indicate colitis. The appendix is not demonstrated. Clinical correlation advised.. Fecal material is loaded in the colon. Thickening of the wall of the rectum is noted. Clinical evaluation advised. Prom inent vessels are seen in the presacral area and around the rectum. AVM cannot be excluded. Follow-up advised. Small Bowel: Normal. No obstruction. Peritoneum/mesentery: No free air or free fluid. No mesenteric lymphadenopathy. RETROPERITONEUM: Mild atheromatous disease of the abdominal aorta. No retroperitoneal lymphadenopat hy. MUSCULOSKELETAL: Superficial soft tissues: The superficial soft tissues are normal. Bones: Age appropriate degenerative changes of the spine. Compression fractures of T11 and T12 with v ertebroplasty. Right hip arthroplasty. IMPRESSION: 1. No evidence of appendicitis, diverticulitis or intestinal obstruction. The appendix is not demons trated. 2. Fat stranding posterior to the cecum which may indicate colitis. The appendix is not seen. 3. Large sliding hiatus hernia. 4. Constipation 5. Prominent vascularity in the posterior pelvis with possible AVM further evaluation advised. 6. Thickened wall of the rectum. Clinical evaluation advised. 7. Prominent pancreatic duct. Follow-up advised. 8. Grossly distended gallbladder with no definite stones. 9. Bilateral basal lung atelectasis versus pneumonia. Clinical correlation advised. 10. Tiny stone in the right kidney. Reviewed, dictated and finalized at location A. IMPRESSION: 1. No evidence of appendicitis, diverticulitis or intestinal obstruction. The appendix is not demonstrated. 2. Fat stranding posterior to the cecum which may indicate colitis. The append ix is not seen. 3. Large sliding hiatus hernia. 4. Constipation 5. Prominent vascularity in the posterior pelvis with possible AVM further baltazar luation advised. 6. Thickened wall of the rectum. Clinical evaluation advised. 7. Prominent pancreatic duct. Follow-up advised. 8. Grossly distended gallbladder with no definite stones. 9. Bilateral basal lung atelectasis versus pneumonia. Clinical correlation adv ised. 10. Tiny stone in the right kidney.
--- NOTE | ~2024-06-08 | CT_ITS ---
CT brain wo con Ordering provider: Colette Hansen PA-C History: 88 years Female with . ams, weakness . Comparison: August 05, 2021 Technique: CT of the head without contrast. Radiation reduction technique utilized.The dose-length pr oduct was 605.33 mGy-cm. FINDINGS: BRAIN PARENCHYMA AND CSF SPACES: Moderate leukoaraiosis and diffuse cortical atrophy. Moderate athero matous disease. No midline shift, mass effect or hemorrhage. The brain parenchyma and CSF spaces are otherwise normal. VISUALIZED PARANASAL SINUSES: Well aerated. MASTOIDS: Well aerated. BONES: The bones appear intact. SOFT TISSUES: Visualized nasopharynx is normal. Superficial soft tissues are normal. IMPRESSION: No acute intracranial findings. Reviewed, dictated and finalized at location A.
--- NOTE | ~2024-06-08 | MR_ITS ---
MRI of the abdomen: Clinical indication: Abnormal LFTs, hyperbilirubinemia. Technique: Coronal SSFSE ARC, WATER:coronal LAVA-FLEX, Coronal 2D FIESTA FatSat, Axial SSFSE BH ARC, Axial 3D DualEcho BH, Axial SSFSE-IR, Axial DWI b=500, Axial 2D FIESTA FatSat, pre and dynamic postco ntrast Axial LAVA ARC, postcontrast Coronal In and Opposed phase LAVA FLEX. Findings: Gallbladder is markedly distended, but there is no wall thickening, stone, or pericholecyst ic inflammatory change.. The common bile duct is normal in course and caliber. No filling defects are seen within the CBD. No evidence of intrahepatic biliary ductal dilatation. The pancreatic duct is n ormal in size. There is a micronodular contour of liver, suspicious for cirrhotic change. No focal hepatic mass or i ntrahepatic biliary dilatation evident. Spleen, pancreas, adrenals, kidneys appear normal. The aorta and the paraaortic regions appear normal. Trace perihepatic ascites noted. Large hiatal hernia partially imaged. Impression: Cirrhotic morphology of the liver. No focal mass or intrahepatic biliary dilatation. Trace perihepatic ascites. Distended gallbladder without evidence for gallstone, gallbladder wall thickening, or pericholecystic inflammatory change. Large hiatal hernia. Reviewed, dictated and finalized at [facility]. Impression: Cirrhotic morphology of the liver. No focal mass or intrahepatic biliary dilata tion. Trace perihepatic ascites. Distended gallbladder without evidence for gallstone, gallbladder wall thickeni ng, or pericholecystic inflammatory change. Large hiatal hernia.
--- NOTE | ~2024-06-08 | US_ITS ---
Limited ABDOMINAL ULTRASOUND (Doppler ultrasound interrogation techniques used as needed for this exa m.) Ordering provider: Colette Hansen PA-C History: . abnl liver enzymes, distended GB . Comparison: None. FINDINGS: PANCREAS: Normal echotexture and size. PORTAL VEIN: Hepatopedal flow demonstrated. LIVER: Normal size and slightly increased echotexture. No focal hepatic lesions or perihepatic fluid collections are identified. BILIARY DUCTS: No intra or extrahepatic biliary dilation. Common bile duct measures 5.5 mm in diamete r which is normal for patient's age. GALLBLADDER: Distended. No stones, sludge, gallbladder wall thickening or pericholecystic fluid. The wall thickness is 2.7 mm Negative sonographic Solis's sign. RIGHT KIDNEY: Normal size. No hydronephrosis, solid renal mass, renal calculi or perinephric fluid co llections. No renal cysts. FREE FLUID: None visualized within the upper abdomen. IMPRESSION: Distended gallbladder with no stones. Increased echogenicity of the liver suggestive of fat infiltrat ion. Otherwise, normal limited abdominal ultrasound. Reviewed, dictated and finalized at location A. IMPRESSION: Distended gallbladder with no stones. Increased echogenicity of the liver sugge stive of fat infiltration. Otherwise, normal limited abdominal ultrasound.
--- NOTE | 2024-06-08 16:11 | ECG_ITS ---
Test Date: 2024-06-08 16:25:32 Measurements Intervals [place] Rate: 66 P: 58 [place]: 201 QRS: -5 QRSD: 73 T: 24 QT: 412 QTc: 433 Interpretive Statements SINUS RHYTHM BORDERLINE AV CONDUCTION DELAY LOW QRS VOLTAGE- DIFFUSE LEADS CANNOT R/O SEPTAL INFARCT, AGE INDETERMINATE BASELINE ARTIFACT- I, II, III, AVR, AVLA VF, V1-V2, V6 ABNORMAL ECG No previous ECG available for comparison Electronically Signed On 06-08-2024 16:36:16 CDT by Anderson Luong D.O.
[2024-06-08 16:32] LABS: Basophils Absolute Auto 0.1 K/mm3 (0.0-0.1); Basophils Percent Auto 1.3 % (0.2-1.2); Hematocrit 42.5 % (37.0-47.0); Hemoglobin 13.4 g/dL (12.0-15.0); Immature Granulocyte Absolute 0.01 K/mm3 (0.00-0.031); Immature Granulocyte Percent A 0.3 % (0-0.5); Lymphocytes Absolute Auto 0.56 K/mm3 (0.9-3.2); Lymphocytes Percent Auto 14.2 % (18.3-44.2); Mean Corpuscular HGB Conc 31.5 g/dl (32-36); Mean Corpuscular Hemoglobin 28.3 pg (26-34); Mean Corpuscular Volume 89.7 fl (80-100); Mean Platelet Volume 10.9 fl (7.4-10.4); Monocytes Absolute Auto 0.5 K/mm3 (0.1-0.6); Monocytes Percent Auto 13.5 % (2.6-8.5); Neutrophils Absolute Auto 2.8 K/mm3 (1.3-6.7); Neutrophils Percent Auto 69.7 % (45.5-73.1); Platelet Count Result 142 k/mm3 (150-375); Red Blood Count 4.74 M/mm3 (4.2-5.4); Red Cell Distribution Width 17.2 % (11.5-14.5); White Blood Count 3.9 K/mm3 (4.5-10.0)
[2024-06-08 16:45] LABS: Alanine Aminotransferase 167 U/L (6-35); Albumin Level 3.3 g/dL (3.5-5.1); Alkaline Phosphatase 296 U/L (38-126); Anion Gap 8 mmol/L (4-12); Aspartate Amino Transferase 528 U/L (14-36); Bilirubin,Total 1.7 mg/dL (0.2-1.3); Blood Urea Nitrogen 12 mg/dL (7-17); Calcium 8.6 mg/dL (8.4-10.2); Carbon Dioxide 24 mmol/L (22-30); Chloride 104 mmol/L (98-107); Estimated Glomerular Filt Rate > 60; Glucose 100 mg/dL (65-110); Potassium 4.3 mmol/L (3.4-5.0); Sodium 136 mmol/L (137-145)
[2024-06-08 17:20] LABS: Add Urine Microscopic? YES; Appearance Urine Cloudy (Clear); Bacteria Urine None Seen /hpf; Bilirubin Urine Negative (Negative); Blood Urine Negative (Negative); Color Urine Yellow (Yellow); Glucose Urine UA Negative (Negative); Ketones Urine Negative (Negative); Leukocyte Esterase Ur Negative LEU/UL (Negative); Need Manual Microscopic Reviewed; Nitrate Urine Negative (Negative); Protein Urine Negative (Negative); RBC Urine 0-2 /hpf (0-2); Specific Grav Ur 1.013 (1.001-1.035); Squamous Epithelial Cell Urine Occasional /hpf (Few); WBC Urine 0-5 /hpf (0-3); pH Urine 5.5 (5.0-9.0)
--- OUTSIDE RECORDS SUMMARY | 2024-06-08 17:28 | XMS_ITS | Continuity of Care Document ---
Author Name [facility] Organization [facility] Care Team Providers Care Lead Generation Marketing Manager Name Role Phone [facility] Unavailable Unavailable Allergies, Adverse Reactions, Alerts Combined list of allergies from Department of Defense and Veterans Affairs facilities. It does not include entries that were removed or entered in error. Substance Category Reaction Severity Reaction type Status Date Reported Comments Source penicillins Propensity to adverse reactions to drug Unknown Active 4 RASH/HIVE S Unknown Organizati on Immunizations Combined list of available immunizations from the Department of Defense and Veterans Affairs facilities. Immunization Series Date Given Administered By Site Reaction Lot Number CVX Code Drug Application Packaging Specialist Status Comments Source tetanus-dipht h toxoids (Td) adult/adol 2004 [id number] sanofi pasteur complet ed tetanus-d iphth toxoids (Td) adult/ado l 01/08/05 Given Ambulat ory Pharmac y influenza virus vaccine,split 2004 zzLef t Arm [id number] 15 sanofi pasteur complet ed influenza virus vaccine,s plit 01/08/05 Given Ambulat ory Pharmac y pneumococcal polysaccharid e, 23 valent 2004 zzLef t Arm [id number] 33 [employer] complet ed pneumococ isaak polysacch aride, 23 valent 01/08/05 Given Ambulat ory Pharmac y tetanus-dipht h toxoids (Td) adult/adol 2004 zzRig ht Arm [id number] 09 sanofi pasteur complet ed tetanus-d iphth toxoids (Td) adult/ado l 01/08/05 Given Ambulat ory Pharmac y influenza virus vaccine,split 2004 [id number] 15 sanofi pasteur complet ed influenza virus vaccine,s plit 01/08/05 Given Ambulat ory Pharmac y pneumococcal polysaccharid e, 23 valent 2004 [id number] 33 [employer] complet ed pneumococ isaak polysacch aride, 23 valent 11/17/05 Given Ambulat ory Pharmac y influenza virus vaccine, whole virus 2003 zzLef t Arm 16 complet ed influenza virus vaccine, whole virus 12/06/03 Given Ambulat ory Pharmac y influenza virus vaccine, whole virus 2003 16 complet ed influenza virus vaccine, whole virus 12/06/03 Given Ambulat ory Pharmac y influenza virus vaccine, whole virus 2002 zzLef t Arm [id number] 16 sanofi pasteur complet ed influenza virus vaccine, whole virus 12/06/02 Given Ambulat ory Pharmac y influenza virus vaccine, whole virus 2000 zzLef t Arm [id number] 16 sanofi pasteur complet ed influenza virus vaccine, whole virus 12/28/00 Given Ambulat ory Pharmac y influenza virus vaccine, whole virus 1999 [id number] 16 PFIZER complet ed influenza virus vaccine, whole virus 02/03/00 Given Ambulat ory Pharmac y influenza virus vaccine, whole virus 1999 zzLef t Arm [id number] 16 PFIZER complet ed influenza virus vaccine, whole virus 02/03/00 Given Ambulat ory Pharmac y Procedures Combined list of: 1) Procedures from Department of Veterans Affairs facilities [facility], not all ID non-surgical procedures are included; 2) All procedures from the Department of Defense facilities. Procedure Procedure Type Code Date Perfomer Comments Sourc e No data available for this section Ambulatory P harmacy Assessment and Plan Combined list of future care activities from Department of Defense and Veterans Affairs facilities (e.g., assessment and plan notes, appointments, orders, and referrals). Additional future care activities may be listed in the Plan of Care section. Result Assessment and Plan Date Source Assessment and Plan No data available for this section 06/08/2024 Ambulatory Pharmacy Functional Status Combined list of recent functional and cognitive assessments recorded at Department of Defense and Veterans Affairs (ID).VA Functional [place] Measurement (FIM) Scale: 1 = Total Assistance (Subject = 0% +), 2 = Maximal Assistance (Subject = 25% +), 3 = Moderate Assistance (Subject = 50% +), 4 = Minimal Assistance (Subject = 75% +), 5 = Supervision, 6 = Modified [place] (Device), 7 = Complete [place] (Timely, Safely). Assessment Date/Time Source Assessment Type Assessment Skill Assessment Score Assessment Details No data available for this section
--- OUTSIDE RECORDS SUMMARY | 2024-06-08 17:28 | XMS_ITS | Referral Summary ---
Author Organization [facility] Address [address] [place] [address] Care Team Providers Care Assistant Director Of Admissions Name Role Phone Nestor Faustin MD Primary Care Provider [phone] Encounters Date Type Department Care Team Description 05/31/2024 Telephone [facility] [address] [address] [place] [address] Clau Alvarado NP from Last 3 Months Allergies Active Allergy Reactions Criticality Noted Date Comments Penicillins Wheezing Medium 12/19/2020 Medications levothyroxine (SYNTHROID) 25 mcg tablet Take 1 tablet (25 mcg total) by mouth glass unloading equipment tender before breakfast Active potassium chloride ER (KLOR-CON) 10 mEq CR tablet Take 1 tablet/capsule (10 mEq total) by mouth 2 (two) times a day Active metoprolol blackwood-hydrochlorot hiaz 100-12.5 mg tablet extended release 24 hr Take by mouth Ac tive amLODIPine (NORVASC) 2.5 mg tablet amlodipine 2.5 mg tablet TAKE 2 TABLETS BY MOUTH IN THE MORNING AND 1 TABLET IN THE EVENING Active calcium-vits V3-Z-W8-mineral s 166.75 mg- 166.75 unit capsule Take by mouth Active fish oil-dha-epa 1,200-144-216 mg capsule Take by mouth Activ e HYDROcodone-malia taminophen (NORCO) 5-325 mg per tablet Take 1 tablet by mouth 3 (three) times a day 3 Active meloxicam (MOBIC) 15 mg tablet Take 1 tablet (15 mg total) by mouth daily as needed Active memantine (NAMENDA) 10 mg tabletIndicatio ns:Alzheimer's disease with late onset (HCC) Take 1 tablet (10 mg total) by mouth 2 (two) times a day 60 tablet 11 4 Active donepeziL (ARICEPT) 10 mg tabletIndicatio ns:Alzheimer's disease with late onset (HCC) Take 1 tablet (10 mg total) by mouth nightly 30 tablet 5 Active QUEtiapine (SeroqueL) 25 mg tablet Take 1 tablet (25 mg total) by mouth nightly as needed (agitation) 30 tablet 5 Active Active Problems Problem Noted Date Diagnosed [...] 36 C (96.8 F) 02/10/2021 10:45 AM 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 Respiratory Rate 16 07/03/2021 8:34 AM CDT Oxygen Saturation 97% 11/17/2023 2:21 PM CDT Inhaled Oxygen Concentration - - Weight 65.2 kg (143 lb 12.8 oz) 11/17/2023 2:21 PM CDT Height 165.1 cm (5' 5 ) 11/17/2023 2:21 PM CDT Body Mass Index 23.93 11/17/2023 2:21 PM CDT Plan of Treatment Not on file Insurance Cardize [facility] MEDICARE ADVANTAGE MEDICARE ADVANTAGE FOR LIFE Advance Directives For more information, please contact: [phone] * Full Code (Latest Code Status on File) Date Activated Date Inactivated Comments 02/10/2021 9:56 AM 02/11/2021 5:00 AM Care Teams Assistant Director Of Admissions Relationship Specialty Start Date End Date Nestor Faustin MD PCP - General Internal Medicine 12/09/20
--- OUTSIDE RECORDS SUMMARY | 2024-06-08 17:28 | XMS_ITS | Continuity of Care Document ---
Author Organization [facility] Address [address] [place] [address] Insurance Providers Payer Plan Claims Address Claims Phone Policy Number Group Number Relation Employer Guarantor Name Guarantor Guarantor Address Guarantor Phone [facility] [employer] ADV [address] [address], [place] [address] tel:[phone] Mynor Carly Martino [address], [place] [address] [employer] RE [address], [place] [address] tel:[phone] Mynor Martino [address], [place] [address] [employer] [address] [address], [place] [address] tel:[phone] Mynor Martino [address], [place] [address] Problems Unknown Problems Results No [...] N Body Mass Index 24 kg/m2 N 05/29/2024 Inhaled Oxygen Concentration 21.0 % N Temperature 97.7 [degF] N Oxygen Saturation 99 % N Respiratory Rate 16 /min N Heart Rate 88 /min N Blood Pressure Systolic 126 mm[Hg] N Blood Pressure Diastolic 72 mm[Hg] N Body Height 66 [in_i] N Body Weight 135 [lb_av] N Body Mass Index 21.8 kg/m2 N Social History No smoking Hx [...]
--- OUTSIDE RECORDS SUMMARY | 2024-06-08 17:28 | XMS_ITS | Clinical Summary ---
Author Organization [facility] Address [facility] [place] [address] Care Team Providers Care Head Bookkeeper Name Role Phone Unavailable Primary Care Provider [...] Vaccines (1 of 2) 11/21/1985 Pneumococcal Vaccine: 50+ Ye ars (1 of 1 - PCV) 11/21/2000 RSV Immunization or 60+ Years (1 - 1-dose 75+ series) 11/21/2010 COVID-19 Vaccine (2023-2 5 season) 2023 Meningococcal B Vaccine Aged Out No l onger eligible based on patient's age to complete this topic Meningococcal Vaccine Aged Out No shantell kalie eligible based on patient's age to complete this topic RSV Immunizations Under 20 Months Aged Out No longer eligible based on patient's age to complete this topic
--- OUTSIDE RECORDS SUMMARY | 2024-06-08 17:28 | XMS_ITS | CONTINUITY OF CARE DOCUMENT ---
Author Name genevieve vallejo Address Unknown Organization [facility] Address [address] [place] [address] Phone [phone] Care Team Providers Care Tailor Fitter Name Role Phone Omar De La Cruz MD Unavailable [phone] Omar De La Cruz MD Unavailable [phone] INSURANCE PROVIDERS Payer name Policy type / Coverage type Henry red libertarian ID FOR LIFE KAYLA [id number] [facility] [facility] insurance Secrette [id number]
--- OUTSIDE RECORDS SUMMARY | 2024-06-08 17:28 | XMS_ITS | Clinical Summary ---
Author Organization [facility] Building [facility] Address [address] [place] [address] Care Team Providers Care Administration Dean Name Role Phone Nestor Faustin MD Primary Care Provider Allergies Active Allergy Reactions Criticality Noted Date Comments Penicillins Wheezing Medium 12/19/2020 Medications levothyroxine (SYNTHROID) 25 mcg tablet Take 1 tablet (25 mcg total) by mouth shopper's aide before breakfast Active potassium chloride ER (KLOR-CON) [...] 1 TABLET IN THE EVENING Active calcium-vits L5-F-E5-mineral s 166.75 mg- 166.75 unit capsule Take [...] Date Alzheimer's disease with late onset 12/19/2020 Encounters Date Type Department Care Team Description 05/31/[address] [facility] [address] [facility] [address] [place] [address] Clau Alvarado PRINT MANAGER from Last 3 Months Surgical History Surgery Date Site/Laterality Comments HERNIA [...] 36 C (96.8 F) 02/10/2021 10:45 AM PRODUCTION COOK Respiratory Rate 16 07/03/2021 8:34 AM CDT [...] season) 2023 01/21/2021, 05/17/2020, 04/19/2020 Influenza Vaccine (Season Ended) 2024 12/01/2019, 11/30/2017, 12/02/2016, Additional history exists Insurance [employer] [facility] MEDICARE ADVANTAGE MEDICARE ADVANTAGE FOR LIFE Advance Directives For more information, please contact: [phone] * Full Code (Latest Code Status on File) Date Activated Date Inactivated Comments 02/10/2021 9:56 AM 02/11/2021 5:00 AM Care Teams Administration Dean Relationship Specialty Start Date End Date Nestor Faustin MD PCP - General Internal Medicine 12/09/20
--- OUTSIDE RECORDS SUMMARY | 2024-06-08 17:28 | XMS_ITS | Data Portability ---
Author Organization [place] - [facility] [place], Main Office Address [address] [place] [address] Assessment Encounter Date Assessment Date Assessment LastModified by Organization Details LastModified Time 01/07/2023 01/07/2023 Blood work been ordered we will continue current therapy Miller history of her diagnosis in assessment plan been discussed follow-up in 4 months [email or web address] Not available 01/11/2023 21:30:20 Plan of Treatment Reminders Order Date Submit Date Provider Last Modified By Organization Details Last Modified Time Details Appointments Any 15 2024 11:00A M Alina alva MD Not available Not available Not available Lab HbA1c (hemoglob in A1c), blood 2023 024 MATT Not available 10/20/2023 22:39:45 CBC w/ diff 2023 024 MATT Not available 10/20/2023 22:39:45 lipid panel, serum 2023 024 MATT Not available 10/20/2023 22:39:45 CMP, serum or plasma 2023 024 [facility], [address] [place], [address], 12/20/2023 08:13:23 CBC w/ auto diff 2023 024 [facility], [address] [place], [address], 12/20/2023 08:13:23 HbA1c (hemoglob in A1c), blood [address], [address] [place], [address], 06/29/2023 08:18:39 calcium, serum or plasma [address], [address] [place], [address], 06/29/2023 08:18:40 lipid panel, serum 2023 024 [facility], [address] [place], [address], 12/20/2023 08:13:23 TSH, serum or plasma 2023 024 [facility], [address] [place], [address], 12/20/2023 08:13:23 T4, free, serum 2023 024 [facility], [address] [place], [address], 12/20/2023 08:13:23 CMP, serum or plasma 2022 023 [facility], [address] [place], [address], 01/07/2023 13:30:13 CBC w/ auto diff 2022 023 [facility], [address] [place], [address], 01/07/2023 13:21:49 TSH, serum or plasma 2022 023 [facility], [address] [place], [address], 01/07/2023 14:27:12 T4, free, serum 2022 023 [facility], [address] [place], [address], 01/07/2023 13:56:25 T3, free, serum or plasma 2022 023 [facility], [address] [place], [address], 01/07/2023 14:36:21 lipid panel, serum 2022 023 [facility], [address] [place], [address], 01/07/2023 13:30:23 Referral home health referral [email or web address] [place] [address], [address], [place], [address], 04/18/2024 08:11:23 homemaker referral 2023 024 [facility], [address], [place], [address], 01/17/2024 07:44:37 Procedures None recorded. Surgeries None recorded. Imaging None recorded. Medication Orders meclizine 12.5 mg tablet 2023 024 [id number], [address], [place], [place], [id number], 06/22/2023 14:29:07 memantine 10 mg tablet 2023 024 [facility] #[id number], [address], [place], [place], [id number], 06/22/2023 14:26:11 amlodipin e 2.5 mg tablet 2023 024 [facility] #45379, [address], [place], [place], [id number], 06/22/2023 14:26:12 metoprolo l succinate ER 25 mg tablet,ex tended release 24 hr 2023 024 [facility] #58319, [address], [place], [place], [id number], 06/22/2023 14:26:11 potassium chloride ER 10 mEq tablet,ex tended release 2023 024 [facility] #86578, [address], [place], [place], [id number], 10/21/2023 10:05:23 levothyro xine 25 mcg tablet 2023 024 [facility] #49458, [address], [place], [place], [id number], 06/22/2023 14:26:09 Patient TargetsNo targets recorded. Patient Instructions Encounter Date Encounter Id Patient Instructions Last Modified By Organization Details Last Modified Time 06/22/2023 [id number] Follow up in 3 months and as needed Prescription refills sent to pharmacy Obtain labs Referral for homemaker services Not available 06/22/2023 14:23:17 10/20/2023 [id number] Follow up in December-for medicare annual wellness Obtain labs Tests: Referral: Residential home health Recommend: Influenza vaccine Pneumococcal vaccine Tetanus vaccine Shingles vaccine Not available 10/20/2023 14:37:47 01/17/2024 [id number] dementia rating scale-2* Not available 01/17/2024 12:34:24 multi-dimensiona health assessment questionnaire* Not available 01/17/2024 12:34:24 care plan* Not available 01/16 12:34:24 advance directiv es: care instructions Not available 01/17/2024 12:34:24 advance care planning: care instructions Not available 01/17/2024 12:34:25 [place] Advance Directives Not available 01/17/2024 12:34:24 Follow [...] Depression Screening: Negative Not available 01/17/2024 12:35:34 05/02/2024 [id number] Follow up in 3 months Tests: Referral: ALS facility Recommend: Pneumococcal vaccine Not available 05/02/2024 12:37:12 Reason for Referral Homemaker Referral for Moder [...] 4.8 x10'3 /uL 4.2-10 .8 Not Available [facility] (Lab) [address] [place], [address], 01/07/2023 13:21:49 01/08/20 23 01/07/2023 CBC/C OMPLE TE BLD COUNT W/DIF F red blood cells 4.44 x10'6 /uL 3.80-5 .20 Not Available [facility] (Lab) [address] [place], [address], 01/07/2023 13:21:49 01/08/20 23 01/07/2023 CBC/C OMPLE TE BLD COUNT W/DIF F hemoglobin 13.7 g/dL 12.0-1 5.6 Not Available [facility] (Lab) [address] [place], [address], 01/07/2023 13:21:49 01/08/20 23 01/07/2023 CBC/C OMPLE TE BLD COUNT W/DIF F hematocrit 41.6 % 35.7-4 5.7 Not Available [facility] (Lab) [address] [place], [address], 01/07/2023 13:21:49 01/08/20 23 01/07/2023 CBC/C OMPLE TE BLD COUNT W/DIF F mean red cell volume 93.7 fL 82.0-9 9.0 Not Available [facility] (Lab) [address] [place], [address], 01/07/2023 13:21:49 01/08/20 23 01/07/2023 CBC/C OMPLE TE BLD COUNT W/DIF F mean red cell hemoglobin 30.9 pg 27.0-3 3.0 Not Available [facility] (Lab) [address] [place], [address], 01/07/2023 13:21:49 01/08/20 23 01/07/2023 CBC/C OMPLE TE BLD COUNT W/DIF F mean RBC HGB concentratio n 32.9 g/dL 31.0-3 6.0 Not Available [facility] (Lab) [address] [place], [address], 01/07/2023 13:21:49 01/08/20 23 01/07/2023 CBC/C OMPLE TE BLD COUNT W/DIF F red cell distribution width 12.7 % 11.8-1 5.5 Not Available [facility] (Lab) [address] [place], [address], 01/07/2023 13:21:49 01/08/2001/07/2023 CBC/C OMPLE TE BLD COUNT W/DIF F platelets 243 x10'3 /uL 150-40 0 Not Available [facility] (Lab) [address] [place], [address], 01/07/2023 13:21:49 01/08/2001/07/2023 CBC/C OMPLE TE BLD COUNT W/DIF F mean platelet volume 10.4 fL 9.0-12 .4 Not Available [facility] (Lab) [address] [place], [address], 01/07/2023 13:21:49 01/08/2001/07/2023 CBC/C OMPLE TE BLD COUNT W/DIF F neutrophils 65.3 % 39.0-7 2.0 Not Available [facility] (Lab) [address] [place], [address], 01/07/2023 13:21:49 01/08/20 23 01/07/2023 CBC/C OMPLE TE BLD COUNT W/DIF F lymphocytes 23.2 % 16.0-4 7.0 Not Available [facility] (Lab) [address] [place], [address], 01/07/2023 13:21:49 01/08/2001/07/2023 CBC/C OMPLE TE BLD COUNT W/DIF F monocytes 9.2 % 5.0-12 .0 Not Available [facility] (Lab) [address] [place], [address], 01/07/2023 13:21:49 01/08/20 23 01/07/2023 CBC/C OMPLE TE BLD COUNT W/DIF F eosinophils 1.5 % 1.0-7. 0 Not Available [facility] (Lab) [address] [place], [address], 01/07/2023 13:21:49 01/08/2001/07/2023 CBC/C OMPLE TE BLD COUNT W/DIF F basophils 0.6 % 0.0-2. 0 Not Available [facility] (Lab) [address] [place], [address], 01/07/2023 13:21:49 01/08/2001/07/2023 CBC/C OMPLE TE BLD COUNT W/DIF F immature granulocytes 0.2 % 0.00-0 .50 Not Available [facility] (Lab) [address] [place], [address], 01/07/2023 13:21:49 01/08/20 23 01/07/2023 CBC/C OMPLE TE BLD COUNT W/DIF F neutrophils, absolute count 3.12 x10'3 /uL 1.5-8. 0 Not Available [facility] (Lab) [address] [place], [address], 01/07/2023 13:21:49 01/08/20 23 01/07/2023 CBC/C OMPLE TE BLD COUNT W/DIF F lymphocytes, absolute count 1.11 x10'3 /uL 1.07-3 .43 Not Available [facility] (Lab) [address] [place], [address], 01/07/2023 13:21:49 01/08/20 23 01/07/2023 CBC/C OMPLE TE BLD COUNT W/DIF F monocytes, absolute count 0.44 x10'3 /uL 0.29-0 .99 Not Available [facility] (Lab) [address] [place], [address], 01/07/2023 13:21:49 01/08/20 23 01/07/2023 CBC/C OMPLE TE BLD COUNT W/DIF F eosinophils, absolute count 0.07 x10'3 /uL 0.02-0 .53 Not Available [facility] (Lab) [address] [place], [address], 01/07/2023 13:21:49 01/08/20 23 01/07/2023 CBC/C OMPLE TE BLD COUNT W/DIF F basophils, absolute count 0.03 x10'3 /uL 0.01-0 .08 Not Available [facility] (Lab) [address] [place], [address], 01/07/2023 13:21:49 01/08/20 23 01/07/2023 CBC/C OMPLE TE BLD COUNT W/DIF F immature granulocytes ,absolute 0.01 x10'3 /uL 0.00-0 .05 Not Available [facility] (Lab) [address] [place], [address], 01/07/2023 13:21:49 01/08/20 23 01/07/2023 CBC/C OMPLE TE BLD COUNT W/DIF F nucleated red blood cells 0.0 % -0 Not Available [facility] (Lab) [address] [place], [address], 01/07/2023 13:21:49 01/08/20 23 01/07/2023 CBC/C OMPLE TE BLD COUNT W/DIF F NRBC# 0.00 x10'3 /uL Not Available [facility] (Lab) [address] [place], [address], 01/07/2023 13:21:49 01/08/2001/07/2023 COMPR EHENS ARNAUD METAB OLIC PANEL sodium 141 mmol/ L 137-14 5 Not Available [facility] (Lab) [address] [place], [address], 01/07/2023 13:30:13 01/08/20 23 01/07/2023 COMPR EHENS ARNAUD METAB OLIC PANEL potassium 4.0 mmol/ L 3.5-5. 1 Not Available [facility] (Lab) [address] [place], [address], 01/07/2023 13:30:13 01/08/20 23 01/07/2023 COMPR EHENS ARNAUD METAB OLIC PANEL chloride 104 mmol/ L 98-107 Not Available [facility] (Lab) [address] [place], [address], 01/07/2023 13:30:13 01/08/20 23 01/07/2023 COMPR EHENS ARNAUD METAB OLIC PANEL carbon dioxide 27 mmol/ L 22-30 Not Available [facility] (Lab) [address] [place], [address], 01/07/2023 13:30:13 01/08/20 23 01/07/2023 COMPR EHENS ARNAUD METAB OLIC PANEL anion gap 14.0 mmol/ L 14-22 Not Available [facility] (Lab) [address] [place], [address], 01/07/2023 13:30:13 01/08/20 23 01/07/2023 COMPR EHENS ARNAUD METAB OLIC PANEL glucose 91 mg/dL 70-99 Not Available [facility] (Lab) [address] [place], [address], 01/07/2023 13:30:13 01/08/20 23 01/07/2023 COMPR EHENS ARNAUD METAB OLIC PANEL BUN 16 mg/dL 8-19 Not Available [facility] (Lab) [address] [place], [address], 01/07/2023 13:30:13 01/08/20 23 01/07/2023 COMPR EHENS ARNAUD METAB OLIC PANEL creatinine 0.89 mg/dL 0.66-1 .25 Not Available [facility] (Lab) [address] [place], [address], 01/07/2023 13:30:13 01/08/20 23 01/07/2023 COMPR EHENS ARNAUD METAB OLIC PANEL GFR 60 Refer ence Range : [place] [facility] GFR Healt hy Adult : >60 [...] or ethni c subgr oups, such as Hissc nics. Outsi de the valid ated page [...] on the F websi te: https ://ayan chery.o issa/pr adwoaess ional s/kdo qi/gf r_cal culat or Not Available [facility] (Lab) [address] [place], [address], 01/07/2023 13:30:13 01/08/2001/07/2023 COMPR EHENS ARNAUD METAB OLIC PANEL alkaline phosphatase 88 U/L 38-126 Not Available [facility] (Lab) [address] [place], [address], 01/07/2023 13:30:13 01/08/20 23 01/07/2023 COMPR EHENS ARNAUD METAB OLIC PANEL alanine aminotransfe rase 16 U/L 0-35 Not Available [facility] (Lab) [address] [place], [address], 01/07/2023 13:30:13 01/08/2001/07/2023 COMPR EHENS ARNAUD METAB OLIC PANEL aspartate aminotransfe rase 23 U/L 15-37 Not Available [facility] (Lab) [address] [place], [address], 01/07/2023 13:30:13 01/08/2001/07/2023 COMPR EHENS ARNAUD METAB OLIC PANEL bilirubin, total 1.00 mg/dL 0.20-1 .30 Not Available [facility] (Lab) [address] [place], [address], 01/07/2023 13:30:13 01/08/2001/07/2023 COMPR EHENS ARNAUD METAB OLIC PANEL calcium 9.8 mg/dL 8.4-10 .2 Not Available [facility] (Lab) [address] [place], [address], 01/07/2023 13:30:13 01/08/2001/07/2023 COMPR EHENS ARNAUD METAB OLIC PANEL total protein 7.7 g/dL 6.3-8. 2 Not Available [facility] (Lab) [address] [place], [address], 01/07/2023 13:30:13 01/08/20 23 01/07/2023 COMPR EHENS ARNAUD METAB OLIC PANEL albumin 4.2 g/dL 3.0-4. 4 Not Available [facility] (Lab) [address] [place], [address], 01/07/2023 13:30:13 01/08/20 23 01/07/2023 COMPR EHENS ARNAUD METAB OLIC PANEL globulin 3.5 g/dL 2.6-4. 2 Not Available [facility] (Lab) [address] [place], [address], 01/07/2023 13:30:13 01/08/20 23 01/07/2023 COMPR EHENS ARNAUD METAB OLIC PANEL A/G ratio 1.2 ratio 1.0-2. 0 Not Available [facility] (Lab) [address] [place], [address], 01/07/2023 13:30:13 01/08/20 23 01/07/2023 LIPID PANEL cholesterol 259 mg/dL 140-19 9 high NIH BRITTANY NSUS RECOM MENDA TION FOR RM STERO L: ADULT CHILD LOW RISK: <200 <170 BORDE RLINE : <200- 239 ----- HIGH RISK: >240 >200 Not Available [facility] (Lab) [address] [place], [address], 01/07/2023 13:30:23 01/08/20 23 01/07/2023 LIPID PANEL triglyceride s 107 mg/dL 0-150 NIH BRITTANY NSUS REPOR T RECOM MENDA TION FOR TRIGL YCERI HORACIO: ADULT CHILD LOW RISK: <150 ----- BODER LINE: 150-1 99 ----- HIGH RISK: >200 ----- Not Available [facility] (Lab) [address] [place], [address], 01/07/2023 13:30:23 01/08/20 23 01/07/2023 LIPID PANEL HDL cholesterol 54 mg/dL 40- Not Available [facility] (Lab) [address] [place], [address], 01/07/2023 13:30:23 01/08/20 23 01/07/2023 LIPID PANEL [...] WILL NOT BE REPOR JACKY. Not Available [facility] (Lab) [address] [place], [address], 01/07/2023 13:30:23 01/08/20 23 01/07/2023 T4 FREE free T4 1.08 NG/dL 0.78-2 .19 Not Available [facility] (Lab) [address] [place], [address], 01/07/2023 13:56:25 01/08/20 23 01/07/2023 TSH thyroid-stim ulating hormone 4.340 uIU/m L 0.465- 4.680 Not Available [facility] (Lab) [address] [place], [address], 01/07/2023 14:27:12 01/08/20 23 01/07/2023 T3 FREE free T3 3.92 pg/mL 2.77-5 .27 Not Available [facility] (Lab) [address] [place], [address], 01/07/2023 14:36:21 Result Notes None recorded. 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 2023 Pretty Sharma APRN [address], [address], [place], [address] , [email or web address] 4 14:19:59 Chronic kidney disease 385922501 Active 2023 Pretty Sharma APRN [address], [address], [place], [address] , [email or web address] 4 13:40:47 Ingrowing toenail 085648072 Active 2023 Pretty Sharma APRN [address], [address], [place], [address] , [email or web address] 4 10:57:44 Osteoarth ritis 378460062 Active 2023 Pretty Sharma APRN [address], [address], [place], [address] , [email or web address] 4 15:31:46 Closed fracture of hip 501899867 Active 2023 Pretty Sharma APRN [address], [address], [place], [address] , [email or web address] 4 07:54:57 Walking disabilit y 128080354 Active 2023 Pretty Sharma APRN [address], [address], [place], [address] , [email or web address] 4 10:32:33 Aggressiv e behavior 00595595 Active 2024 Pretty Sharma APRN [address], [address], [place], [address] , [email or web address] 5 13:37:11 Fracture of thoracic spine 944800809 Active 2021 Not Available [employer] 3 06:57:07 Onset of confusion 081556390 Active 2021 Pretty Sharma APRN [address], [address], [place], [address] , [email or web address] 4 14:12:01 Pain in left lower limb 444030865 Completed 201606/02/2017 Not Available [facility] 3 04:39:32 Osteopeni a 641405583 Active Pretty Sharma APRN [address], [address], [place], [address] , [employer] [facility] 4 14:12:07 Pruritus of vagina 62401377 Completed Not Available [facility] 3 04:39:32 Depressiv e disorder 88706087 Active 2021 Pretty Sharma APRN [address], [address], [place], [address] , [employer] [facility] [employer] [facility] 4 14:11:49 Dizziness 331966086 Active 2021 Pretty Sharma APRN [address] [place] [address], [place], [address] , [employer] [facility] 4 14:11:54 Hypothyro idism 05508080 Active Pretty Sharma APRN [address], [place], [address] , [employer] [facility] [employer] [facility] 4 14:11:57 Nausea 318473351 Completed 201606/02/2017 Not Available [facility] 3 04:39:32 Hyperlipi demia 68014919 Active Pretty Sharma APRN [address], [address], [place], [address] , [employer] [facility] 4 14:11:52 Essential hypertens ion 08995775 Active Pretty Sharma APRN [address], [address], [place], [address] , [employer] [facility] [employer] [facility] 4 14:11:44 Compressi on fracture of thoracic spine 606513334 Active 2021 Not Available [facility] 3 06:57:07 Rhinitis 09719152 Active 2021 Not Available [employer] 3 06:57:07 Mild major depressio n, single episode 28019057 Active 2017 Not Available [facility] 3 06:57:07 Problem Notes None recorded. Procedures Surgical History Date Name Laterality Status Provider Name and Address Organization Details Recorded Time 01/17/20 24 Medicare Wellness CPT Code, subsequent completed Pretty Sharma, [employer] [address] [facility], [address], [place], [address], [employer] 01/08/2024 11:34:47 06/27/19 21 Hernia Repair completed Not Available [facility] 2022 04:34:10 09/27/19 20 other completed Not Available [facility] 3 04:34:10 01/20/20 18 Most Recent Bone Density completed Not Available [facility] 04/22/2022 04:34:08 04/15/19 12 Date of Last Colonoscopy completed Not Available [facility] 04/22/2022 04:34:08 debridement completed Not Available [facility] 04/22/2022 04:34:10 Partial hip replacement completed Yolanda Connelly MA [employer] 10/20/2023 14:11:20 Imaging Results None recorded. Procedure Notes None recorded. Medical Equipment None Reported. Allergies Allergen ID Allergen Name Allergen Category Reaction Reaction Severity Criticality Documentation Date Start Date Code Code System Note Provider Name and Address Organization Details Recorded Time 6844 Product containin g penicilli n (product) medicatio n hives Not available Not available 04/22/2022 43762 8001 SNOMED Not Available [facility] 3 04:49:51 Medications Name Sig Start Date Stop Date Status Note LastModified by Organization Details LastModified Time quetiapin e 25 mg tablet 05/02 completed Not Available Not Available Not Available celecoxib 200 mg capsule TAKE 1 CAPSULE BY MOUTH EVERY DAY 11/09 completed Not Available Not Available Not Available atorvasta tin 40 mg tablet one tablet daily 09/04 completed Not Available Not Available Not Available nitrofura ntoin macrocrys jimmy 50 mg capsule TAKE 1 CAPSULE BY MOUTH EVERY 12 HOURS active Not Available Not Available No t Available atorvasta tin 20 mg tablet TAKE [...] BY MOUTH ONCE DAILY ON Wednesday AND 04/20 completed Not Available Not Available Not Available tizanidin e 4 mg tablet Take 1 tablet every day by oral route at bedtime. active Not Available Not Available No t Available metoprolo l succinate ER 50 mg tablet,ex tended release 24 hr TAKE 1 TABLET BY MOUTH EVERY DAY 06/18 completed changed to 25mg per prabhu Faustin at visit 06/19/19 Not Available Not Available Not Available clarithro [...] 2 TABLETS BY MOUTH EVERY MORNING AND 1 TABLET EVERY EVENING active Not Available Not Available [...] Not Available ciproflox acin 500 mg tablet TAKE 1 TABLET BY MOUTH TWICE DAILY 05/02 completed Not Available Not Available Not Available [...] Not Available fluoromet holone 0.1 % eye drops,abby penon 06/02 completed Not Available Not Available Not [...] n 0.3 %-dexamet hasone 0.1 % eye drops,abby pension 10/20 completed Not Available Not Available Not Available Arthritis Pain Reliever 650 mg tablet,ex tended release TK 1 T PO Q 8 H FEV OR PAIN active Not Available Not Available No t Available cyclobenz aprine 5 mg tablet TAKE 1 TABLET BY MOUTH THREE TIMES DAILY 05/02 completed Not Available Not Available Not Available Restasis 0.05 % eye drops in [...] Available Not Available Not Available Fluad Quad (65yr up)(PF) 60 mcg (15 mcg x 4)/0.5mL IM syringe active Not Available Not Available Not Available Vitals Date Recorded Body height Body mass index (BMI) Body weight Body temperature Heart rate Systolic blood pressure Diastolic blood pressure Provider Name and Address Organization Details Last Updated DateTime 3 160.02 cm 25.9 kg/m2 59662.4 9 g 97.2 [degF] 87 /min 124 mm[Hg] 80 mm[Hg] FARIDEH Fetlon [place] [facility] [place] [employer] 3 11:13:58 Date Recorded Body height Body mass index (BMI) Body weight Body temperature Heart rate Oxygen saturation Oxygen saturation in Arterial blood by Pulse oximetry Systolic blood pressure Diastolic blood pressure Provider Name and Address Organization Details Last Updated DateTime 4 160.02 cm 25.5 kg/m2 25210.3 g 97 [degF] 105 /min 98 % 98 % 124 mm[Hg] 78 mm[Hg] Yolanda Connelly MA [facility] [employer] [facility] 4 14:01:16 Date Recorded Body height Body mass index (BMI) Body weight Body temperature Heart rate Oxygen saturation Oxygen saturation in Arterial blood by Pulse oximetry Systolic blood pressure Diastolic blood pressure Provider Name and Address Organization Details Last Updated DateTime 4 160.02 cm 24.8 kg/m2 94489.9 3 g 97.5 [degF] 93 /min 98 % 98 % 124 mm[Hg] 74 mm[Hg] Yolanda Connelly MA [facility] [employer] [facility] 4 14:08:29 Date Recorded Body height Body mass index (BMI) Body weight Heart rate Oxygen saturation Oxygen saturation in Arterial blood by Pulse oximetry Pain severity - 0-10 verbal numeric rating [Score] - Reported Body temperature Systolic blood pressure Diastolic blood pressure Provider Name and Address Organization Details Last Updated DateTime 4 160.02 cm 25 kg/m2 24057.5 2 g 97 /min 99 % 99 % 0 97 [degF] 106 mm[Hg] 68 mm[Hg] Yolanda Connelly MA [facility] [employer] [facility] 4 12:07:18 Date Recorded Body height Body mass index (BMI) Body weight Body temperature Heart rate Oxygen saturation Oxygen saturation in Arterial blood by Pulse oximetry Systolic blood pressure Diastolic blood pressure Provider Name and Address Organization Details Last Updated DateTime 5 160.02 cm 23.2 kg/m2 62012.6 g 98 [degF] 74 /min 98 % 98 % 110 mm[Hg] 70 mm[Hg] Toshia Garibay MA [facility] [employer] [facility] 5 11:55:57 Social History Question Answer Notes LastModified by Organization Details LastModified Time Tobacco Smoking Status Never Smoker Not Available [facility] 04/22/2022 04:29:28 Do You Have An Advance Directive? Yes Living Will [id number] Information not available 04/22/2022 What Is Your Level Of Alcohol Consumption? None [id number] Information not available 04/22/2022 Are You Blind Or Do You Have Difficulty Seeing? Yes Glasses [id number] Information not available 04/22/2022 What Is Your Level Of Caffeine Consumption? Occasional [id number] Information not available 04/22/2022 How Much Tobacco Do You Chew? None [id number].[id number] [id number] Information not available 04/22/2022 In The 14 Days Before Symptom Onset, Have You Had Close Contact With A Laboratory-confi rmed COVID-19 While That Case Was Ill? No [id number] Information not available 04/22/2022 In The 14 Days Before Symptom Onset, Have You Had Close Contact With A Person Who Is Under Investigation For COVID-19 While That Person Was Ill? No [id number] Information not available 04/22/2022 Are You Deaf Or Do You Have Serious Difficulty Hearing? No [id number].[id number] Information not available 04/22/2022 What Type Of Diet Are You Following? REGULAR [id number] Information not available 04/22/2022 Which Illicit Or Recreational Drugs Have You Used? None [id number] Information not available 04/22/2022 Do You Or Have You Ever Used E-cigarettes Or Vape? Never Used Electronic Cigarettes MIGRATION.030 826707 Information not available 04/22/2022 What Is The Highest Grade Or Level Of School You Have Completed Or The Highest Degree You Have Received? [id number] MIGRATION.030 490471 Information not available 04/22/2022 What Is Your Occupation? Retired MIGRATION.030 747365 Information not available 04/22/2022 Have There Been Any Changes To Your Family Or Social Situation? No MIGRATION.0301 453123 Information not available 04/22/2022 What Is The Fluoride Status Of Your Home? Unknown MIGRATION.0301 359242 Information not available 04/22/2022 Are There Any Guns Present In Your Home? No MIGRATION.0301 329918 Information not available 04/22/2022 Do You Use Insect Repellent Routinely? No MIGRATION.0301 902545 Information not available 04/22/2022 Where Do You Live? SingleLevelHouse MIGRATION.0301 929662 Information not available 04/22/2022 Do You Have A Medical Power Of Hospitality Host? Yes MIGRATION.0301 043722 Information not available 04/22/2022 What Was The Date Of Your Most Recent Tobacco Screening? 01/17/2024 Information not available 01/17/2024 How Many Children Do You Have? 1 Information not available 06/22/2023 Do You Have Any Pets? Yes MIGRATION.0301 778649 Information not available 04/22/2022 What Is Your Relationship Status? MIGRATION.0301 599775 Information not available 04/22/2022 Do You Use Your Seat Belt Or Car Seat Routinely? Yes MIGRATION.0301 467693 Information not available 04/22/2022 Do You Have Smoke And Carbon Monoxide Detectors In Your Home? Yes MIGRATION.0301 520246 Information not available 04/22/2022 Are You Passively Exposed To Smoke? No MIGRATION.0301 652294 Information not available 04/22/2022 Do You Or Have You Ever Used Smokeless Tobacco? Never Used Smokeless Tobacco MIGRATION.0301 885787 Information not available 04/22/2022 Are There Any Smokers In Your House? No MIGRATION.0301 753761 Information not available 04/22/2022 How Much Tobacco Do You Smoke? No MIGRATION.0301 966093 Information not available 04/22/2022 What Types Of Sporting Activities Do You Participate In? None MIGRATION.0301 603556 Information not available 04/22/2022 Do You Feel Stressed (tense, Restless, Nervous, Or Anxious, Or Unable To Sleep At Night)? [id number] MIGRATION.0301 312322 Information not available 04/22/2022 Do You Use Any Illicit Or Recreational Drugs? No MIGRATION.0301 908981 Information not available 04/22/2022 Do You Use Sunscreen Routinely? No MIGRATION.0301 692193 Information not available 04/22/2022 Has Tobacco Cessation Counseling Been Provided? No Not Needed-ne dalia Smoked MIGRATION.0301 207628 Information not available 04/22/2022 How Many Years Have You Smoked Tobacco? 0 MIGRATION.0301 136252 Information not available 04/22/2022 Have You Recently Traveled Abroad? No MIGRATION.0301 746568 Information not available 04/22/2022 Do You Have Any Dietary Restrictions? No MIGRATION.0301 251120 Information not available 04/22/2022 Do You Or Have You Ever Used Any Other Forms Of Tobacco Or Nicotine? No MIGRATION.0301 810329 Information not available 04/22/2022 Sex: Female Functional Status Question Answer Note LastModified by Organizat [employer] Details LastModified Time Do you have difficulty walking or climbing stairs? No MIGRATION.4007263 026 Information not available 04/22/2022 Do you have transportation difficulties? No MIGRATION.1439806 026 Information not available 04/22/2022 Are you able to walk? YESWOREST MIGRATION.0102787 026 Information not available 04/22/2022 Do you have difficulty doing errands alone? No MIGRATION.7154577 026 Information not available 04/22/2022 Are you able to care for yourself? No MIGRATION.0706801 026 Information not available 04/22/2022 Do you have difficulty dressing or bathing? No MIGRATION.5121688 026 Information not available 04/22/2022 What is your exercise level? None MIGRATION.1352417 026 Information not available 04/22/2022 Mental Status Question Answer Note LastModified by Organizat [employer] Details LastModified Time Do you have difficulty concentrating, remembering or making decisions? Yes MIGRATION.[id number] 6 Information not available 04/22/2022 Family History Relationship Description Onset Age of this Age Resolved Age Notes LastModified by Organization Details LastModified Time Mother Essential hypertension MIGRATION.104 [id number] Not available 04/22/2022 04:34:15 Mother Heart disease MIGRATION.703 9172361 Not available 04/22/2022 04:34:15 Medical History Condition Response BLINDNESS N NERVE DISEASE N RHEUMATIC FEVER N BLADDER PROBLEMS N KIDNEY STONES N MRSA N OTHER # 1 N POLIO N LUNG DISEASE/DISORDER N HISTORY OF DRUG ABUSE N RADIATION / CHEMOTHERAPY N COPD N Other # 2 N BLOOD DISEASES [...] HAVE YOU BEEN HOSPITALIZED OR SEEN IN [facility] IN THE PAST YEAR ? N ATHEROSCLEROSIS [...] dose 01/21/2021 completed Pretty Sharma APRN [address] [facility], [facility] [address], [place], [address], [place] [facility] 06/17/2023 08:53:28 Influenza, high-dose, quadrivalent, PF 01/21/2021 completed Pretty Sharma APRN [address], [place], [address], [email or web address] 06/17/2023 08:53:28 Influenza, adjuvanted, quadrivalent, PF 12/01/2019 completed Pretty Sharma APRN [address], [place], [address], [facility] 06/17/2023 08:53:28 Influenza, high-dose, quadrivalent, PF 2020 completed Not Available [facility] 06:57:07 COVID-19, mRNA, LNP-S, PF, 100 mcg/0.5mL dose or 50 mcg/0.25mL dose 05/17/2020 completed Pretty Sharma APRN [address], [place], [address], [facility] 06/17/2023 08:53:28 COVID-19, mRNA, LNP-S, PF, 100 mcg/0.5mL dose or 50 mcg/0.25mL dose 04/19/2020 completed Pretty Sharma APRN [address], [place], [address], [facility] 06/17/2023 08:53:28 Influenza, high-dose, quadrivalent, PF 12/01/2019 completed Pretty Sharma APRN [address], [place], [address], [facility] 06/17/2023 08:53:28 Influenza, high-dose, trivalent, PF 11/30/2017 completed Not Available [facility] 2022 06:57:08 Influenza, high-dose, trivalent, PF 12/02/2016 completed Not Available [facility] 2022 06:57:08 Influenza, high-dose, trivalent, PF 12/09/2015 completed Not Available [facility] 2022 06:57:08 Influenza, split virus, quadrivalent, PF 11/29/2014 completed Not Available [facility] 06:57:08 Influenza, high-dose, trivalent, PF 01/17/2024 completed Pretty Sharma APRN [address], [place], [address], [place] [facility] 01/18/2024 07:52:21 Past Encounters Encounter ID Performer Location Encounter Start Date Encounter Closed Date Diagnosis/Indication Diagnosis SNOMED-CT Code Diagnosis ICD10 Code Diagnosis Note [id number] [facility] Internal Med Keely kincaid [id number] [facility] , [place] [address] 05/30/2020 00:00:00 06/08/2020 20:13:32 [id number] [facility] General Surgery [address] [place] [address] Victor Manuele., [address] [address] 06/06/2020 00:00:00 06/06/2020 14:01:39 [id number] [facility] General Surgery [address] Victor Manuele., [address] [address] 07/02/2020 00:00:00 07/02/2020 11:40:04 [id number] [facility] Internal Med [facility] [address] [place] [address] Victor Manuele., [address] [address] 07/05/2020 00:00:00 08/18/2020 14:56:57 [id number] [facility] Internal Med [facility] [address] [place] [address] Victor Manuele., [address] [address] 08/02/2020 00:00:00 08/04/2020 22:02:15 [id number] [facility] Internal Med [facility] [address] [place] [address] Ave[address] [address] 10/21/2020 00:00:00 10/22/2020 22:06:45 [id number] [facility] Internal Med [facility] [address] [place], [place] [address]e., [address] [address] 11/18/2020 00:00:00 12/08/2020 15:14:14 [id number] [facility] Internal Med [facility] [address] [place], [place] [address]e., [address] [place] [address] 12/11/2020 00:00:00 01/16/2021 13:25:13 [id number] [facility] Internal Med [address] [place] [address] 01/15/2021 00:00:00 01/16/2021 13:28:38 [id number] [facility] Internal Med [address] Victor [address] [place] [address] 04/04/2021 00:00:00 04/13/2021 21:28:28 [id number] [facility] Internal Med [address] Victor [address] [facility] [address] [place] [address] 04/16/2021 00:00:00 04/19/2021 22:17:01 [id number] [facility] Internal Med Keely kincaid [address] [place] [address] , [place] [address] 04/24/2021 00:00:00 05/10/2021 16:28:04 [id number] [facility] Internal Med [facility] [address] Victor [address] [facility] [address] [place] [address] 05/15/2021 00:00:00 06/07/2021 15:09:51 [id number] [facility] Internal Med [address] Victor [address] [facility] [address] [place] [address] 06/18/2021 00:00:00 06/21/2021 22:27:51 [id number] [facility] Internal Med [address] Victor [address] [facility] [address] [place] [address] 07/17/2021 00:00:00 07/17/2021 22:30:20 [id number] [facility] Internal Med [address] Victor [address] [facility] [address] [place] [address] 08/11/2021 00:00:00 08/11/2021 21:44:31 [id number] [facility] Internal Med [address] Victor Manuele., [address] [address] 09/18/2021 00:00:00 09/20/2021 16:07:25 [id number] [facility] Internal Med [facility] [address] [place] [address], [address] [address] 11/13/2021 00:00:00 12/21/2021 20:29:10 [id number] [facility] Internal Med [facility] [address] [place] [address], [address] [address] 03/20/2022 00:00:00 03/22/2022 15:47:59 [id number] Nestor Faustin MD [facility] Internal Med [facility] [address]43 [facility], [address] [address] 06/18/2022 15:01:59 06/18/2022 15:44:49 Essential hypertension 53398454 I10 Renewal of prescription 981417245 Z76.0 Hyperlipidemia 45471214 E78.5 Hypothyroidism 02629683 E03.9 Compressio n fracture of thoracic spine 352980407 S22.000A [id number] Nestor Faustin MD [facility] Internal Med [facility] 2043 [facility], [address] [address] 10/15/2022 11:25:29 10/15/2022 11:41:44 Essential hypertension 84025708 I10 Hyperlipidemia 28285196 E78.5 Hypothyroidism 78169334 E03.9 [id number] Nestor Faustin MD [facility] Internal Med [facility] [address] [facility], [address] [address] 01/07/2023 11:05:27 01/07/2023 11:56:48 Essential hypertension 18958093 I10 Hyperlipidemia 17064037 E78.5 Hypothyroidism 93171862 E03.9 [id number] Pretty Sharma APRN [facility] Internal Med [facility] 20[address] [facility], [address] [address] 06/22/2023 13:51:09 06/22/2023 14:35:05 Essential hypertension 56071661 I10 Hypothyroidism 89390113 E03.9 Hyperlipidemia 78784767 E78.5 Moderate dementia 282655 2921 67195 F03.B0 Dizziness 812715719 R42 [id number] Pretty Sharma APRN [facility] Internal Med Keely kincaid [id number] [facility] , [facility] [place] [address] 10/20/2023 13:52:48 10/20/2023 14:47:55 Hyperlipidemia 99617896 E78.5 Closed fra cture of hip 092757027 S72.001D Advance care planning 71 6012341 Z71.89 DTR has pt's living with and is her POA. [id number] Pretty Sharma APRN [facility] Internal Med [facility] [address] [address] 01/17/2024 11:56:33 01/17/2024 12:49:02 Adult health examination 442257720 Z00.00 Screening for disorder 723508897 Z13.9 Administra tion of influenza vaccine 20910083 Z23 [id number] Pretty Sharma APRN [facility] Internal Med [facility] 2043 [facility], [address] [address] 05/02/2024 11:38:38 05/02/2024 12:46:28 Moderate dementia 1635448727 70762 F03.B0 Continue to potential assisted living or long term. Walking disability 37087 8008 R26.2 Ambulates with cane Health Concerns Section Related Observation LastModified by Organization Detai ls LastModified Time None Recorded Concern Status LastModified by Organization Details LastModified Time None Recorded Advance Directives Directive Y: living will Payers Encounter Date Sequence Insurance Name Policy Number Policy Rose Covered Member ID Rose Member ID Guarantor Name 01/07/2023 1 [facility] (MEDICARE REPLACEMENT/ ADVANTAGE - HMO) [id number] Carly Martino [id number] Carly Martino 01/07/2023 2 [employer] (MEDICARE SUPPLEMENT) Micah Martino [id number] Carly Martino 06/22/2023 1 [facility] (MEDICARE REPLACEMENT/ ADVANTAGE - HMO) [id number] Carly Martino [id number] Carly Martino 06/22/2023 2 [employer] (MEDICARE SUPPLEMENT) Micah Martino [id number] Carly Gunner 10/20/2023 1 [facility] (MEDICARE REPLACEMENT/ ADVANTAGE - HMO) [id number] Caryl Martino [id number] Carly Gunner 10/20/2023 2 [employer] (MEDICARE SUPPLEMENT) Micah Martino [id number] Carly Gunner 01/17/2024 1 [facility] (MEDICARE REPLACEMENT/ ADVANTAGE - HMO) [id number] Carly Martino [id number] Carly Gunner 01/17/2024 2 [employer] (MEDICARE SUPPLEMENT) Micah Martino [id number] Carly Gunner 05/02/2024 1 [facility] (MEDICARE REPLACEMENT/ ADVANTAGE - HMO) [id number] Carly Martino [id number] Carly Gunner 05/02/2024 2 [employer] (MEDICARE SUPPLEMENT) Micah Martino [id number] Carly Gunner Notes Date Note Type Note Provider Name and Address Organization Details Recorded Time 01/07/2023 text/html Hypertension no headache no dizziness hyperlipidemia we have liberalized diet a little bit hypothyroid no heat or cold intolerance moderate dementia stable family members are in attendance today no new behavior problems compression fracture of thoracic spine asymptomatic at this time Nestor Faustin MD [address], [employer], [place], [address], [email or web address] 01/11/2023 21:30:58 06/22/2023 text/html Carly presents today to establish care. She is also in need of medication refills. Family is also requesting a homemaker service due to patient's daughter (primary caregiver) works away from home 3 days per week and patient is not performing ADLs unless assisted. Pretty Sharma APRN [address], [place], [address], [email or web address] 06/22/2023 14:29:55 10/20/2023 text/html Carly presents for 4 month follow up. She recently fell and sustained a hip fracture. She was in the hospital and rehab. She is now home and in need of home health. Daughter is with her and states that patient is in need of a walk-in tub or shower. DTR states that she has spoken with [employer] and Medicare regarding a walk-in tub and they will cover the cost with an order from me. DTR states that the rest of her house has is handicap accessible and she has a ramp outside her house. 06/22/2023genna presents today to establish care. She is also in need of medication refills. Family is also requesting a homemaker service due to patient's daughter (primary caregiver) works away from home 3 days per week and patient is not performing ADLs unless assisted. Pretty Sharma APRN [address], [place], [address], [email or web address] 10/20/2023 14:46:13 01/17/2024 text/html Carly presents today for Medicare Annual [...] DTR states that she has spoken with [employer] and Medicare regarding a walk-in tub and they will cover the cost with an order from me. DTR states that the rest of her house has is handicap accessible and she has a ramp outside her house. 06/22/2023genna presents today to establish care. She is also in need of medication refills. Family is also requesting a homemaker service due to patient's daughter (primary caregiver) works away from home 3 days per week and patient is not performing ADLs unless assisted. Pretty Sharma APRN [address], [place], [address], [email or web address] 01/17/2024 13:55:48 05/02/2024 text/html Carly presents today for her 6 month follow up. New POA appears with patient, they state that patient cannot stay at home by herself and her daughter who use to take care of her has left the patient at home by herself. Her son is now the POA and is wanting to put her in assisted living. He states the patient does not want to change clothes or take care of herself and requires more care then they are able to provide as her son is an over the road milk truck driver and his has medical issues herself. 4Dgenna presents today for Medicare Annual Wellness visit and 3 month follow up. Family denies any illnesses or falls for the patients. Family states that she is using handrails in the home. She also has shower rails and bath seat. 4Dgenna presents for 4 month follow up. She recently fell and sustained a hip fracture. She was in the hospital and rehab. She is now home and in need of home health. Daughter is with her and states that patient is in need of a walk-in tub or shower. DTR states that she has spoken with [place] and Medicare regarding a walk-in tub and they will cover the cost with an order from mi. DTR states that the rest of her [...] ADLs unless assisted. Pretty Sharma APRN [address] [facility], [facility] [address], [place], [address], [facility] [employer] 05/02/2024 12:37:23 OBGyn Episode No OBEpisode recorded.
--- OUTSIDE RECORDS SUMMARY | 2024-06-08 17:28 | XMS_ITS | Clinical Summary ---
Author Organization [facility] Facility Address [address] [facility] [address] [place] [address] Care Team Providers Care Nick Setter Name Role Phone Pretty Raymond APRN Primary Care Provider [phone] Social History Tobacco Use Types Packs/Day Years Used Date Smoking Tobacco: Never Assessed Comments Unknown Sex and Gender Information Value Date Recorded Sex Assigned at Not on file Legal Sex Female 9:32 AM EDT Gender Identity Not on file Sexual Orientation Not on file Plan of Treatment Health Maintenance Due Date Last Done Comments Pneumococcal Vaccine: 50+ Ye ars (1 - PCV) 11/21/2000 Influenza Vaccine (Season Ended) 2024 Hepatitis B Vaccine Aged Out No longe r eligible based on patient's age to complete this topic Insurance [facility] [address] Medicare Care Teams Nick Setter Relationship Specialty Start Date End Date Pretty Raymond APRN [facility] Internal Med [facility] [address] [facility] [place] [address] PCP - General 06/24/23
--- OUTSIDE RECORDS SUMMARY | 2024-06-08 17:28 | XMS_ITS | Continuity of Care Document ---
Author Organization [facility] Address [address] [facility] [address] [place] [address] Phone Care Team Providers Care Sand Screener Name Role Phone Bre Orta Unavailable Unavailable [...] Diagnoses Date Provider Providers Copied on Encounter [facility], [address] [place] [address] [address], [place], [place], [address], [place] tel:[phone] [facility] No Information Sep-2 3-201 0 Marivel Polanco [address] [facility] [address] , [address], [place], [address], [place]. tel:[phone] [facility], [address] [place] [address] [address], [place], [place], [address], [place] tel:[phone] [facility] No Information Sep-0 2-201 0 Marivel Polanco [address] [facility] [address] , [address], [place], [address], [place]. tel:[phone] [facility], [address] [place] [address] [address], [place], [place], [address], [place] tel:[phone] [facility] No Information -201 0 Marivel Polanco [address], [place], [place], [facility], [place]. tel:[phone] [facility], [address] [place] [address] [address], [place], [place], [address], [place] tel:[phone] [facility] No Information -201 0 Marivel Polanco [address], [place], [place], [facility], [place]. tel:[phone] Office/outpat ient Visit, [facility], [address] [place] [address] [address], [place], [place], [address], [place] tel:[phone] [facility] No Information 2-201 0 Marivel Polanco [address] , [address], [place], [place], [facility], [place]. tel:[phone] Referring Provider: [facility] [address], [place], [place], [facility]. tel:[phone] [facility], [address] [place] [address] [address], [place], [place], [address], [place] tel:[phone] [facility] No Information 3-200 9 Marivel Polanco [address] , [address], [place], [address], [place]. tel:[phone] [facility], [address] [place] [address] [address], [place], [place], [address], [place] tel:[phone] [facility] No Information 8-200 8 Marivel Polanco [address] , [address], [place], [facility], [place]. tel:[phone] [facility], [address], [place], [place], [address], [place] tel:[phone] [facility] No Information 0-200 7 Marivel Silvan. [address] [facility] , [address], [place], [address], [place]. tel:[phone] Family History Family Member Type Diagnosis Age [...]
--- OUTSIDE RECORDS SUMMARY | 2024-06-08 17:28 | XMS_ITS | Clinical Summary ---
Author Organization [facility] Address [address] [place] [address] Care Team Providers Care Statistical Typist Name Role Phone Alina Collier MD Primary Care Provider Source Comments [facility],non-owned Affiliates and Associated Physician Practices is amultiple site organization consisting of ambulatory clinics and hospital sitesin [place], [place], [place] and [place]. This disclosure is being madepursuant to the Care Everywhere program and may not contain all information available regarding this patient. Last updated 17.[facility] Allergies Active Allergy Reactions Criticality Noted Date Comments Penicillins Unknown 07/20/2023 Medications * Be aware that medications may not be up to date on this document. Always verify current medications with the patient. levothyroxine (Synthroid) 25 MCG tablet Take 1 [...] Ensure Enlive/Ensure Plus High Protein/Boost Plus/Equate Plus Active senna-docusate (Senokot-S) 8.6-50 MG tablet Take 1 (one) tablet by mouth 2 times daily 4 Active polyethylene glycol 3350 (Miralax) 17 g packet Take 17 (seventeen) g by mouth once daily 4 Active apixaban (Eliquis) 2.5 MG tablet Take 1 (one) tablet by mouth 2 times daily for 35 days 4 Active Active Problems Problem Noted Date Diagnosed [...] Recorded Patient Health Questionnaire-2 Score 0 11/25/2023 [place] [facility] - Occupational Stress [...] place to sleep or slept in a penitentiary (including now)? No 07/21/2023 Comments Unknown Sex and Gender Information Value Date Recorded Sex Assigned at Not on file Legal Sex Female 4:11 PM CDT Gender Identity Not on file [...] - 1-dose 75+ series) 11/21/2010 COVID-19 VACCINE (4 - season) 2023 01/21/2021, 05/17/2020, 04/19/2020 DEPRESSION SCREENING 02/23/2024 11/25/2023 MEDICARE AWV CALENDAR YEAR 2024 INFLUENZA VACCINE (Season Ended) 2024 11/30/2017, 12/02/2016, 12/09/2015, Additional history exists HEPATITIS B VACCINE Aged Out No longe r eligible based on patient's age to complete this topic HIB VACCINE Aged Out No longer eligi ble based on patient's age to complete this topic HPV VACCINE Aged Out No longer eligi ble based on patient's age to complete this topic MENINGOCOCCAL (Group B) VACCINE SHARED DECISION-MAKING Aged Out No longer eligible based on patient's age to complete this topic MENINGOCOCCAL GROUPS A/C/Y/W VACCINE Aged Out No longer eligible based on patient's age to complete this topic Medical Devices Implanted Type Area Housing Grant Analyst Device Identifier Shelf Expiration Date Model / Serial / Lot Compon Acetab Bipol Uhr 49mm Implanted:Qty: 1 on 07/21/2023 by Nestor Patton MD at [facility] Right: Hip [employer] [id number] 07/07/2025 UH1-49-28 / / [id number] Insignia Hip Stem Standard Offset Implanted:Qty: 1 on 07/21/2023 by Nestor Patton MD at [facility] Right: Hip [employer] 09/03/2027 [id number] / / [id number] Head Fem +8mm Ofst Tpr 28mm Hip Cocr V40 Implanted:Qty: 1 on 07/21/2023 by Nestor Patton MD at [facility] Right: Hip [employer] [id number] 07/29/2026 [id number] / / [id number] Insurance [facility] MANAGED MEDICARE ADV Advance Directives Documents on File Type Date Recorded Patient Paving Inspector Expl anation Adv Directive/Living Will/POA 08/02/2023 4:03 PM * Full Code (Latest Code Status on File) Date Activated Date Inactivated Comments 07/20/2023 9:22 PM 07/30/2023 6:45 PM Care Teams Statistical Typist Relationship Specialty Start Date End Date Alina Collier MD [address] [place] [address] PCP - General Internal Medicine 11/19/23
[2024-06-08] MEDS: SODIUM CHLORIDE 0.9% IV 1,000 ML 999 ML IV CONT (17:46)
[2024-06-08 17:52] LABS: Influenza A QL RT-PCR Negative (Negative); Influenza B QL RT-PCR Negative (Negative); RSV RNA, RT-PCR Negative (Negative); SARS-CoV-2 RNA PCR Negative (Negative)
--- NOTE | 2024-06-08 18:09 | ED_ITS ---
HPI - Weakness General Chief complaint: Weakness <Colette Hansen PA-C - Last Filed: 06/08/24 21:25> Stated complaint: weakness <Colette Hansen PA-C - Last Filed: 06/08/24 21:25> Time Seen by Provider: 06/08/24 16:59 <Colette Hansen PA-C - Last Filed: 06/08/24 21:25> Source: patient and family <CONCHA Metz Last Filed: 06/08/24 21:25> Mode of arrival: EMS <CONCHA Metz Last Filed: 06/08/24 21:25> Limitations: dementia <Colette Hansen PA-C - Last Filed: 06/08/24 21:25> History of Present Illness HPI Narrative: Patient is an 88-year-old female, with past medical history of dementia, hypothyroidism, HTN, who presents to the ED via EMs with report of weakness. Family at bedside certified ophthalmic assistant providing information. Reports patient became altered and confused today, has been increasingly weak over the last few days. They state she has history of recurrent UTIs and dehydration. States patient was very sleepy today, was though she had taken extra medication, however family denies any new medications. Denies recent cough or cold symptoms. Denies fevers. Patient was reportedly complaining of pain to her right-sided head earlier today. Patient denies any complaints upon my evaluation. Family expresses concern at they would like patient placed in a fci facility. She currently lives at home alone, but requires around the clock fci or family care. <Colette Hansen PA-C - Last Filed: 06/08/24 21:25> Related Data Home medications: Home Medications ?Medication ?Instructions ?Recorded ?Confirmed ?Last Taken ?Type levothyroxine 25 mcg tablet 25 mcg PO DAILY 09/11/19 06/08/24 Unknown History metoprolol succinate 50 mg 25 mg PO DAILY 09/11/19 06/08/24 Unknown History tablet,extended release 24 hr potassium chloride 10 mEq 10 meq PO DAILY 09/11/19 06/08/24 Unknown History tablet,extended release donepezil 5 mg tablet 5 mg PO DAILY 07/13/21 06/08/24 Unknown History atorvastatin 10 mg tablet 10 mg PO QPM 06/08/24 06/08/24 Unknown History <Colette Hansen PA-C - Last Filed: 06/08/24 21:25> Allergies/Adverse reactions: Allergies Allergy/AdvReac Type Severity Reaction Status Date / Time Penicillins Allergy Unknown Verified 06/08/24 22:26 <Colette Hansen PA-C - Last Filed: 06/08/24 21:25> Review of Systems 2 Review of Systems: All systems reviewed & are unremarkable except as noted in HPI. <Colette Hansen PA-C - Last Filed: 06/08/24 21:25> All systems reviewed & are unremarkable except as noted in HPI and below < Colette Hansen PA-C - Last Filed: 06/08/24 21:25> REPLACED BY [facility] Past Medical History Medical History: Medical History Dementia Hypothyroid Hyperlipidemia Hypertension <Colette Hansen PA-C - Last Filed: 06/08/24 21:25> Family History Family History: Family History Other Unknown family medical history <Colette Hansen PA-C - Last Filed: 06/08/24 21:25> Social History Social History: Social History Social History: Patient is a Adventism lives at home by herself. She has 2 kids a son and a daughter and worked for [employer]. Patient wishes to be a DNR and states that her son and daughter can be her surrogate. Son Micah was present. 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 HEAD: Normocephalic, atraumatic. RESPIRATORY: Airway patent, respirations nonlabored. Clear to auscultation bilaterally, no rales, rhonchi, wheezing. CARDIOVASCULAR: Regular rate and rhythm without murmurs, rubs, or gallops. ABDOMINAL: Soft, no appreciable tenderness. Nondistended. Normoactive BS. MUSCULOSKELETAL: Moves all extremities. No gross deformities. SKIN: Warm, dry, normal color. NEURO: A&O X2, unsure of year. Speech clear. No ataxic movements. No focal deficits. Moves all extremities equally. PSYCHIATRIC: Appropriate mood and affect. Normal interaction. <CONCHA Metz Last Filed: 06/08/24 21:25> Course HERBICIDE SPRAYER/PA Physician Supervision For this patient encounter, I reviewed the HERBICIDE SPRAYER or PA documentation, treatment plan, and medical decision making and had [id number] time with this patient. I performed all aspects of the MDM as documented. <Hallie Diop MD - Last Filed: 06/09/24 01:01> Vital Signs Vital signs: Vital Signs Pulse Rate 66 06/08/24 16:23 Respiratory Rate 14 06/08/24 16:23 Blood Pressure 124/74 06/08/24 16:23 Pulse Oximetry 99 06/08/24 16:23 Temperature 97.5 F L 06/08/24 23:47 Pulse Rate 66 06/08/24 23:47 Respiratory Rate 16 06/08/24 23:47 Blood Pressure 140/77 06/08/24 23:47 Pulse Oximetry 95 06/08/24 23:47 Oxygen Delivery Room Air 06/08/24 16:27 <Colette Hansen PA-C - Last Filed: 06/08/24 21:25> Vital Signs Pulse Rate 66 06/08/24 16:23 Respiratory Rate 14 06/08/24 16:23 Blood Pressure 124/74 06/08/24 16:23 Pulse Oximetry 99 06/08/24 16:23 Temperature 97.5 F L 06/08/24 23:47 Pulse Rate 66 06/08/24 23:47 Respiratory Rate 16 06/08/24 23:47 Blood Pressure 140/77 06/08/24 23:47 Pulse Oximetry 95 06/08/24 23:47 Oxygen Delivery Room Air 06/08/24 16:27 <Hallie Diop MD - Last Filed: 06/09/24 01:01> MDM - Weakness MDM Narrative Medical decision making narrative: Patient presented to ED with family with concern for weakness, confusion today. Hx of dementia. Vital signs are stable upon arrival. Patient is in no acute distress. She does appear slightly sleepy, but easily arousable. Appears neurologically intact. No focal deficits. A&O X2 upon my eval. Cbc with white blood cell count of 3.9. Stable H&H with stable kidney function. Liver enzymes are abnormal, total bili elevated to 1.7, AST 528, ALT 167, alk-phos 296. Lipase is slightly elevated to 394. Patient without any focal right upper quadrant tenderness on exam, though not a reliable historian. No rebound tenderness. Thyroid studies WNL. UA is clear. Viral swabs are negative. CT brain without acute findings. CT abdomen pelvis obtained and showing several nonspecific findings, possible colitis, constipation, thickened rectum. Does show grossly distended gallbladder without definite cholelithiasis, prominent pancreatic duct. Discussed lab and imaging findings with Dr. Balderrama, GI, advised likely incidental finding, but obtain right upper quadrant ultrasound to further look at gallbladder, MRCP tomorrow, will consult. Patient will require admission for further evaluation. Will also place care coordination consult as family expressed interest in having patient placed in a fci. Discussed case with Dr. Costello, hospitalist, accepted patient for admission. Advised to start patient on antibiotics for possible gallbladder etiology, continue fluids. Zosyn started in the ED. Patient and family in agreement with plan and need for admission. <Colette Hansen PA-C - Last Filed: 06/08/24 21:25> Medical Records Attestation: I reviewed the patient's medical records. <Colette Hansen PA-C - Last Filed: 06/08/24 21:25> Lab Data Attestation: I reviewed the patient's lab results. <Colette Hansen PA-C - Last Filed: 06/08/24 21:25> Result diagrams: 06/08/24 16:23 06/08/24 16:23 <Colette Hansen PA-C - Last Filed: 06/08/24 21:25> Labs: Lab Results 06/08/24 Range/Units 16:23 WBC 3.9 L (4.5-10.0) K/mm3 RBC 4.74 (4.2-5.4) M/mm3 Hgb 13.4 (12.0-15.0) g/dL Hct 42.5 (37.0-47.0) % MCV 89.7 (80-100) fl MCH 28.3 (26-34) pg MCHC 31.5 L (32-36) g/dl RDW 17.2 H (11.5-14.5) % Plt Count 142 L (150-375) k/mm3 MPV 10.9 H (7.4-10.4) fl Immature Gran % (Auto) 0.3 (0-0.5) % Neut % (Auto) 69.7 (45.5-73.1) % Lymph % (Auto) 14.2 L (18.3-44.2) % Finney % (Auto) 13.5 H (2.6-8.5) % Eos % (Auto) 1.0 (0-4.4) % Baso % (Auto) 1.3 H (0.2-1.2) % Lymph # (Auto) 0.56 L (0.9-3.2) K/mm3 Finney # (Auto) 0.5 (0.1-0.6) K/mm3 Eos # (Auto) 0.0 (0-0.3) K/mm3 Baso # (Auto) 0.1 (0.0-0.1) K/mm3 Abs Immat Gran (auto) 0.01 (0.00-0.031) K/mm3 Absolute Neuts (auto) 2.8 (1.3-6.7) K/mm3 Absolute Nucleated RBC 0.000 (0.0-0.012) K/mm3 Nucleated RBC % 0.0 (0.0-0.2) % Sodium 136 L (137-145) mmol/L Potassium 4.3 (3.4-5.0) mmol/L Chloride 104 (98-107) mmol/L Carbon Dioxide 24 (22-30) mmol/L Anion Gap 8 (4-12) mmol/L BUN 12 D (7-17) mg/dL Creatinine 0.64 L (0.7-1.0) mg/dL Estim Creat Clear Calc Not Reportable Estimated GFR > 60 (59 - ) Glucose 100 (65-110) mg/dL Calcium 8.6 (8.4-10.2) mg/dL Magnesium 1.9 (1.6-2.3) mg/dL Total Bilirubin 1.7 H (0.2-1.3) mg/dL AST 528 H (14-36) U/L ALT 167 H (6-35) U/L Alkaline Phosphatase 296 H (38-126) U/L Total Protein 8.0 (6.3-8.2) g/dL Albumin 3.3 L (3.5-5.1) g/dL Lipase 394 H (23-300) U/L TSH (Reflex) 1.650 (0.465-4.68) uIU/mL Urine Color Yellow (Yellow) Urine Appearance Cloudy H (Clear) Urine pH 5.5 (5.0-9.0) Ur Specific Gary 1.013 (1.001-1.035) Urine Protein Negative (Negative) mg/dL Urine Glucose (UA) Negative (Negative) mg/dL Urine Ketones Negative (Negative) mg/dL Ur Blood (Man) Negative (Negative) Urine Nitrate Negative (Negative) Urine Bilirubin Negative (Negative) Urine Urobilinogen 1.0 (<2.0) mg/dL Add Ur Microanalysis Reviewed Leukocyte Esterase Rfl Negative (Negative) HERMINIO/UL Urine RBC 0-2 (0-2) /hpf Urine WBC 0-5 (0-3) /hpf Ur Squamous Epith Cells Occasional (Few) /hpf Urine Bacteria None seen /hpf Urine Casts 3-5 Influenza A (RT-PCR) Negative (Negative) Influenza B (RT-PCR) Negative (Negative) RSV (RT-PCR) Negative (Negative) SARS-CoV-2 RNA (RT-PCR) Negative (Negative) <Colette Hansen PA-C - Last Filed: 06/08/24 21:25> Lab Results 06/08/24 Range/Units 16:23 WBC 3.9 L (4.5-10.0) K/mm3 RBC 4.74 (4.2-5.4) M/mm3 Hgb 13.4 (12.0-15.0) g/dL Hct 42.5 (37.0-47.0) % MCV 89.7 (80-100) fl MCH 28.3 (26-34) pg MCHC 31.5 L (32-36) g/dl RDW 17.2 H (11.5-14.5) % Plt Count 142 L (150-375) k/mm3 MPV 10.9 H (7.4-10.4) fl Immature Gran % (Auto) 0.3 (0-0.5) % Neut % (Auto) 69.7 (45.5-73.1) % Lymph % (Auto) 14.2 L (18.3-44.2) % Finney % (Auto) 13.5 H (2.6-8.5) % Eos % (Auto) 1.0 (0-4.4) % Baso % (Auto) 1.3 H (0.2-1.2) % Lymph # (Auto) 0.56 L (0.9-3.2) K/mm3 Finney # (Auto) 0.5 (0.1-0.6) K/mm3 Eos # (Auto) 0.0 (0-0.3) K/mm3 Baso # (Auto) 0.1 (0.0-0.1) K/mm3 Abs Immat Gran (auto) 0.01 (0.00-0.031) K/mm3 Absolute Neuts (auto) 2.8 (1.3-6.7) K/mm3 Absolute Nucleated RBC 0.000 (0.0-0.012) K/mm3 Nucleated RBC % 0.0 (0.0-0.2) % Sodium 136 L (137-145) mmol/L Potassium 4.3 (3.4-5.0) mmol/L Chloride 104 (98-107) mmol/L Carbon Dioxide 24 (22-30) mmol/L Anion Gap 8 (4-12) mmol/L BUN 12 D (7-17) mg/dL Creatinine 0.64 L (0.7-1.0) mg/dL Estim Creat Clear Calc Not Reportable Estimated GFR > 60 (59 - ) Glucose 100 (65-110) mg/dL Calcium 8.6 (8.4-10.2) mg/dL Magnesium 1.9 (1.6-2.3) mg/dL Total Bilirubin 1.7 H (0.2-1.3) mg/dL AST 528 H (14-36) U/L ALT 167 H (6-35) U/L Alkaline Phosphatase 296 H (38-126) U/L Total Protein 8.0 (6.3-8.2) g/dL Albumin 3.3 L (3.5-5.1) g/dL Lipase 394 H (23-300) U/L TSH (Reflex) 1.650 (0.465-4.68) uIU/mL Urine Color Yellow (Yellow) Urine Appearance Cloudy H (Clear) Urine pH 5.5 (5.0-9.0) Ur Specific Gary 1.013 (1.001-1.035) Urine Protein Negative (Negative) mg/dL Urine Glucose (UA) Negative (Negative) mg/dL Urine Ketones Negative (Negative) mg/dL Ur Blood (Man) Negative (Negative) Urine Nitrate Negative (Negative) Urine Bilirubin Negative (Negative) Urine Urobilinogen 1.0 (<2.0) mg/dL Add Ur Microanalysis Reviewed Leukocyte Esterase Rfl Negative (Negative) HERMINIO/UL Urine RBC 0-2 (0-2) /hpf Urine WBC 0-5 (0-3) /hpf Ur Squamous Epith Cells Occasional (Few) /hpf Urine Bacteria None seen /hpf Urine Casts 3-5 Influenza A (RT-PCR) Negative (Negative) Influenza B (RT-PCR) Negative (Negative) RSV (RT-PCR) Negative (Negative) SARS-CoV-2 RNA (RT-PCR) Negative (Negative) <Hallie Diop MD - Last Filed: 06/09/24 01:01> Imaging Data Attestation: I personally reviewed and interpreted this imaging study as follows: < Colette Hansen PA-C - Last Filed: 06/08/24 21:25> Radiologist's impression: ITS Impressions Head CT 06/08/24 18:44 IMPRESSION: No acute intracranial findings. Abdomen/Pelvis CT 06/08/24 19:26 IMPRESSION: 1. No evidence of appendicitis, diverticulitis or intestinal obstruction. The appendix is not demonstrated. 2. Fat stranding posterior to the cecum which may indicate colitis. The appendix is not seen. 3. Large sliding hiatus hernia. 4. Constipation 5. Prominent vascularity in the posterior pelvis with possible AVM further evaluation advised. 6. Thickened wall of the rectum. Clinical evaluation advised. 7. Prominent pancreatic duct. Follow-up advised. 8. Grossly distended gallbladder with no definite stones. 9. Bilateral basal lung atelectasis versus pneumonia. Clinical correlation advised. 10. Tiny stone in the right kidney. <Colette Hansen PA-C - Last Filed: 06/08/24 21:25> ECG Data EKG #1: Attestation: I personally reviewed and interpreted this ECG as follows: <Colette Hansen PA-C - Last Filed: 06/08/24 21:25> ECG completion date: 06/08/24 <Colette Hansen PA-C - Last Filed: 06/08/24 21:25> ECG completion time: 16:25 <Colette Hansen PA-C - Last Filed: 06/08/24 21:25> EKG Interpretation: normal rate (66), sinus rhythm and non-specific ST changes <CONCHA Metz Last Filed: 06/08/24 21:25> Discharge Plan Discharge Clinical Impression: Weakness, Acute alteration in mental status, Transaminitis, Hyperbilirubinemia, Enlarged gallbladder, Pancreatic duct dilated Dementia Qualifiers: Dementia type: unspecified type Dementia severity: unspecified severity D ementia behavioral or psychological symptom: unspecified whether behavioral, psychotic, or mood disturbance or anxiety Qualified Code(s): F03.90 - Unspecified dementia, unspecified severity, without behavioral disturbance, psychotic disturbance, mood disturbance, and anxiety <Colette Hansen PA-C - Last Filed: 06/08/24 21:25> Patient Disposition: Still a Patient <Colette Hansen PA-C - Last Filed: 06/08/24 21:25> Condition: Stable <Colette Hansen PA-C - Last Filed: 06/08/24 21:25>
[2024-06-08 18:38] LABS: Lipase 394 U/L (23-300); Magnesium 1.9 mg/dL (1.6-2.3)
--- NOTE | 2024-06-08 21:24 | PC.NURSE ---
Pt daughter in law Halle can be contacted at [phone] and would like updates in pt status.
--- NOTE | 2024-06-08 21:32 | PC.NURSE ---
Ok to not draw blood cultures per edp Colette.
[2024-06-08] MEDS: PIPERACILLN/TAZ 3.375GM/NS50ML 3.375 GM/50 ML BAG IVPB (21:34)
--- NOTE | 2024-06-08 22:00 | PC.NURSE ---
Per EDP, no blood cultures needed.
[2024-06-08] MEDS: SODIUM CHLORIDE 0.9% IV 1,000 ML 100 ML IV CONT (22:06)
--- NOTE | 2024-06-08 23:25 | PC.NURSE ---
This RN attempted to call daughter in law Halle. Left a voicemail updating on pt.
[2024-06-09 00:07] VITALS: O2SAT 97
--- NOTE | 2024-06-09 00:16 | ADMGEN ---
This patient, Carly Martino, was admitted to [facility] Surg Room 330-02. Patient/family oriented to hospital policies and general routines including ID bracelet, bed and alarms, visiting hours, pain management, procedures, bathroom and other care routines, personal items, smoking policy, room service/diet, and visiting hours. Information on how to activate the Rapid Response Team has been discussed. Patient/Family are encouraged to report perceived risks to care and to ask questions if they do not understand what they are told or what they should do.
[2024-06-09] MEDS: PIPERACILLN/TAZ 3.375GM/NS50ML 3.375 GM/50 ML BAG IVPB ×4 (04:25→20:55)
[2024-06-09 05:25] VITALS: BP 127/82; PULSE 74; RESP 16; TEMP 36.5; O2SAT 97
[2024-06-09 06:31] LABS: Basophils Percent Auto 0.7 % (0.2-1.2); Eosinophils Absolute Auto 0.1 K/mm3 (0-0.3); Eosinophils Percent Auto 1.4 % (0-4.4); Hematocrit 36.3 % (37.0-47.0); Hemoglobin 11.7 g/dL (12.0-15.0); Immature Granulocyte Absolute 0.01 K/mm3 (0.00-0.031); Immature Granulocyte Percent A 0.2 % (0-0.5); Immature Platelet Fraction Pct 3.7 % (0.9-11.2); Lymphocytes Absolute Auto 0.68 K/mm3 (0.9-3.2); Lymphocytes Percent Auto 15.9 % (18.3-44.2); Mean Corpuscular HGB Conc 32.2 g/dl (32-36); Mean Corpuscular Hemoglobin 28.5 pg (26-34); Mean Corpuscular Volume 88.3 fl (80-100); Mean Platelet Volume 10.7 fl (7.4-10.4); Monocytes Absolute Auto 0.6 K/mm3 (0.1-0.6); Monocytes Percent Auto 14.3 % (2.6-8.5); Neutrophils Absolute Auto 2.9 K/mm3 (1.3-6.7); Neutrophils Percent Auto 67.5 % (45.5-73.1); Platelet Count Result 136 k/mm3 (150-375); Red Blood Count 4.11 M/mm3 (4.2-5.4); Red Cell Distribution Width 17.2 % (11.5-14.5); White Blood Count 4.3 K/mm3 (4.5-10.0)
[2024-06-09 06:43] LABS: Alanine Aminotransferase 142 U/L (6-35); Albumin Level 2.8 g/dL (3.5-5.1); Alkaline Phosphatase 251 U/L (38-126); Anion Gap 8 mmol/L (4-12); Aspartate Amino Transferase 453 U/L (14-36); Bilirubin,Total 1.7 mg/dL (0.2-1.3); Blood Urea Nitrogen 9 mg/dL (7-17); Carbon Dioxide 20 mmol/L (22-30); Chloride 108 mmol/L (98-107); Estimated CRCL calculation 49 ml/min; Estimated Glomerular Filt Rate > 60; Glucose 83 mg/dL (65-110); Potassium 3.7 mmol/L (3.4-5.0); Sodium 136 mmol/L (137-145)
[2024-06-09 06:50] LABS: Creatine Kinase 59 U/L (30-135)
--- NOTE | 2024-06-09 07:15 | P.CONGI_ITS ---
Assessment and Plan Assessment and plan (1) Transaminitis: Code(s): R74.01 - Elevation of levels of liver transaminase levels Status: Acute Assessment and Plan: The etiology of the patient's elevated transaminases is unclear and does not correlate with current imaging findings, which show no jaundice, biliary dilatation, or evidence of obstruction from masses or stones. MRCP is indicated to further evaluate the biliary tree, common bile duct, and pancreatic duct. Other diagnostic considerations include hepatic parenchymal processes such as ischemic injury, viral hepatitis, and autoimmune hepatitis. Given her history of hypothyroidism, TSH has been ordered to assess its potential contribution to liver enzyme abnormalities. The disproportionately elevated AST compared to ALT raises concern for a muscular origin, and therefore CPK has also been ordered. Finally, a hepatitis profile (A, B, and C) will be obtained. GI Consult Note Consult date/time: 06/09/24 07:15 Reason for consult: abnormal liver chemistry. HPI: Carly Martino is an 88 year old female with a known history of dementia and hypothyroidism, brought to the emergency department by her family last evening. Her presenting complaints were limited to increased somnolence and fatigue. A comprehensive laboratory and imaging evaluation was performed yielding the following results: WBC 3.9, hemoglobin 13.4, platelet count 142, glucose 100, sodium 136, potassium 4.3, blood urea nitrogen 12, creatinine 0.64, AST 528, ALT 167, lipase 394, and total bilirubin 1.7. CT demonstrated a mildly prominent pancreatic duct, an enlarged gallbladder without evidence of cholelithiasis, and a normal l liver without intrahepatic biliary ductal dilatation. 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 She has 2 kids a son and a daughter and worked for [employer]. Patient wishes to be a DNR and states that her son and daughter can be her surrogate. Son Micah was present. 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 Gender identity (if verbalized by the patient): Female Sexual Orientation (if Verbalized by the Patient): Straight or Heterosexual Spiritual care concerns: No Agree to blood products: Yes Meds Home Medications and Allergies Home Medications ?Medication ?Instructions ?Recorded ?Confirmed ?Type levothyroxine 25 mcg tablet 25 mcg PO DAILY 09/11/19 06/08/24 History metoprolol succinate 50 mg 25 mg PO DAILY 09/11/19 06/08/24 History tablet,extended release 24 hr potassium chloride 10 mEq 10 meq PO DAILY 09/11/19 06/08/24 History tablet,extended release donepezil 5 mg tablet 5 mg PO DAILY 07/13/21 06/08/24 History amlodipine 2.5 mg tablet 7.5 mg (3 x 2.5 mg) PO QAM 30 days 07/14/21 06/08/24 Rx #90 tabs atorvastatin 10 mg tablet 10 mg PO QPM 06/08/24 06/08/24 History Allergies Allergy/AdvReac Type Severity Reaction Status Date / Time Penicillins Allergy Unknown Verified 06/08/24 22:26 Vital Signs Vital Signs - 24 hr 06/08/24 16:23 06/08/24 16:27 06/08/24 17:21 Temperature 97.8 F 97.9 F Pulse Rate 66 64 66 Respiratory Rate 14 16 14 Blood Pressure 124/74 126/65 126/78 Pulse Oximetry 99 98 92 Oxygen Delivery Room Air 06/08/24 18:36 06/08/24 19:46 06/08/24 20:16 Temperature 97.7 F Pulse Rate 67 Respiratory Rate 16 Blood Pressure 125/62 118/66 117/65 Pulse Oximetry 98 Oxygen Delivery 06/08/24 20:46 06/08/24 21:01 06/08/24 21:31 Temperature Pulse Rate Respiratory Rate Blood Pressure 115/64 117/67 106/93 H Pulse Oximetry 98 97 Oxygen Delivery 06/08/24 22:49 06/08/24 23:30 06/08/24 23:47 Temperature 97.7 F 97.5 F L Pulse Rate 68 66 Respiratory Rate 14 16 Blood Pressure 124/76 140/77 Pulse Oximetry 97 95 Oxygen Delivery 06/09/24 00:07 06/09/24 05:25 Temperature 97.7 F Pulse Rate 74 Respiratory Rate 16 Blood Pressure 127/82 Pulse Oximetry 97 97 Oxygen Delivery Room Air Exam 2 Const: General: cooperative and healthy appearing Resp: Effort & Inspection: normal respiratory effort and able to speak in complete sentences Auscultation: clear to auscultation bilaterally Cardio: Rate: regular rate Rhythm: regular rhythm GI: Inspection: normal to inspection GI Palp: No No hepatosplenomegaly present Auscultation: normal bowel sounds Rectal Exam: deferred Skin: General skin exam: normal color Psych: Appearance: grossly normal Mental Status: mental status grossly normal Results Labs 06/09/24 06:09 06/09/24 06:09 Labs: Short CBC 06/08/24 06/09/24 Range/Units 16:23 06:09 WBC 3.9 L 4.3 L (4.5-10.0) K/mm3 Hgb 13.4 11.7 L (12.0-15.0) g/dL Hct 42.5 36.3 L (37.0-47.0) % Plt Count 142 L 136 L (150-375) k/mm3 BMP 06/08/24 06/09/24 16:23 06:09 Sodium 136 L 136 L Potassium 4.3 3.7 Chloride 104 108 H Carbon Dioxide 24 20 L BUN 12 D 9 Creatinine 0.64 L 0.61 L Glucose 100 83 Calcium 8.6 8.0 L Cardiac Enzymes 06/09/24 Range/Units 06:22 Total Creatine Kinase 59 (30-135) U/L Liver Function 06/08/24 06/09/24 Range/Units 16:23 06:09 Total Bilirubin 1.7 H 1.7 H (0.2-1.3) mg/dL AST 528 H 453 H (14-36) U/L ALT 167 H 142 H (6-35) U/L Alkaline Phosphatase 296 H 251 H (38-126) U/L Albumin 3.3 L 2.8 L (3.5-5.1) g/dL Urine 06/08/24 Range/Units 16:23 Urine Color Yellow (Yellow) Urine Appearance Cloudy H (Clear) Urine pH 5.5 (5.0-9.0) Ur Specific [place] 1.013 (1.001-1.035) Urine Protein Negative (Negative) mg/dL Urine Glucose (UA) Negative (Negative) mg/dL
[2024-06-09 07:19] LABS: Hepatitis B Surface Antigen Negative (Negative)
[2024-06-09 07:24] LABS: HAV RESULT Negative (Negative)
[2024-06-09 07:36] LABS: Hepatitis C Virus Antibody Negative (Negative)
[2024-06-09] MEDS: amLODIPine BESYLATE 2.5 MG TABLET 7.5 MG PO (09:54)
[2024-06-09] MEDS: METOPROLOL SUCCINATE EXT REL 25 MG TABCR PO (09:54)
[2024-06-09] MEDS: SODIUM CHLORIDE 0.9% IV 1,000 ML 100 ML IV CONT (12:35)
[2024-06-09 14:00] VITALS: BP 124/69; PULSE 76; RESP 18; TEMP 36.1; O2SAT 99
--- NOTE | 2024-06-09 18:46 | P.HP_ITS ---
H&P: HPI History of Present Illness Date/Time: 06/09/24 18:46 Chief Complaint: confusion Narrative: H&P-HPI Narrative: Patient is an 88-year-old female, with past medical history of dementia, hypothyroidism, HTN, who presents to the ED via EMs with report of weakness. 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 Reports patient became altered and confused today, has been increasingly weak over the last few days. They state she has history of recurrent UTIs and dehydration. States patient was very sleepy today, was though she had taken extra medication, however family denies any new medications. Denies recent cough or cold symptoms. Denies fevers. Patient was reportedly complaining of pain to her right-sided head earlier today. Patient denies any complaints upon my evaluation. Family expresses concern at they would like patient placed in a retirement facility. She currently lives at home alone, but requires around the clock retirement or family care. patient remains confused does not know why she is here, and if anything wrong with her, upon arrival patient LFT were elevated showing AST 528, ALT 167, lipase 394 and total bilirubin 1.[address] demonstrated a mildly prominent pancreatic duct, an enlarged gallbladder without evidence of cholelithiasis, and a normal l liver without intrahepatic biliary ductal dilatation. patient denies any GI symptoms, patient is seen by GI, there is seem to be no clear diagnosis of elevated LFT, CPK levels and acute hepatitis panel is negative, to further evaluate patient will have MRCP to further evaluate. 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 She has 2 kids a son and a daughter and worked for [employer]. Patient wishes to be a DNR and states that her son and daughter can be her surrogate. Son Micah was present. 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 Gender identity (if verbalized by the patient): Female Sexual Orientation (if Verbalized by the Patient): Straight or Heterosexual Spiritual care concerns: No Agree to blood products: Yes Meds Home Medications and Allergies Home Medications ?Medication ?Instructions ?Recorded ?Confirmed ?Type levothyroxine 25 mcg tablet 25 mcg PO DAILY 09/11/19 06/08/24 History metoprolol succinate 50 mg 25 mg PO DAILY 09/11/19 06/08/24 History tablet,extended release 24 hr potassium chloride 10 mEq 10 meq PO DAILY 09/11/19 06/08/24 History tablet,extended release donepezil 5 mg tablet 5 mg PO DAILY 07/13/21 06/08/24 History amlodipine 2.5 mg tablet 7.5 mg (3 x 2.5 mg) PO QAM 30 days 07/14/21 06/08/24 Rx #90 tabs atorvastatin 10 mg tablet 10 mg PO QPM 06/08/24 06/08/24 History Allergies Allergy/AdvReac Type Severity Reaction Status Date / Time Penicillins Allergy Unknown Verified 06/08/24 22:26 Vital Signs Vital Signs - 24 hr 06/08/24 19:46 06/08/24 20:16 06/08/24 20:46 Temperature Pulse Rate Respiratory Rate Blood Pressure 118/66 117/65 115/64 Pulse Oximetry Oxygen Delivery 06/08/24 21:01 06/08/24 21:31 06/08/24 22:49 Temperature Pulse Rate 68 Respiratory Rate 14 Blood Pressure 117/67 106/93 H 124/76 Pulse Oximetry 98 97 97 Oxygen Delivery 06/08/24 23:30 06/08/24 23:47 06/09/24 00:07 Temperature 36.5 C 36.4 C L Pulse Rate 66 Respiratory Rate 16 Blood Pressure 140/77 Pulse Oximetry 95 97 Oxygen Delivery Room Air 06/09/24 05:25 06/09/24 14:00 06/09/24 14:44 Temperature 36.5 C 36.1 C L Pulse Rate 74 76 Respiratory Rate 16 18 Blood Pressure 127/82 124/69 Pulse Oximetry 97 99 Oxygen Delivery Room Air Exam Narrative: Patient is comfortable, NAD HEENT: eyes are clear and none icteric LUNGS:CTA HEART: RR S1S2 ABD: BS+, Soft and nontender Lower extremities: no edema SKIN: nonjaundiced Neuro: grossly intact. Confused H&P: Results Labs Labs: Short CBC 06/09/24 Range/Units 06:09 WBC 4.3 L (4.5-10.0) K/mm3 Hgb 11.7 L (12.0-15.0) g/dL Hct 36.3 L (37.0-47.0) % Plt Count 136 L (150-375) k/mm3 BMP 06/09/24 06:09 Sodium 136 L Potassium 3.7 Chloride 108 H Carbon Dioxide 20 L BUN 9 Creatinine 0.61 L Glucose 83 Calcium 8.0 L Cardiac Enzymes 06/09/24 Range/Units 06:22 Total Creatine Kinase 59 (30-135) U/L Liver Function 06/09/24 Range/Units 06:09 Total Bilirubin 1.7 H (0.2-1.3) mg/dL AST 453 H (14-36) U/L ALT 142 H (6-35) U/L Alkaline Phosphatase 251 H (38-126) U/L Albumin 2.8 L (3.5-5.1) g/dL Assessment and Plan Assessment and plan (1) Transaminitis: Code(s): R74.01 - Elevation of levels of liver transaminase levels Status: Acute (2) Hyperbilirubinemia: Code(s): E80.6 - Other disorders of bilirubin metabolism Status: Acute (3) Enlarged gallbladder: Code(s): K82.8 - Other specified diseases of gallbladder Status: Acute (4) Pancreatic duct dilated: Code(s): K86.89 - Other specified diseases of pancreas Status: Acute (5) Dementia: Qualifiers: Dementia behavioral or psychological symptom: unspecified whether b ehavioral, psychotic, or mood disturbance or anxiety Dementia severity: unspecified severity Dementia type: unspecified type Qualified Code(s): F03.90 - Unspecified dementia, unspecified severity, without behavioral disturbance, psychotic disturbance, mood disturbance, and anxiety Code(s): F03.90 - Unspecified dementia, unspecified severity, without behavioral disturbance, psychotic disturbance, mood disturbance, and anxiety Status: Acute (6) Hypothyroid: Code(s): E03.9 - Hypothyroidism, unspecified Status: Acute (7) Hypertension: Code(s): I10 - Essential (primary) hypertension Status: Acute Plan patient remains confused does not know why she is here, and if anything wrong with her, upon arrival patient LFT were elevated showing AST 528, ALT 167, lipase 394 and total bilirubin 1.[address] demonstrated a mildly prominent pancreatic duct, an enlarged gallbladder without evidence of cholelithiasis, and a normal l liver without intrahepatic biliary ductal dilatation. patient denies any GI symptoms, patient is seen by GI, there is seem to be no clear diagnosis of elevated LFT, CPK levels and acute hepatitis panel is negative, to further evaluate patient will have MRCP to further evaluate. patient is admitted as observation status Hospitalist MIPS Advance Care Plan I have confirmed that the patient's Advanced Care Plan is present, code status is documented, or surrogate decision maker is listed in patient medical record.: Yes Medication Reconciliation I have utilized all available resources to obtain, update and review the patients current medications (includes all prescriptions, OTC, herbals, cannabis, and nutritional supplements).: Yes
[2024-06-09 20:00] VITALS: O2SAT 98
[2024-06-09 22:37] VITALS: BP 117/65; PULSE 67; RESP 17; TEMP 36.9; O2SAT 98
[2024-06-10] MEDS: SODIUM CHLORIDE 0.9% IV 1,000 ML 100 ML IV CONT ×2 (03:13→20:52)
[2024-06-10] MEDS: PIPERACILLN/TAZ 3.375GM/NS50ML 3.375 GM/50 ML BAG IVPB ×3 (03:13→21:15)
[2024-06-10 05:36] VITALS: BP 122/76; PULSE 69; RESP 16; TEMP 36.4; O2SAT 97
[2024-06-10] MEDS: LEVOTHYROXINE SODIUM 25 MCG TABLET PO (05:59)
[2024-06-10 06:23] LABS: Hemoglobin 10.8 g/dL (12.0-15.0); Immature Platelet Fraction Pct 4.3 % (0.9-11.2); Mean Corpuscular HGB Conc 31.8 g/dl (32-36); Mean Corpuscular Hemoglobin 28.3 pg (26-34); Platelet Count Result 125 k/mm3 (150-375); Red Blood Count 3.82 M/mm3 (4.2-5.4); Red Cell Distribution Width 17.1 % (11.5-14.5); White Blood Count 3.3 K/mm3 (4.5-10.0)
[2024-06-10 06:38] LABS: Alanine Aminotransferase 127 U/L (6-35); Albumin Level 2.5 g/dL (3.5-5.1); Alkaline Phosphatase 233 U/L (38-126); Anion Gap 6 mmol/L (4-12); Aspartate Amino Transferase 393 U/L (14-36); Bilirubin,Total 1.7 mg/dL (0.2-1.3); Blood Urea Nitrogen 10 mg/dL (7-17); Calcium 8.1 mg/dL (8.4-10.2); Carbon Dioxide 22 mmol/L (22-30); Chloride 110 mmol/L (98-107); Estimated CRCL calculation 39 ml/min; Estimated Glomerular Filt Rate > 60; Glucose 78 mg/dL (65-110); Magnesium 1.6 mg/dL (1.6-2.3); Potassium 3.3 mmol/L (3.4-5.0); Sodium 138 mmol/L (137-145)
[2024-06-10] MEDS: amLODIPine BESYLATE 2.5 MG TABLET 7.5 MG PO (09:32)
[2024-06-10] MEDS: METOPROLOL SUCCINATE EXT REL 25 MG TABCR PO (09:32)
[2024-06-10 13:44] VITALS: BP 122/74; PULSE 67; RESP 20; TEMP 36.7; O2SAT 96
--- NOTE | 2024-06-10 14:36 | WPDGIPROGNO ---
Progress Note: A&P Assessment and Plan (1) Transaminitis: Code(s): R74.01 - Elevation of levels of liver transaminase levels Status: Acute Assessment and Plan: incidental finding pending MRCP reading and trend liver enzymes noted PD dilated (2) Pancreatic duct dilated: Code(s): K86.89 - Other specified diseases of pancreas Status: Acute (3) Dementia: Qualifiers: Dementia behavioral or psychological symptom: unspecified whether behavioral, psychotic, or mood disturbance or anxiety Dementia severity: unspecified severity Dementia type: unspecified type Qualified Code(s): F03.90 - Unspecified dementia, unspecified severity, without behavioral disturbance, psychotic disturbance, mood disturbance, and anxiety Code(s): F03.90 - Unspecified dementia, unspecified severity, without behavioral disturbance, psychotic disturbance, mood disturbance, and anxiety Status: Acute (4) Weakness: Code(s): R53.1 - Weakness Status: Acute Subjective Date/time seen: 06/10/24 14:36 Interval history: no new events, son is here she is about to be taken for MRCP Review of Systems Review of Systems: All systems reviewed & are unremarkable except as noted in HPI and below Exam Const: General: comfortable and no acute distress HENMT: Face/Nose/Sinus: Normal nares present Eyes: General: appearance normal, both eyes and all related structures Neck: Neck: supple Resp: Auscultation: clear to auscultation bilaterally Cardio: Rate: regular rate Rhythm: regular rhythm GI: Inspection: non-distended GI Palp: Yes Soft to palpation and No Tenderness to palpation present (GI) Skin: General skin exam: normal color Neuro: Other: awake and alert but confused Extrem: General: normal to inspection Objective Data Vital Signs Vital Signs: Vital Signs - 24 hr 06/09/24 14:44 06/09/24 20:00 06/09/24 22:37 Temperature 98.4 F Pulse Rate 67 Respiratory Rate 17 Blood Pressure 117/65 Pulse Oximetry 98 98 Oxygen Delivery Room Air Room Air 06/10/24 05:36 06/10/24 08:59 06/10/24 13:44 Temperature 97.5 F L 98.1 F Pulse Rate 69 67 Respiratory Rate 16 20 Blood Pressure 122/76 122/74 Pulse Oximetry 97 96 Oxygen Delivery Room Air Intake/Output Intake/Output: Intake & Output 04/06/08/24 06/09/24 06/10/24 23:59 23:59 23:59 23:59 Intake Total 1050 2320 50 Balance 1050 2320 50 Meds/Results Medications: Active Medications Generic Name Dose Route Start Last Admin Trade Name Freq PRN Reason Stop Dose Admin Acetaminophen 650 mg 06/08/24 21:12 Acetaminophen 325 Mg Tablet PO Q4H PRN Mild Pain (1-3) or Fever Amlodipine Besylate 7.5 mg 06/09/24 09:00 06/10/24 09:32 Amlodipine Besylate 2.5 Mg Tablet PO 7.5 mg QAM ANIL Administration Dextrose 12.5 gm 06/08/24 21:12 Dextrose 50% 25 Gm/50 Ml Syringe IV PUSH PRN PRN Hypoglycemia Protocol Glucagon 1 mg 06/08/24 21:12 Glucagon For Inj 1 Mg Vial IM PRN PRN Hypoglycemia Protocol Glucose 15 gm 06/08/24 21:12 Glucose Oral Gel 15 Gm Of Glucse In 37.5 Gm Tube PO PRN PRN Hypoglycemia Protocol Piperacillin/Tazobactam/Dextrose 3.375 gm in 50 mls @ 100 mls/hr 06/09/24 04:00 06/10/24 09:32 Zosyn 3.375 Gm/Ns 50 Ml IVPB 100 mls/hr Q6H ANIL Administration Sodium Chloride 1,000 mls @ 100 mls/hr 06/08/24 21:15 06/10/24 03:13 Normal Saline Iv IV CONT 100 mls/hr .Q10H ANIL Administration Dextrose 1,000 mls @ 100 mls/hr 06/08/24 21:12 Dextrose 5% 1,000 Ml IVPB PRN PRN Hypoglycemia Protocol Levothyroxine Sodium 25 mcg 06/09/24 06:30 06/10/24 05:59 Levothyroxine Sodium 25 Mcg Tablet PO 25 mcg DAILY@0630 ANIL Administration Metoprolol Succinate 25 mg 06/09/24 09:00 06/10/24 09:32 Metoprolol Succinate Ext Rel 25 Mg Tabcr PO 25 mg DAILY ANIL Administration Ondansetron HCl 4 mg 06/08/24 21:12 Ondansetron Inj 4 Mg/2 Ml Vial IV PUSH Q4H PRN Nausea Radiology Results: ITS Impressions Head CT 06/08/24 18:44 IMPRESSION: No acute intracranial findings. Abdomen/Pelvis CT 06/08/24 19:26 IMPRESSION: 1. No evidence of appendicitis, diverticulitis or intestinal obstruction. The appendix is not demonstrated. 2. Fat stranding posterior to the cecum which may indicate colitis. The appendix is not seen. 3. Large sliding hiatus hernia. 4. Constipation 5. Prominent vascularity in the posterior pelvis with possible AVM further evaluation advised. 6. Thickened wall of the rectum. Clinical evaluation advised. 7. Prominent pancreatic duct. Follow-up advised. 8. Grossly distended gallbladder with no definite stones. 9. Bilateral basal lung atelectasis versus pneumonia. Clinical correlation advised. 10. Tiny stone in the right kidney. Abdomen Ultrasound 06/08/24 22:19 IMPRESSION: Distended gallbladder with no stones. Increased echogenicity of the liver suggestive of fat infiltration. Otherwise, normal limited abdominal ultrasound. Labs Labs: Laboratory Results - last 24 hr 06/10/24 05:43 WBC 3.3 L RBC 3.82 L Hgb 10.8 L Hct 34.0 L MCV 89.0 MCH 28.3 MCHC 31.8 L RDW 17.1 H Plt Count 125 L MPV 11.0 H % Immature Plt Fraction 4.3 Sodium 138 Potassium 3.3 L Chloride 110 H Carbon Dioxide 22 Anion Gap 6 BUN 10 Creatinine 0.79 Estim Creat Clear Calc 39 Estimated GFR > 60 Glucose 78 Calcium 8.1 L Magnesium 1.6 Total Bilirubin 1.7 H AST 393 H ALT 127 H Alkaline Phosphatase 233 H Total Protein 7.0 Albumin 2.5 L
--- NOTE | 2024-06-10 15:23 | P.PNIM_ITS ---
Progress Note: A&P Assessment and Plan (1) Transaminitis: Code(s): R74.01 - Elevation of levels of liver transaminase levels Status: Acute (2) Hyperbilirubinemia: Code(s): E80.6 - Other disorders of bilirubin metabolism Status: Acute (3) Enlarged gallbladder: Code(s): K82.8 - Other specified diseases of gallbladder Status: Acute (4) Pancreatic duct dilated: Code(s): K86.89 - Other specified diseases of pancreas Status: Acute (5) Dementia: Qualifiers: Dementia behavioral or psychological symptom: unspecified whether b ehavioral, psychotic, or mood disturbance or anxiety Dementia severity: unspecified severity Dementia type: unspecified type Qualified Code(s): F03.90 - Unspecified dementia, unspecified severity, without behavioral disturbance, psychotic disturbance, mood disturbance, and anxiety Code(s): F03.90 - Unspecified dementia, unspecified severity, without behavioral disturbance, psychotic disturbance, mood disturbance, and anxiety Status: Acute (6) Hypothyroid: Code(s): E03.9 - Hypothyroidism, unspecified Status: Acute (7) Hypertension: Code(s): I10 - Essential (primary) hypertension Status: Acute Plan patient remains confused does not know why she is here, and if anything wrong with her, upon arrival patient LFT were elevated showing AST 528, ALT 167, lipase 394 and total bilirubin 1.[address] demonstrated a mildly prominent pancreatic duct, an enlarged gallbladder without evidence of cholelithiasis, and a normal l liver without intrahepatic biliary ductal dilatation. patient denies any GI symptoms, patient is seen by GI, there is seem to be no clear diagnosis of elevated LFT, CPK levels and acute hepatitis panel is negative, to further evaluate patient will have MRCP to further evaluate. Patient will have MRCP today, remains confused, her LFT are trending down, will follow up on MRCP, patient is seen by GI and further recommendation to follow. patient will be seen PT/OT and further recommendation to follow. patient is admitted as observation status Subjective Date/time seen: 06/10/24 15:23 Interval history: patient remains confused does not know why she is here, and if anything wrong with her, upon arrival patient LFT were elevated showing AST 528, ALT 167, lipase 394 and total bilirubin 1.[address] demonstrated a mildly prominent pancreatic duct, an enlarged gallbladder without evidence of cholelithiasis, and a normal l liver without intrahepatic biliary ductal dilatation. patient denies any GI symptoms, patient is seen by GI, there is seem to be no clear diagnosis of elevated LFT, CPK levels and acute hepatitis panel is negative, to further evaluate patient will have MRCP to further evaluate. Patient will have MRCP today, remains confused, her LFT are trending down, will follow up on MRCP, patient is seen by GI and further recommendation to follow. patient will be seen PT/OT and further recommendation to follow. Exam Narrative: Patient is comfortable, NAD HEENT: eyes are clear and none icteric LUNGS:CTA HEART: RR S1S2 ABD: BS+, Soft and nontender Lower extremities: no edema SKIN: nonjaundiced Neuro: grossly intact. Confused Objective Data Vital Signs Vital Signs: Vital Signs - 24 hr 06/09/24 20:00 06/09/24 22:37 06/10/24 05:36 Temperature 36.9 C 36.4 C L Pulse Rate 67 69 Respiratory Rate 17 16 Blood Pressure 117/65 122/76 Pulse Oximetry 98 98 97 Oxygen Delivery Room Air 06/10/24 08:59 06/10/24 13:44 Temperature 36.7 C Pulse Rate 67 Respiratory Rate 20 Blood Pressure 122/74 Pulse Oximetry 96 Oxygen Delivery Room Air Intake/Output Intake/Output: Intake & Output 06/07/24 06/08/24 06/09/24 06/10/24 23:59 23:59 23:59 23:59 Intake Total 1050 2320 50 Balance 1050 2320 50 Meds/Results Medications: Active Medications Generic Name Dose Route Start Last Admin Trade Name Freq PRN Reason Stop Dose Admin Acetaminophen 650 mg 06/08/24 21:12 Acetaminophen 325 Mg Tablet PO Q4H PRN Mild Pain (1-3) or Fever Amlodipine Besylate 7.5 mg 06/09/24 09:00 06/10/24 09:32 Amlodipine Besylate 2.5 Mg Tablet PO 7.5 mg QAM ANIL Administration Dextrose 12.5 gm 06/08/24 21:12 Dextrose 50% 25 Gm/50 Ml Syringe IV PUSH PRN PRN Hypoglycemia Protocol Glucagon 1 mg 06/08/24 21:12 Glucagon For Inj 1 Mg Vial IM PRN PRN Hypoglycemia Protocol Glucose 15 gm 06/08/24 21:12 Glucose Oral Gel 15 Gm Of Glucse In 37.5 Gm Tube PO PRN PRN Hypoglycemia Protocol Piperacillin/Tazobactam/Dextrose 3.375 gm in 50 mls @ 100 mls/hr 06/09/24 04:00 06/10/24 09:32 Zosyn 3.375 Gm/Ns 50 Ml IVPB 100 mls/hr Q6H ANIL Administration Sodium Chloride 1,000 mls @ 100 mls/hr 06/08/24 21:15 06/10/24 03:13 Normal Saline Iv IV CONT 100 mls/hr .Q10H ANIL Administration Dextrose 1,000 mls @ 100 mls/hr 06/08/24 21:12 Dextrose 5% 1,000 Ml IVPB PRN PRN Hypoglycemia Protocol Levothyroxine Sodium 25 mcg 06/09/24 06:30 06/10/24 05:59 Levothyroxine Sodium 25 Mcg Tablet PO 25 mcg DAILY@0630 ANIL Administration Metoprolol Succinate 25 mg 06/09/24 09:00 06/10/24 09:32 Metoprolol Succinate Ext Rel 25 Mg Tabcr PO 25 mg DAILY ANIL Administration Ondansetron HCl 4 mg 06/08/24 21:12 Ondansetron Inj 4 Mg/2 Ml Vial IV PUSH Q4H PRN Nausea Radiology Results: ITS Impressions Head CT 06/08/24 18:44 IMPRESSION: No acute intracranial findings. Abdomen/Pelvis CT 06/08/24 19:26 IMPRESSION: 1. No evidence of appendicitis, diverticulitis or intestinal obstruction. The appendix is not demonstrated. 2. Fat stranding posterior to the cecum which may indicate colitis. The appendix is not seen. 3. Large sliding hiatus hernia. 4. Constipation 5. Prominent vascularity in the posterior pelvis with possible AVM further evaluation advised. 6. Thickened wall of the rectum. Clinical evaluation advised. 7. Prominent pancreatic duct. Follow-up advised. 8. Grossly distended gallbladder with no definite stones. 9. Bilateral basal lung atelectasis versus pneumonia. Clinical correlation advised. 10. Tiny stone in the right kidney. Abdomen Ultrasound 06/08/24 22:19 IMPRESSION: Distended gallbladder with no stones. Increased echogenicity of the liver suggestive of fat infiltration. Otherwise, normal limited abdominal ultrasound. Labs Labs: Laboratory Results - last 24 hr 06/10/24 05:43 WBC 3.3 L RBC 3.82 L Hgb 10.8 L Hct 34.0 L MCV 89.0 MCH 28.3 MCHC 31.8 L RDW 17.1 H Plt Count 125 L MPV 11.0 H % Immature Plt Fraction 4.3 Sodium 138 Potassium 3.3 L Chloride 110 H Carbon Dioxide 22 Anion Gap 6 BUN 10 Creatinine 0.79 Estim Creat Clear Calc 39 Estimated GFR > 60 Glucose 78 Calcium 8.1 L Magnesium 1.6 Total Bilirubin 1.7 H AST 393 H ALT 127 H Alkaline Phosphatase 233 H Total Protein 7.0 Albumin 2.5 L
[2024-06-10 20:50] VITALS: PULSE 66; RESP 18; O2SAT 100
[2024-06-10 21:15] VITALS: BP 133/66; PULSE 66; RESP 18; TEMP 37; O2SAT 100
[2024-06-11] MEDS: PIPERACILLN/TAZ 3.375GM/NS50ML 3.375 GM/50 ML BAG IVPB ×4 (04:18→22:40)
[2024-06-11 05:34] VITALS: BP 121/84; PULSE 71; RESP 18; TEMP 36.9; O2SAT 96
[2024-06-11] MEDS: LEVOTHYROXINE SODIUM 25 MCG TABLET PO (05:48)
[2024-06-11 06:13] LABS: Hemoglobin 10.9 g/dL (12.0-15.0); Immature Platelet Fraction Pct 4.3 % (0.9-11.2); Mean Corpuscular HGB Conc 32.1 g/dl (32-36); Mean Corpuscular Volume 87.4 fl (80-100); Mean Platelet Volume 10.3 fl (7.4-10.4); Platelet Count Result 115 k/mm3 (150-375); Red Blood Count 3.89 M/mm3 (4.2-5.4); Red Cell Distribution Width 17.2 % (11.5-14.5); White Blood Count 3.4 K/mm3 (4.5-10.0)
[2024-06-11 06:28] LABS: Alanine Aminotransferase 124 U/L (6-35); Albumin Level 2.4 g/dL (3.5-5.1); Alkaline Phosphatase 212 U/L (38-126); Anion Gap 7 mmol/L (4-12); Aspartate Amino Transferase 361 U/L (14-36); Bilirubin,Total 1.6 mg/dL (0.2-1.3); Blood Urea Nitrogen 11 mg/dL (7-17); Calcium 7.7 mg/dL (8.4-10.2); Carbon Dioxide 21 mmol/L (22-30); Chloride 111 mmol/L (98-107); Estimated CRCL calculation 43 ml/min; Estimated Glomerular Filt Rate > 60; Glucose 79 mg/dL (65-110); Magnesium 1.6 mg/dL (1.6-2.3); Potassium 3.4 mmol/L (3.4-5.0); Sodium 139 mmol/L (137-145)
[2024-06-11 08:15] VITALS: PULSE 79
[2024-06-11] MEDS: amLODIPine BESYLATE 2.5 MG TABLET 7.5 MG PO (08:15)
[2024-06-11] MEDS: METOPROLOL SUCCINATE EXT REL 25 MG TABCR PO (08:15)
[2024-06-11] MEDS: POTASSIUM CHLORIDE 20 MEQ PACKET (FOR LIQUID) 40 MEQ PO (09:19)
[2024-06-11 14:00] VITALS: BP 120/61; PULSE 70; RESP 18; TEMP 36.1; O2SAT 98
--- NOTE | 2024-06-11 14:26 | P.PNGI_ITS ---
Progress Note: A&P Assessment and Plan (1) Transaminitis: Code(s): R74.01 - Elevation of levels of liver transaminase levels Status: Acute Assessment and Plan: stable awaiting on mrcp (2) Pancreatic duct dilated: Code(s): K86.89 - Other specified diseases of pancreas Status: Acute (3) Hypertension: Code(s): I10 - Essential (primary) hypertension Status: Acute (4) Dementia: Qualifiers: Dementia behavioral or psychological symptom: unspecified whether behavioral, psychotic, or mood disturbance or anxiety Dementia severity: unspecified severity Dementia type: unspecified type Qualified Code(s): F03.90 - Unspecified dementia, unspecified severity, without behavioral disturbance, psychotic disturbance, mood disturbance, and anxiety Code(s): F03.90 - Unspecified dementia, unspecified severity, without behavioral d isturbance, psychotic disturbance, mood disturbance, and anxiety Status: Acute Subjective Date/time seen: 06/11/24 14:26 Interval history: no changes, poor appetite but near baseline per son who is at bedside otherwise she seems comfortable Review of Systems Review of Systems: All systems reviewed & are unremarkable except as noted in HPI and below Exam Const: General: comfortable and no acute distress HENMT: Face/Nose/Sinus: Normal nares present Eyes: General: appearance normal, both eyes and all related structures Neck: Neck: supple Resp: Auscultation: clear to auscultation bilaterally Cardio: Rate: regular rate Rhythm: regular rhythm GI: Inspection: non-distended GI Palp: Yes Soft to palpation and No Tenderness to palpation present (GI) Skin: General skin exam: normal color Neuro: Other: awake and alert but confused Extrem: General: normal to inspection Objective Data Vital Signs Vital Signs: Vital Signs - 24 hr 06/10/24 20:50 06/10/24 21:15 06/11/24 05:34 Temperature 98.6 F 98.4 F Pulse Rate 66 66 71 Respiratory Rate 18 18 18 Blood Pressure 133/66 121/84 Pulse Oximetry 100 100 96 Oxygen Delivery Room Air 06/11/24 08:15 Temperature Pulse Rate 79 Respiratory Rate Blood Pressure Pulse Oximetry Oxygen Delivery Intake/Output Intake/Output: Intake & Output 06/08/24 06/09/24 06/10/24 06/11/24 23:59 23:59 23:59 23:59 Intake Total 1050 2320 1700 580 Balance 1050 2320 1700 580 Meds/Results Medications: Active Medications Generic Name Dose Route Start Last Admin Trade Name Freq PRN Reason Stop Dose Admin Acetaminophen 650 mg 06/08/24 21:12 Acetaminophen 325 Mg Tablet PO Q4H PRN Mild Pain (1-3) or Fever Amlodipine Besylate 7.5 mg 06/09/24 09:00 06/11/24 08:15 Amlodipine Besylate 2.5 Mg Tablet PO 7.5 mg QAM ANIL Administration Dextrose 12.5 gm 06/08/24 21:12 Dextrose 50% 25 Gm/50 Ml Syringe IV PUSH PRN PRN Hypoglycemia Protocol Glucagon 1 mg 06/08/24 21:12 Glucagon For Inj 1 Mg Vial IM PRN PRN Hypoglycemia Protocol Glucose 15 gm 06/08/24 21:12 Glucose Oral Gel 15 Gm Of Glucse In 37.5 Gm Tube PO PRN PRN Hypoglycemia Protocol Piperacillin/Tazobactam/Dextrose 3.375 gm in 50 mls @ 100 mls/hr 06/09/24 04:00 06/11/24 09:56 Zosyn 3.375 Gm/Ns 50 Ml IVPB 100 mls/hr Q6H ANIL Administration Sodium Chloride 1,000 mls @ 100 mls/hr 06/08/24 21:15 06/10/24 20:52 Normal Saline Iv IV CONT 100 mls/hr .Q10H ANIL Administration Dextrose 1,000 mls @ 100 mls/hr 06/08/24 21:12 Dextrose 5% 1,000 Ml IVPB PRN PRN Hypoglycemia Protocol Levothyroxine Sodium 25 mcg 06/09/24 06:30 06/11/24 05:48 Levothyroxine Sodium 25 Mcg Tablet PO 25 mcg DAILY@0630 ANIL Administration Metoprolol Succinate 25 mg 06/09/24 09:00 06/11/24 08:15 Metoprolol Succinate Ext Rel 25 Mg Tabcr PO 25 mg DAILY ANIL Administration Ondansetron HCl 4 mg 06/08/24 21:12 Ondansetron Inj 4 Mg/2 Ml Vial IV PUSH Q4H PRN Nausea Radiology Results: ITS Impressions Head CT 06/08/24 18:44 IMPRESSION: No acute intracranial findings. Abdomen/Pelvis CT 06/08/24 19:26 IMPRESSION: 1. No evidence of appendicitis, diverticulitis or intestinal obstruction. The appendix is not demonstrated. 2. Fat stranding posterior to the cecum which may indicate colitis. The appendi x is not seen. 3. Large sliding hiatus hernia. 4. Constipation 5. Prominent vascularity in the posterior pelvis with possible AVM further evaluation advised. 6. Thickened wall of the rectum. Clinical evaluation advised. 7. Prominent pancreatic duct. Follow-up advised. 8. Grossly distended gallbladder with no definite stones. 9. Bilateral basal lung atelectasis versus pneumonia. Clinical correlation advised. 10. Tiny stone in the right kidney. Abdomen Ultrasound 06/08/24 22:19 IMPRESSION: Distended gallbladder with no stones. Increased echogenicity of the liver suggestive of fat infiltration. Otherwise, normal limited abdominal ultrasound. Labs Labs: Laboratory Results - last 24 hr 06/11/24 05:35 WBC 3.4 L RBC 3.89 L Hgb 10.9 L Hct 34.0 L MCV 87.4 MCH 28.0 MCHC 32.1 RDW 17.2 H Plt Count 115 L MPV 10.3 % Immature Plt Fraction 4.3 Sodium 139 Potassium 3.4 Chloride 111 H Carbon Dioxide 21 L Anion Gap 7 BUN 11 Creatinine 0.70 Estim Creat Clear Calc 43 Estimated GFR > 60 Glucose 79 Calcium 7.7 L Magnesium 1.6 Total Bilirubin 1.6 H AST 361 H ALT 124 H Alkaline Phosphatase 212 H Total Protein 6.0 L Albumin 2.4 L
[2024-06-11] MEDS: SODIUM CHLORIDE 0.9% IV 1,000 ML 100 ML IV CONT (15:15)
--- NOTE | 2024-06-11 15:40 | P.PNIM_ITS ---
Progress Note: A&P Assessment and Plan (1) Transaminitis: Code(s): R74.01 - Elevation of levels of liver transaminase levels Status: Acute (2) Hyperbilirubinemia: Code(s): E80.6 - Other disorders of bilirubin metabolism Status: Acute (3) Enlarged gallbladder: Code(s): K82.8 - Other specified diseases of gallbladder Status: Acute (4) Pancreatic duct dilated: Code(s): K86.89 - Other specified diseases of pancreas Status: Acute (5) Dementia: Qualifiers: Dementia behavioral or psychological symptom: unspecified whether b ehavioral, psychotic, or mood disturbance or anxiety Dementia severity: unspecified severity Dementia type: unspecified type Qualified Code(s): F03.90 - Unspecified dementia, unspecified severity, without behavioral disturbance, psychotic disturbance, mood disturbance, and anxiety Code(s): F03.90 - Unspecified dementia, unspecified severity, without behavioral disturbance, psychotic disturbance, mood disturbance, and anxiety Status: Acute (6) Hypothyroid: Code(s): E03.9 - Hypothyroidism, unspecified Status: Acute (7) Hypertension: Code(s): I10 - Essential (primary) hypertension Status: Acute Plan patient remains confused does not know why she is here, and if anything wrong with her, upon arrival patient LFT were elevated showing AST 528, ALT 167, lipase 394 and total bilirubin 1.[address] demonstrated a mildly prominent pancreatic duct, an enlarged gallbladder without evidence of cholelithiasis, and a normal l liver without intrahepatic biliary ductal dilatation. patient denies any GI symptoms, patient is seen by GI, there is seem to be no clear diagnosis of elevated LFT, CPK levels and acute hepatitis panel is negative, to further evaluate patient will have MRCP to further evaluate. Patient had MRCP on 06/10 results are pending, patient US showed distended gallbladder with no stones, there is concern that elevated LFT related to gallbladder, her LFT are trending down, will follow up on MRCP, patient is seen by GI and further recommendation to follow. patient still remains confused, patient will be seen PT/OT and further recommendation to follow. patient is admitted as observation status Subjective Date/time seen: 06/11/24 15:40 Interval history: patient remains confused does not know why she is here, and if anything wrong with her, upon arrival patient LFT were elevated showing AST 528, ALT 167, lipase 394 and total bilirubin 1.[address] demonstrated a mildly prominent pancreatic duct, an enlarged gallbladder without evidence of cholelithiasis, and a normal l liver without intrahepatic biliary ductal dilatation. patient denies any GI symptoms, patient is seen by GI, there is seem to be no clear diagnosis of elevated LFT, CPK levels and acute hepatitis panel is negative, to further evaluate patient will have MRCP to further evaluate. Patient had MRCP on 06/10 results are pending, patient US showed distended gallbladder with no stones, there is concern that elevated LFT related to gallbladder, her LFT are trending down, will follow up on MRCP, patient is seen by GI and further recommendation to follow. patient still remains confused, patient will be seen PT/OT and further recommendation to follow. Exam Narrative: Patient is comfortable, NAD HEENT: eyes are clear and none icteric LUNGS:CTA HEART: RR S1S2 ABD: BS+, Soft and nontender Lower extremities: no edema SKIN: nonjaundiced Neuro: grossly intact. Confused Objective Data Vital Signs Vital Signs: Vital Signs - 24 hr 06/10/24 20:50 06/10/24 21:15 06/11/24 05:34 Temperature 37.0 C 36.9 C Pulse Rate 66 66 71 Respiratory Rate 18 18 18 Blood Pressure 133/66 121/84 Pulse Oximetry 100 100 96 Oxygen Delivery Room Air 06/11/24 08:15 06/11/24 14:00 Temperature 36.1 C L Pulse Rate 79 70 Respiratory Rate 18 Blood Pressure 120/61 Pulse Oximetry 98 Oxygen Delivery Intake/Output Intake/Output: Intake & Output 06/08/24 06/09/24 06/10/24 06/11/24 23:59 23:59 23:59 23:59 Intake Total 1050 2320 1700 580 Balance 1050 2320 1700 580 Meds/Results Medications: Active Medications Generic Name Dose Route Start Last Admin Trade Name Freq PRN Reason Stop Dose Admin Acetaminophen 650 mg 06/08/24 21:12 Acetaminophen 325 Mg Tablet PO Q4H PRN Mild Pain (1-3) or Fever Amlodipine Besylate 7.5 mg 06/09/24 09:00 06/11/24 08:15 Amlodipine Besylate 2.5 Mg Tablet PO 7.5 mg QAM ANIL Administration Dextrose 12.5 gm 06/08/24 21:12 Dextrose 50% 25 Gm/50 Ml Syringe IV PUSH PRN PRN Hypoglycemia Protocol Glucagon 1 mg 06/08/24 21:12 Glucagon For Inj 1 Mg Vial IM PRN PRN Hypoglycemia Protocol Glucose 15 gm 06/08/24 21:12 Glucose Oral Gel 15 Gm Of Glucse In 37.5 Gm Tube PO PRN PRN Hypoglycemia Protocol Piperacillin/Tazobactam/Dextrose 3.375 gm in 50 mls @ 100 mls/hr 06/09/24 04:00 06/11/24 09:56 Zosyn 3.375 Gm/Ns 50 Ml IVPB 100 mls/hr Q6H ANIL Administration Sodium Chloride 1,000 mls @ 100 mls/hr 06/08/24 21:15 06/10/24 20:52 Normal Saline Iv IV CONT 100 mls/hr .Q10H ANIL Administration Dextrose 1,000 mls @ 100 mls/hr 06/08/24 21:12 Dextrose 5% 1,000 Ml IVPB PRN PRN Hypoglycemia Protocol Levothyroxine Sodium 25 mcg 06/09/24 06:30 06/11/24 05:48 Levothyroxine Sodium 25 Mcg Tablet PO 25 mcg DAILY@0630 ANIL Administration Metoprolol Succinate 25 mg 06/09/24 09:00 06/11/24 08:15 Metoprolol Succinate Ext Rel 25 Mg Tabcr PO 25 mg DAILY ANIL Administration Ondansetron HCl 4 mg 06/08/24 21:12 Ondansetron Inj 4 Mg/2 Ml Vial IV PUSH Q4H PRN Nausea Radiology Results: ITS Impressions Head CT 06/08/24 18:44 IMPRESSION: No acute intracranial findings. Abdomen/Pelvis CT 06/08/24 19:26 IMPRESSION: 1. No evidence of appendicitis, diverticulitis or intestinal obstruction. The appendix is not demonstrated. 2. Fat stranding posterior to the cecum which may indicate colitis. The appendix is not seen. 3. Large sliding hiatus hernia. 4. Constipation 5. Prominent vascularity in the posterior pelvis with possible AVM further evaluation advised. 6. Thickened wall of the rectum. Clinical evaluation advised. 7. Prominent pancreatic duct. Follow-up advised. 8. Grossly distended gallbladder with no definite stones. 9. Bilateral basal lung atelectasis versus pneumonia. Clinical correlation advised. 10. Tiny stone in the right kidney. Abdomen Ultrasound 06/08/24 22:19 IMPRESSION: Distended gallbladder with no stones. Increased echogenicity of the liver suggestive of fat infiltration. Otherwise, normal limited abdominal ultrasound. Labs Labs: Laboratory Results - last 24 hr 06/11/24 05:35 WBC 3.4 L RBC 3.89 L Hgb 10.9 L Hct 34.0 L MCV 87.4 MCH 28.0 MCHC 32.1 RDW 17.2 H Plt Count 115 L MPV 10.3 % Immature Plt Fraction 4.3 Sodium 139 Potassium 3.4 Chloride 111 H Carbon Dioxide 21 L Anion Gap 7 BUN 11 Creatinine 0.70 Estim Creat Clear Calc 43 Estimated GFR > 60 Glucose 79 Calcium 7.7 L Magnesium 1.6 Total Bilirubin 1.6 H AST 361 H ALT 124 H Alkaline Phosphatase 212 H Total Protein 6.0 L Albumin 2.4 L
[2024-06-11 20:45] VITALS: O2SAT 98
[2024-06-11 20:49] VITALS: PULSE 70; RESP 18; O2SAT 98
[2024-06-11 21:10] VITALS: BP 128/64; PULSE 67; RESP 16; TEMP 36.3; O2SAT 91
[2024-06-12] MEDS: SODIUM CHLORIDE 0.9% IV 1,000 ML 100 ML IV CONT (01:59)
[2024-06-12] MEDS: PIPERACILLN/TAZ 3.375GM/NS50ML 3.375 GM/50 ML BAG IVPB ×3 (04:26→16:26)
[2024-06-12] MEDS: LEVOTHYROXINE SODIUM 25 MCG TABLET PO (05:35)
[2024-06-12 05:55] VITALS: BP 122/82; PULSE 66; RESP 16; TEMP 36.3; O2SAT 95
[2024-06-12 06:04] LABS: Hematocrit 38.5 % (37.0-47.0); Mean Corpuscular HGB Conc 31.2 g/dl (32-36); Mean Corpuscular Hemoglobin 28.5 pg (26-34); Mean Corpuscular Volume 91.4 fl (80-100); Mean Platelet Volume 10.8 fl (7.4-10.4); Platelet Count Result 114 k/mm3 (150-375); Red Blood Count 4.21 M/mm3 (4.2-5.4); Red Cell Distribution Width 17.3 % (11.5-14.5); White Blood Count 3.4 K/mm3 (4.5-10.0)
[2024-06-12 06:22] LABS: Alanine Aminotransferase 119 U/L (6-35); Albumin Level 2.5 g/dL (3.5-5.1); Alkaline Phosphatase 204 U/L (38-126); Anion Gap 8 mmol/L (4-12); Aspartate Amino Transferase 350 U/L (14-36); Bilirubin,Total 1.8 mg/dL (0.2-1.3); Blood Urea Nitrogen 8 mg/dL (7-17); Calcium 7.9 mg/dL (8.4-10.2); Carbon Dioxide 18 mmol/L (22-30); Chloride 111 mmol/L (98-107); Estimated CRCL calculation 45 ml/min; Estimated Glomerular Filt Rate > 60; Glucose 71 mg/dL (65-110); Magnesium 1.6 mg/dL (1.6-2.3); Potassium 3.8 mmol/L (3.4-5.0); Sodium 137 mmol/L (137-145)
[2024-06-12 09:02] VITALS: PULSE 81
[2024-06-12] MEDS: amLODIPine BESYLATE 2.5 MG TABLET 7.5 MG PO (09:02)
[2024-06-12] MEDS: METOPROLOL SUCCINATE EXT REL 25 MG TABCR PO (09:02)
[2024-06-12 14:00] VITALS: BP 107/62; PULSE 73; RESP 18; TEMP 35.8; O2SAT 99
--- NOTE | 2024-06-12 17:22 | WPDGIPROGNO ---
Progress Note: A&P Assessment and Plan (1) Transaminitis: Code(s): R74.01 - Elevation of levels of liver transaminase levels Status: Acute Assessment and Plan: stable normal biliary system, no need of ercp no evidence of cholecystitis and she is asymptomatic, ok to discontinue antibiotics (2) Cirrhosis: Code(s): K74.60 - Unspecified cirrhosis of liver Status: Acute Assessment and Plan: mrcp noted cirrhosis, probably this can explain partially elevated liver enzymes she can follow-up in office will follow only as needed, no objections to discharge per gi standpoint (3) Hypertension: Code(s): I10 - Essential (primary) hypertension Status: Acute (4) Dementia: Qualifiers: Dementia behavioral or psychological symptom: unspecified whether behavioral, psychotic, or mood disturbance or anxiety Dementia severity: unspecified severity Dementia type: unspecified type Qualified Code(s): F03.90 - Unspecified dementia, unspecified severity, without behavioral disturbance, psychotic disturbance, mood disturbance, and anxiety Code(s): F03.90 - Unspecified dementia, unspecified severity, without behavioral disturbance, psychotic disturbance, mood disturbance, and anxiety Status: Acute Subjective Date/time seen: 06/12/24 17:22 Interval history: she is quite comfortable, tolerating diet, denies abdominal pain Review of Systems Review of Systems: All systems reviewed & are unremarkable except as noted in HPI and below Exam Const: General: comfortable and no acute distress HENMT: Face/Nose/Sinus: Normal nares present Eyes: General: appearance normal, both eyes and all related structures Neck: Neck: supple Resp: Auscultation: clear to auscultation bilaterally Cardio: Rate: regular rate Rhythm: regular rhythm GI: Inspection: non-distended GI Palp: Yes Soft to palpation and No Tenderness to palpation present (GI) Skin: General skin exam: normal color Neuro: Other: awake and alert but confused Extrem: General: normal to inspection Objective Data Vital Signs Vital Signs: Vital Signs - 24 hr 06/11/24 20:45 06/11/24 20:49 06/11/24 21:10 Temperature 97.3 F L Pulse Rate 70 67 Respiratory Rate 18 16 Blood Pressure 128/64 Pulse Oximetry 98 98 91 Oxygen Delivery Room Air Room Air Fraction of Inspired Oxygen 06/12/24 05:55 06/12/24 09:02 06/12/24 14:00 Temperature 97.3 F L 96.4 F L Pulse Rate 66 81 73 Respiratory Rate 16 18 Blood Pressure 122/82 107/62 Pulse Oximetry 95 99 Oxygen Delivery Fraction of Inspired Oxygen Intake/Output Intake/Output: Intake & Output 06/09/24 06/10/24 06/11/24 06/12/24 23:59 23:59 23:59 23:59 Intake Total 2320 1700 1730 1580 Balance 2320 1700 1730 1580 Meds/Results Medications: Active Medications Generic Name Dose Route Start Last Admin Trade Name Freq PRN Reason Stop Dose Admin Acetaminophen 650 mg 06/08/24 21:12 Acetaminophen 325 Mg Tablet PO Q4H PRN Mild Pain (1-3) or Fever Amlodipine Besylate 7.5 mg 06/09/24 09:00 06/12/24 09:02 Amlodipine Besylate 2.5 Mg Tablet PO 7.5 mg QAM ANIL Administration Dextrose 12.5 gm 06/08/24 21:12 Dextrose 50% 25 Gm/50 Ml Syringe IV PUSH PRN PRN Hypoglycemia Protocol Glucagon 1 mg 06/08/24 21:12 Glucagon For Inj 1 Mg Vial IM PRN PRN Hypoglycemia Protocol Glucose 15 gm 06/08/24 21:12 Glucose Oral Gel 15 Gm Of Glucse In 37.5 Gm Tube PO PRN PRN Hypoglycemia Protocol Dextrose 1,000 mls @ 100 mls/hr 06/08/24 21:12 Dextrose 5% 1,000 Ml IVPB PRN PRN Hypoglycemia Protocol Levothyroxine Sodium 25 mcg 06/09/24 06:30 06/12/24 05:35 Levothyroxine Sodium 25 Mcg Tablet PO 25 mcg DAILY@0630 ANIL Administration Metoprolol Succinate 25 mg 06/09/24 09:00 06/12/24 09:02 Metoprolol Succinate Ext Rel 25 Mg Tabcr PO 25 mg DAILY ANIL Administration Ondansetron HCl 4 mg 06/08/24 21:12 Ondansetron Inj 4 Mg/2 Ml Vial IV PUSH Q4H PRN Nausea Radiology Results: ITS Impressions Head CT 06/08/24 18:44 IMPRESSION: No acute intracranial findings. Abdomen/Pelvis CT 06/08/24 19:26 IMPRESSION: 1. No evidence of appendicitis, diverticulitis or intestinal obstruction. The appendix is not demonstrated. 2. Fat stranding posterior to the cecum which may indicate colitis. The appendix is not seen. 3. Large sliding hiatus hernia. 4. Constipation 5. Prominent vascularity in the posterior pelvis with possible AVM further evaluation advised. 6. Thickened wall of the rectum. Clinical evaluation advised. 7. Prominent pancreatic duct. Follow-up advised. 8. Grossly distended gallbladder with no definite stones. 9. Bilateral basal lung atelectasis versus pneumonia. Clinical correlation advised. 10. Tiny stone in the right kidney. Abdomen Ultrasound 06/08/24 22:19 IMPRESSION: Distended gallbladder with no stones. Increased echogenicity of the liver suggestive of fat infiltration. Otherwise, normal limited abdominal ultrasound. MRCP 06/12/24 06:38 Impression: Cirrhotic morphology of the liver. No focal mass or intrahepatic biliary dilatation. Trace perihepatic ascites. Distended gallbladder without evidence for gallstone, gallbladder wall thickening, or pericholecystic inflammatory change. Large hiatal hernia. Labs Labs: Laboratory Results - last 24 hr 06/12/24 05:21 WBC 3.4 L RBC 4.21 Hgb 12.0 Hct 38.5 MCV 91.4 MCH 28.5 MCHC 31.2 L RDW 17.3 H Plt Count 114 L MPV 10.8 H Sodium 137 Potassium 3.8 Chloride 111 H Carbon Dioxide 18 L Anion Gap 8 BUN 8 Creatinine 0.66 L Estim Creat Clear Calc 45 Estimated GFR > 60 Glucose 71 Calcium 7.9 L Magnesium 1.6 Total Bilirubin 1.8 H AST 350 H ALT 119 H Alkaline Phosphatase 204 H Total Protein 7.0 Albumin 2.5 L
--- NOTE | 2024-06-12 17:59 | P.PNIM_ITS ---
Progress Note: A&P Assessment and Plan (1) Transaminitis: Code(s): R74.01 - Elevation of levels of liver transaminase levels Status: Acute (2) Hyperbilirubinemia: Code(s): E80.6 - Other disorders of bilirubin metabolism Status: Acute (3) Enlarged gallbladder: Code(s): K82.8 - Other specified diseases of gallbladder Status: Acute (4) Pancreatic duct dilated: Code(s): K86.89 - Other specified diseases of pancreas Status: Acute (5) Dementia: Qualifiers: Dementia behavioral or psychological symptom: unspecified whether b ehavioral, psychotic, or mood disturbance or anxiety Dementia severity: unspecified severity Dementia type: unspecified type Qualified Code(s): F03.90 - Unspecified dementia, unspecified severity, without behavioral disturbance, psychotic disturbance, mood disturbance, and anxiety Code(s): F03.90 - Unspecified dementia, unspecified severity, without behavioral disturbance, psychotic disturbance, mood disturbance, and anxiety Status: Acute (6) Hypothyroid: Code(s): E03.9 - Hypothyroidism, unspecified Status: Acute (7) Hypertension: Code(s): I10 - Essential (primary) hypertension Status: Acute Plan patient remains confused does not know why she is here, and if anything wrong with her, upon arrival patient LFT were elevated showing AST 528, ALT 167, lipase 394 and total bilirubin 1.[address] demonstrated a mildly prominent pancreatic duct, an enlarged gallbladder without evidence of cholelithiasis, and a normal l liver without intrahepatic biliary ductal dilatation. patient denies any GI symptoms, patient is seen by GI, there is seem to be no clear diagnosis of elevated LFT, CPK levels and acute hepatitis panel is negative, to further evaluate patient will have MRCP to further evaluate. Patient had MRCP on 06/10 showed Cirrhotic morphology of the liver No focal mass or intrahepatic biliary dilatation.patient US showed distended gallbladder with no stones, GI suspect elevated LFT 2/2 cirrhotic liver and does not need ERCP as there as not no stones, will d/c abx, patient is seen by GI and further recommendation to follow. patient still remains confused, patient will be seen PT/OT and further recommendation to follow. patient is admitted as observation status Subjective Date/time seen: 06/12/24 17:59 Interval history: patient remains confused does not know why she is here, and if anything wrong with her, upon arrival patient LFT were elevated showing AST 528, ALT 167, lipase 394 and total bilirubin 1.[address] demonstrated a mildly prominent pancreatic duct, an enlarged gallbladder without evidence of cholelithiasis, and a normal l liver without intrahepatic biliary ductal dilatation. patient denies any GI symptoms, patient is seen by GI, there is seem to be no clear diagnosis of elevated LFT, CPK levels and acute hepatitis panel is negative, to further evaluate patient will have MRCP to further evaluate. Patient had MRCP on 06/10 showed Cirrhotic morphology of the liver No focal mass or intrahepatic biliary dilatation.patient US showed distended gallbladder with no stones, GI suspect elevated LFT 2/2 cirrhotic liver and does not need ERCP as there as not no stones, will d/c abx, patient is seen by GI and further recommendation to follow. patient still remains confused, patient will be seen PT/OT and further recommendation to follow. Exam Narrative: Patient is comfortable, NAD HEENT: eyes are clear and none icteric LUNGS:CTA HEART: RR S1S2 ABD: BS+, Soft and nontender Lower extremities: no edema SKIN: nonjaundiced Neuro: grossly intact. Confused Objective Data Vital Signs Vital Signs: Vital Signs - 24 hr 06/11/24 20:45 06/11/24 20:49 06/11/24 21:10 Temperature 36.3 C L Pulse Rate 70 67 Respiratory Rate 18 16 Blood Pressure 128/64 Pulse Oximetry 98 98 91 Oxygen Delivery Room Air Room Air Fraction of Inspired Oxygen 06/12/24 05:55 06/12/24 09:02 06/12/24 14:00 Temperature 36.3 C L 35.8 C L Pulse Rate 66 81 73 Respiratory Rate 16 18 Blood Pressure 122/82 107/62 Pulse Oximetry 95 99 Oxygen Delivery Fraction of Inspired Oxygen Intake/Output Intake/Output: Intake & Output 06/09/24 06/10/24 06/11/24 06/12/24 23:59 23:59 23:59 23:59 Intake Total 2320 1700 1730 1580 Balance 2320 1700 1730 1580 Meds/Results Medications: Active Medications Generic Name Dose Route Start Last Admin Trade Name Freq PRN Reason Stop Dose Admin Acetaminophen 650 mg 06/08/24 21:12 Acetaminophen 325 Mg Tablet PO Q4H PRN Mild Pain (1-3) or Fever Amlodipine Besylate 7.5 mg 06/09/24 09:00 06/12/24 09:02 Amlodipine Besylate 2.5 Mg Tablet PO 7.5 mg QAM ANIL Administration Dextrose 12.5 gm 06/08/24 21:12 Dextrose 50% 25 Gm/50 Ml Syringe IV PUSH PRN PRN Hypoglycemia Protocol Glucagon 1 mg 06/08/24 21:12 Glucagon For Inj 1 Mg Vial IM PRN PRN Hypoglycemia Protocol Glucose 15 gm 06/08/24 21:12 Glucose Oral Gel 15 Gm Of Glucse In 37.5 Gm Tube PO PRN PRN Hypoglycemia Protocol Dextrose 1,000 mls @ 100 mls/hr 06/08/24 21:12 Dextrose 5% 1,000 Ml IVPB PRN PRN Hypoglycemia Protocol Levothyroxine Sodium 25 mcg 06/09/24 06:30 06/12/24 05:35 Levothyroxine Sodium 25 Mcg Tablet PO 25 mcg DAILY@0630 ANIL Administration Metoprolol Succinate 25 mg 06/09/24 09:00 06/12/24 09:02 Metoprolol Succinate Ext Rel 25 Mg Tabcr PO 25 mg DAILY ANIL Administration Ondansetron HCl 4 mg 06/08/24 21:12 Ondansetron Inj 4 Mg/2 Ml Vial IV PUSH Q4H PRN Nausea Radiology Results: ITS Impressions Head CT 06/08/24 18:44 IMPRESSION: No acute intracranial findings. Abdomen/Pelvis CT 06/08/24 19:26 IMPRESSION: 1. No evidence of appendicitis, diverticulitis or intestinal obstruction. The appendix is not demonstrated. 2. Fat stranding posterior to the cecum which may indicate colitis. The appendix is not seen. 3. Large sliding hiatus hernia. 4. Constipation 5. Prominent vascularity in the posterior pelvis with possible AVM further evaluation advised. 6. Thickened wall of the rectum. Clinical evaluation advised. 7. Prominent pancreatic duct. Follow-up advised. 8. Grossly distended gallbladder with no definite stones. 9. Bilateral basal lung atelectasis versus pneumonia. Clinical correlation advised. 10. Tiny stone in the right kidney. Abdomen Ultrasound 06/08/24 22:19 IMPRESSION: Distended gallbladder with no stones. Increased echogenicity of the liver suggestive of fat infiltration. Otherwise, normal limited abdominal ultrasound. MRCP 06/12/24 06:38 Impression: Cirrhotic morphology of the liver. No focal mass or intrahepatic biliary dilatation. Trace perihepatic ascites. Distended gallbladder without evidence for gallstone, gallbladder wall thickening, or pericholecystic inflammatory change. Large hiatal hernia. Labs Labs: Laboratory Results - last 24 hr 06/12/24 05:21 WBC 3.4 L RBC 4.21 Hgb 12.0 Hct 38.5 MCV 91.4 MCH 28.5 MCHC 31.2 L RDW 17.3 H Plt Count 114 L MPV 10.8 H Sodium 137 Potassium 3.8 Chloride 111 H Carbon Dioxide 18 L Anion Gap 8 BUN 8 Creatinine 0.66 L Estim Creat Clear Calc 45 Estimated GFR > 60 Glucose 71 Calcium 7.9 L Magnesium 1.6 Total Bilirubin 1.8 H AST 350 H ALT 119 H Alkaline Phosphatase 204 H Total Protein 7.0 Albumin 2.5 L
[2024-06-12 20:20] VITALS: PULSE 73; RESP 18; O2SAT 99
[2024-06-12 21:18] VITALS: BP 106/64; PULSE 75; RESP 16; TEMP 36.5; O2SAT 98
[2024-06-13 04:48] LABS: Actin Antibody (IgG) 25 U (<20)
[2024-06-13 05:54] LABS: Hematocrit 34.3 % (37.0-47.0); Hemoglobin 11.1 g/dL (12.0-15.0); Immature Platelet Fraction Pct 4.6 % (0.9-11.2); Mean Corpuscular HGB Conc 32.4 g/dl (32-36); Mean Corpuscular Hemoglobin 28.3 pg (26-34); Mean Corpuscular Volume 87.5 fl (80-100); Mean Platelet Volume 11.2 fl (7.4-10.4); Platelet Count Result 119 k/mm3 (150-375); Red Blood Count 3.92 M/mm3 (4.2-5.4); Red Cell Distribution Width 17.1 % (11.5-14.5); White Blood Count 3.7 K/mm3 (4.5-10.0)
[2024-06-13 06:00] VITALS: BP 130/74; PULSE 76; RESP 18; TEMP 36.8; O2SAT 96
[2024-06-13 06:08] LABS: Alanine Aminotransferase 120 U/L (6-35); Albumin Level 2.6 g/dL (3.5-5.1); Alkaline Phosphatase 225 U/L (38-126); Anion Gap 6 mmol/L (4-12); Aspartate Amino Transferase 318 U/L (14-36); Bilirubin,Total 1.4 mg/dL (0.2-1.3); Blood Urea Nitrogen 9 mg/dL (7-17); Calcium 8.1 mg/dL (8.4-10.2); Carbon Dioxide 21 mmol/L (22-30); Chloride 110 mmol/L (98-107); Estimated CRCL calculation 42 ml/min; Estimated Glomerular Filt Rate > 60; Glucose 78 mg/dL (65-110); Magnesium 1.7 mg/dL (1.6-2.3); Potassium 3.4 mmol/L (3.4-5.0); Sodium 137 mmol/L (137-145)
[2024-06-13] MEDS: LEVOTHYROXINE SODIUM 25 MCG TABLET PO (06:08)
[2024-06-13 07:25] VITALS: BP 138/74; PULSE 72; RESP 18; TEMP 36.4; O2SAT 97
[2024-06-13 08:28] VITALS: PULSE 74
[2024-06-13] MEDS: amLODIPine BESYLATE 2.5 MG TABLET 7.5 MG PO (08:28)
[2024-06-13] MEDS: METOPROLOL SUCCINATE EXT REL 25 MG TABCR PO (08:28)
[2024-06-13 10:24] LABS: Ammonia 35 umol/L (9-30)
[2024-06-13 12:18] LABS: ANA Pattern Cytoplasmic; Anti Nuclear Antibody Pattern Nuclear, Homogeneous
[2024-06-13] MEDS: ACETAMINOPHEN 325 MG TABLET 650 MG PO (13:24)
--- NOTE | 2024-06-13 13:25 | P.DS_ITS ---
DS: Admitting Diagnosis Discharge Date 06/13/24 Admitting Diagnosis confusion DS: Discharge Diagnosis Discharge Diagnosis (1) Transaminitis: Code(s): R74.01 - Elevation of levels of liver transaminase levels Status: Acute (2) Hyperbilirubinemia: Code(s): E80.6 - Other disorders of bilirubin metabolism Status: Acute (3) Enlarged gallbladder: Code(s): K82.8 - Other specified diseases of gallbladder Status: Acute (4) Pancreatic duct dilated: Code(s): K86.89 - Other specified diseases of pancreas Status: Acute (5) Dementia: Qualifiers: Dementia behavioral or psychological symptom: unspecified whether behavioral, psychotic, or mood disturbance or anxiety Dementia severity: unspecified severity Dementia type: unspecified type Qualified Code(s): F03.90 - Unspecified dementia, unspecified severity, without behavioral disturbance, psychotic disturbance, mood disturbance, and anxiety Code(s): F03.90 - Unspecified dementia, unspecified severity, without behavioral disturbance, psychotic disturbance, mood disturbance, and anxiety Status: Acute (6) Hypothyroid: Code(s): E03.9 - Hypothyroidism, unspecified Status: Acute (7) Hypertension: Code(s): I10 - Essential (primary) hypertension Status: Acute Plan patient remains confused does not know why she is here, and if anything wrong with her, upon arrival patient LFT were elevated showing AST 528, ALT 167, lipase 394 and total bilirubin 1.[address] demonstrated a mildly prominent pancreatic duct, an enlarged gallbladder without evidence of cholelithiasis, and a normal l liver without intrahepatic biliary ductal dilatation. patient denies any GI symptoms, patient is seen by GI, there is seem to be no clear diagnosis of elevated LFT, CPK levels and acute hepatitis panel is negative, to further evaluate patient will have MRCP to further evaluate. Patient had MRCP on 06/10 showed Cirrhotic morphology of the liver No focal mass or intrahepatic biliary dilatation.patient US showed distended gallbladder with no stones, GI suspect elevated LFT 2/2 cirrhotic liver and does not need ERCP as there as not no stones, will d/c abx, patient is seen by GI and further recommendation to follow. patient still remains confused, patient will be seen PT/OT and further recommendation to follow. patient is admitted as observation status DS: Summary Hospital Course Hospital Course: Patient had MRCP on 06/10 showed Cirrhotic morphology of the liver No focal mass or intrahepatic biliary dilatation.patient US showed distended gallbladder with no stones, GI suspect elevated LFT 2/2 cirrhotic liver and does not need ERCP as there as not no stones, will d/c abx, patient is seen by GI and further recommendation to follow. patient still remains confused, patient will be seen PT/OT and further recommendation to follow. Patient is at her baseline remains pleasantly confused and clinically stable, will discharge patient to her NH today. Time Spent with Patient Time attestation: Total time spent providing and/or coordinating discharge services: Exam Narrative: Patient is comfortable, NAD HEENT: eyes are clear and none icteric LUNGS:CTA HEART: RR S1S2 ABD: BS+, Soft and nontender Lower extremities: no edema SKIN: nonjaundiced Neuro: grossly intact. Confused DS: Data Data Completed and Pending Labs on day of discharge: Labs from last 24 hours 06/13/24 06/13/24 06/08/24 10:11 05:15 16:23 WBC 3.7 L RBC 3.92 L Hgb 11.1 L Hct 34.3 L MCV 87.5 MCH 28.3 MCHC 32.4 RDW 17.1 H Plt Count 119 L MPV 11.2 H % Immature Plt Fraction 4.6 Sodium 137 Potassium 3.4 Chloride 110 H Carbon Dioxide 21 L Anion Gap 6 BUN 9 Creatinine 0.72 Estim Creat Clear Calc 42 Estimated GFR > 60 Glucose 78 Calcium 8.1 L Magnesium 1.7 Total Bilirubin 1.4 H AST 318 H ALT 120 H Alkaline Phosphatase 225 H Ammonia 35 H Total Protein 7.0 Albumin 2.6 L SAMREEN Screen Positive A SAMREEN Titer 1:1280 H SAMREEN Titer 2 1:1280 H SAMREEN Pattern Nuclear, homogeneous A SAMREEN Pattern 2 Cytoplasmic A Actin IgG Antibody 25 H Discharge Plan Discharge Attending physician on discharge: Quynh Costello Consulting providers: Karel Balderrama Discharging Clinician: Prince Kimball Patient Disposition: Home with Home Health Service Activity: as tolerated Diet: heart healthy Discharge Instructions: Per Care Coordination: [facility] ([phone]) will call to set up initial visit. patient to follow up with her primary care provider as soon as possible. Patient Instructions: Cirrhosis of the Liver (GEN) Patient Language: Mohawk Stand Alone Forms: General Discharge Information Follow-up/Referrals: Amira,MD Alina [Primary Care Provider] - Discharge Medications: Continued donepezil 5 mg tablet 5 mg PO DAILY amlodipine 2.5 mg Tablet 7.5 mg PO QAM 30 Days Qty: 90 0RF atorvastatin 10 mg tablet 10 mg PO QPM metoprolol succinate 50 mg tablet extended release 24 hr 25 mg PO DAILY potassium chloride 10 mEq tablet extended release 10 meq PO DAILY levothyroxine 25 mcg tablet 25 mcg PO DAILY Date of admission: 06/09/24 10:33 Primary Care Provider: Amira,Alina Admitting Provider: Quynh Costello Attending physician on admission: Quynh Costello Condition: Stable
[2024-06-13 14:00] VITALS: BP 113/67; PULSE 75; RESP 18; TEMP 36.3; O2SAT 98
== END 2024-06-13 14:45 | disposition home health service (06) | DRG 434 ==
LOC: ANHED 21:25 → ANH3MEDSUR 23:12
PROVIDERS: Emergency Medicine; Internal Medicine Gastroenterology; Admitting Provider Internal Medicine; Emergency Provider Physician Assistant; PCP Internal Medicine; Visit Provider Family Medicine
DX: K74.60 Unspecified cirrhosis of liver (principal); E80.6 Other disorders of bilirubin metabolism; K82.8 Other specified diseases of gallbladder; K86.89 Other specified diseases of pancreas; F03.90 Unspecified dementia, unspecified severity, without behavioral disturbance, psychotic disturbance, mood disturbance, and anxiety; E03.9 Hypothyroidism, unspecified; I10 Essential (primary) hypertension; E78.5 Hyperlipidemia, unspecified; Z66 Do not resuscitate
CPT/HCPCS: 36415; 70450; 74177; 74181; 76376; 76705; 80053; 81001; 82140; 82550; 83516; 83690; 83735; 84443; 85025; 85027; 85055; 86038; 86039; 86709; 86803; 87340; 87637; 93005; 96361; 96365; 97110; 97116; 97161; 97165; 97530; 97535; 99285; A9270; G0378; J2543; J7030; Q9967

== ENCOUNTER 2024-06-15 12:32 | Observation (INO) | payer MEDICARE, OTHER, SELFPAY ==
[2024-06-15] VITALS (29 sets, daily range): BP systolic 109–126; BP diastolic 60–87; PULSE 72–84; RESP 12–20; TEMP 36.8; O2SAT 96–100; BMI 24.5
[2024-06-15 12:56] LABS: Basophils Percent Auto 0.9 % (0.2-1.2); Eosinophils Percent Auto 0.4 % (0-4.4); Hematocrit 36.8 % (37.0-47.0); Hemoglobin 11.9 g/dL (12.0-15.0); Immature Granulocyte Absolute 0.01 K/mm3 (0.00-0.031); Immature Granulocyte Percent A 0.2 % (0-0.5); Immature Platelet Fraction Pct 4.1 % (0.9-11.2); Lymphocytes Absolute Auto 0.55 K/mm3 (0.9-3.2); Lymphocytes Percent Auto 11.9 % (18.3-44.2); Mean Corpuscular HGB Conc 32.3 g/dl (32-36); Mean Corpuscular Hemoglobin 28.7 pg (26-34); Mean Corpuscular Volume 88.7 fl (80-100); Mean Platelet Volume 11.1 fl (7.4-10.4); Monocytes Absolute Auto 0.5 K/mm3 (0.1-0.6); Monocytes Percent Auto 10.6 % (2.6-8.5); Neutrophils Absolute Auto 3.5 K/mm3 (1.3-6.7); Platelet Count Result 127 k/mm3 (150-375); Red Blood Count 4.15 M/mm3 (4.2-5.4); Red Cell Distribution Width 17.6 % (11.5-14.5); White Blood Count 4.6 K/mm3 (4.5-10.0)
[2024-06-15 13:05] LABS: Alanine Aminotransferase 131 U/L (6-35); Alkaline Phosphatase 243 U/L (38-126); Anion Gap 10 mmol/L (4-12); Aspartate Amino Transferase 454 U/L (14-36); Bilirubin,Total 1.5 mg/dL (0.2-1.3); Blood Urea Nitrogen 12 mg/dL (7-17); Calcium 8.4 mg/dL (8.4-10.2); Carbon Dioxide 21 mmol/L (22-30); Chloride 106 mmol/L (98-107); Estimated Glomerular Filt Rate > 60; Glucose 106 mg/dL (65-110); Potassium 3.5 mmol/L (3.4-5.0); Sodium 137 mmol/L (137-145)
--- NOTE | 2024-06-15 13:45 | PC.NURSE ---
family arrives bedside to ED and tells this RN that pt was sent for elevated liver enzymes, NOT kidney labs.
--- NOTE | 2024-06-15 14:37 | ED_ITS ---
HPI - Recheck/Abnormal Lab/Rx General Chief Complaint: Recheck/Abnormal Lab/Rx Stated Complaint: gen. weakness, abnormal labs Time Seen by Provider: 06/15/24 14:11 History of Present Illness HPI narrative: 88-year-old female with a past medical history including dementia, hyperthyroidism, hypertension and liver cirrhosis. She presents to the emergency department after being referred by her primary care provider's office for definitive placement in a nursing facility as family and caregivers are not able to handle her. Patient was just discharged after a hospital stay with extensive workup for confusion and elevated liver enzymes. She was diagnosed with liver cirrhosis after MRCP was done and GI said there is no further interventions or treatment plans in place. She was discharged home with home health care but family states that she needs full-time care so she came here for placement according to the patient's family/caregiver and primary care provider's office. Patient has persistent elevated liver function panel tests without any new findings. Patient is at her baseline mentation per the reviewed inpatient notes and her clinical exam today as well as family's collateral information. Patient has no complaints at this time. She is pleasantly demented. Patient has normal vital signs and denies any headache, vision changes, chest pain, shortness a breath, nausea, vomiting, abdominal pain. No urinary complaints. Family at bedside expressed frustration that they were not sure about why she was discharged home instead of going to a nursing facility directly from her admission and was just discharged under 48 hours ago. Unclear based on review of the notes. Related Data Home Medications ?Medication ?Instructions ?Recorded ?Confirmed ?Last Taken ?Type levothyroxine 25 mcg tablet 25 mcg PO DAILY 09/11/19 06/08/24 Unknown History metoprolol succinate 50 mg 25 mg PO DAILY 09/11/19 06/08/24 Unknown History tablet,extended release 24 hr potassium chloride 10 mEq 10 meq PO DAILY 09/11/19 06/08/24 Unknown History tablet,extended release donepezil 5 mg tablet 5 mg PO DAILY 07/13/21 06/08/24 Unknown History atorvastatin 10 mg tablet 10 mg PO QPM 06/08/24 06/08/24 Unknown History Allergies Allergy/AdvReac Type Severity Reaction Status Date / Time Penicillins Allergy Unknown Verified 06/12/24 08:53 Review of Systems 2 Review of Systems: As reviewed above in HPI [facility] Past Medical History Medical History Cirrhosis Dementia Hypothyroid Hyperlipidemia Hypertension Family History Family History Other Unknown family medical history Social History Social History Social History: Patient is a Protestant lives at home by herself. She has 2 kids a son and a daughter and worked for [employer]. Patient wishes to be a DNR and states that her son and daughter can be her surrogate. Son Micah was present. 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 Mucous membranes moist. NECK: Supple. CHEST: [Clear to auscultation. No respiratory distress.] HEART: [Regular rate and rhythm]. No murmur heard. [Normal peripheral pulses.] ABDOMEN: [Soft, nondistended], [nontender], [No rigidity or guarding] EXTREMITIES: Normal range of motion. [No edema.] SKIN: Warm, dry, no rash. NEURO: [No focal deficits]. Alert and oriented x2, at baseline mentation per review of the notes PSYCH: [Normal mood and affect.] Course Vital Signs Vital signs: Vital Signs Temperature 36.8 C 06/15/24 12:32 Pulse Rate 79 04/24/25 12:32 Respiratory Rate 12 06/15/24 12:32 Blood Pressure 110/78 06/15/24 12:32 Pulse Oximetry 97 06/15/24 12:32 Oxygen Delivery Room Air 06/15/24 12:32 Temperature 36.8 C 06/15/24 12:32 Pulse Rate 75 06/15/24 18:15 Respiratory Rate 19 06/15/24 18:15 Blood Pressure 122/63 06/15/24 18:15 Pulse Oximetry 100 06/15/24 18:15 Oxygen Delivery Room Air 06/15/24 15:12 MDM - Recheck/Abnormal Lab/Rx MDM Narrative Medical decision making narrative: 88-year-old female with history of dementia, hypothyroidism and hypertension and newly diagnosed liver cirrhosis. She was just admitted to the hospital with extensive workup and discharged home with home health care but family states that she needs full-time nursing assistance and need to be placed into a facility. Patient herself is pleasantly at her baseline with no new concerns. She denies any complaints at this time and resting comfortably in her stretcher with normal vital signs. She is not unremarkable physical examination. She is at her baseline mentation and O x2. On review of the notes patient was diagnosed with cirrhosis and cleared by GI with no further interventions or investigations needed, her persistent liver elevations were secondary to the cirrhosis. Does not require hospital admission at this time based on her full workup and discharged 2 days ago, but will repeat laboratory evaluations and attempts to reach out to care coordination for placement. Laboratory studies are at baseline levels compared to the prior day's without any significant changes or derangements that are new. Normal kidney function. No white count. LFTs persistently elevated and likely secondary to her liver cirrhosis based on her full workup during admission. Patient is stable for placement and grounds caretaker will come evaluate at bedside. services coordinator was not able to have patient's successfully placed from the emergency department so she will be admitted for inpatient team to assist with the help of PT, OT and grounds caretaker. Spoke to the hospitalist currently being covered by the midlevel provider Gay who accepted the patient to an observation admission [facility]. Family comfortable with this plan. Medical Records Attestation: I reviewed the patient's medical records. Lab Data Attestation: I reviewed the patient's lab results. 06/15/24 12:49 06/15/24 12:49 Labs: Lab Results 06/15/24 Range/Units 12:49 WBC 4.6 (4.5-10.0) K/mm3 RBC 4.15 L (4.2-5.4) M/mm3 Hgb 11.9 L (12.0-15.0) g/dL Hct 36.8 L (37.0-47.0) % MCV 88.7 (80-100) fl MCH 28.7 (26-34) pg MCHC 32.3 (32-36) g/dl RDW 17.6 H (11.5-14.5) % Plt Count 127 L (150-375) k/mm3 MPV 11.1 H (7.4-10.4) fl Immature Gran % (Auto) 0.2 (0-0.5) % Neut % (Auto) 76.0 H (45.5-73.1) % Lymph % (Auto) 11.9 L (18.3-44.2) % Delta % (Auto) 10.6 H (2.6-8.5) % Eos % (Auto) 0.4 (0-4.4) % Baso % (Auto) 0.9 (0.2-1.2) % Lymph # (Auto) 0.55 L (0.9-3.2) K/mm3 Delta # (Auto) 0.5 (0.1-0.6) K/mm3 Eos # (Auto) 0.0 (0-0.3) K/mm3 Baso # (Auto) 0.0 (0.0-0.1) K/mm3 Abs Immat Gran (auto) 0.01 (0.00-0.031) K/mm3 Absolute Neuts (auto) 3.5 (1.3-6.7) K/mm3 Absolute Nucleated RBC 0.000 (0.0-0.012) K/mm3 Nucleated RBC % 0.0 (0.0-0.2) % % Immature Plt Fraction 4.1 (0.9-11.2) % Sodium 137 (137-145) mmol/L Potassium 3.5 (3.4-5.0) mmol/L Chloride 106 (98-107) mmol/L Carbon Dioxide 21 L (22-30) mmol/L Anion Gap 10 (4-12) mmol/L BUN 12 (7-17) mg/dL Creatinine 0.64 L (0.7-1.0) mg/dL Estim Creat Clear Calc Not Reportable Estimated GFR > 60 (59 - ) Glucose 106 (65-110) mg/dL Calcium 8.4 (8.4-10.2) mg/dL Total Bilirubin 1.5 H (0.2-1.3) mg/dL AST 454 H (14-36) U/L ALT 131 H (6-35) U/L Alkaline Phosphatase 243 H (38-126) U/L Total Protein 8.0 (6.3-8.2) g/dL Albumin 3.0 L (3.5-5.1) g/dL Discharge Plan Discharge Clinical Impression: Age-related physical debility, Cirrhosis Dementia Qualifiers: Dementia type: unspecified type Dementia severity: unspecified severity D ementia behavioral or psychological symptom: unspecified whether behavioral, psychotic, or mood disturbance or anxiety Qualified Code(s): F03.90 - Unspecified dementia, unspecified severity, without behavioral disturbance, psychotic disturbance, mood disturbance, and anxiety Patient Disposition: Still a Patient Condition: Stable Patient Language: Romansh Prescriptions: No Action donepezil 5 mg tablet 5 mg PO DAILY amlodipine 2.5 mg Tablet 7.5 mg PO QAM 30 Days Qty: 90 0RF atorvastatin 10 mg tablet 10 mg PO QPM metoprolol succinate 50 mg tablet extended release 24 hr 25 mg PO DAILY potassium chloride 10 mEq tablet extended release 10 meq PO DAILY levothyroxine 25 mcg tablet 25 mcg PO DAILY Follow-up/Referrals: Amira,MD Alina [Primary Care Provider] - Time of Disposition: 18:27
--- OUTSIDE RECORDS SUMMARY | 2024-06-15 15:23 | XMS_ITS | Continuity of Care Document ---
Author Organization [facility] Address [address] [place] [address] Phone Care Team Providers Care President Mortgage Company Name Role Phone Bre Orta Unavailable Unavailable [...] Diagnoses Date Provider Providers Copied on Encounter [facility], [address] [place] [address] [address], [place], [place], [id number], [place] tel:[phone] [facility] No Information Sep-2 3-201 0 Marivel Polanco [address] , [address], [place], [address], [place]. tel:[phone] [facility], [address] [place] [address] [address], [place], [place], [id number], [place] tel:[phone] [facility] No Information Sep-0 2-201 0 Marivel Polanco [address] , [address], [place], [address], [place]. tel:[phone] [facility], [address] [place] [address] [address], [place], [place], [id number], [place] tel:[phone] [facility] No Information -201 0 Marivel Polanco [address] , [address], [place], [place], [facility], [place]. tel:[phone] [facility], [address] [place] [address] [address], [place], [place], [id number], [place] tel:[phone] [facility] No Information -201 0 Marivel Polanco [address] , [address], [place], [place], [facility], [place]. tel:[phone] Office/outpat ient Visit, [facility], [address] [place] [address] [address], [place], [place], [id number], [place] tel:[phone] [facility] No Information 2-201 0 Marivel Polanco [address] , [address], [place], [place], [facility], [place]. tel:[phone] Referring Provider: Bekah [address], [place], [place], [facility]. tel:[phone] [facility], [address] [place] [address] [address], [place], [place], [id number], [place] tel:[phone] [facility] No Information 3-200 9 Marivel Polanco [address] , [address], [place], [address], [place]. tel:[phone] [facility], [address] [place] [address] [address], [place], [place], [id number], [place] tel:[phone] [facility] No Information 8-200 8 Marivel Polanco [address] , [address], [place], [place], [facility], [place]. tel:[phone] [facility], [address], [place], [place], [id number], [place] tel:[phone] [facility] No Information 0-200 7 Marivel Silvan. [address] , [address], [place], [address], [place]. tel:[phone] Family History Family Member Type Diagnosis Age At Onset No Information Payers Payer name Insurance type Covered constitution party ID Authoriza tion(s) No Information Social [...]
--- OUTSIDE RECORDS SUMMARY | 2024-06-15 15:23 | XMS_ITS | Clinical Summary ---
Author Organization [facility] Medical Office Building B Address [address] [place] [address] Care Team Providers Care Sea Air Land Officer Name Role Phone Nestor Faustin MD Primary Care Provider [phone] Allergies Active Allergy Reactions Criticality Noted Date Comments Penicillins Wheezing Medium 12/19/2020 Medications levothyroxine (SYNTHROID) 25 mcg tablet Take 1 tablet (25 mcg total) by mouth shipboard intelligence analyst before breakfast Active potassium chloride ER (KLOR-CON) [...] 1 TABLET IN THE EVENING Active calcium-vits Y6-U-E7-mineral s 166.75 mg- 166.75 unit capsule Take [...] Type Department Care Team Description 05/31/2024 Telephone [facility] [address] [place] [address] Clau Alvarado KEYING MACHINE OPERATOR from Last 3 Months Surgical History Surgery [...] 36 C (96.8 F) 02/10/2021 10:45 AM [facility] Respiratory Rate 16 07/03/2021 8:34 AM CDT [...] 12/01/2019, 11/30/2017, 12/02/2016, Additional history exists Insurance [employer] [facility] MEDICARE ADVANTAGE [facility] Address: [address] [address] [place] [address] MEDICARE ADVANTAGE [facility] Address: [facility] [address] [place] [address] FOR LIFE Advance Directives For more information, please contact: [phone] * Full Code (Latest Code Status on File) Date Activated Date Inactivated Comments 02/10/2021 9:56 AM 02/11/2021 5:00 AM Care Teams Sea Air Land Officer Relationship Specialty Start Date End Date Nestor Faustin MD PCP - General Internal Medicine 12/09/20
--- OUTSIDE RECORDS SUMMARY | 2024-06-15 15:23 | XMS_ITS | Clinical Summary ---
Author Organization [facility] Address [address] [facility] [address] [place] [address] Care Team Providers Care Finance Administrator Name Role Phone Pretty Raymond APRN Primary Care Provider [phone] Social History Tobacco Use Types Packs/Day Years [...] patient's age to complete this topic Insurance [facility] [address] Medicare Care Teams Finance Administrator Relationship Specialty Start Date End Date Pretty Raymond APRN [facility] [place] [address] [place] [address] PCP - General 06/24/23
--- OUTSIDE RECORDS SUMMARY | 2024-06-15 15:23 | XMS_ITS | Clinical Summary ---
Author Organization [facility] Address [address] [place] [address] Care Team Providers Care Official Greeter Name Role Phone Alina Collier MD Primary Care Provider Source Comments [facility],non-owned Affiliates and Associated Physician Practices is amultiple site organization consisting of ambulatory clinics and hospital sitesin [place], [place], [place] and [place]. This disclosure is being madepursuant to the Care Everywhere program and may not contain all information available regarding this patient. Last updated 17.[facility] Allergies Active Allergy Reactions Criticality Noted Date [...] Recorded Patient Health Questionnaire-2 Score 0 11/25/2023 [place] [facility] - Occupational Stress [...] place to sleep or slept in a care home (including now)? No 07/21/2023 Comments Unknown Sex [...] this topic Medical Devices Implanted Type Area Exercise Scientist Device Identifier Shelf Expiration Date Model / Serial / Lot Compon Acetab Bipol Uhr 49mm Implanted:Qty: 1 on 07/21/2023 by Nestor Patton MD at [facility] Right: Hip [employer] [id number] 07/07/2025 [id number] / / [id number] Insignia Hip Stem Standard Offset Implanted:Qty: 1 on 07/21/2023 by Nestor Patton MD at [facility] Right: Hip [employer] 09/03/2027 [id number] / / [id number] Head Fem +8mm Ofst Tpr 28mm Hip Cocr V40 Implanted:Qty: 1 on 07/21/2023 by Nestor Patton MD at [facility] Right: Hip [employer] [id number] 07/29/2026 [id number] / / [id number] Insurance [facility] MANAGED MEDICARE ADV Advance Directives Documents on File Type Date Recorded Patient Bi Developer Expl anation Adv Directive/Living Will/POA 08/02/2023 4:03 PM * Full Code (Latest Code Status on File) Date Activated Date Inactivated Comments 07/20/2023 9:22 PM 07/30/2023 6:45 PM Care Teams Official Greeter Relationship Specialty Start Date End Date Alina Collier MD [address] [facility] [address] [place] [address] PCP - General Internal Medicine 11/19/23
--- OUTSIDE RECORDS SUMMARY | 2024-06-15 15:24 | XMS_ITS | Clinical Summary ---
Author Organization [facility] Address [facility] [place] [address] Care Team Providers Care Chief Dog License Inspector Name Role Phone Unavailable Primary Care Provider [...] Td Vaccines ( 1 - Tdap) 11/21/1954 Pneumococcal Vaccine: 50+ Ye ars (1 of 1 - PCV) 11/21/1985 Zoster Vaccines (1 of 2) 11/21/1985 RSV Immunization or 60+ Years (1 - [...]
--- OUTSIDE RECORDS SUMMARY | 2024-06-15 15:24 | XMS_ITS | CONTINUITY OF CARE DOCUMENT ---
Author Name genevieve vallejo Address Unknown Organization [facility] Address [address] [place] [address] Phone [phone] Care Team Providers Care Coil Shaper Name Role Phone Omar De La Cruz MD Unavailable [phone] Omar De La Cruz MD Unavailable [phone] INSURANCE PROVIDERS Payer name Policy type / Coverage type [place] red libertarian ID FOR LIFE KAYLA [id number] AARP MEDICARE [facility] insurance [employer] [id number]
--- OUTSIDE RECORDS SUMMARY | 2024-06-15 15:24 | XMS_ITS | Referral Summary ---
Author Organization [facility] Medical Office Building B Address [address] [place] [address] Care Team Providers Care Patent Engineer Name Role Phone Nestor Faustin MD Primary Care Provider [phone] Encounters Date Type Department Care Team Description 05/31/2024 Telephone [facility] [address] [place] [address] Clau Alvarado NP from Last 3 Months Allergies Active Allergy Reactions Criticality Noted Date Comments Penicillins Wheezing Medium 12/19/2020 Medications levothyroxine (SYNTHROID) 25 mcg tablet Take 1 tablet (25 mcg total) by mouth ethylene compressor operator before breakfast Active potassium chloride ER (KLOR-CON) [...] 1 TABLET IN THE EVENING Active calcium-vits M6-W-H6-mineral s 166.75 mg- 166.75 unit capsule Take [...] C (96.8 F) 02/10/2021 10:45 AM TRAFFIC OFFICER Respiratory Rate 16 07/03/2021 8:34 AM CDT Oxygen Saturation 97% 11/17/2023 2:21 PM CDT Inhaled Oxygen Concentration - - Weight 65.2 kg (143 lb 12.8 oz) 11/17/2023 2:21 PM CDT Height 165.1 cm (5' 5 ) 11/17/2023 2:21 PM CDT Body Mass Index 23.93 11/17/2023 2:21 PM CDT Plan of Treatment Not on file Insurance Hand[employer] [facility] MEDICARE ADVANTAGE MEDICARE ADVANTAGE FOR LIFE Advance Directives For more information, please contact: [phone] * Full Code (Latest Code Status on File) Date Activated Date Inactivated Comments 02/10/2021 9:56 AM 02/11/2021 5:00 AM Care Teams Patent Engineer Relationship Specialty Start Date End Date Nestor Faustin MD PCP - General Internal Medicine 12/09/20
--- NOTE | 2024-06-15 19:04 | PCCCNOTE ---
1500-Called to the ED to talk about placing pt in SNF. Pt has gotten weak and unable to care for herself at home. Pt and family would like to have her at [facility] [place]. Called for PT/OT orders. 1530-Spoke with Alberto at [facility] regarding placement, and sent the referral. 1640-Submitted an auth from [facility] MCR online. 1618- Alberto called, pt is accepted, pending auth. 1800- [facility] called requesting a peer to peer. ED decided to admit pt at this time. Peer to Peer needs to be completed before noon 02/15/2025. #5. Pt ID number is [id number].
--- NOTE | 2024-06-15 20:57 | ADMGEN ---
This patient, Carly Martino, was admitted to Medical Room 344-01. Patient/family oriented to hospital policies and general routines including ID bracelet, bed and alarms, visiting hours, pain management, procedures, bathroom and other care routines, personal items, smoking policy, room service/diet, and visiting hours. Information on how to activate the Rapid Response Team has been discussed. Patient/Family are encouraged to report perceived risks to care and to ask questions if they do not understand what they are told or what they should do.
--- NOTE | 2024-06-15 22:15 | PM.IMHP ---
H&P: HPI History of Present Illness Date/Time: 06/15/24 22:15 Chief Complaint: Needs long term placement. Narrative: This is an 88-year-old female with dementia, cirrhosis, hypertension, hyperlipidemia, and hypothyroidism who presented to the emergency department via EMS from her primary care physician's office ?in need of long term placement.? She is a poor historian due to her underlying dementia and a majority the following is obtained via a review of her EMR as well as information provided by her son. She was admitted to the hospital last week with weakness, confusion, and elevated LFTs. She was diagnosed with cirrhosis without evidence of decompensation and was discharged home just 2 days ago with home health. The patient lives alone but does have caretakers and family members who come to help on the weekends however the patient is extremely weak and they are having difficulties caring for her. They saw her doctor today in follow-up and discussed long term placement and they were told to bring her to the emergency department to get that arranged. At the time my evaluation the patient is resting comfortably and has no complaints. She denies fever, cold and flu symptoms, chest pain, shortness of breath, abdominal pain, nausea, vomiting, diarrhea, dysuria, focal weakness, paresthesias. Review of Systems Review of Systems: Unable to be obtained accurately given her dementia. [facility] Past Medical History Medical History (Updated 06/15/24 @ 23:13 by Gay Vinson PA-C) Osteoporosis Hypothyroidism Cirrhosis Dementia Hyperlipidemia Hypertension Surgical History Surgical History (Updated 06/15/24 @ 23:10 by Gay Vinson PA-C) Surgical history unknown Family History Family History Other Unknown family medical history Social History Social History (Updated 06/15/24 @ 23:11 by Gay Vinson PA-C) Social History: Surrogate medical decision maker: Micah Martino, son. Code status: Do not resuscitate. Smoking status: Never smoker Alcohol intake: never Substance use: never Substance use type: does not use Do You Feel Safe in your Home?: Yes Lack of Transportation: No Lack of Food: Never True Current Housing: I Have Housing Concerned About Future Housing: No Difficulty Paying Gas/Electric Bills: No Difficulty Paying for Meds: No Currently Unemployed: No Education: High School Diploma/GED Difficulty w/ Childcare or Family Care: No Living arrangements: alone Additional living arrangements comments: The patient has been living alone in her own home with caregivers 5 days a week. She has a son and daughter who come to help on the weekends. 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 Spiritual care concerns: No Agree to blood products: Yes Meds Home Medications and Allergies Home Medications ?Medication ?Instructions ?Recorded ?Confirmed ?Type levothyroxine 25 mcg tablet 25 mcg PO DAILY 09/11/19 06/15/24 History metoprolol succinate 50 mg 25 mg PO DAILY 09/11/19 06/15/24 History tablet,extended release 24 hr potassium chloride 10 mEq 10 meq PO DAILY 09/11/19 06/15/24 History tablet,extended release donepezil 5 mg tablet 5 mg PO DAILY 07/13/21 06/15/24 History amlodipine 2.5 mg tablet 7.5 mg (3 x 2.5 mg) PO QAM 30 days 07/14/21 06/15/24 Rx #90 tabs atorvastatin 10 mg tablet 10 mg PO QPM 06/08/24 06/15/24 History Allergies Allergy/AdvReac Type Severity Reaction Status Date / Time Penicillins Allergy Unknown Verified 06/12/24 08:53 Vital Signs Vital Signs - 24 hr 06/15/24 12:32 06/15/24 12:45 06/15/24 13:00 Temperature 98.2 F Pulse Rate 79 76 73 Respiratory Rate 12 13 16 Blood Pressure 110/78 121/71 118/70 Pulse Oximetry 97 97 97 Oxygen Delivery Room Air 06/15/24 13:15 06/15/24 13:30 06/15/24 13:45 Temperature Pulse Rate 74 76 73 Respiratory Rate 14 16 14 Blood Pressure 122/68 121/78 119/70 Pulse Oximetry 97 97 98 Oxygen Delivery 06/15/24 13:55 06/15/24 14:15 06/15/24 14:45 Temperature Pulse Rate 72 73 72 Respiratory Rate 16 15 16 Blood Pressure Pulse Oximetry 97 98 98 Oxygen Delivery 06/15/24 15:00 06/15/24 15:12 06/15/24 15:43 Temperature Pulse Rate 78 75 Respiratory Rate 16 15 Blood Pressure Pulse Oximetry 99 99 Oxygen Delivery Room Air 06/15/24 16:08 06/15/24 16:39 06/15/24 16:45 Temperature Pulse Rate 83 81 76 Respiratory Rate 18 14 17 Blood Pressure 126/60 114/60 Pulse Oximetry 98 98 96 Oxygen Delivery 06/15/24 17:00 06/15/24 17:15 06/15/24 17:30 Temperature Pulse Rate 80 78 77 Respiratory Rate 18 17 19 Blood Pressure 109/65 115/64 120/68 Pulse Oximetry 97 97 Oxygen Delivery 06/15/24 17:45 06/15/24 18:00 06/15/24 18:15 Temperature Pulse Rate 77 78 75 Respiratory Rate 15 15 19 Blood Pressure 123/63 117/87 122/63 Pulse Oximetry 100 Oxygen Delivery 06/15/24 18:30 06/15/24 18:45 06/15/24 19:00 Temperature Pulse Rate 73 84 78 Respiratory Rate 17 19 13 Blood Pressure 114/62 120/62 119/65 Pulse Oximetry 98 99 Oxygen Delivery 06/15/24 19:15 06/15/24 19:30 06/15/24 19:45 Temperature Pulse Rate 78 77 77 Respiratory Rate 16 17 19 Blood Pressure 120/68 121/66 120/65 Pulse Oximetry Oxygen Delivery 06/15/24 20:00 06/15/24 20:15 06/15/24 20:30 Temperature Pulse Rate 77 78 82 Respiratory Rate 18 20 20 Blood Pressure 126/66 121/65 124/77 Pulse Oximetry 100 Oxygen Delivery Exam Narrative: General: Nontoxic-appearing female in the semi-House position in bed in no acute distress. Weight: 63 kg. BMI: 24.6. HEENT: PERRL, EOMI. Sclera anicteric. Moist mucous membranes. Neck: Supple. Respiratory: Lungs are clear to auscultation bilaterally. Cardiovascular: Regular rate and rhythm with S1-S2. Systolic murmur at the left lower sternal border. Gastrointestinal: Abdomen is soft, nontender, and nondistended with positive bowel sounds. No guarding or rebound tenderness. Skin: Warm and dry. She does not appear jaundiced. Extremities: No cyanosis or clubbing. 1+ rafia ankle edema bilaterally. Radial and pedal pulses intact. Neurological: Alert to name, date of , and place. She cannot tell me why she is in the hospital however. Cranial nerves 2-12 are grossly intact. Speech is clear. No facial asymmetry. No gross focal deficits to casual conversation. Psychiatric: Pleasantly confused and cooperative with appropriate mood. She is in good spirits. H&P: Results Labs Labs: Short CBC 06/15/24 Range/Units 12:49 WBC 4.6 (4.5-10.0) K/mm3 Hgb 11.9 L (12.0-15.0) g/dL Hct 36.8 L (37.0-47.0) % Plt Count 127 L (150-375) k/mm3 BMP 06/15/24 12:49 Sodium 137 Potassium 3.5 Chloride 106 Carbon Dioxide 21 L BUN 12 Creatinine 0.64 L Glucose 106 Calcium 8.4 Liver Function 06/15/24 Range/Units 12:49 Total Bilirubin 1.5 H (0.2-1.3) mg/dL AST 454 H (14-36) U/L ALT 131 H (6-35) U/L Alkaline Phosphatase 243 H (38-126) U/L Albumin 3.0 L (3.5-5.1) g/dL Assessment and Plan Assessment and plan (1) Generalized weakness: Code(s): R53.1 - Weakness Status: Acute (2) Unable to care for self: Code(s): Z78.9 - Other specified health status Status: Acute (3) Cirrhosis: Code(s): K74.60 - Unspecified cirrhosis of liver Status: Acute (4) Hypertension: Code(s): I10 - Essential (primary) hypertension Status: Acute (5) Hypothyroidism: Code(s): E03.9 - Hypothyroidism, unspecified Status: Acute Plan The patient presented to the emergency department from her doctor's office as she needs to be placed in a long term as detailed in HPI. Labs, imaging, EKG, and all reports were personally reviewed. Labs are comparable to those during her recent stay and there is no evidence of decompensated heart failure. Her vital signs are stable and she has no current complaints. Care coordination has been consulted to help with placement. Initiate fall precautions. Her home medications will be reviewed and resumed as appropriate. Findings and treatment plan were discussed with the patient. Questions were solicited and answered to satisfaction. The patient's medical management will be taken over by the hospitalist team in a.m. Quality VTE Prophylaxis VTE prophylaxis: mechanical ordered If No VTE Prophylaxis Answer both mechanical and pharmacologic: Reason no pharmacologic proph: medical contraindication thrombocytopenia The patient has been admitted under observation status. Hospitalist [facility] Advance Care Plan I have confirmed that the patient's Advanced Care Plan is present, code status is documented, or surrogate decision maker is listed in patient medical record.: Yes Medication Reconciliation I have utilized all available resources to obtain, update and review the patients current medications (includes all prescriptions, OTC, herbals, cannabis, and nutritional supplements).: Yes
[2024-06-16 06:00] VITALS: BP 143/64; PULSE 80; RESP 16; TEMP 36.4; O2SAT 97
[2024-06-16] MEDS: LEVOTHYROXINE SODIUM 25 MCG TABLET PO (06:20)
[2024-06-16] MEDS: POTASSIUM CHLORIDE 10 MEQ ER TABLET PO (08:02)
[2024-06-16] MEDS: amLODIPine BESYLATE 2.5 MG TABLET 7.5 MG PO (08:02)
[2024-06-16] MEDS: DONEPEZIL HCL 5 MG TABLET PO (08:02)
[2024-06-16] MEDS: METOPROLOL SUCCINATE EXT REL 25 MG TABCR PO (08:02)
[2024-06-16 08:57] VITALS: O2SAT 95
--- NOTE | 2024-06-16 12:33 | PM.DS ---
DS: Admitting Diagnosis Discharge Date 06/16/24 Admitting Diagnosis Generalized weakness Unable to care for self Cirrhosis Hypertension Hypothyroidism DS: Summary Hospital Course Reason for hospitalization: Generalized weakness Unable to care for self Cirrhosis Hypertension Hypothyroidism Hospital Course: This is an 88-year-old female with a significant past medical history of dementia, cirrhosis, hypertension, hyperlipidemia, hypothyroidism who presented to the emergency room via EMS from her primary care doctor's office in need a senior care placement. She was recently hospitalized a week ago with weakness, confusion, elevated liver enzymes. She was diagnosed with cirrhosis without decompensation and was discharged home 2 days ago with home health. Patient lives alone however she had family who would common check on her as well as caregivers. Family took her to her primary care doctor's office as they are having difficulties caring for her at home and was requesting senior care placement. Case coordination was consulted and patient was accepted at [facility]. Patient is stable for transfer to senior care at this time. Final diagnosis: Generalized weakness, physical deconditioning Status at Discharge Cognitive/behavioral status at discharge: alert and oriented x3 Functional status at discharge: uses cane/walker Overall status at discharge: patient is progressing back to baseline Time Spent with Patient Time attestation: Total time spent providing and/or coordinating discharge services: Exam Narrative: General: Failure to thrive, well-nourished Head: atraumatic, no encephalopathy Eyes: PERRLA, sclera clear ENT: moist mucous membranes, nasal passages clear Neck: supple, no JVD, no adenopathy, trachea midline Cardiac: Normal S1 and S2. No murmur, gallops or friction rubs, peripheral pulses intact. Respiratory: Lungs clear to auscultation, no adventitious lung sounds currently on room air Gastrointestinal: soft, non-distended, non-tender, normoactive bowel sounds. : voiding without difficulty. Extremities: moves all extremities well, no edema Skin: clean, dry, intact. No wounds or lesions. Neuro: Alert, cranial nerves intact, no neuro deficits. DS: Data Data Completed and Pending Completed studies during hospitalization: None Pending studies at discharge: None Labs on day of discharge: Labs from last 24 hours 06/15/24 12:49 WBC 4.6 RBC 4.15 L Hgb 11.9 L Hct 36.8 L MCV 88.7 MCH 28.7 MCHC 32.3 RDW 17.6 H Plt Count 127 L MPV 11.1 H Immature Gran % (Auto) 0.2 Neut % (Auto) 76.0 H Lymph % (Auto) 11.9 L [place] % (Auto) 10.6 H Eos % (Auto) 0.4 Baso % (Auto) 0.9 Lymph # (Auto) 0.55 L [place] # (Auto) 0.5 Eos # (Auto) 0.0 Baso # (Auto) 0.0 Abs Immat Gran (auto) 0.01 Absolute Neuts (auto) 3.5 Absolute Nucleated RBC 0.000 Nucleated RBC % 0.0 % Immature Plt Fraction 4.1 Sodium 137 Potassium 3.5 Chloride 106 Carbon Dioxide 21 L Anion Gap 10 BUN 12 Creatinine 0.64 L Estim Creat Clear Calc Not Reportable Estimated GFR > 60 Glucose 106 Calcium 8.4 Total Bilirubin 1.5 H AST 454 H ALT 131 H Alkaline Phosphatase 243 H Total Protein 8.0 Albumin 3.0 L Procedures/Treatments: None Discharge Plan Discharge Attending physician on discharge: Layo Chung Consulting providers: Gay Vinson Discharging Clinician: Maribeth Hahn Anticipated Discharge Date/Time: 06/16/24 12:27 Patient Disposition: SNF Activity: as tolerated Diet: as tolerated and regular Discharge Instructions: To [facility] Patient Language: Stateless Stand Alone Forms: General Discharge Information Follow-up/Referrals: Amira,MD Alina [Primary Care Provider] - 1 Week Discharge Medications: Continued donepezil 5 mg tablet 5 mg PO DAILY amlodipine 2.5 mg Tablet 7.5 mg PO QAM 30 Days Qty: 90 0RF atorvastatin 10 mg tablet 10 mg PO QPM metoprolol succinate 50 mg tablet extended release 24 hr 25 mg PO DAILY potassium chloride 10 mEq tablet extended release 10 meq PO DAILY levothyroxine 25 mcg tablet 25 mcg PO DAILY Date of admission: 06/15/24 18:21 Primary Care Provider: AmiraAlina Admitting Provider: Alan Reed Attending physician on admission: Maribeth Hahn Condition: Improved Hospitalist MIPS Heart Failure (Exclusion) Patient has history of Heart Transplant or Left Ventricular Assistive Device?: No IF YES, STOP HERE Heart Failure (Qualifier) Patient has current or prior documentation of LVEF less than or equal to 40%, or mod/servere depressed LVSF?: No IF NO, STOP HERE
[2024-06-16 14:00] VITALS: BP 140/76; PULSE 80; RESP 18; TEMP 36.4; O2SAT 96
== END 2024-06-16 17:32 ==
LOC: ANHED 18:27 → ANH2MED 19:24 → ANH3MED 06-16 07:22 → ANH2MED 06-19 07:05 → ANH3MED 06-19 07:05
PROVIDERS: Emergency Medicine; Admitting Provider General Practice; Emergency Provider Student in an Organized Health Care Education/Training Program; PCP Internal Medicine; Visit Provider Nurse Practitioner Acute Care
DX: R53.1 Weakness (principal); Z78.9 Other specified health status; K74.60 Unspecified cirrhosis of liver; I10 Essential (primary) hypertension; E03.9 Hypothyroidism, unspecified; E78.5 Hyperlipidemia, unspecified; F03.90 Unspecified dementia, unspecified severity, without behavioral disturbance, psychotic disturbance, mood disturbance, and anxiety; M81.0 Age-related osteoporosis without current pathological fracture; Z66 Do not resuscitate; Z75.1 Person awaiting admission to adequate facility elsewhere
CPT/HCPCS: 36415; 80053; 85025; 85055; 97161; 97165; 99285; A9270; G0378